=== PATIENT | male | born 1995 | race African-American/Black ===

== ENCOUNTER 2020-08-05 09:02 | Inpatient (IN) | payer MEDICAID, SELFPAY ==
[~2020-08-05] VITALS: Ht 180.3 cm; Wt 118.0 kg
[2020-08-05 09:32] LABS: BASO % 0.3 % (0.0-1.0); EOS # 0.1 10^3/uL (0.0-0.5); EOS % 0.9 % (0.0-3.0); HEMATOCRIT 38.5 % (42.0-52.0); LYMPH # 1.6 10^3/uL (1.5-5.0); LYMPH % 23.7 % (24.0-44.0); MEAN CORPUSCULAR HGB CONC 33.8 g/dl (32.0-36.5); MEAN CORPUSCULAR VOLUME 88.9 fl (80.0-96.0); MONO # 0.4 10^3/uL (0.0-0.8); MONO % 6.2 % (0.0-5.0); NEUTROPHILS # 4.6 10^3/uL (1.5-8.5); NEUTROPHILS % 68.6 % (36.0-66.0); PLATELET COUNT, AUTOMATED 296 10^3/uL (150-450); RED BLOOD COUNT 4.33 10^6/uL (4.30-6.10); WHITE BLOOD COUNT 6.7 10^3/uL (4.0-10.0)
[2020-08-05 09:56] LABS: AMPHETAMINES LEVEL URINE NEGATIVE (NEGATIVE); BARBITURATES URINE NEGATIVE (NEGATIVE); BENZODIAZEPINES URINE NEGATIVE (NEGATIVE); CANNABINOIDS URINE NEGATIVE (NEGATIVE); COCAINE METABOLITE URINE NEGATIVE (NEGATIVE); METHADONE URINE NEGATIVE (NEGATIVE); OPIATES URINE NEGATIVE (NEGATIVE); PHENCYCLIDINE URINE NEGATIVE (NEGATIVE)
[2020-08-05 10:03] LABS: ACETAMINOPHEN LEVEL < 2.0 UG/ML (10.0-30.0); ALBUMIN 3.8 GM/DL (3.2-5.2); ALT/SGPT 33 U/L (12-78); BILIRUBIN,DIRECT < 0.1 MG/DL (0.0-0.2); BILIRUBIN,TOTAL 0.2 MG/DL (0.2-1.0); BLOOD UREA NITROGEN 12 MG/DL (7-18); CALCIUM LEVEL 8.7 MG/DL (8.5-10.1); CARBON DIOXIDE LEVEL 29 MEQ/L (21-32); CHLORIDE LEVEL 106 MEQ/L (98-107); CREATININE FOR GFR 0.95 MG/DL (0.70-1.30); ETHYL ALCOHOL (ETHANOL) 0.003 % (0.000-0.010); GLOMERULAR FILTRATION RATE > 60.0 (>60); GLUCOSE, FASTING 96 MG/DL (70-100); POTASSIUM SERUM 3.9 MEQ/L (3.5-5.1); SALICYLATE LEVEL < 1.7 MG/DL (5.0-30.0); SODIUM LEVEL 143 MEQ/L (136-145); TOTAL PROTEIN 7.1 GM/DL (6.4-8.2)
[2020-08-05 14:13] LABS: RSV AMPLIFICATION NEGATIVE (NEGATIVE)
[2020-08-05] MEDS ORDERED: MOM 30ML SUSPENSION UDC PO PRN (14:45)
[2020-08-05] MEDS ORDERED: ACETAMINOPHEN TAB 650MG DOSE (2X325MG) PO PRN (14:45)
[2020-08-05] MEDS ORDERED: MAALOX 30 ML SUSP *UDC PO PRN (14:45)
[2020-08-05] MEDS ORDERED: OLANZapine ORAL DISINTEGRATING TAB 5MG PO PRN (15:00)
--- OUTSIDE RECORDS SUMMARY | 2020-08-05 15:08 | CCD | Continuity of Care Document ---
Author Author Kayode PEDROZA [facility] Organization Unknown Address [address] [place] [address] Phone [phone] Problems Description No Information Available Social History Type Date Description Comments Sex Unknown Allergies, Adverse Reactions, Alerts Description No Information Available Medications Description No Information Available Immunizations Description No Information Available Vital Signs Description No Information Available Results Description No Information Available Procedures Date Code Description Status 06/23/2020 82737 Psychiatric Diagnostic Evaluatio n Completed Medical Devices Description No Information Available Encounters Description No Information Available Assessments Date Code Description Provider 06/23/2020 F20.9 Schizophrenia, unspecified Jacqueline Regan [facility] Plan of Treatment No Information Available Functional Status Description No Information Available Mental Status Description No Information Available Referrals Description No Information Available
--- OUTSIDE RECORDS SUMMARY | 2020-08-05 15:08 | CCD | Continuity of Care Document ---
Author Author Kayode ARVIZU PAJovanniC Organization Unknown Address [facility] [address] [place] [address] Phone [phone] Problems Description No Information Available Social History Type Date Description Comments Sex Unknown Allergies, Adverse Reactions, Alerts Active Allergies Reaction Severity Comments Date NKDA 07/05/2020 Environmental 07/05/2020 NKFA 07/05/2020 Medications Active Medications SIG Qnty Indications Ordering Provide r Date Invega Sustenna 234mg/1.5ML Yesi Unknown 07/11/2019 Immunizations Description No Information Available Vital Signs Date Vital Result Comment 07/05/2020 2:10pm BP Systolic Sitting 120 mmHg BP Diastolic Sitting 79 mmHg Heart Rate 75 /min Body Temperature 98.7 F Oral Respiratory Rate 18 /min O2 % BldC Oximetry 98 % Weight 267.00 lb Weight 121.111 kg Height 74 inches 6'2" BMI (Body Mass Index) 34.3 kg/m2 BSA (Body Surface Area) 2.46 m2 Results Test Acquired Date Facility Test Result H/L Range Note [facility] Toxassure Select 13 07/05/2020 [facility] Summary Report (Summary) FINAL 1, 2 PDF . 1 {DIAGNOSIS: F20.9~{MEDICATI ONS/DECLARED: INVEGA~{PRESCRIPTION INFO:~{PRESCRIPTION INFO: 2 TOXASSURE SELECT 13 (MW) Test Result Flag Units NO DRUGS DETECTED. Test Result Flag Units Ref Range Creatinine 249 mg/dL >=20 Declared Medications: The flagging and interpretation on this report are based on the following declared medications. Unexpected results may arise from inaccuracies in the declared medications. Note: The testing scope of this panel does not include following reported medications: Paliperidone (Invega) For clinical consultation, please call . Procedures Date Code Description Status 06/24/2020 Psychiatric Diagnostic Evaluatio n Completed 06/23/2020 Psychiatric Diagnostic Evaluatio n Completed Medical Devices Description No Information Available Encounters Description No Information Available Assessments Date Code Description Provider 07/05/2020 F20.9 Schizophrenia, unspecified Lesa corbin, RN 06/24/2020 F20.9 Schizophrenia, unspecified Jacqueline Regan, LM 06/23/2020 F20.9 Schizophrenia, unspecified RONALDO Clancy Plan of Treatment Future Appointment(s):* 07/29/2020 9:00 am - Steve Arvizu PA-C at [facility] Functional Status Description No Information Available Mental Status Description No Information Available Referrals Description No Information Available
--- OUTSIDE RECORDS SUMMARY | 2020-08-05 15:08 | CCD ---
Author Author [facility] Organization [facility] Address Unknown Phone Unavailable Care Team Providers Care Needle Leader Name Role Phone SMITH, J KEO PA Unavailable Unavailable SMITH, J KEO PA Unavailable Unavailable SMITH, J KEO PA Unavailable Unavailable SMITH, J KEO PA Unavailable Unavailable SMITH, J KEO PA Unavailable Unavailable SMITH, J KEO PA Unavailable Unavailable SMITH, J KEO PA Unavailable Unavailable SMITH, J KEO PA Unavailable Unavailable SMITH, J KEO PA Unavailable Unavailable SMITH, J KEO PA Unavailable Unavailable SMITH, J KEO PA Unavailable Unavailable SMITH, J KEO PA Unavailable Unavailable SMITH, J KEO PA Unavailable Unavailable SMITH, J KEO PA Unavailable Unavailable SMITH, J KEO PA Unavailable Unavailable SMITH, J KEO PA Unavailable Unavailable SMITH, J KEO PA Unavailable Unavailable SMITH, J KEO PA Unavailable Unavailable SMITH, J KEO PA Unavailable Unavailable SMITH, J KEO PA Unavailable Unavailable SMITH, J KEO PA Unavailable Unavailable SMITH, J KEO PA Unavailable Unavailable SMITH, J EKO PA Unavailable Unavailable SMITH, J KEO PA Unavailable Unavailable SMITH, J KEO PA Unavailable Unavailable SMITH, J KEO PA Unavailable Unavailable SMITH, J KEO PA Unavailable Unavailable ERIN PEDROZA Unavailable Unavailable Re-disclosure Warning The records that you are about to access may contain information from federally-assisted alcohol or drug abuse programs. If such information is present, then the following federally mandated warning applies: This information has been disclosed to you from records protected by federal confidentiality rules (42 CFR part 2). The federal rules prohibit you from making any further disclosure of this information unless further disclosure is expressly permitted by the written consent of the person to whom it pertains or as otherwise permitted by 42 CFR part 2. A general authorization for the release of medical or other information is NOT sufficient for this purpose. The Federal rules restrict any use of the information to criminally investigate or prosecute any alcohol or drug abuse patient.The records that you are about to access may contain highly sensitive health information, the redisclosure of which is protected by Article 27-F of the [facility] Public Health law. If you continue you may have access to information: Regarding HIV / AIDS; Provided by facilities licensed or operated by the [facility] Office of Mental Health; or Provided by the [facility] Office for People With Developmental Disabilities. If such information is present, then the following [facility] mandated warning applies: This information has been disclosed to you from confidential records which are protected by state law. State law prohibits you from making any further disclosure of this information without the specific written consent of the person to whom it pertains, or as otherwise permitted by law. Any unauthorized further disclosure in violation of state law may result in a fine or senior care sentence or both. A general authorization for the release of medical or other information is NOT sufficient authorization for further disc losure. Encounters Encounter Providers Location Date Indications Data Source(s ) Outpatient Attender: KEO FLORES 07/20 08:36:00 AM [facility] - 07/20/2020 08:36:00 AM [facility] Outpatient Attender: KEO FLORES 07/05 02:01:00 PM [facility] 07/05/2020 02:01:00 PM [facility] Outpatient Attender: ERIN PEDROZA 06/24/20 08:09:00 AM [facility] - 06/24/2020 08:09:00 AM [facility] Medications Medication Brand Name Start Date Product Form Dose Route Admi nistrative Instructions Pharmacy Instructions Status Indications Reaction Description Data Source(s) 1.5 ML paliperidone palmitate 156 MG/ML Prefilled Syri nge [Invega] Invega Sustenna 07/11/2019 12:00:00 AM EST active [facility] ([facility]) Insurance Providers Payer name Policy type / Coverage type Policy ID Covered republican ID Covered republican's relationship to sommers Policy Sommers Plan Information SELF PAY ONLY [id number] Problems, Conditions, and Diagnoses Code Display Name Description Problem Type Effective Dates Data Source(s) F209 Schizophrenia, unspecified Schizophrenia, unspecified Diagnosis 07/20/2020 08:36:00 AM [facility] Surgeries/Procedures Procedure Description Date Indications Data Source(s) Psychiatric Diag Eval W/Medical Service 07/20/2020 12: 00:00 AM EST [facility] ([facility]) Psychiatric Diagnostic Evaluation 06/24/2020 12:00:00 AM EST [facility] ([facility]) Psychiatric Diagnostic Evaluation 06/23/2020 12:00:00 AM EST [facility] ([facility]) Results ID Date Data Source [id number] 07/05/2020 02:49:00 PM EST [facility] ([facility]) Name Value Range Interpretation Code Description Data Tahira rce(s) Supporting Document(s) PDF Laboratory test result [facility] ([facility]) {DIAGNOSIS: F20.9~{MEDICATIONS/DECLARED : INVEGA~{PRESCRIPTION INFO:~{PRESCRIPTION INFO: Laboratory test finding (navigational concept) Laboratory test result [facility] ([facility]) {DIAGNOSIS: F20.9~{MEDICATIONS/DECLARED : INVEGA~{PRESCRIPTION INFO:~{PRESCRIPTION INFO: ID Date Data Source [id number] 07/12/2020 08:01:00 AM [facility] Name Value Range Interpretation Code Description Data Tahira rce(s) Supporting Document(s) Drugs identified in Urine FINAL [facility] TOXASSURE SELECT 13 (MW) Test Result Flag Units NO DRUGS DETECTED. Jolanta t Result Flag Units Ref Range Creatinine 249 mg/dL > =20 Declared Medications: The flagging and interpretation on this report are based on the following declared medications. Unexpected results may arise from inaccuracies in the declared medications. Note: The testing scope of this panel does not include following reported medications: Paliperidone (Invega) For clinical consultation, please call . Report . [facility] Procedure Vital Signs ID Date Data Source UNK Name Value Range Interpretation Code Description Data Source(s) Body surface area Derived from formula 2.46 m2 2.46 m2 [facility] ([facility]) Body mass index (BMI) [Ratio] 34.3 kg/m2 34.3 k g/m2 [facility] ([facility]) Body height 74 [in_i] 74 [in_i] [facility] ([facility]) 6'2" Body weight 121.111 kg 121.111 kg [facility] ([facility]) Body weight 267.00 [lb_av] 267.00 [lb_av] [facility] T ([facility]) Oxygen saturation in Arterial blood by Pulse oximetry 98 % 98 % [facility] ([facility]) Respiratory rate 18 /min 18 /min [facility] ( [facility]) Body temperature 98.7 [degF] 98.7 [degF] [facility] ([facility]) Oral Heart rate 75 /min 75 /min [facility] ([facility]) Diastolic blood pressure--sitting 79 mm[Hg] 79 mm[Hg] [facility] ([facility]) Systolic blood pressure--sitting 120 mm[Hg] 120 mm[Hg] [facility] ([facility])
--- OUTSIDE RECORDS SUMMARY | 2020-08-05 15:08 | CCD | Continuity of Care Document ---
Author Author Kayode ARVIZU PAJovanniC Organization Unknown Address [facility] [address] [place] [address] Phone [phone] Problems Description No Information Available Social History Type Date Description Comments Sex Unknown Allergies, Adverse Reactions, Alerts Active Allergies Reaction Severity Comments Date NKDA 07/05/2020 Environmental 07/05/2020 NKFA 07/05/2020 Medications Active Medications SIG Qnty Indications Ordering Provide r Date Invega Sustenna 234mg/1.5ML Yesi 1 Inj Monthly 1.500ml Zay Molina MD 07/11/2019 Immunizations Description No Information Available Vital [...] call . Procedures Date Code Description Status 07/20/2020 21381 Psychiatric Diag Eval W/Medical Service Completed 06/24/202059167 Psychiatric Diagnostic Evaluatio n Completed 06/23/202070945 Psychiatric Diagnostic Evaluatio n Completed Medical Devices Description No Information Available Encounters Description No Information Available Assessments Date Code Description Provider 07/20/2020 F20.9 Schizophrenia, unspecified Steve Arvizu PA-C 07/05/2020 F20.9 Schizophrenia, unspecified Lesa corbin RN 06/24/2020 F20.9 Schizophrenia, unspecified Jacqueline Regan [facility] 06/23/2020 F20.9 Schizophrenia, unspecified Jacqueline Regan [facility] Plan of Treatment Future Appointment(s):* 07/21/2020 11:00 am - Lesa Gooden RN at [facility] * 08/17/2020 8:40 am - Steve Arvizu PA-C at [facility] Functional Status Description No Information Available Mental Status Description No Information Available Referrals Description No Information Available
--- OUTSIDE RECORDS SUMMARY | 2020-08-05 15:08 | CCD | Continuity of Care Document ---
Author Author Kayode SALOMON RN Organization Unknown Address [address] [place] [address] Phone [phone] Problems Description No Information Available Social History [...] BSA (Body Surface Area) 2.46 m2 Results Description No Information Available Procedures Date Code Description Status 06/24/2020 95880 Psychiatric Diagnostic Evaluatio n Completed 06/23/2020 76399 Psychiatric Diagnostic Evaluatio n Completed Medical Devices Description No Information Available Encounters Description No Information Available Assessments Date Code Description Provider 06/24/2020 F20.9 Schizophrenia, unspecified RONALDO Clancy 06/23/2020 F20.9 Schizophrenia, unspecified RONALDO Clancy Plan of Treatment Future Appointment(s):* 07/29/2020 9:00 am - Steve Arvizu PA-C at [facility] Functional Status Description No Information Available Mental Status Description No Information Available Referrals Description No Information Available
[2020-08-05 16:29] VITALS: BP 127/62
[2020-08-05] MEDS: PALIPERIDONE 3 MG ER TAB (INVEGA) PO SCH (21:41)
--- NOTE | 2020-08-06 13:58 | MHHPEPDOC ---
General Date Of Admission: Aug 05, 2020 Legal Status: 9.39 Chief Complaint "I don't know why I am here." History of Present Illness HISTORY OF THE PRESENT ILLNESS: Patient is a 25 -year-old , male, who presented to the ED by EMS after he was found wandering around [email or web address] driveway. He appeared cold and confused. Patient was unable to give the ED much information, he was confused and observed with poor concentration. PER ED Report: Pt was picked up and previously medically cleared. When asked how long he was outside wandering, pt unable to recall. Pt reports also not knowing why he was outside. Pt stated he has been in [place] for approximately 6 weeks. Previously located in [place], specifics are unknown. Pt was receiving Invega Sustenna injections in [place] but reportedly has not received any since getting to [place]. Pt reports no changes to appetite, but poor sleep. No history of smoking or drinking reported, nor any family hx. Pt reports no SI/HI and denies AH/VH, however responses to internal stimuli are suspected. Pt answered questions slowly and was vague with repsonses. At times, appears to respond internally and will contradict himself while answering questions. Pt is loose in associations and expresses belief that he is being controlled by an outside source, referencing "mind control" multiple times. Pt reported being diagnosed with schizophrenia, says "something's not right in (his) head", however expresses feeling that it's "something else" rather than schizophrenia. Additional collateral information obtained from Maykel Zacarias (cousin and stated guardian, although guardianship has not been confirmed), who reports the following: Pt and cousin have been in [place] since April, cousin is active duty . Pt is originally from [place]. Pt was diagnosed schizoaffective approximately 10 years ago and has [facility] [place] [facility] few times for violent crimes" however cousin "did not want to get into that." When asked how pt has been recently, it was reported that pt feels like a burden to cousin and "can sense that (cousin) is pretty stressed out." It is reported that pt has been increasingly anxious about his "lack of independence" and "being a burden." Cousin referenced a conversation they had about a week ago, in which cousin mentioned his stress about pt to pt directly, noting that pt's anxiety has been increasing since then. Cousin speculates that pt's preception that he is a "burden" is why pt left today and wandered off. In today's interview, patient is awakened for the interview. He states his name, age and date of but cannot elaborate on the reasons to his admission, why he was wandering and who he currently lives with. Patient states "I don't know to 99% of the psychiatric evaluation." He is able to verbalize depression symptoms, anxiety, suicidal or homicidal thinking, auditory or visual hallucinations. Patient is completely blocked, but is away of where his room is because when he left the interview he was able to return to his room without direction. Psychiatric Review of Systems Depression (2 or more weeks): other (Patient cannot verbalize any symptoms) Karen (4 or more days of): denies (States "I don't know"), other (Not observed with any manic or bipolar features) Psychosis: paranoia PTSD: other (possible PTSD, he reported to RN that he had significant childhood trauma) Anxiety: other (unable to determine, patient states "I don't know" but he appears anxious and nervous) Past Psychiatric History Per ED Report Pt reported being diagnosed with schizophrenia, says "something's not right in (his) head" Previously located in [place], specifics are unknown. Pt was receiving Invega Sustenna injections in [place] but reportedly has not received any since getting to [place] Pt and cousin have been in [place] since April, cousin is active duty . Pt is originally from [place]. Pt was diagnosed schizoaffective approximately 10 years ago and has [place] [facility] few times for [facility] crimes" however cousin "did not want to get into that." Unable to obtain Information below Previous Psychiatric Diagnosis: Schizophrenia Previous Psychiatric Admissions: In [place] Suicide Attempts: Unknown Psychiatric Follow-up: Patient moved here from [place] 6-7 weeks ago Psychiatric medications: Invega Sustenna Past Medical History Medical Problems Unable to obtain Head Injury: No Seizures: No Hospitalizations: Yes Family Medical/Psychiatric HX Medical Problems Unable to Obtain Psychiatric Disorders: No Addiction: No Suicide Attemps/Completions: No Addiction History other (patient reports Cannabis, ETOH in the past) Social History Unable to obtain the information at this time 08/06/20 at 1415 Childhood: Lived with his mother and Sister growing up, Abuse/Trauma: Denies Current Living Situation: Currently living with his Cousin who is reportedly his guardian, during patient's interview, pt stated that he went in front of varnish filterer who ruled that his cousin was assigned to be his guardian Education: Did not finish high school Employment: Not currently employed, but has a past work history Social Support: Cousin and Family/Mom Legal: yes, but can't remember charges Marital: Single Mental Status Examination General Appearance: unkempt, disheveled, appears stated age, hospital scubs/clothing Build: tall Demeanor: withdrawn, guarded Eye Contact: poor Activity: slowed Behavior: withdrawn Speech: low in volume, impoverished Mood: anxious Affect: flat Thought Process: blocked Thought Content (Delusions): other (unable to obtain patient states "I don't know") Thought Content (Other): guarded Thought Content (Aggressive): none reported Perception (Hallucinations): none reported Perception (Other): none reported Cognition (Impairment of): memory, attention/concentration Cognition(Intelligence Est.): other (unable to determine) Oriented: Awake, Alert Insight: other (impaired) Judgment: Other (impaired) Psychosis: Abstract Thinking Diagnoses Unspecified Psychotic Disorder Per patient's history Schizophrenia Per cousin's history Schizoaffective Intellectual Disability A-FIB/CHADSVASC A-FIB History Current/History of A-Fib/PAF?: No Current PO Anticoag Therapy: No Age/Risk Factor Scoring CHADSVASC: CHADSVASC Response (Comments) Value Age Risk Factor Age < 65 years old 0 Gender Risk Factor Male 0 Hx of CHF No 0 Hx of HTN No 0 Hx of Stroke/TIA/or VTE No 0 Hx of Diabetes No 0 Hx of Vascular Disease No 0 Total 0 Assessment Patient is a 25 year old male who was brought to [facility] after he was found confused and wandering in someone's driveway. Patient is blocked during the interview and it is difficult to obtain any significant history and most of the information within this psychiatric evaluation is from the ED report. According the ED the patient had reported that he had been taking Invega Sustenna and he has been in [facility] for 6 weeks. We will start patient on Risperdal and initiate Invega Sustenna injection on Sunday and Sunday, P yueient has not signed ROIs. Patient appears mildly paranoid, his most apparent psychiatric symptom at this time is that he is extremely blocked. Initial Treatment Plan 1. Patient was admitted on a [9.39] status. 2. Complete history was obtained. 3. With patients permission, family will be contacted and database will be expanded. 4. Patients medication regimen will be reviewed and changed accordingly. 5. Patient will be provided with protected environment. 6. Patient will be treated with individual, group, and milieu therapies. 7. Patient will receive supportive psych-education. 8. Discharge planning will commence immediately. 9. Outpatient follow-up treatment will be strongly recommended. 10. The initial treatment plan will focus initially on: * Depression. * altered thoughts ESTIMATED LENGTH OF STAY: 5-7 DAYS. TIME SPENT COUNSELING AND COORDINATING INITIAL CARE: 50 minutes. Vital Signs Vital Signs Date Time Temp Pulse Resp B/P (MAP) Pulse Ox O2 Delivery O2 Flow Rate FiO2 08/05/20 16:29 97.8 64 14 127/62 (83) 100 Room Air Medications Scheduled Paliperidone Palmitate (Invega Sustenna) 234 Mg/1.5 Ml Syringe, 234 MG IM QMONTH for Antipsychotic Due September 08, 2020 Allergies Coded Allergies: POLLEN (Verified Allergy, Unknown, 08/05/20) FAYE PATIÑO NP Aug 06, 2020 13:58
--- NOTE | 2020-08-06 17:05 | HPEPDOC ---
[facility] Medical History & Physical Date of Admission Aug 05, 2020 Date of Service: Aug 06, 2020 History and Physical Chief complaint: Presented to the emergency room with delusional thoughts History of present illness: Patient is a 25-year-old male with no significant past medical history who was presented to the emergency room with delusional thoughts. He was admitted to the inpatient mental health unit under the care of psychiatry. Hospitalist services consulted for medical screening evaluation. Currently patient denies any headache, nausea, vomiting, chest pain, shortness of breath, palpitations, abdominal pain, constipation, diarrhea, or urinary discomfort. Has not experience any recent fevers or chills. Reports no changes in his appetite, but has reported some weight gain. Past Medical History: No significant past medical history Past Surgical History: No significant past surgical history Allergies: See below Medications: See below Family History: - No history of malignancies Social History: - Denies the use of tobacco or illicit drugs; patient reports that he drinks beer occasionally - Denies recent travel or sick contacts - Lives with cousin - Occupation; on [employer] Review of Systems: 10 point review of systems complete, all negative otherwise stated in HPI Physical exam: - Vitals: BP [127/62], HR [64], RR [14], Sat [100%RA], Temp [97.8F] - General: Lying in bed, Speaking in full sentences, AAOx3 - HEENT: NC, AT, PERRLA - CVS: RRR, +S1S2 - Lungs: Fair air entry bilaterally, No appreciable wheezing / rales / rhonchi - Abdomen: Soft, Non-distended, Non-tender - Extremities: No lower extremity edema, No calf tenderness - Neuro: No focal motor or sensory deficit - Skin: No visible rashes Labs: See below Imaging: See below EKG: See below Assessment and Plan: Delusional thoughts - Patient was admitted to the inpatient mental health unit under the care of psychiatry - Currently being managed by psychiatry No significant past medical history DVT prophylaxis - Will c/w early ambulation Female jordan man was present throughout the duration of this history and physical examination Thank you for this consultation. Hospitalist service will now sign off. Please reconsult as needed Vital Signs Vital Signs Date Time Temp Pulse Resp B/P (MAP) Pulse Ox O2 Delivery O2 Flow Rate FiO2 08/05/20 16:29 97.8 64 14 127/62 (83) 100 Room Air Home Medications Unable to Obtain Active Prescriptions or Reported Meds Allergies Coded Allergies: POLLEN (Verified Allergy, Unknown, 08/05/20) YOGI NELSON MD Aug 06, 2020 17:05
[2020-08-06 19:11] VITALS: BP 128/66
[2020-08-06] MEDS: PALIPERIDONE 3 MG ER TAB (INVEGA) PO SCH (21:32)
[2020-08-06] MEDS: traZODone 50 MG TAB PO PRN (21:32)
[2020-08-07 06:35] VITALS: BP 151/88
[2020-08-07 18:31] VITALS: BP 129/66
[2020-08-07] MEDS: traZODone 50 MG TAB PO PRN (20:56)
[2020-08-07] MEDS: PALIPERIDONE 3 MG ER TAB (INVEGA) PO SCH (20:56)
[2020-08-08 06:32] VITALS: BP 136/81
[2020-08-08] MEDS ORDERED: PALIPERIDONE PALMITATE 234MG/1.5ML INJ (INVEGA)(FREE PSY INPT ONLY) IM ONE (11:00)
[2020-08-08 18:37] VITALS: BP 142/86
[2020-08-08] MEDS: PALIPERIDONE 3 MG ER TAB (INVEGA) PO SCH (21:24)
[2020-08-09 06:53] VITALS: BP 113/56
--- NOTE | 2020-08-09 15:36 | MHIPNPDOC ---
[facility] Progress Note Progress Note DATE OF SERVICE: 08/09/20 HISTORY: Patient is a 25 -year-old , male, who presented to the ED by EMS after he was found wandering around someone's driveway. He appeared cold and confused. Patient was unable to give the ED much information, he was confused and observed with poor concentration. PER ED Report: Pt was picked up and previously medically cleared. When asked how long he was outside wandering, pt unable to recall. Pt reports also not knowing why he was outside. Pt stated he has been in [place] for approximately 6 weeks. Previously located in [place], specifics are unknown. Pt was receiving Invega Sustenna injections in [place] but reportedly has not received any since getting to [place]. Pt reports no changes to appetite, but poor sleep. No history of smoking or drinking reported, nor any family hx. Pt reports no SI/HI and denies AH/VH, however responses to internal stimuli are suspected. Pt answered questions slo wly and was vague with repsonses. At times, appears to respond internally and will contradict himself while answering questions. Pt is loose in associations and expresses belief that he is being controlled by an outside source, referencing "mind control" multiple times. Pt reported being diagnosed with schizophrenia, says "something's not right in (his) head", however expresses fee ling that it's "something else" rather than schizophrenia. Additional collateral information obtained from Maykel Zacarias (cousin and stated guardian, although guardianship has not been confirmed), who reports the following: Pt and cousin have been in [place] since April, cousin is active duty . Pt is originally from [place]. Pt was diagnosed schizoaffective approximately 10 years ago and has been to [facility] "a few times for violent crimes" however cousin "did not want to get into that." When asked how pt has been recently, it was reported that pt feels like a burden to cousin and "can sense that (cousin) is pretty stressed out." It is reported that pt has been increasingly anxious about his "lack of independence" and "being a burden." Cousin referenced a conversation they had about a week ago, in which cousin mentioned his stress about pt to pt directly, noting that pt's anxiety has been increasing since then. Cousin speculates that pt's preception that he is a "burden" is why pt left today and wandered off. VITAL SIGNS: See below. CURRENT MEDICATIONS: See below. MENTAL STATUS EXAMINATION: Patient is a 25 -year-old , male, who presented to the ED by EMS after he was found wandering around someone's driveway. He appeared cold and confused. Speech: Is fluid, conversant, normal rate, tone and volume Language skills are intact Thought processes including: linear and goal oriented Thought content: denies depression and anxiety. Denies suicidal/homicidal ideation, planning or intent. Abstract reasoning, and computation: fair Description of associations: denies, none observed Description of abnormal or psychotic thoughts: denies, none observed. Judgment: fair Insight: fair Orientation: alert and oriented to person, place, time and situation Recent and remote memory: intact Attention span and concentration: good Language: expansive Fund of knowledge: average Mood: Euthymic Mood Affect: reactive DIAGNOSES: 1. Schizophrenia Disorder ASSESSMENT: Patient states that he is admitted to the hospital because he was frustrated with his Cousin and the amount of work that he felt he was responsible for. He stated that he "walked away" Patient denies SI/HI, AH/VH, depression or anxiety. He is seen in the milieu, social with peers and attending groups. He was given his Invega Sustenna booster of 156 mg IM yesterday. He is alert and oriented to person, place time and situation. 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 Per his Cousin, he feels that patient overheard some of his statement, walked out of the home feeling that he was a "burden" to his family. At this time, patient does not exhibit any abnormal psychiatric symptoms : no yamini, no psychosis, no delusions, no bizarre thinking, no obsessions, no paranoia, and no ruminations. Patient appears to be stable and we will plan for his discharge in a day or two. MANAGEMENT PLAN: Continue all medications, Risperdal oral was discontinued. Discharge on Sunday or Sunday when we have safe discharge plan and appropriate appointments for outpatient providers. TIME SPENT: 25 minutes. Vital Signs Vital Signs Date Time Temp Pulse Resp B/P (MAP) Pulse Ox O2 Delivery O2 Flow Rate FiO2 08/09/20 06:53 98.0 62 15 113/56 (75) 96 Room Air Current Medications Current Medications Medications (Trade) Dose Ordered Sig/James Route PRN Reason Start Time Stop Time Status Last Admin Dose Admin Acetaminophen (Tylenol Tab) 650 mg Q6HP PRN PO HEADACHE or DISCOMFORT 08/05/20 14:45 Al Hydrox/Mg Hydrox/Simethicone (Mylanta) 30 ml Q4HP PRN PO HEARTBURN/INDIGESTION 08/05/20 14:45 Home Med (Med Rec Complete!) ASDIRECTED XX 08/05/20 11:30 08/05/20 11:18 DC Magnesium Hydroxide (Milk Of Magnesia) 30 ml DAILYPRN PRN PO CONSTIPATION 08/05/20 14:45 Olanzapine (ZyPREXA ZYDIS) 5 mg Q6HP PRN PO ANXIETY/AGITATION 08/05/20 15:00 Paliperidone (Invega) 3 mg QHS PO 08/05/20 21:00 08/08/20 21:24 Trazodone HCl (Desyrel) 50 mg QHSP PRN PO INSOMNIA 08/05/20 14:45 08/07/20 20:56 Allergies Coded Allergies: POLLEN (Verified Allergy, Unknown, 08/05/20) FAYE PATIÑO NP Aug 09, 2020 15:36
[2020-08-09 16:50] VITALS: BP 132/75
[2020-08-10 06:38] VITALS: BP 110/65
--- NOTE | 2020-08-10 09:26 | MHIPN ---
[facility] PROGRESS NOTE DATE: 08/07/2020 This is a video assessment, he is seen in the presence of the staff, we are doing this because of the pandemic. VITAL SIGNS: Blood pressure 151/88, pulse 75, temperature 97.6. CHIEF COMPLAINT: Says he is doing okay. SUBJECTIVE: He is seen for followup, indicates is doing okay, but does not offer much other than that. Says has been doing okay, says he slept well. Says was doing okay when he was in [place], before he came to [place], and says he took his injection of the Invega a few weeks ago, over there, in [place]. MENTAL STATUS EXAMINATION: Neat, cooperative, but appears somewhat disinterested, no agitation, no psychomotor retardation, displays poverty of speech, answers questions briefly, logically, affect is restricted in range. Denies any suicidal thoughts or intents, no homicidal ideas or intents, unclear if there are any delusions at present, none overtly elicited, but he does not offer much in terms of speech or thought either. Judgment and insight remain compromised. ASSESSMENT: Schizophrenia versus schizoaffective disorder. PLAN: Continue current care, observations, he has been started on paliperidone (Invega), he will be put back on Invega intramuscular, and receives his first dose tomorrow. Meanwhile, will look at encouraging him to participate in activities in the unit. Further recommendations will be made depending on the clinical picture.
--- NOTE | 2020-08-10 11:35 | MHIPNPDOC ---
[facility] Progress Note Progress Note DATE OF SERVICE: 08/10/20 HISTORY: Patient is a 25 -year-old , male, who presented to the ED by EMS after he was found wandering around someone's driveway. He appeared cold and confused. Patient was unable to give the ED much information, he was confused and observed with poor concentration. PER ED Report: Pt was picked up and previously medically cleared. When asked how long he was outside wandering, pt unable to recall. Pt reports also not knowing why he was outside. Pt stated he has been in [place] for approximately 6 weeks. Previously located in [place], specifics are unknown. Pt was receiving Invega Sustenna injections in [place] but reportedly has not received any since getting to [place]. Pt reports no changes to appetite, but poor sleep. No history of smoking or drinking reported, nor any family hx. Pt reports no SI/HI and denies AH/VH, however responses to internal stimuli are suspected. Pt answered questions slo wly and was vague with repsonses. At times, appears to respond internally and will contradict himself while answering questions. Pt is loose in associations and expresses belief that he is being controlled by an outside source, referencing "mind control" multiple times. Pt reported being diagnosed with schizophrenia, says "something's not right in (his) head", however expresses fee ling that it's "something else" rather than schizophrenia. Additional collateral information obtained from Maykel Zacarias (cousin and stated guardian, although guardianship has not been confirmed), who reports the following: Pt and cousin have been in [place] since April, cousin is active duty . Pt is originally from [place]. Pt was diagnosed schizoaffective approximately 10 years ago and has been to assisted "a few times for violent crimes" however cousin "did not want to get into that." When asked how pt has been recently, it was reported that pt feels like a burden to cousin and "can sense that (cousin) is pretty stressed out." It is reported that pt has been increasingly anxious about his "lack of independence" and "being a burden." Cousin referenced a conversation they had about a week ago, in which cousin mentioned his stress about pt to pt directly, noting that pt's anxiety has been increasing since then. Cousin speculates that pt's preception that he is a "burden" is why pt left today and wandered off. VITAL SIGNS: See below. CURRENT MEDICATIONS: See below. MENTAL STATUS EXAMINATION: Patient is a 25 -year-old , male, who presented to the ED by EMS after he was found wandering around someone's driveway. He appeared cold and confused. Speech: Is fluid, conversant, normal rate, tone and volume Language skills are intact Thought processes including: linear and goal oriented Thought content: denies depression and anxiety. Denies suicidal/homicidal ideation, planning or intent. Abstract reasoning, and computation: fair Description of associations: denies, none observed Description of abnormal or psychotic thoughts: denies, none observed. Judgment: fair Insight: fair Orientation: alert and oriented to person, place, time and situation Recent and remote memory: intact Attention span and concentration: good Language: expansive Fund of knowledge: average Mood: Euthymic Mood Affect: reactive DIAGNOSES: 1. Schizophrenia Disorder ASSESSMENT: In today's interview, patient is alert and oriented, pts dress is appropriate. Hygiene and grooming is fair. Smiles on approach and is pleasant and engaged in the interview. He appears to be brighter in mood and affect. Denies depression and anxiety. Denies suicidal and homicidal ideation, planning or intent. Denies and is not observed with yamini, psychotic symptoms of delusions, bizarre thinking, obsessions, paranoia, ruminations illogical thoughts, flight of ideas or having poor insight and judgement. Patient has normal mentation, declines further hospitalization and would like to be discharged. We agree that he can be discharged tomorrow. MANAGEMENT PLAN: Continue all medications, Risperdal oral was discontinued. Discharge on Sunday08/11/20 TIME SPENT: 25 minutes. Vital Signs Vital Signs Date Time Temp Pulse Resp B/P (MAP) Pulse Ox O2 Delivery O2 Flow Rate FiO2 08/10/20 08:40 Room Air 08/10/20 06:38 98.1 57 14 110/65 (80) 97 Current Medications Current Medications Medications (Trade) Dose Ordered Sig/James Route PRN Reason Start Time Stop Time Status Last Admin Dose Admin Acetaminophen (Tylenol Tab) 650 mg Q6HP PRN PO HEADACHE or DISCOMFORT 08/05/20 14:45 Al Hydrox/Mg Hydrox/Simethicone (Mylanta) 30 ml Q4HP PRN PO HEARTBURN/INDIGESTION 08/05/20 14:45 Home Med (Med Rec Complete!) ASDIRECTED XX 08/05/20 11:30 08/05/20 11:18 DC Magnesium Hydroxide (Milk Of Magnesia) 30 ml DAILYPRN PRN PO CONSTIPATION 08/05/20 14:45 Olanzapine (ZyPREXA ZYDIS) 5 mg Q6HP PRN PO ANXIETY/AGITATION 08/05/20 15:00 Paliperidone (Invega) 3 mg QHS PO 08/05/20 21:00 08/09/20 15:37 DC 08/08/20 21:24 Trazodone HCl (Desyrel) 50 mg QHSP PRN PO INSOMNIA 08/05/20 14:45 08/07/20 20:56 Allergies Coded Allergies: POLLEN (Verified Allergy, Unknown, 08/05/20) FAYE PATIÑO NP Aug 10, 2020 11:35
[2020-08-10 16:11] VITALS: BP 134/75
--- NOTE | 2020-08-10 17:25 | MHIPN ---
[facility] PROGRESS NOTE DATE: 08/08/2020 VITAL SIGNS: Blood pressure 136/81, pulse 67, temperature 98.7. CHIEF COMPLAINT: Says is doing okay. SUBJECTIVE: He is seen for followup, he is seen in the presence of staff, on video. Says feels okay, and that yesterday went okay, reports moods are good, says he slept well. MENTAL STATUS EXAMINATION: Neat, cooperative, though somewhat disinterested, no agitation, no psychomotor retardation, gives brief answers, but logical, affect is restricted in range, denies any suicidal thoughts or intents, no homicidal ideas or intents, no evidence of any delusions at present, cognition grossly intact, judgment and insight remain compromised. ASSESSMENT: Unspecified psychotic disorder. Consider schizoaffective disorder versus schizophrenia. PLAN: Continue current care, observations, paliperidone 3 mg at night. He received intramuscular paliperidone today at 234 mg, receives the next one in 3 days, that is 156 mg intramuscular. Further recommendations to be made depending on the clinical picture.
[2020-08-11 06:40] VITALS: BP 114/58
[2020-08-11] MEDS ORDERED: PALIPERIDONE PALMITATE 156MG/1ML INJ(INVEGA)(FREE PSY INPT ONLY) IM ONE (09:00)
[2020-08-11] MEDS ORDERED: INVE234I IM (10:16)
--- NOTE | 2020-08-11 11:33 | MHDSPDOC ---
[facility] Discharge Summary Discharge Summary DATE OF ADMISSION: Aug 05, 2020 at 14:45 DATE OF DISCHARGE: Aug 11, 2020 at 1128 DISCHARGE DIAGNOSES: 1. Schizophrenia Disorder REASON FOR ADMISSION: HISTORY: Patient is a 25 -year-old , male, who presented to the ED by EMS after he was found wandering around someone's driveway. He appeared cold and confused. Patient was unable to give the ED much information, he was confused and observed with poor concentration. PER ED Report: Pt was picked up and previously medically cleared. When asked how long he was outside wandering, pt unable to recall. Pt reports also not knowing why he was outside. Pt stated he has been in [place] for approximately 6 weeks. Previously located in [place], specifics are unknown. Pt was receiving Invega Sustenna injections in [place] but reportedly has not received any since getting to [place]. Pt reports no changes to appetite, but poor sleep. No history of smoking or drinking reported, nor any family hx. Pt reports no SI/HI and denies AH/VH, however responses to internal stimuli are suspected. Pt answered questions slowly and was vague with repsonses. At times, appears to respond internally and will contradict himself while answering questions. Pt is loose in associations and expresses belief that he is being controlled by an outside source, referencing "mind control" multiple times. Pt reported being diagnosed with schizophrenia, says "something's not right in (his) head", however expresses feeling that it's "something else" rather than schizophrenia. Additional collateral information obtained from Maykel Zacarias (cousin and stated guardian, although guardianship has not been confirmed), who reports the following: Pt and cousin have been in [place] since April, cousin is active duty . Pt is originally from [place]. Pt was diagnosed schizoaffective approximately 10 years ago and has been to residential "a few times for violent crimes" however cousin "did not want to get into that." When asked how pt has been recently, it was reported that pt feels like a burden to cousin and "can sense that (cousin) is pretty stressed out." It is reported that pt has been increasingly anxious about his "lack of independence" and "being a burden." Cousin referenced a conversation they had about a week ago, in which cousin mentioned his stress about pt to pt directly, noting that pt's anxiety has been increasing since then. Cousin speculates that pt's preception that he is a "burden" is why pt left today and wandered off. CONSULTANTS INVOLVED: See Medical H + P by Hospitalist TREATMENT AND PROGRESS ON THE UNIT: [facility] 9.39 legal status he was afforded the following treatment modalities: 1) Individual Therapy 2) Group Therapy 3) Medication Management 4) Milieu Therapy 5) Safe Environment HOSPITAL COURSE: Patient was admitted to psychiatry on a 9.39 legal status. He was started on Risperdal 3 mg HS and it was reported that patient had been in [facility] for 6 weeks when he was found confused, wandering in someone's driveway and responding to internal stimuli. Patient on initial interview was very confused, answered throughout the interview with "I don't remember or I don't know." He appeared very frustrated with his memory DISCHARGE ASSESSMENT: Patient is a 25-year-old disabled, unemployed, -[place] male who was transported by EMS to [facility] after being found in the cold and confused. . Initially, patient was unable to provide any information as to why he was found wandering in the cold. Is collateral is his cousin who reports that he has guardianship of the patient states that they left [place] approximately 6 weeks ago and the patient had been started on Invega. He was started on oral Risperdal 3 mg at at bedtime. We did not have confirmation of when he last had his Invega Sustenna. He had an injection on 08/08/2020 in the booster of Invega Sustenna on 08/11/2020. It was later reported that the patient had had an injection while in [place] on 07/29/2020. At this time. His next injection is based on his last administration. His next Invega Sustenna will be due on 09/08/2020. Patient was initially isolative and was withdrawn to his room, he eventually became more social with his peers, attended groups and was calm and cooperative in the milieu. At this time. Patient's mood and affect has improved. He has a bright affect, pleasant and cooperative. He needs criteria for discharge MENTAL STATUS EXAMINATION ON DISCHARGE: Patient is a 25 -year-old , male, who presented to the ED by EMS after he was found wandering around someone's driveway. He appeared cold and confused. Speech: Is fluid, conversant, normal rate, tone and volume Language skills are intact Thought processes including: linear and goal oriented Thought content: denies depression and anxiety. Denies suicidal/homicidal ideation, planning or intent. Abstract reasoning, and computation: fair Description of associations: denies, none observed Description of abnormal or psychotic thoughts: denies, none observed. Judgment: fair Insight: fair Orientation: alert and oriented to person, place, time and situation Recent and remote memory: intact Attention span and concentration: good Language: expansive Fund of knowledge: average Mood: Euthymic Mood Affect: reactive MEDICATIONS ON DISCHARGE: Invega Sustenna 234 mg IM due September 08, 2020 PLAN/FOLLOWUP ARRANGEMENTS: Patient is following up with [facility] The amount of time spent in the coordination of care for this patient was approximately 25 minutes. Vital Signs/I&Os Vital Signs Date Time Temp Pulse Resp B/P (MAP) Pulse Ox O2 Delivery O2 Flow Rate FiO2 08/11/20 06:40 99.0 60 18 114/58 (76) 08/10/20 16:11 99 Room Air Medications Scheduled Paliperidone Palmitate (Invega Sustenna) 234 Mg/1.5 Ml Syringe, 234 MG IM QMONTH for Antipsychotic, #1 Due September 08, 2020 Allergies Coded Allergies: POLLEN (Verified Allergy, Unknown, 08/05/20) FAYE PATIÑO NP Aug 11, 2020 11:33
== END 2020-08-11 11:30 | disposition home or self-care (01) | DRG 750 ==
LOC: M ED 09:02 → M ED INP 14:45 → M PSY 16:10
PROVIDERS: ADMIT Psychiatry & Neurology Psychiatry; ATTEND Psychiatry & Neurology Psychiatry
DX: F20.9 Schizophrenia, unspecified (principal); F79 Unspecified intellectual disabilities; J30.1 Allergic rhinitis due to pollen

== ENCOUNTER 2020-11-24 22:14 | Inpatient (IN) | payer MEDICAID ==
[~2020-11-24] VITALS: Ht 188 cm; Wt 119.8 kg
[~2020-11-24 22:14] MED LIST: INVE234I IM
[2020-11-24 23:37] LABS: AMPHETAMINES LEVEL URINE NEGATIVE (NEGATIVE); BARBITURATES URINE NEGATIVE (NEGATIVE); BENZODIAZEPINES URINE NEGATIVE (NEGATIVE); CANNABINOIDS URINE NEGATIVE (NEGATIVE); COCAINE METABOLITE URINE NEGATIVE (NEGATIVE); METHADONE URINE NEGATIVE (NEGATIVE); OPIATES URINE NEGATIVE (NEGATIVE); PHENCYCLIDINE URINE NEGATIVE (NEGATIVE)
[2020-11-24 23:39] LABS: HEMATOCRIT 37.2 % (42.0-52.0); HEMOGLOBIN 12.8 g/dl (13.5-17.5); MEAN CORPUSCULAR HEMOGLOBIN 30.8 pg (27.0-33.0); MEAN CORPUSCULAR HGB CONC 34.4 g/dl (32.0-36.5); MEAN CORPUSCULAR VOLUME 89.4 fl (80.0-96.0); PLATELET COUNT, AUTOMATED 284 10^3/uL (150-450); RED BLOOD COUNT 4.16 10^6/uL (4.30-6.10); WHITE BLOOD COUNT 9.2 10^3/uL (4.0-10.0)
[2020-11-24 23:44] LABS: ALBUMIN 3.8 GM/DL (3.2-5.2); ALT/SGPT 33 U/L (12-78); BILIRUBIN,DIRECT < 0.1 MG/DL (0.0-0.2); BILIRUBIN,TOTAL 0.3 MG/DL (0.2-1.0); BLOOD UREA NITROGEN 12 MG/DL (7-18); CALCIUM LEVEL 8.6 MG/DL (8.5-10.1); CARBON DIOXIDE LEVEL 27 MEQ/L (21-32); CHLORIDE LEVEL 108 MEQ/L (98-107); GLOMERULAR FILTRATION RATE > 60.0 (>60); GLUCOSE, FASTING 84 MG/DL (70-100); SALICYLATE LEVEL < 1.7 MG/DL (5.0-30.0); SODIUM LEVEL 141 MEQ/L (136-145); TOTAL PROTEIN 7.3 GM/DL (6.4-8.2)
[2020-11-24 23:45] LABS: ACETAMINOPHEN LEVEL < 2.0 UG/ML (10.0-30.0); ETHYL ALCOHOL (ETHANOL) < 0.003 % (0.000-0.010)
[2020-11-25 12:43] LABS: RSV AMPLIFICATION NEGATIVE (NEGATIVE)
[2020-11-25] MEDS ORDERED: INVE234I IM (12:55)
[2020-11-25] MEDS ORDERED: PALI1TAB2 PO (12:55)
[2020-11-25] MEDS ORDERED: MOM 30ML SUSPENSION UDC PO PRN (18:45)
[2020-11-25] MEDS ORDERED: MAALOX 30 ML SUSP *UDC PO PRN (18:45)
[2020-11-25] MEDS ORDERED: IBUPROFEN 400MG TAB PO PRN (18:45)
--- NOTE | 2020-11-25 19:46 | ECGEPIP ---
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
[2020-11-25 20:33] VITALS: BP 123/75
[2020-11-25] MEDS: traZODone 50 MG TAB PO PRN (22:20)
[2020-11-26 06:38] VITALS: BP 138/90
[2020-11-26] MEDS: NICOTINE 21MG/24HR 1 EA TRANSDERMAL TD SCH (09:00)
--- NOTE | 2020-11-26 12:09 | MHHPEPDOC ---
General Date Of Admission: Nov 25, 2020 Legal Status: 9.39 Chief Complaint " My brain is messed up and I can't work regularly. History of Present Illness HISTORY OF THE PRESENT ILLNESS: Patient is a 25 -year-old , male, who [apparently has a long psychiatric history with treatment in the [facility]. Patient came to [place] with his cousin in April last year and had one previous admission in July of this year. He has not been receiving any outpatient treatment since his discharge, apparently wasn having conflict with his cousin that he was living with. He states that he cannot return to his cousin's place and the cousin called the police yesterday to have him come to the emergency room. Patient claims that he does not remember what happened and doesn't know why he was picked up by the police, but reports that he needs help because his brain is messed up and he cannot work. He is also homeless because he cannot go back to his cousin and doesn't want the hospital to contact his cousin. He is frequently saying that he cannot remember, and is not willing or capable of giving clear history. He is somewhat dramatic and deliberate and is in no acute physical distress and does not appear to be actively hallucinating but claims he needs a lot of help.]. Psychiatric Review of Systems Depression (2 or more weeks): suicidal thoughts Psychosis: disorganization PTSD: denies Anxiety: situational anxiety Past Psychiatric History Previous Psychiatric Diagnosis: [Was diagnosed over schizophrenia and schizoaffective disorder]. Previous Psychiatric Admissions: Been hospitalized in the [facility] and one admission at this hospital in July . Suicide Attempts: Denies any history of attempt. Psychiatric Follow-up: [, Not in any active treatment]. Psychiatric medications: Was on risperidone and injection. Past Medical History Medical Problems Denies any medical issues Head Injury: No Seizures: No Hospitalizations: No Surgeries: No Family Medical/Psychiatric HX Medical Problems Claims does not know his family history Addiction History denies Social History Childhood: [Born in [place], [place], never met his father as mother and sister but not present]. Abuse/Trauma:[Denies any history of being abused]. Current Living Situation: Was living with his cousin, currently homeless. Education: [11th grade, unemployed]. Employment: [, Unemployed]. Social Support: None . Legal: Denies any legal history. Marital: [, Never ]. Mental Status Examination General Appearance: appears stated age Build: average Demeanor: average Eye Contact: average Activity: average Behavior: cooperative Speech: low in volume, other (responding that he does not remember a lot of things) Mood: depressed, anxious Mood Feeling confused and nervous and depressed but denies any suicidal thoughts Affect: constricted, appropriate, congruent Thought Process: logical/linear Thought Content (Delusions): denies SI, HI, AVH Thought Content (Other): none reported, other (, can't think clear, but no gross hallucinations. No paranoia) Thought Content (Aggressive): none reported Perception (Hallucinations): none reported Perception (Other): none reported Cognition (Impairment of): none reported Cognition(Intelligence Est.): average Oriented: Awake, Alert, Oriented times three Insight: fair Judgment: Fair Diagnoses Chronic schizophrenia, undifferentiated. per history. He is not presenting with any clear cut symptoms and could be an element of malingering, rule out personality disorder, mixed A-FIB/CHADSVASC A-FIB History Current/History of A-Fib/PAF?: No Current PO Anticoag Therapy: No Age/Risk Factor Scoring CHADSVASC: CHADSVASC Response (Comments) Value Gender Risk Factor Male 0 Hx of CHF No 0 Hx of HTN No 0 Hx of Stroke/TIA/or VTE No 0 Hx of Diabetes No 0 Hx of Vascular Disease No 0 Total 0 Treatment Treatment ordered: NONE Assessment We will restart risperidone and observe and evaluate to the supportive therapy Initial Treatment Plan 1. Patient was admitted on a [9.39] status. 2. Complete history was obtained. 3. With patients permission, family will be contacted and database will be expanded. 4. Patients medication regimen will be reviewed and changed accordingly. 5. Patient will be provided with protected environment. 6. Patient will be treated with individual, group, and milieu therapies. 7. Patient will receive supportive psych-education. 8. Discharge planning will commence immediately. 9. Outpatient follow-up treatment will be strongly recommended. 10. The initial treatment plan will focus initially on: * Depression. * Risk for suicide. ESTIMATED LENGTH OF STAY: [5]-[7] DAYS. TIME SPENT COUNSELING AND COORDINATING INITIAL CARE: [40] minutes. Tobacco Cessation Screen If Patient is a Smoker Nonsmoker, per his report Pt Refused Vital Signs Vital Signs Date Time Temp Pulse Resp B/P (MAP) Pulse Ox O2 Delivery O2 Flow Rate FiO2 11/26/20 06:38 97.7 83 18 138/90 (106) 97 Room Air Medications Scheduled Paliperidone Palmitate (Invega Sustenna) 234 Mg/1.5 Ml Syringe, 234 MG IM ASDIRE CTED, (Reported) EVERY 3 WEEKS Scheduled PRN Paliperidone (Paliperidone ER) 3 Mg Tab.er.24, 3 MG PO DAILY PRN for MISSED APT, (Reported) TAKES PRN WHEN PT HAS MISSED INVEGA SUSTENNA INJECTION PER BATHHOUSE ATTENDANT CHRISTOPHER MURO AT [facility] [phone] Allergies Coded Allergies: POLLEN (Verified Allergy, Unknown, 08/05/20) ROBERT MATHEWS M.D. Nov 26, 2020 12:09
--- NOTE | 2020-11-26 19:08 | HPEPDOC ---
General Date of Admission Nov 25, 2020 at 18:45 Date of Service: Nov 26, 2020 Chief Complaint The patient is a 25-year-old male admitted with a reason for visit of Unspecified Depressive Disorder. Source: Patient Exam Limitations: No limitations History of Present Illness Patient is 25 years old male with past mental history of depression presented hospital with acute psychosis. Patient claims that he does not remember what happened and doesn't know why he was picked up by the police, but reports that he needs help because his brain is messed up and he cannot work. Patient was not compliant to his psych medications. During my interview patient denied any fever, chills, nausea, diarrhea or dysuria Home Medications Scheduled Paliperidone Palmitate (Invega Sustenna) 234 Mg/1.5 Ml Syringe, 234 MG IM ASDIRECTED, (Reported) EVERY 3 WEEKS Scheduled PRN Paliperidone (Paliperidone ER) 3 Mg Tab.er.24, 3 MG PO DAILY PRN for MISSED APT, (Reported) TAKES PRN WHEN PT HAS MISSED INVEGA SUSTENNA INJECTION PER REGISTERED DIETETIC TECHNICIAN CHRISTOPHER MURO AT [facility] [phone] Allergies Coded Allergies: POLLEN (Verified Allergy, Unknown, 08/05/20) Past Medical History Medical History History of depression Family History Stated that both parents are healthy Social History * Smoker: Denies Alcohol: Denies Drugs: denies A-FIB/CHADSVASC A-FIB History Current/History of A-Fib/PAF?: No Current PO Anticoag Therapy: No Age/Risk Factor Scoring CHADSVASC: CHADSVASC Response (Comments) Value Gender Risk Factor Male 0 Hx of CHF No 0 Hx of HTN No 0 Hx of Stroke/TIA/or VTE No 0 Hx of Diabetes No 0 Hx of Vascular Disease No 0 Total 0 Review of Systems Constitutional: Denies: Chills, Fever Eyes: Denies: Pain ENT: Denies: Head Aches Skin: Denies: Lesions Pulmonary: Denies: Dyspnea Cardiovascular: Denies: Chest Pain Gastrointestinal: Denies: Nausea Genitourinary: Denies: Dysuria Hematologic: Denies: Bruising Endocrine: Denies: Polydipsia Musculoskeletal: Denies: Neck Pain Neurological: Denies: Weakness Psych: Denies: Memory Issues Physical Examination General Exam: Positive: Alert, Cooperative Eye Exam: Positive: PERRLA ENT Exam: Positive: Atraumatic Neck Exam: Positive: Supple; Negative: JVD Chest Exam: Positive: Clear to auscultation Heart Exam: Positive: Rate Normal Telemetry: Positive: No significant arrhythmia Abdomen Exam: Positive: Normal bowel sounds Extremity Exam: Negative: Clubbing, Cyanosis Neuro Exam: Positive: Strength at 5/5 X4 ext, Cranial Nerves 3-12 NL Psych Exam: Positive: Oriented x 3 Vital Signs Vital Signs Date Time Temp Pulse Resp B/P (MAP) Pulse Ox O2 Delivery O2 Flow Rate FiO2 11/26/20 06:38 97.7 83 18 138/90 (106) 97 Room Air Assessment/Plan Patient is 25 years old male with past mental history of depression presented hospital with acute psychosis. Patient claims that he does not remember what happened and doesn't know why he was picked up by the police, but reports that he needs help because his brain is messed up and he cannot work. Patient was not compliant to his psych medications. During my interview patient denied any fever, chills, nausea, diarrhea or dysuria Problems (1) Psychosis Status: Acute Problem Text: Deferred treatment to psych team Plan / VTE VTE Prophylaxis Ordered?: No VTE Exclusion Mechanical Proph: Low Risk for VTE KASSI PEREZ DO Nov 26, 2020 19:08
[2020-11-26] MEDS: risperiDONE 3 MG TAB PO SCH (20:46)
[2020-11-26 21:00] VITALS: BP_SYST 132; BP_SYST 142; BP_DIAS 69; BP_DIAS 83
[2020-11-26] MEDS: traZODone 50 MG TAB PO PRN (22:01)
[2020-11-27 06:48] VITALS: BP 124/63
[2020-11-27] MEDS: NICOTINE 21MG/24HR 1 EA TRANSDERMAL TD SCH (09:00)
[2020-11-27 17:28] VITALS: BP 145/75
--- NOTE | 2020-11-27 20:29 | MHIPNPDOC ---
[facility] Progress Note Progress Note DATE OF SERVICE: 11/27/20 HISTORY: As per previous notes: "Patient is a 25 -year-old , male, who [apparently has a long psychiatric history with treatment in the [facility]. Patient came to [place] with his cousin in April last year and had one previous admission in July of this year. He has not been receiving any outpatient treatment since his discharge, apparently wasn having conflict with his cousin that he was living with. He states that he cannot return to his cousin's place and the cousin called the police yesterday to have him come to the emergency room. Patient claims that he does not remember what happened and doesn't know why he was picked up by the police, but reports that he needs help because his brain is messed up and he cannot work. He is also homeless because he cannot go back to his cousin and doesn't want the hospital to contact his cousin. He is frequently saying that he cannot remember, and is not willing or capable of giving clear history. He is somewhat dramatic and deliberate and is in no acute physical distress and does not appear to be actively hallucinating but claims he needs a lot of help." VITAL SIGNS: See below. NEW TEST RESULTS: See below CURRENT MEDICATIONS: See below. MENTAL STATUS EXAMINATION: General Appearance: appears stated age Build: average Demeanor: average Eye Contact: average Activity: average Behavior: cooperative Speech: Normal in r/t/v. spontaneous and fluent Mood: euthymic Mood congruent with mood Affect: constricted, appropriate, congruent Thought Process: logical/linear Thought Content (Delusions): denies SI, HI, AVH Thought Content (Other): none reported, other Thought Content (Aggressive): none reported Perception (Hallucinations): none reported Perception (Other): none reported Cognition (Impairment of): none reported Cognition(Intelligence Est.): average Oriented: Awake, Alert, Oriented times three Insight: fair Judgment: Fair Diagnoses Chronic schizophrenia, undifferentiated. per history. ASSESSMENT: He is stable but he says he is struggling, he says he still not as stable as he would like to. He feels confused and his mind is foggy, not completely clear but denies TAV hallucinations and denies thought delusions. He says he wouldn't like to go to his cousin's house because he doesn't feel safe with him. MANAGEMENT PLAN: will continue on the same treatment plan TIME SPENT: 20 minutes. Vital Signs Vital Signs Date Time Temp Pulse Resp B/P (MAP) Pulse Ox O2 Delivery O2 Flow Rate FiO2 11/27/20 17:28 97.1 56 16 145/75 (98) 11/27/20 06:48 98 Room Air Current Medications Current Medications Medications (Trade) Dose Ordered Sig/James Route PRN Reason Start Time Stop Time Status Last Admin Dose Admin Al Hydrox/Mg Hydrox/Simethicone (Mylanta) 30 ml Q4HP PRN PO HEARTBURN/INDIGESTION 11/25/20 18:45 Home Med (Med Rec Complete!) ASDIRECTED XX 11/25/20 13:00 11/25/20 12:58 DC Ibuprofen (Advil) 400 mg Q6HP PRN PO PAIN 11/25/20 18:45 Magnesium Hydroxide (Milk Of Magnesia) 30 ml DAILYPRN PRN PO CONSTIPATION 11/25/20 18:45 Nicotine (Nicoderm Cq 21mg) 1 patch DAILY TD 11/26/20 09:00 Risperidone (RisperDAL) 3 mg QHS PO 11/26/20 21:00 11/26/20 20:46 Trazodone HCl (Desyrel) 50 mg QHSP PRN PO INSOMNIA 11/25/20 18:45 11/26/20 22:01 Allergies Coded Allergies: POLLEN (Verified Allergy, Unknown, 08/05/20) SUPRIYA FIERRO MD Nov 27, 2020 20:07
[2020-11-27] MEDS: risperiDONE 3 MG TAB PO SCH (20:37)
[2020-11-27] MEDS: traZODone 50 MG TAB PO PRN (20:37)
[2020-11-28 06:00] VITALS: BP 101/58
[2020-11-28] MEDS: NICOTINE 21MG/24HR 1 EA TRANSDERMAL TD SCH (08:04)
--- NOTE | 2020-11-28 12:36 | MHIPNPDOC ---
[facility] Progress Note Progress Note DATE OF SERVICE: 11/28/20 HISTORY: As per previous notes: "Patient is a 25 -year-old , male, who [apparently has a long psychiatric history with treatment in the [facility]. Patient came to [place] with his cousin in April last year and had one previous admission in July of this year. He has not been receiving any outpatient treatment since his discharge, apparently wasn having conflict with his cousin that he was living with. He states that he cannot return to his cousin's place and the cousin called the police yesterday to have him come to the emergency room. Patient claims that he does not remember what happened and doesn't know why he was picked up by the police, but reports that he needs help because his brain is messed up and he cannot work. He is also homeless because he cannot go back to his cousin and doesn't want the hospital to contact his cousin. He is frequently saying that he cannot remember, and is not willing or capable of giving clear history. He is somewhat dramatic and deliberate and is in no acute physical distress and does not appear to be actively hallucinating but claims he needs a lot of help." VITAL SIGNS: See below. NEW TEST RESULTS: See below CURRENT MEDICATIONS: See below. MENTAL STATUS EXAMINATION: General Appearance: appears stated age Build: average Demeanor: average Eye Contact: average Activity: average Behavior: cooperative Speech: Normal in r/t/v. spontaneous and fluent Mood: euthymic Mood congruent with mood Affect: constricted, appropriate, congruent Thought Process: logical/linear Thought Content (Delusions): denies SI, HI, AVH Thought Content (Other): none reported, other Thought Content (Aggressive): none reported Perception (Hallucinations): none reported Perception (Other): none reported Cognition (Impairment of): none reported Cognition(Intelligence Est.): average Oriented: Awake, Alert, Oriented times three Insight: fair Judgment: Fair Diagnoses Chronic schizophrenia, undifferentiated. per history. ASSESSMENT: HHe states he is not feeling 100% better. I think he is trying to stay [facility] at the [facility] because he has housing problems. MANAGEMENT PLAN: will continue on the same treatment plan TIME SPENT: 20 minutes. Vital Signs Vital Signs Date Time Temp Pulse Resp B/P (MAP) Pulse Ox O2 Delivery O2 Flow Rate FiO2 11/28/20 06:00 97.6 57 16 101/58 (72) 98 Room Air Current Medications Current Medications Medications (Trade) Dose Ordered Sig/James Route PRN Reason Start Time Stop Time Status Last Admin Dose Admin Al Hydrox/Mg Hydrox/Simethicone (Mylanta) 30 ml Q4HP PRN PO HEARTBURN/INDIGESTION 11/25/20 18:45 Home Med (Med Rec Complete!) ASDIRECTED XX 11/25/20 13:00 11/25/20 12:58 DC Ibuprofen (Advil) 400 mg Q6HP PRN PO PAIN 11/25/20 18:45 Magnesium Hydroxide (Milk Of Magnesia) 30 ml DAILYPRN PRN PO CONSTIPATION 11/25/20 18:45 Nicotine (Nicoderm Cq 21mg) 1 patch DAILY TD 11/26/20 09:00 Risperidone (RisperDAL) 3 mg QHS PO 11/26/20 21:00 11/27/20 20:37 Trazodone HCl (Desyrel) 50 mg QHSP PRN PO INSOMNIA 11/25/20 18:45 11/27/20 20:37 Allergies Coded Allergies: POLLEN (Verified Allergy, Unknown, 08/05/20) SUPRIYA FIERRO MD Nov 28, 2020 12:36
[2020-11-28 17:56] VITALS: BP 140/82
[2020-11-28] MEDS: risperiDONE 3 MG TAB PO SCH (21:10)
[2020-11-28] MEDS: traZODone 50 MG TAB PO PRN (21:10)
[2020-11-29 06:16] VITALS: BP 122/59
[2020-11-29] MEDS: NICOTINE 21MG/24HR 1 EA TRANSDERMAL TD SCH (08:25)
--- NOTE | 2020-11-29 09:00 | MHIPNPDOC ---
[facility] Progress Note Progress Note DATE OF SERVICE: 11/29/20 Patient is cooperating with his medication of risperidone and tolerating without any complaint of side effect. He still feels quite confused and not able to org anize his income but is pleasant on approach and maintaining good control. He wants to find his own apartment, but currently doesn't have any financial resources and claims that though his family gets his SSI check, possibly his cousin. He is denying any command hallucination and denies any thoughts of suicide or harming anybody but still believes that he can not go back to his cou sin for some unclear reason and not able to elaborate. We will continue with his current medicine and try to develop safe discharge plan HISTORY: . VITAL SIGNS: See below. NEW TEST RESULTS: . CURRENT MEDICATIONS: See below. MENTAL STATUS EXAMINATION: Patient is a 25-year old male, who is , very pleasant and cooperative. Speech: Is relevant, but not productive and unreliable historian. Language skills are , fair. Thought processes including: Relevant, but not productive. Not spontaneous. Thought content: Claims he cannot think clearly . Abstract reasoning, and computation: , Poor. Description of associations: Relevant. Description of abnormal or psychotic thoughts: Feeling confused. Judgment: poor. Insight: poor. Orientation: . He knows the date and place and person but reports feeling confused. Recent and remote memory: , Fair. Attention span and concentration: , Fair. Language: . Fund of knowledge: Below average. Mood: Denies any serious depression and doesn't appear highly anxious. Affect: , Appropriate with good range of emotion. DIAGNOSES: 1. . Chronic schizophrenia, undifferentiated 2. . 3. . ASSESSMENT:[, No significant change, but no acting out behavior and denies any lethality] MANAGEMENT PLAN: [Continued to supportive therapy and discharge planning]. TIME SPENT: 20 minutes. Vital Signs Vital Signs Date Time Temp Pulse Resp B/P (MAP) Pulse Ox O2 Delivery O2 Flow Rate FiO2 11/29/20 06:16 98.7 61 18 122/59 (80) 98 Room Air Current Medications Current Medications Medications (Trade) Dose Ordered Sig/James Route PRN Reason Start Time Stop Time Status Last Admin Dose Admin Al Hydrox/Mg Hydrox/Simethicone (Mylanta) 30 ml Q4HP PRN PO HEARTBURN/INDIGESTION 11/25/20 18:45 Home Med (Med Rec Complete!) ASDIRECTED XX 11/25/20 13:00 11/25/20 12:58 DC Ibuprofen (Advil) 400 mg Q6HP PRN PO PAIN 11/25/20 18:45 Magnesium Hydroxide (Milk Of Magnesia) 30 ml DAILYPRN PRN PO CONSTIPATION 11/25/20 18:45 Nicotine (Nicoderm Cq 21mg) 1 patch DAILY TD 11/26/20 09:00 Risperidone (RisperDAL) 3 mg QHS PO 11/26/20 21:00 11/28/20 21:10 Trazodone HCl (Desyrel) 50 mg QHSP PRN PO INSOMNIA 11/25/20 18:45 11/28/20 21:10 Allergies Coded Allergies: POLLEN (Verified Allergy, Unknown, 08/05/20) ROBERT MATHEWS M.D. Nov 29, 2020 09:00
[2020-11-29 16:05] VITALS: BP 144/72
[2020-11-29] MEDS: risperiDONE 3 MG TAB PO SCH (20:32)
[2020-11-29] MEDS: traZODone 50 MG TAB PO PRN (21:13)
[2020-11-30] MEDS ORDERED: OLANZapine INTRAMUSCULAR 10MG VIAL IM ONE (01:20)
[2020-11-30 06:50] VITALS: BP 112/64
[2020-11-30] MEDS: NICOTINE 21MG/24HR 1 EA TRANSDERMAL TD SCH (08:28)
--- NOTE | 2020-11-30 11:22 | MHIPNPDOC ---
[facility] Progress Note Progress Note DATE OF SERVICE: 11/30/20 Patient is fully cooperating with the treatment and maintaining good control. Is still feeling somewhat hopeless, feeling confused and wants help, including ass istance for housing and he was referred to . BILL. Is in no acute distress and is fully cooperating. Denies any side effects from the medicine and denies any command hallucinations. HISTORY: . VITAL SIGNS: See below. NEW TEST RESULTS: . CURRENT MEDICATIONS: See below. MENTAL STATUS EXAMINATION: Patient is a 25-year old male, who is , cooperative. Speech: Is rational, not productive . Language skills are fair. Thought processes including: Relevant. Thought content: No gross delusion and no suicidal thoughts. Abstract reasoning, and computation: , Fair. Description of associations: Relevant. Description of abnormal or psychotic thoughts: Denies any. Judgment: , Poor. Insight: poor. Orientation: , Well oriented. Recent and remote memory: Fair. Attention span and concentration: , Poor. Language: . Fund of knowledge: Below average. Mood: Euthymic. Affect: Blunted but appropriate. DIAGNOSES: 1. . Chronic schizophrenia 2. . 3. . ASSESSMENT:Maintaining good control and in no acute distress MANAGEMENT PLAN: . Continue current treatment plan. TIME SPENT: 15] minutes. Vital Signs Vital Signs Date Time Temp Pulse Resp B/P (MAP) Pulse Ox O2 Delivery O2 Flow Rate FiO2 11/30/20 06:50 97.6 64 20 112/64 (80) 98 Room Air Current Medications Current Medications Medications (Trade) Dose Ordered Sig/James Route PRN Reason Start Time Stop Time Status Last Admin Dose Admin Al Hydrox/Mg Hydrox/Simethicone (Mylanta) 30 ml Q4HP PRN PO HEARTBURN/INDIGESTION 11/25/20 18:45 Home Med (Med Rec Complete!) ASDIRECTED XX 11/25/20 13:00 11/25/20 12:58 DC Ibuprofen (Advil) 400 mg Q6HP PRN PO PAIN 11/25/20 18:45 Magnesium Hydroxide (Milk Of Magnesia) 30 ml DAILYPRN PRN PO CONSTIPATION 11/25/20 18:45 Nicotine (Nicoderm Cq 21mg) 1 patch DAILY TD 11/26/20 09:00 Risperidone (RisperDAL) 3 mg QHS PO 11/26/20 21:00 6/7/21 20:32 Trazodone HCl (Desyrel) 50 mg QHSP PRN PO INSOMNIA 11/25/20 18:45 11/29/20 21:13 Allergies Coded Allergies: POLLEN (Verified Allergy, Unknown, 08/05/20) ROBERT MATHEWS M.D. Nov 30, 2020 11:22
[2020-11-30 16:01] VITALS: BP 139/68
[2020-11-30] MEDS: risperiDONE 3 MG TAB PO SCH (20:01)
[2020-11-30] MEDS: traZODone 50 MG TAB PO PRN (20:01)
[2020-12-01 06:47] VITALS: BP 144/76
[2020-12-01] MEDS: NICOTINE 21MG/24HR 1 EA TRANSDERMAL TD SCH (08:14)
--- NOTE | 2020-12-01 09:44 | MHIPNPDOC ---
[facility] Progress Note Progress Note DATE OF SERVICE: 12/01/20 The patient has been fully cooperating with the medication and today he reports that he is feeling much better. He does not feel so confused. He is not depress ed and not feeling so hopeless, helpless and feel like he can go out and go on living. He wants discharge but is not sure where he will be going. Obviously has no safe place to stay. He does not appear to be paranoid and denies any suicidal thoughts and doesn't appear to be hallucinating, so we will have the master planner to discuss with him for safe discharge. HISTORY: . VITAL SIGNS: See below. NEW TEST RESULTS: . CURRENT MEDICATIONS: See below. MENTAL STATUS EXAMINATION: Patient is a 25-year old male, who is smiling and pleasant]. Speech: Is more spontaneous. Language skills are , but. Thought processes including: Relevant and productive. Thought content: , Denies any paranoia or confusion. Abstract reasoning, and computation: fair . Description of associations: Much better organized. Description of abnormal or psychotic thoughts: Denies any hallucination or paranoia. Judgment: Fair . Insight: fair. . Orientation: , Very oriented. Recent and remote memory: Fair. Attention span and concentration: Fair. Language: . Fund of knowledge: Below average. Mood: feeling hopeful and smiling. Affect: Bridle animated and appropriate. DIAGNOSES: 1. . Chronic schizophrenia 2. . 3. . ASSESSMENT: Showing improvement MANAGEMENT PLAN: Continue the current medicine and discharge plan. TIME SPENT: 15 minutes. Vital Signs Vital Signs Date Time Temp Pulse Resp B/P (MAP) Pulse Ox O2 Delivery O2 Flow Rate FiO2 12/01/20 06:47 97.6 84 20 144/76 (98) 99 Room Air Current Medications Current Medications Medications (Trade) Dose Ordered Sig/James Route PRN Reason Start Time Stop Time Status Last Admin Dose Admin Al Hydrox/Mg Hydrox/Simethicone (Mylanta) 30 ml Q4HP PRN PO HEARTBURN/INDIGESTION 11/25/20 18:45 Home Med (Med Rec Complete!) ASDIRECTED XX 11/25/20 13:00 11/25/20 12:58 DC Ibuprofen (Advil) 400 mg Q6HP PRN PO PAIN 11/25/20 18:45 Magnesium Hydroxide (Milk Of Magnesia) 30 ml DAILYPRN PRN PO CONSTIPATION 11/25/20 18:45 Nicotine (Nicoderm Cq 21mg) 1 patch DAILY TD 11/26/20 09:00 Risperidone (RisperDAL) 3 mg QHS PO 11/26/20 21:00 11/30/20 20:01 Trazodone HCl (Desyrel) 50 mg QHSP PRN PO INSOMNIA 11/25/20 18:45 11/30/20 20:01 Allergies Coded Allergies: POLLEN (Verified Allergy, Unknown, 08/05/20) ROBERT MATHEWS M.D. Dec 01, 2020 09:44
[2020-12-01 16:00] VITALS: BP 138/72
[2020-12-01] MEDS: risperiDONE 3 MG TAB PO SCH (22:11)
[2020-12-01] MEDS: traZODone 50 MG TAB PO PRN (22:41)
[2020-12-02 06:36] VITALS: BP 133/83
[2020-12-02] MEDS: NICOTINE 21MG/24HR 1 EA TRANSDERMAL TD SCH (09:00)
--- NOTE | 2020-12-02 10:25 | MHIPNPDOC ---
[facility] Progress Note Progress Note DATE OF SERVICE: 12/02/20 The patient is a maintaining improved mental status and behavior. He is complying with the medications and maintaining good control and appears quite pleasant and animated. He is feeling better but he understands that he needs support and supervision and willing to accept referred to a supportive living. HISTORY: . VITAL SIGNS: See below. NEW TEST RESULTS: . CURRENT MEDICATIONS: See below. MENTAL STATUS EXAMINATION: Patient is a 25-year old male, who is [in good control. Speech: Is rational. Language skills are , good. Thought processes including: Relevant Thought content: Denies any hallucination, paranoia. Abstract reasoning, and computation: , Fair. Description of associations: Organized. Description of abnormal or psychotic thoughts: , Denies any paranoia. Judgment: , Fair. Insight: fair.. Orientation: , Oriented. Recent and remote memory: , Fair. Attention span and concentration: , Fair. Language: . Fund of knowledge: . Mood: Euthymic . Affect: , Appropriate. DIAGNOSES: 1. ]. Chronic schizophrenia 2. . 3. . ASSESSMENT:[Showing improvement] MANAGEMENT PLAN: [Needs supportive living]. TIME SPENT: 15 minutes. Vital Signs Vital Signs Date Time Temp Pulse Resp B/P (MAP) Pulse Ox O2 Delivery O2 Flow Rate FiO2 12/02/20 06:36 98.2 76 18 133/83 (100) 96 Room Air Current Medications Current Medications Medications (Trade) Dose Ordered Sig/James Route PRN Reason Start Time Stop Time Status Last Admin Dose Admin Al Hydrox/Mg Hydrox/Simethicone (Mylanta) 30 ml Q4HP PRN PO HEARTBURN/INDIGESTION 11/25/20 18:45 Home Med (Med Rec Complete!) ASDIRECTED XX 11/25/20 13:00 11/25/20 12:58 DC Ibuprofen (Advil) 400 mg Q6HP PRN PO PAIN 11/25/20 18:45 Magnesium Hydroxide (Milk Of Magnesia) 30 ml DAILYPRN PRN PO CONSTIPATION 11/25/20 18:45 Nicotine (Nicoderm Cq 21mg) 1 patch DAILY TD 11/26/20 09:00 Risperidone (RisperDAL) 3 mg QHS PO 11/26/20 21:00 12/01/20 22:11 Trazodone HCl (Desyrel) 50 mg QHSP PRN PO INSOMNIA 11/25/20 18:45 12/01/20 22:41 Allergies Coded Allergies: POLLEN (Verified Allergy, Unknown, 08/05/20) ROBERT MATHEWS M.D. Dec 02, 2020 10:25
[2020-12-02 16:04] VITALS: BP 143/84
[2020-12-02] MEDS: traZODone 50 MG TAB PO PRN (20:11)
[2020-12-02] MEDS: risperiDONE 3 MG TAB PO SCH (20:11)
[2020-12-03 06:00] VITALS: BP 129/63
[2020-12-03] MEDS: NICOTINE 21MG/24HR 1 EA TRANSDERMAL TD SCH (08:05)
--- NOTE | 2020-12-03 09:16 | MHIPNPDOC ---
[facility] Progress Note Progress Note DATE OF SERVICE: 12/03/20 The patient is maintaining somewhat improved mental status and offers no new complaints. He understands that he needs supportive living arrangement and is willing to cooperate with the process. He is smiling more and verbally productive. Denies feeling confused and denies any paranoid. He is tolerating medications without any complaint of side effect. HISTORY: . VITAL SIGNS: See below. NEW TEST RESULTS: . CURRENT MEDICATIONS: See below. MENTAL STATUS EXAMINATION: Patient is a 25-year old male, who is in no acute distress. Speech: Is relevant. Language skills are good. Thought processes including: , Coherent. Thought content: , Denies any paranoia. Abstract reasoning, and computation: , Fair. Description of associations: Relevant. Description of abnormal or psychotic thoughts: Denies any hallucinations. Judgment: Fair. Insight: fair. . Orientation: , Oriented. Recent and remote memory: Fair. Attention span and concentration: Fair. Language: . Fund of knowledge: poor. Mood: Euthymic . Affect: Appropriate]. DIAGNOSES: 1. . Chronic schizophrenia 2. . 3. . ASSESSMENT:Cooperating with the treatment and discharge plan MANAGEMENT PLAN: Referred to a supportive living. TIME SPENT: 15 minutes. Vital Signs Vital Signs Date Time Temp Pulse Resp B/P (MAP) Pulse Ox O2 Delivery O2 Flow Rate FiO2 12/02/20 16:04 98.5 58 16 143/84 (103) 98 Room Air Current Medications Current Medications Medications (Trade) Dose Ordered Sig/James Route PRN Reason Start Time Stop Time Status Last Admin Dose Admin Al Hydrox/Mg Hydrox/Simethicone (Mylanta) 30 ml Q4HP PRN PO HEARTBURN/INDIGESTION 11/25/20 18:45 Home Med (Med Rec Complete!) ASDIRECTED XX 11/25/20 13:00 11/25/20 12:58 DC Ibuprofen (Advil) 400 mg Q6HP PRN PO PAIN 11/25/20 18:45 Magnesium Hydroxide (Milk Of Magnesia) 30 ml DAILYPRN PRN PO CONSTIPATION 11/25/20 18:45 Nicotine (Nicoderm Cq 21mg) 1 patch DAILY TD 11/26/20 09:00 Risperidone (RisperDAL) 3 mg QHS PO 11/26/20 21:00 12/02/20 20:11 Trazodone HCl (Desyrel) 50 mg QHSP PRN PO INSOMNIA 11/25/20 18:45 12/02/20 20:11 Allergies Coded Allergies: POLLEN (Verified Allergy, Unknown, 08/05/20) ROBERT MATHEWS M.D. Dec 03, 2020 09:16
[2020-12-03 16:08] VITALS: BP 130/61
[2020-12-03] MEDS: risperiDONE 3 MG TAB PO SCH (20:51)
[2020-12-03] MEDS: traZODone 50 MG TAB PO PRN (21:19)
[2020-12-04 05:59] VITALS: BP 137/94
[2020-12-04] MEDS: NICOTINE 21MG/24HR 1 EA TRANSDERMAL TD SCH (08:21)
[2020-12-04 16:20] VITALS: BP 136/80
[2020-12-04] MEDS: risperiDONE 3 MG TAB PO SCH (21:33)
[2020-12-04] MEDS: traZODone 50 MG TAB PO PRN (21:33)
[2020-12-05 06:43] VITALS: BP 111/58
[2020-12-05] MEDS: NICOTINE 21MG/24HR 1 EA TRANSDERMAL TD SCH (09:00)
[2020-12-05 15:36] VITALS: BP 135/80
[2020-12-05] MEDS: risperiDONE 3 MG TAB PO SCH (21:05)
[2020-12-05] MEDS: traZODone 50 MG TAB PO PRN (21:05)
[2020-12-06 06:28] VITALS: BP 132/78
[2020-12-06] MEDS: NICOTINE 21MG/24HR 1 EA TRANSDERMAL TD SCH (09:00)
--- NOTE | 2020-12-06 10:02 | MHIPNPDOC ---
[facility] Progress Note Progress Note DATE OF SERVICE: 12/06/20 The patient is fully cooperating with the medication and discharge planning to a half-way for supportive living. He has an interview scheduled for this with a supportive living and he is willing to cooperate. He has no physical complaints. No complaint of side effect and eating, sleeping well and appears to be at his baseline. HISTORY: . VITAL SIGNS: See below. NEW TEST RESULTS: . CURRENT MEDICATIONS: See below. MENTAL STATUS EXAMINATION: Patient is a 25-year old male, who is smiling, pleasant. Speech: Is relevant, rational. Language skills are fair. Thought processes including: 's responses relevant, but not very spontaneous. Thought content: , Denies any paranoia and denies any suicidal thoughts. Abstract reasoning, and computation: , Fair. Description of associations: , Organized. Description of abnormal or psychotic thoughts: Denies any. Judgment: Fair. Insight: fair.. Orientation: , Oriented. Recent and remote memory: Fair. Attention span and concentration: poor]. Language: . Fund of knowledge: . Mood: Euthymic. Affect: Appropriate. DIAGNOSES: 1. . Chronic schizophrenia 2. . 3. . ASSESSMENT:Maintaining improved. The mental status MANAGEMENT PLAN: Referring to a supportive living and continue with his current medicine. TIME SPENT: 15 minutes. Vital Signs Vital Signs Date Time Temp Pulse Resp B/P (MAP) Pulse Ox O2 Delivery O2 Flow Rate FiO2 12/06/20 06:28 97.4 82 20 132/78 (96) 96 Room Air Current Medications Current Medications Medications (Trade) Dose Ordered Sig/James Route PRN Reason Start Time Stop Time Status Last Admin Dose Admin Al Hydrox/Mg Hydrox/Simethicone (Mylanta) 30 ml Q4HP PRN PO HEARTBURN/INDIGESTION 11/25/20 18:45 Home Med (Med Rec Complete!) ASDIRECTED XX 11/25/20 13:00 11/25/20 12:58 DC Ibuprofen (Advil) 400 mg Q6HP PRN PO PAIN 11/25/20 18:45 Magnesium Hydroxide (Milk Of Magnesia) 30 ml DAILYPRN PRN PO CONSTIPATION 11/25/20 18:45 Nicotine (Nicoderm Cq 21mg) 1 patch DAILY TD 11/26/20 09:00 Risperidone (RisperDAL) 3 mg QHS PO 11/26/20 21:00 12/05/20 21:05 Trazodone HCl (Desyrel) 50 mg QHSP PRN PO INSOMNIA 11/25/20 18:45 12/05/20 21:05 Allergies Coded Allergies: POLLEN (Verified Allergy, Unknown, 08/05/20) ROBERT MATHEWS M.D. Dec 06, 2020 10:02
[2020-12-06 18:05] VITALS: BP 129/68
[2020-12-06] MEDS: risperiDONE 3 MG TAB PO SCH (21:10)
[2020-12-06] MEDS: traZODone 50 MG TAB PO PRN (22:06)
[2020-12-07 06:47] VITALS: BP 118/56
[2020-12-07] MEDS: NICOTINE 21MG/24HR 1 EA TRANSDERMAL TD SCH (09:00)
--- NOTE | 2020-12-07 11:37 | MHIPNPDOC ---
[facility] Progress Note Progress Note DATE OF SERVICE: 12/07/20 The patient has no new complaints and fully cooperating with the treatment. He is smiling and pleasant and cooperated with the interview and is hoping for a pl acement in a supportive living HISTORY: . VITAL SIGNS: See below. NEW TEST RESULTS: . CURRENT MEDICATIONS: See below. MENTAL STATUS EXAMINATION: Patient is a 25-year old male, who is in no acute distress. Speech: Is relevant. Language skills are good. Thought processes including: , Organized. Thought content: Denies any hallucination or paranoia . Abstract reasoning, and computation: Fair. Description of associations: Relevant. Description of abnormal or psychotic thoughts: , Denies any paranoia and denies any suicidal thoughts. Judgment: fair. Insight: fair. . Orientation: , Oriented. Recent and remote memory: Fair. Attention span and concentration: Fair. Language: . Fund of knowledge: . Mood: Euthymic. Affect: , Appropriate. DIAGNOSES: 1. . Chronic schizophrenia 2. . 3. . ASSESSMENT:Maintaining improvement MANAGEMENT PLAN: Waiting for a supportive living. TIME SPENT: 15 minutes. Vital Signs Vital Signs Date Time Temp Pulse Resp B/P (MAP) Pulse Ox O2 Delivery O2 Flow Rate FiO2 12/07/20 06:47 98.4 64 20 118/56 (76) 96 Room Air Current Medications Current Medications Medications (Trade) Dose Ordered Sig/James Route PRN Reason Start Time Stop Time Status Last Admin Dose Admin Al Hydrox/Mg Hydrox/Simethicone (Mylanta) 30 ml Q4HP PRN PO HEARTBURN/INDIGESTION 11/25/20 18:45 Home Med (Med Rec Complete!) ASDIRECTED XX 11/25/20 13:00 11/25/20 12:58 DC Ibuprofen (Advil) 400 mg Q6HP PRN PO PAIN 11/25/20 18:45 Magnesium Hydroxide (Milk Of Magnesia) 30 ml DAILYPRN PRN PO CONSTIPATION 11/25/20 18:45 Nicotine (Nicoderm Cq 21mg) 1 patch DAILY TD 11/26/20 09:00 Risperidone (RisperDAL) 3 mg QHS PO 11/26/20 21:00 12/06/20 21:10 Trazodone HCl (Desyrel) 50 mg QHSP PRN PO INSOMNIA 11/25/20 18:45 12/06/20 22:06 Allergies Coded Allergies: POLLEN (Verified Allergy, Unknown, 08/05/20) ROBERT MATHEWS M.D. Dec 07, 2020 11:37
[2020-12-07 16:39] VITALS: BP 154/67
[2020-12-07] MEDS: risperiDONE 3 MG TAB PO SCH (20:59)
[2020-12-07] MEDS: traZODone 50 MG TAB PO PRN (20:59)
[2020-12-08 06:19] VITALS: BP 135/61
[2020-12-08] MEDS: NICOTINE 21MG/24HR 1 EA TRANSDERMAL TD SCH (09:00)
--- NOTE | 2020-12-08 09:57 | MHIPNPDOC ---
[facility] Progress Note Progress Note DATE OF SERVICE: 12/08/20 Patient reports doing well and is feeling more hopeful. He is taking his medicine without any side effects and reports that he is not hearing voices and is not feeling confused. He has an interview scheduled today for a supportive living and is willing to wait for the supportive living arrangement. HISTORY: . VITAL SIGNS: See below. NEW TEST RESULTS: . CURRENT MEDICATIONS: See below. MENTAL STATUS EXAMINATION: Patient is a 25-year old male, who is , pleasant and cooperative. Speech: Is rational, coherent. Language skills are fair. Thought processes including: Relevant. Thought content: Denies any suicidal thoughts. Abstract reasoning, and computation: fair. Description of associations: , Organized. Description of abnormal or psychotic thoughts: Denies any active psychotic symptoms. Judgment: fair. Insight: [ fair.]. Orientation: [, Oriented, ]. Recent and remote memory: [Good]. Attention span and concentration: [fair]. Language: . Fund of knowledge: . Mood: [Euthymic]. Affect: [, Appropriate]. DIAGNOSES: 1. . Chronic schizophrenia 2. . 3. . ASSESSMENT:[Maintaining improved mental status and behavior] MANAGEMENT PLAN: [Waiting for a supportive living arrangement]. TIME SPENT: [20] minutes. Vital Signs Vital Signs Date Time Temp Pulse Resp B/P (MAP) Pulse Ox O2 Delivery O2 Flow Rate FiO2 12/08/20 06:19 99.4 80 18 135/61 (85) 97 Room Air Current Medications Current Medications Medications (Trade) Dose Ordered Sig/James Route PRN Reason Start Time Stop Time Status Last Admin Dose Admin Al Hydrox/Mg Hydrox/Simethicone (Mylanta) 30 ml Q4HP PRN PO HEARTBURN/INDIGESTION 11/25/20 18:45 Home Med (Med Rec Complete!) ASDIRECTED XX 11/25/20 13:00 11/25/20 12:58 DC Ibuprofen (Advil) 400 mg Q6HP PRN PO PAIN 11/25/20 18:45 Magnesium Hydroxide (Milk Of Magnesia) 30 ml DAILYPRN PRN PO CONSTIPATION 11/25/20 18:45 Nicotine (Nicoderm Cq 21mg) 1 patch DAILY TD 11/26/20 09:00 Risperidone (RisperDAL) 3 mg QHS PO 11/26/20 21:00 12/07/20 20:59 Trazodone HCl (Desyrel) 50 mg QHSP PRN PO INSOMNIA 11/25/20 18:45 12/07/20 20:59 Allergies Coded Allergies: POLLEN (Verified Allergy, Unknown, 08/05/20) ROBERT MATHEWS M.D. Dec 08, 2020 09:57
[2020-12-08 15:22] VITALS: BP 140/72
[2020-12-08] MEDS: traZODone 50 MG TAB PO PRN (20:17)
[2020-12-08] MEDS: risperiDONE 3 MG TAB PO SCH (20:17)
[2020-12-09 05:53] VITALS: BP 133/51
[2020-12-09] MEDS: NICOTINE 21MG/24HR 1 EA TRANSDERMAL TD SCH (09:00)
--- NOTE | 2020-12-09 10:24 | MHIPNPDOC ---
[facility] Progress Note Progress Note DATE OF SERVICE: 12/09/20 Patient is cooperating with the medications and maintaining improved mental status. He has been fully cooperating with the discharge plan and had an interview done and waiting for another interview with [facility]. HISTORY: . VITAL SIGNS: See below. NEW TEST RESULTS: . CURRENT MEDICATIONS: See below. MENTAL STATUS EXAMINATION: Patient is a [age]-year old male, who is , pleasant, cooperative. Speech: Is rational, coherent . Language skills are good. Thought processes including: Relevant. Thought content: Denies any suicidal thoughts and no paranoia. Abstract reasoning, and computation: , Fair. Description of associations: Well-organized. Description of abnormal or psychotic thoughts: Denies any. Judgment: Good]. Insight: [ fair.]. Orientation: [, Oriented]. Recent and remote memory: [, Fair]. Attention span and concentration: . Language: . Fund of knowledge: . Mood: [Euthymic]. Affect: Appropriate . DIAGNOSES: 1. . Chronic schizophrenia 2. . 3. . ASSESSMENT:[Maintaining improved mental status] MANAGEMENT PLAN: [Discharge to Supportive living]. TIME SPENT: [15] minutes. Vital Signs Vital Signs Date Time Temp Pulse Resp B/P (MAP) Pulse Ox O2 Delivery O2 Flow Rate FiO2 12/09/20 05:53 98.8 51 18 133/51 (78) 95 Room Air Current Medications Current Medications Medications (Trade) Dose Ordered Sig/James Route PRN Reason Start Time Stop Time Status Last Admin Dose Admin Al Hydrox/Mg Hydrox/Simethicone (Mylanta) 30 ml Q4HP PRN PO HEARTBURN/INDIGESTION 11/25/20 18:45 Home Med (Med Rec Complete!) ASDIRECTED XX 11/25/20 13:00 11/25/20 12:58 DC Ibuprofen (Advil) 400 mg Q6HP PRN PO PAIN 11/25/20 18:45 Magnesium Hydroxide (Milk Of Magnesia) 30 ml DAILYPRN PRN PO CONSTIPATION 11/25/20 18:45 Nicotine (Nicoderm Cq 21mg) 1 patch DAILY TD 11/26/20 09:00 Risperidone (RisperDAL) 3 mg QHS PO 11/26/20 21:00 12/08/20 20:17 Trazodone HCl (Desyrel) 50 mg QHSP PRN PO INSOMNIA 11/25/20 18:45 12/08/20 20:17 Allergies Coded Allergies: POLLEN (Verified Allergy, Unknown, 08/05/20) ROBERT MATHEWS M.D. Dec 09, 2020 10:24
[2020-12-09 17:42] VITALS: BP 141/67
[2020-12-09] MEDS: traZODone 50 MG TAB PO PRN (20:52)
[2020-12-09] MEDS: risperiDONE 3 MG TAB PO SCH (20:52)
[2020-12-10 05:48] VITALS: BP 113/56
--- NOTE | 2020-12-10 08:39 | MHIPNPDOC ---
[facility] Progress Note Progress Note DATE OF SERVICE: 12/10/20 The patient reports feeling a little bit disappointed because he couldn't answer a lot of questions during the interview with the [facility]. He is still hoping for a supportive housing and is willing to wait and cooperate. He denies any hallucination or paranoia. Denies any suicidal thoughts and the maintaining improved mental status. HISTORY: . VITAL SIGNS: See below. NEW TEST RESULTS: . CURRENT MEDICATIONS: See below. MENTAL STATUS EXAMINATION: Patient is a 25-year old male, who is in no acute distress. Speech: Is , relevant, coherent. Language skills are fair. Thought processes including: , Relevant. Thought content: Denies suicidal thoughts. Abstract reasoning, and computation: poor. Description of associations: , Organized. Description of abnormal or psychotic thoughts: Denies any. Judgment: fair. Insight: fair.]. Orientation: , Oriented. Recent and remote memory: fair. Attention span and concentration: fair. Language: . Fund of knowledge: . Mood: Euthymic. Affect: , Appropriate. DIAGNOSES: 1. . Chronic schizophrenia 2. . 3. . ASSESSMENT: Appears to be at his baseline] MANAGEMENT PLAN: Pursuing supportive living. TIME SPENT: 20 minutes. Vital Signs Vital Signs Date Time Temp Pulse Resp B/P (MAP) Pulse Ox O2 Delivery O2 Flow Rate FiO2 12/10/20 05:48 98.4 73 18 113/56 (75) 98 Room Air Current Medications Current Medications Medications (Trade) Dose Ordered Sig/James Route PRN Reason Start Time Stop Time Status Last Admin Dose Admin Al Hydrox/Mg Hydrox/Simethicone (Mylanta) 30 ml Q4HP PRN PO HEARTBURN/INDIGESTION 11/25/20 18:45 Home Med (Med Rec Complete!) ASDIRECTED XX 11/25/20 13:00 11/25/20 12:58 DC Ibuprofen (Advil) 400 mg Q6HP PRN PO PAIN 11/25/20 18:45 Magnesium Hydroxide (Milk Of Magnesia) 30 ml DAILYPRN PRN PO CONSTIPATION 11/25/20 18:45 Nicotine (Nicoderm Cq 21mg) 1 patch DAILY TD 11/26/20 09:00 Risperidone (RisperDAL) 3 mg QHS PO 11/26/20 21:00 12/09/20 20:52 Trazodone HCl (Desyrel) 50 mg QHSP PRN PO INSOMNIA 11/25/20 18:45 12/09/20 20:52 Allergies Coded Allergies: POLLEN (Verified Allergy, Unknown, 08/05/20) ROBERT MATHEWS M.D. Dec 10, 2020 08:39
[2020-12-10] MEDS: NICOTINE 21MG/24HR 1 EA TRANSDERMAL TD SCH (08:50)
[2020-12-10 16:56] VITALS: BP 147/75
[2020-12-10] MEDS: risperiDONE 3 MG TAB PO SCH (21:16)
[2020-12-10] MEDS: traZODone 50 MG TAB PO PRN (21:16)
[2020-12-11 06:00] VITALS: BP 125/58
[2020-12-11] MEDS: NICOTINE 21MG/24HR 1 EA TRANSDERMAL TD SCH (09:00)
[2020-12-11 16:36] VITALS: BP 132/77
[2020-12-11] MEDS: traZODone 50 MG TAB PO PRN (21:33)
[2020-12-11] MEDS: risperiDONE 3 MG TAB PO SCH (21:33)
[2020-12-12 06:24] VITALS: BP 118/60
[2020-12-12] MEDS: NICOTINE 21MG/24HR 1 EA TRANSDERMAL TD SCH (09:00)
[2020-12-12 17:35] VITALS: BP 156/85
[2020-12-12] MEDS: risperiDONE 3 MG TAB PO SCH (20:31)
[2020-12-12] MEDS: traZODone 50 MG TAB PO PRN (20:31)
[2020-12-13 06:46] VITALS: BP 127/58
[2020-12-13] MEDS: NICOTINE 21MG/24HR 1 EA TRANSDERMAL TD SCH (09:00)
--- NOTE | 2020-12-13 10:01 | MHIPNPDOC ---
[facility] Progress Note Progress Note DATE OF SERVICE: 12/13/20 The patient is feeling more positive and stated that he is ready for the second interview for the housing. It is not as feeling depressed and denies any suicid al thoughts and fully complying with his medication. He denies any hallucinations and denies any suicidal thoughts and feels stable with his current medicine. HISTORY: . VITAL SIGNS: See below. NEW TEST RESULTS: . CURRENT MEDICATIONS: See below. MENTAL STATUS EXAMINATION: Patient is a 25-year old male, who is , cooperative. Speech: Is rational, coherent. Language skills are fair. Thought processes including: Relevant. Thought content: Denies any confusion or suicidal thoughts. Abstract reasoning, and computation: poor. Description of associations: Relevant and organized . Description of abnormal or psychotic thoughts: Denies any. Judgment: fair. Insight: fair]. Orientation: , Oriented. Recent and remote memory: Fair. Attention span and concentration: . Language: . Fund of knowledge: . Mood: Euthymic . Affect: , Appropriate. DIAGNOSES: 1. . Chronic schizophrenia 2. . 3. . ASSESSMENT: Maintaining improved mental status and cooperating with discharge plan MANAGEMENT PLAN: . Continued the current treatment TIME SPENT: 15 minutes. Vital Signs Vital Signs Date Time Temp Pulse Resp B/P (MAP) Pulse Ox O2 Delivery O2 Flow Rate FiO2 12/13/20 06:46 97.8 61 16 127/58 (81) 95 Room Air Current Medications Current Medications Medications (Trade) Dose Ordered Sig/James Route PRN Reason Start Time Stop Time Status Last Admin Dose Admin Al Hydrox/Mg Hydrox/Simethicone (Mylanta) 30 ml Q4HP PRN PO HEARTBURN/INDIGESTION 11/25/20 18:45 Home Med (Med Rec Complete!) ASDIRECTED XX 11/25/20 13:00 11/25/20 12:58 DC Ibuprofen (Advil) 400 mg Q6HP PRN PO PAIN 11/25/20 18:45 Magnesium Hydroxide (Milk Of Magnesia) 30 ml DAILYPRN PRN PO CONSTIPATION 11/25/20 18:45 Nicotine (Nicoderm Cq 21mg) 1 patch DAILY TD 11/26/20 09:00 Risperidone (RisperDAL) 3 mg QHS PO 11/26/20 21:00 12/12/20 20:31 Trazodone HCl (Desyrel) 50 mg QHSP PRN PO INSOMNIA 11/25/20 18:45 12/12/20 20:31 Allergies Coded Allergies: POLLEN (Verified Allergy, Unknown, 08/05/20) ROBERT MATHEWS M.D. Dec 13, 2020 10:01
[2020-12-13 16:17] VITALS: BP 139/87
[2020-12-13] MEDS: risperiDONE 3 MG TAB PO SCH (20:47)
[2020-12-13] MEDS: traZODone 50 MG TAB PO PRN (20:47)
[2020-12-14 06:11] VITALS: BP 124/65
[2020-12-14] MEDS: NICOTINE 21MG/24HR 1 EA TRANSDERMAL TD SCH (08:59)
--- NOTE | 2020-12-14 11:24 | MHIPNPDOC ---
[facility] Progress Note Progress Note DATE OF SERVICE: 12/14/20 The patient reports that he has a interview scheduled today for his housing and is feeling that he will be able to do better this time.. He is a smiling approp riately, reports feeling more positive and is willing to cooperate for the housing referral. He has no new complaints. Maintaining improved mental status, and cooperating with this discharge plan. HISTORY: . VITAL SIGNS: See below. NEW TEST RESULTS: . CURRENT MEDICATIONS: See below. MENTAL STATUS EXAMINATION: Patient is a 25 -year old male, who is , pleasant and in no acute distress. Speech: Is rational, coherent. Language skills are fair]. Thought processes including: Relevant. Thought content: Denies any suicidal thoughts. Abstract reasoning, and computation: Fair. Description of associations: , Organized. Description of abnormal or psychotic thoughts: Denies any hallucinations or paranoia . Judgment: Fair. Insight: fair.. Orientation: , Oriented. Recent and remote memory: Fair. Attention span and concentration: . Language: . Fund of knowledge: . Mood: Euthymic . Affect: Appropriate . DIAGNOSES: 1. . Chronic schizophrenia 2. . 3. . ASSESSMENT:Maintaining improved mental status MANAGEMENT PLAN: Continued to current treatment and discharge plan. TIME SPENT: 15 minutes. Vital Signs Vital Signs Date Time Temp Pulse Resp B/P (MAP) Pulse Ox O2 Delivery O2 Flow Rate FiO2 12/14/20 06:11 98.6 55 16 124/65 (84) 95 Room Air Current Medications Current Medications Medications (Trade) Dose Ordered Sig/James Route PRN Reason Start Time Stop Time Status Last Admin Dose Admin Al Hydrox/Mg Hydrox/Simethicone (Mylanta) 30 ml Q4HP PRN PO HEARTBURN/INDIGESTION 11/25/20 18:45 Home Med (Med Rec Complete!) ASDIRECTED XX 11/25/20 13:00 11/25/20 12:58 DC Ibuprofen (Advil) 400 mg Q6HP PRN PO PAIN 11/25/20 18:45 Magnesium Hydroxide (Milk Of Magnesia) 30 ml DAILYPRN PRN PO CONSTIPATION 11/25/20 18:45 Nicotine (Nicoderm Cq 21mg) 1 patch DAILY TD 11/26/20 09:00 Risperidone (RisperDAL) 3 mg QHS PO 11/26/20 21:00 12/13/20 20:47 Trazodone HCl (Desyrel) 50 mg QHSP PRN PO INSOMNIA 11/25/20 18:45 12/13/20 20:47 Allergies Coded Allergies: POLLEN (Verified Allergy, Unknown, 08/05/20) ROBERT MATHEWS M.D. Dec 14, 2020 11:24
[2020-12-14 16:17] VITALS: BP 130/63
[2020-12-14] MEDS: risperiDONE 3 MG TAB PO SCH (20:23)
[2020-12-14] MEDS: traZODone 50 MG TAB PO PRN (20:23)
[2020-12-15 06:01] VITALS: BP 133/67
[2020-12-15] MEDS: NICOTINE 21MG/24HR 1 EA TRANSDERMAL TD SCH (08:37)
--- NOTE | 2020-12-15 10:42 | MHIPNPDOC ---
[facility] Progress Note Progress Note DATE OF SERVICE: 12/15/20 The patient reports that he did okay with his interview yesterday for supportive housing. He is smiling and pleasant and has no new complaints and is feeling m ore hopeful. HISTORY: . VITAL SIGNS: See below. NEW TEST RESULTS: . CURRENT MEDICATIONS: See below. MENTAL STATUS EXAMINATION: Patient is a 25-year old male, who is in no acute distress. Speech: Is responsive and coherent. Language skills are fair . Thought processes including: Relevant. Thought content: Denies any paranoia . Abstract reasoning, and computation: [Fair. Description of associations: Relevant. Description of abnormal or psychotic thoughts: Denies any hallucination and denies any suicidal thoughts . Judgment: Fair. Insight: fair. Orientation: , Oriented. Recent and remote memory: Fair. Attention span and concentration: Fair. Language: . Fund of knowledge: . Mood: Euthymic. Affect: , Appropriate. DIAGNOSES: 1. . Chronic schizophrenia 2. . 3. . ASSESSMENT:Maintaining improved mental status MANAGEMENT PLAN: Supportive housing for discharge. TIME SPENT: 15 minutes. Vital Signs Vital Signs Date Time Temp Pulse Resp B/P (MAP) Pulse Ox O2 Delivery O2 Flow Rate FiO2 12/15/20 06:01 98.7 59 18 133/67 (89) 96 Room Air Current Medications Current Medications Medications (Trade) Dose Ordered Sig/James Route PRN Reason Start Time Stop Time Status Last Admin Dose Admin Al Hydrox/Mg Hydrox/Simethicone (Mylanta) 30 ml Q4HP PRN PO HEARTBURN/INDIGESTION 11/25/20 18:45 Home Med (Med Rec Complete!) ASDIRECTED XX 11/25/20 13:00 11/25/20 12:58 DC Ibuprofen (Advil) 400 mg Q6HP PRN PO PAIN 11/25/20 18:45 Magnesium Hydroxide (Milk Of Magnesia) 30 ml DAILYPRN PRN PO CONSTIPATION 11/25/20 18:45 Nicotine (Nicoderm Cq 21mg) 1 patch DAILY TD 11/26/20 09:00 Risperidone (RisperDAL) 3 mg QHS PO 11/26/20 21:00 12/14/20 20:23 Trazodone HCl (Desyrel) 50 mg QHSP PRN PO INSOMNIA 11/25/20 18:45 12/14/20 20:23 Allergies Coded Allergies: POLLEN (Verified Allergy, Unknown, 08/05/20) ROBERT MATHEWS M.D. Dec 15, 2020 10:42
[2020-12-15 16:08] VITALS: BP 127/85
[2020-12-15] MEDS: traZODone 50 MG TAB PO PRN (21:32)
[2020-12-15] MEDS: risperiDONE 3 MG TAB PO SCH (21:32)
[2020-12-16 06:39] VITALS: BP 135/70
[2020-12-16] MEDS: NICOTINE 21MG/24HR 1 EA TRANSDERMAL TD SCH (07:56)
--- NOTE | 2020-12-16 10:39 | MHIPNPDOC ---
[facility] Progress Note Progress Note DATE OF SERVICE: 12/16/20 The patient had a second interview done with a supportive living and reports that he did well and he is feeling hopeful. Is maintaining good control and fully cooperating with the treatment and discharge plan and offered no new complaints. HISTORY: . VITAL SIGNS: See below. NEW TEST RESULTS: . CURRENT MEDICATIONS: See below. MENTAL STATUS EXAMINATION: Patient is a 25-year old male, who is , cooperative. Speech: Is , coherent, relevant. Language skills are fair. Thought processes including: , Relevant. Thought content: , Denies any paranoia. No suicidal thoughts. Abstract reasoning, and computation: fair. Description of associations: , Disorganized. Description of abnormal or psychotic thoughts: Denies any active hallucination. Judgment: Fair. Insight: [fair.. Orientation: , Oriented. Recent and remote memory: . Attention span and concentration: . Language: . Fund of knowledge: . Mood: Euthymic. Affect: , Appropriate. DIAGNOSES: 1. . Chronic schizophrenia 2. . 3. . ASSESSMENT:Cooperating with the treatment and maintaining stable behavior and mental status MANAGEMENT PLAN: Continue the current treatment and discharge planning. TIME SPENT: 15 ] minutes. Vital Signs Vital Signs Date Time Temp Pulse Resp B/P (MAP) Pulse Ox O2 Delivery O2 Flow Rate FiO2 12/16/20 06:39 99.5 73 14 135/70 (91) 97 Room Air Current Medications Current Medications Medications (Trade) Dose Ordered Sig/James Route PRN Reason Start Time Stop Time Status Last Admin Dose Admin Al Hydrox/Mg Hydrox/Simethicone (Mylanta) 30 ml Q4HP PRN PO HEARTBURN/INDIGESTION 11/25/20 18:45 Home Med (Med Rec Complete!) ASDIRECTED XX 11/25/20 13:00 11/25/20 12:58 DC Ibuprofen (Advil) 400 mg Q6HP PRN PO PAIN 11/25/20 18:45 Magnesium Hydroxide (Milk Of Magnesia) 30 ml DAILYPRN PRN PO CONSTIPATION 11/25/20 18:45 Nicotine (Nicoderm Cq 21mg) 1 patch DAILY TD 11/26/20 09:00 Risperidone (RisperDAL) 3 mg QHS PO 11/26/20 21:00 12/15/20 21:32 Trazodone HCl (Desyrel) 50 mg QHSP PRN PO INSOMNIA 11/25/20 18:45 12/15/20 21:32 Allergies Coded Allergies: POLLEN (Verified Allergy, Unknown, 08/05/20) ROBERT MATHEWS M.D. Dec 16, 2020 10:39
[2020-12-16 19:02] VITALS: BP 149/91
[2020-12-16] MEDS: traZODone 50 MG TAB PO PRN (21:20)
[2020-12-16] MEDS: risperiDONE 3 MG TAB PO SCH (21:20)
[2020-12-17 06:00] VITALS: BP 130/61
[2020-12-17] MEDS: NICOTINE 21MG/24HR 1 EA TRANSDERMAL TD SCH (08:46)
--- NOTE | 2020-12-17 10:31 | MHIPNPDOC ---
[facility] Progress Note Progress Note DATE OF SERVICE: 12/17/20 The patient apparently was accepted by transitional living after the interview and a bed is going to be available next week. Patient reports feeling okay and h as no new complaints and is feeling more hopeful. He is fully cooperating with treatment and discharge plan and has no new complaints. HISTORY: . VITAL SIGNS: See below. NEW TEST RESULTS: . CURRENT MEDICATIONS: See below. MENTAL STATUS EXAMINATION: Patient is a 25-year old male, who is in no acute distress. Speech: Is , relevant, coherent. Language skills are , fair. Thought processes including: , Relevant. Thought content: Denies any hallucination or paranoia. Abstract reasoning, and computation: , Fair. Description of associations: , Organized. Description of abnormal or psychotic thoughts: Denies any command hallucination. Judgment: Fair. Insight: fair.]. Orientation: , Oriented. Recent and remote memory: [Good. Attention span and concentration: . Language: . Fund of knowledge: . Mood: Euthymic. Affect: , Appropriate. DIAGNOSES: 1. . Chronic schizophrenia 2. . 3. . ASSESSMENT:Maintaining stable behavior and mental status MANAGEMENT PLAN: To discharge to transitional living when a bed is available. TIME SPENT: 15 minutes. Vital Signs Vital Signs Date Time Temp Pulse Resp B/P (MAP) Pulse Ox O2 Delivery O2 Flow Rate FiO2 12/17/20 06:00 99.4 82 16 130/61 (84) 97 12/16/20 06:39 Room Air Current Medications Current Medications Medications (Trade) Dose Ordered Sig/James Route PRN Reason Start Time Stop Time Status Last Admin Dose Admin Al Hydrox/Mg Hydrox/Simethicone (Mylanta) 30 ml Q4HP PRN PO HEARTBURN/INDIGESTION 11/25/20 18:45 Home Med (Med Rec Complete!) ASDIRECTED XX 11/25/20 13:00 11/25/20 12:58 DC Ibuprofen (Advil) 400 mg Q6HP PRN PO PAIN 11/25/20 18:45 Magnesium Hydroxide (Milk Of Magnesia) 30 ml DAILYPRN PRN PO CONSTIPATION 11/25/20 18:45 Nicotine (Nicoderm Cq 21mg) 1 patch DAILY TD 11/26/20 09:00 Risperidone (RisperDAL) 3 mg QHS PO 11/26/20 21:00 12/16/20 21:20 Trazodone HCl (Desyrel) 50 mg QHSP PRN PO INSOMNIA 11/25/20 18:45 12/16/20 21:20 Allergies Coded Allergies: POLLEN (Verified Allergy, Unknown, 08/05/20) ROBERT MATHEWS M.D. Dec 17, 2020 10:31
[2020-12-17 16:08] VITALS: BP 140/69
[2020-12-17] MEDS ORDERED: OLANZapine ORAL DISINTEGRATING TAB 5MG PO PRN (18:45)
[2020-12-17] MEDS: risperiDONE 3 MG TAB PO SCH (21:32)
[2020-12-17] MEDS: traZODone 50 MG TAB PO PRN (21:32)
[2020-12-18 06:15] VITALS: BP 124/67
[2020-12-18] MEDS: NICOTINE 21MG/24HR 1 EA TRANSDERMAL TD SCH (08:49)
[2020-12-18 16:32] VITALS: BP 128/76
[2020-12-18] MEDS: risperiDONE 3 MG TAB PO SCH (21:15)
[2020-12-18] MEDS: traZODone 50 MG TAB PO PRN (21:15)
[2020-12-19 06:18] VITALS: BP 117/63
[2020-12-19] MEDS: NICOTINE 21MG/24HR 1 EA TRANSDERMAL TD SCH (09:00)
[2020-12-19 16:44] VITALS: BP 135/62
[2020-12-19] MEDS: traZODone 50 MG TAB PO PRN (21:36)
[2020-12-19] MEDS: risperiDONE 3 MG TAB PO SCH (21:36)
[2020-12-20 07:01] VITALS: BP 112/60
[2020-12-20] MEDS: NICOTINE 21MG/24HR 1 EA TRANSDERMAL TD SCH (08:03)
--- NOTE | 2020-12-20 10:50 | MHIPNPDOC ---
[facility] Progress Note Progress Note DATE OF SERVICE: 12/20/20 The patient's mental status and behavior remains fairly stable and he is willing to go to a supportive living. He is accepted by [facility], but apparently there is a issue regarding his guardianship by his cousin and payee status needs be reserved peaches delaying the process. HISTORY: . VITAL SIGNS: See below. NEW TEST RESULTS: . CURRENT MEDICATIONS: See below. MENTAL STATUS EXAMINATION: Patient is a 25-year old male, who is cooperative . Speech: Is relevant. Language skills are fair. Thought processes including: , Coherent. Thought content: , Denies any paranoia or suicidal thoughts. Abstract reasoning, and computation: fair. Description of associations: , Organized. Description of abnormal or psychotic thoughts: Denies any active hallucination . Judgment: fair. Insight: [ fair.. Orientation: , Oriented. Recent and remote memory: fair. Attention span and concentration: . Language: . Fund of knowledge: . Mood: Euthymic. Affect: Appropriate . DIAGNOSES: 1. . Chronic schizophrenia 2. . 3. . ASSESSMENT:Maintaining good control MANAGEMENT PLAN: Continue the current treatment and discharge plan. TIME SPENT: 50 minutes. Vital Signs Vital Signs Date Time Temp Pulse Resp B/P (MAP) Pulse Ox O2 Delivery O2 Flow Rate FiO2 12/20/20 07:01 97.9 72 20 112/60 (77) 96 Room Air Current Medications Current Medications Medications (Trade) Dose Ordered Sig/James Route PRN Reason Start Time Stop Time Status Last Admin Dose Admin Al Hydrox/Mg Hydrox/Simethicone (Mylanta) 30 ml Q4HP PRN PO HEARTBURN/INDIGESTION 11/25/20 18:45 Home Med (Med Rec Complete!) ASDIRECTED XX 11/25/20 13:00 11/25/20 12:58 DC Ibuprofen (Advil) 400 mg Q6HP PRN PO PAIN 11/25/20 18:45 Magnesium Hydroxide (Milk Of Magnesia) 30 ml DAILYPRN PRN PO CONSTIPATION 11/25/20 18:45 Nicotine (Nicoderm Cq 21mg) 1 patch DAILY TD 11/26/20 09:00 Olanzapine (ZyPREXA ZYDIS) 5 mg Q4HP PRN PO ANXIETY/AGITATION 12/17/20 18:45 Risperidone (RisperDAL) 3 mg QHS PO 11/26/20 21:00 12/19/20 21:36 Trazodone HCl (Desyrel) 50 mg QHSP PRN PO INSOMNIA 11/25/20 18:45 12/19/20 21:36 Allergies Coded Allergies: POLLEN (Verified Allergy, Unknown, 08/05/20) ROBERT MATHEWS M.D. Dec 20, 2020 10:50
[2020-12-20 17:30] VITALS: BP 120/79
[2020-12-20] MEDS: risperiDONE 3 MG TAB PO SCH (20:48)
[2020-12-20] MEDS: traZODone 50 MG TAB PO PRN (21:43)
[2020-12-21 07:27] VITALS: BP 130/64
[2020-12-21] MEDS: NICOTINE 21MG/24HR 1 EA TRANSDERMAL TD SCH (08:27)
--- NOTE | 2020-12-21 10:46 | MHIPNPDOC ---
[facility] Progress Note Progress Note DATE OF SERVICE: 12/21/20 Patient is fully cooperating with the medication and discharge plan. He is more animated, smiling and very pleasant on approach and denies any hallucination or paranoia, and feeling safe and stable. He is waiting for a bed at transitional living services. HISTORY: . VITAL SIGNS: See below. NEW TEST RESULTS: . CURRENT MEDICATIONS: See below. MENTAL STATUS EXAMINATION: Patient is a 25-year old male, who is in no acute distress. Speech: Is rational, coherent. Language skills are fair. Thought processes including: Relevant. Thought content: Denies any problem . Abstract reasoning, and computation: fair. Description of associations: , Coherent. Description of abnormal or psychotic thoughts: Denies any hallucination or paranoia. Judgment: fair. Insight: fair.. Orientation: , Well oriented. Recent and remote memory: fair. Attention span and concentration: . Language: . Fund of knowledge: . Mood: Euthymic. Affect: [, Appropriate]. DIAGNOSES: 1. . Chronic schizophrenia 2. . 3. . ASSESSMENT:[Maintaining improved. The mental status] MANAGEMENT PLAN: [. Continue with the current treatment and [facility] to [facility] TIME SPENT: [15] minutes. Vital Signs Vital Signs Date Time Temp Pulse Resp B/P (MAP) Pulse Ox O2 Delivery O2 Flow Rate FiO2 12/21/20 07:27 97.9 50 20 130/64 (86) 97 Room Air Current Medications Current Medications Medications (Trade) Dose Ordered Sig/James Route PRN Reason Start Time Stop Time Status Last Admin Dose Admin Al Hydrox/Mg Hydrox/Simethicone (Mylanta) 30 ml Q4HP PRN PO HEARTBURN/INDIGESTION 11/25/20 18:45 Home Med (Med Rec Complete!) ASDIRECTED XX 11/25/20 13:00 11/25/20 12:58 DC Ibuprofen (Advil) 400 mg Q6HP PRN PO PAIN 11/25/20 18:45 Magnesium Hydroxide (Milk Of Magnesia) 30 ml DAILYPRN PRN PO CONSTIPATION 11/25/20 18:45 Nicotine (Nicoderm Cq 21mg) 1 patch DAILY TD 11/26/20 09:00 Olanzapine (ZyPREXA ZYDIS) 5 mg Q4HP PRN PO ANXIETY/AGITATION 12/17/20 18:45 Risperidone (RisperDAL) 3 mg QHS PO 11/26/20 21:00 12/20/20 20:48 Trazodone HCl (Desyrel) 50 mg QHSP PRN PO INSOMNIA 11/25/20 18:45 12/20/20 21:43 Allergies Coded Allergies: POLLEN (Verified Allergy, Unknown, 08/05/20) ROBERT MATHEWS M.D. Dec 21, 2020 10:46
[2020-12-21 18:44] VITALS: BP 122/67
[2020-12-21] MEDS: risperiDONE 3 MG TAB PO SCH (21:39)
[2020-12-21] MEDS: traZODone 50 MG TAB PO PRN (22:39)
[2020-12-22 06:45] VITALS: BP 102/54
[2020-12-22] MEDS: NICOTINE 21MG/24HR 1 EA TRANSDERMAL TD SCH (09:00)
--- NOTE | 2020-12-22 10:48 | MHIPNPDOC ---
[facility] Progress Note Progress Note DATE OF SERVICE: 12/22/20 The patient is maintaining his improved mental status and offers no new complaints. He is fully cooperating with his medications and no complaint of side effect and is hopeful with his sister discharge plan. 2. Supportive living. HISTORY: . VITAL SIGNS: See below. NEW TEST RESULTS: . CURRENT MEDICATIONS: See below. MENTAL STATUS EXAMINATION: Patient is a 25-year old male, who is pleasant and cooperative, rational, coherent . Speech: Is [, rational, coherent. Language skills are fair. Thought processes including: Relevant. Thought content: . No gross delusional thinking. Abstract reasoning, and computation: fair. Description of associations: , Organized.. Judgment: fair. Insight: fair. Orientation: , Oriented. Recent and remote memory: fair. Attention span and concentration: . Language: . Fund of knowledge: . Mood: Euthymic. Affect: , Appropriate. DIAGNOSES: 1. . Chronic schizophrenia 2. . 3. . ASSESSMENT:Maintaining stable mental status and behavior MANAGEMENT PLAN: Waiting for supportive living bed . TIME SPENT: 15 minutes. Vital Signs Vital Signs Date Time Temp Pulse Resp B/P (MAP) Pulse Ox O2 Delivery O2 Flow Rate FiO2 12/22/20 06:45 98.0 78 16 102/54 (70) 95 Room Air Current Medications Current Medications Medications (Trade) Dose Ordered Sig/James Route PRN Reason Start Time Stop Time Status Last Admin Dose Admin Al Hydrox/Mg Hydrox/Simethicone (Mylanta) 30 ml Q4HP PRN PO HEARTBURN/INDIGESTION 11/25/20 18:45 Home Med (Med Rec Complete!) ASDIRECTED XX 11/25/20 13:00 11/25/20 12:58 DC Ibuprofen (Advil) 400 mg Q6HP PRN PO PAIN 11/25/20 18:45 Magnesium Hydroxide (Milk Of Magnesia) 30 ml DAILYPRN PRN PO CONSTIPATION 11/25/20 18:45 Nicotine (Nicoderm Cq 21mg) 1 patch DAILY TD 11/26/20 09:00 Olanzapine (ZyPREXA ZYDIS) 5 mg Q4HP PRN PO ANXIETY/AGITATION 12/17/20 18:45 Risperidone (RisperDAL) 3 mg QHS PO 11/26/20 21:00 12/21/20 21:39 Trazodone HCl (Desyrel) 50 mg QHSP PRN PO INSOMNIA 11/25/20 18:45 12/21/20 22:39 Allergies Coded Allergies: POLLEN (Verified Allergy, Unknown, 08/05/20) ROBERT MATHEWS M.D. Dec 22, 2020 10:48
[2020-12-22 18:41] VITALS: BP 115/67
[2020-12-22] MEDS: traZODone 50 MG TAB PO PRN (21:14)
[2020-12-22] MEDS: risperiDONE 3 MG TAB PO SCH (21:14)
[2020-12-23 06:26] VITALS: BP 119/59
[2020-12-23] MEDS: NICOTINE 21MG/24HR 1 EA TRANSDERMAL TD SCH (09:00)
--- NOTE | 2020-12-23 09:27 | MHIPNPDOC ---
[facility] Progress Note Progress Note DATE OF SERVICE: 12/23/20 Patient is a quite animated and socializing with other patients, attending groups and has no new complaints. He is fully cooperating with treatment and discharge planning and denies any hallucination, paranoia and reports feeling more hopeful. HISTORY: . VITAL SIGNS: See below. NEW TEST RESULTS: . CURRENT MEDICATIONS: See below. MENTAL STATUS EXAMINATION: Patient is a 25-year old male, who is , pleasant and cooperative. Speech: Is rational, coherent . Language skills are good. Thought processes including: , Coherent. Thought content: Denies any paranoia. Abstract reasoning, and computation: fair. Description of associations: Well-organized. No gross psychotic symptoms. Description of abnormal or psychotic thoughts: . No gross psychotic symptoms. Judgment: fair. Insight: fair. Orientation: , Oriented. Recent and remote memory: Unimpaired . Attention span and concentration: . Language: . Fund of knowledge: . Mood: Euthymic. Affect: , Appropriate. DIAGNOSES: 1. . Chronic schizophrenia 2. . 3. . ASSESSMENT:Maintaining stable behavior MANAGEMENT PLAN: Plan to discharge to a supportive living. TIME SPENT: 20 minutes. Vital Signs Vital Signs Date Time Temp Pulse Resp B/P (MAP) Pulse Ox O2 Delivery O2 Flow Rate FiO2 12/23/20 06:26 98.5 98 18 119/59 (79) 97 Room Air Current Medications Current Medications Medications (Trade) Dose Ordered Sig/James Route PRN Reason Start Time Stop Time Status Last Admin Dose Admin Al Hydrox/Mg Hydrox/Simethicone (Mylanta) 30 ml Q4HP PRN PO HEARTBURN/INDIGESTION 11/25/20 18:45 Home Med (Med Rec Complete!) ASDIRECTED XX 11/25/20 13:00 11/25/20 12:58 DC Ibuprofen (Advil) 400 mg Q6HP PRN PO PAIN 11/25/20 18:45 Magnesium Hydroxide (Milk Of Magnesia) 30 ml DAILYPRN PRN PO CONSTIPATION 11/25/20 18:45 Nicotine (Nicoderm Cq 21mg) 1 patch DAILY TD 11/26/20 09:00 Olanzapine (ZyPREXA ZYDIS) 5 mg Q4HP PRN PO ANXIETY/AGITATION 12/17/20 18:45 Risperidone (RisperDAL) 3 mg QHS PO 11/26/20 21:00 12/22/20 21:14 Trazodone HCl (Desyrel) 50 mg QHSP PRN PO INSOMNIA 11/25/20 18:45 12/22/20 21:14 Allergies Coded Allergies: POLLEN (Verified Allergy, Unknown, 08/05/20) ROBERT MATHEWS M.D. Dec 23, 2020 09:27
[2020-12-23 17:43] VITALS: BP 132/75
[2020-12-23] MEDS: risperiDONE 3 MG TAB PO SCH (21:45)
[2020-12-23] MEDS: traZODone 50 MG TAB PO PRN (22:20)
[2020-12-24 06:31] VITALS: BP 128/79
[2020-12-24] MEDS: NICOTINE 21MG/24HR 1 EA TRANSDERMAL TD SCH (09:00)
--- NOTE | 2020-12-24 11:45 | MHIPNPDOC ---
[facility] Progress Note Progress Note DATE OF SERVICE: 12/24/20 The patient reports no new complaints and cooperating with discharge plan. He denies any serious depression or paranoia and denies any suicidal thoughts HISTORY: . VITAL SIGNS: See below. NEW TEST RESULTS: . CURRENT MEDICATIONS: See below. MENTAL STATUS EXAMINATION: Patient is a 25-year old male, who is in no acute distress. Speech: Is , coherent and relevant. Language skills are fair]. Thought processes including: Coherent . Thought content: Denies any hallucination, paranoia . Abstract reasoning, and computation: fair. Description of associations: , Organized. Description of abnormal or psychotic thoughts: Denies any. Judgment: fair. Insight: fair. Orientation: , Oriented. Recent and remote memory: : Impaired. Attention span and concentration: . Language: . Fund of knowledge: . Mood: Euthymic. Affect: , Appropriate. DIAGNOSES: 1. . Chronic schizophrenia 2. . 3. . ASSESSMENT:Remained stable at his baseline MANAGEMENT PLAN: Waiting for supportive living. TIME SPENT: 15 minutes. Vital Signs Vital Signs Date Time Temp Pulse Resp B/P (MAP) Pulse Ox O2 Delivery O2 Flow Rate FiO2 12/24/20 06:31 97.7 74 12 128/79 (95) 96 Room Air Current Medications Current Medications Medications (Trade) Dose Ordered Sig/James Route PRN Reason Start Time Stop Time Status Last Admin Dose Admin Al Hydrox/Mg Hydrox/Simethicone (Mylanta) 30 ml Q4HP PRN PO HEARTBURN/INDIGESTION 11/25/20 18:45 Home Med (Med Rec Complete!) ASDIRECTED XX 11/25/20 13:00 11/25/20 12:58 DC Ibuprofen (Advil) 400 mg Q6HP PRN PO PAIN 11/25/20 18:45 Magnesium Hydroxide (Milk Of Magnesia) 30 ml DAILYPRN PRN PO CONSTIPATION 11/25/20 18:45 Miscellaneous (Unresolved Clarification Entry) SEE LABEL COMMENTS UNRESOLVED XX 12/25/20 00:01 Nicotine (Nicoderm Cq 21mg) 1 patch DAILY TD 11/26/20 09:00 12/24/20 11:20 DC Olanzapine (ZyPREXA ZYDIS) 5 mg Q4HP PRN PO ANXIETY/AGITATION 12/17/20 18:45 Risperidone (RisperDAL) 3 mg QHS PO 11/26/20 21:00 12/23/20 21:45 Trazodone HCl (Desyrel) 50 mg QHSP PRN PO INSOMNIA 11/25/20 18:45 12/23/20 22:20 Allergies Coded Allergies: POLLEN (Verified Allergy, Unknown, 08/05/20) ROBERT MATHEWS M.D. Dec 24, 2020 11:45
[2020-12-24 18:26] VITALS: BP 162/76
[2020-12-24] MEDS: traZODone 50 MG TAB PO PRN (21:33)
[2020-12-24] MEDS: risperiDONE 3 MG TAB PO SCH (21:33)
[2020-12-25] MEDS: UNRESOLVED CLARIFICATION ENTRY XX SCH (00:01)
[2020-12-25 06:54] VITALS: BP 104/51
[2020-12-25 16:50] VITALS: BP 145/74
[2020-12-25] MEDS: traZODone 50 MG TAB PO PRN (22:29)
[2020-12-25] MEDS: risperiDONE 3 MG TAB PO SCH (22:31)
[2020-12-26] MEDS: UNRESOLVED CLARIFICATION ENTRY XX SCH (00:01)
[2020-12-26 06:54] VITALS: BP 125/60
[2020-12-26] MEDS: traZODone 50 MG TAB PO PRN (21:33)
[2020-12-26] MEDS: risperiDONE 3 MG TAB PO SCH (21:33)
--- NOTE | 2020-12-27 09:09 | MHIPNPDOC ---
[facility] Progress Note Progress Note DATE OF SERVICE: 12/27/20 Patient has no new complaints and maintaining improved mental status and behavior. He is cooperating with the medicine and his discharge plan to a supportive living. He is pleasant on approach and smiling and animated and denies any hallucination or paranoid. HISTORY: . VITAL SIGNS: See below. NEW TEST RESULTS: . CURRENT MEDICATIONS: See below. MENTAL STATUS EXAMINATION: Patient is a 25-year old male, who is in no acute distress. Speech: Is simplistic but relevant. Language skills are fair. Thought processes including: Coherent, but not spontaneous . Thought content: Denies any suicidal thoughts . Abstract reasoning, and computation: poor. Description of associations: , Organized. Description of abnormal or psychotic thoughts: Denies any. Judgment: fair. Insight: fair.. Orientation: , Oriented. Recent and remote memory: No gross impairment. Attention span and concentration: . Language: . Fund of knowledge: . Mood: Euthymic. Affect: , Appropriate. DIAGNOSES: 1. . Chronic schizophrenia 2. . 3. . ASSESSMENT: Maintaining stable behavior MANAGEMENT PLAN: . Waiting for supportive living TIME SPENT: 15 minutes. Vital Signs Vital Signs Date Time Temp Pulse Resp B/P (MAP) Pulse Ox O2 Delivery O2 Flow Rate FiO2 12/26/20 06:54 98.4 74 20 125/60 (81) 96 Room Air Current Medications Current Medications Medications (Trade) Dose Ordered Sig/James Route PRN Reason Start Time Stop Time Status Last Admin Dose Admin Al Hydrox/Mg Hydrox/Simethicone (Mylanta) 30 ml Q4HP PRN PO HEARTBURN/INDIGESTION 11/25/20 18:45 Home Med (Med Rec Complete!) ASDIRECTED XX 11/25/20 13:00 11/25/20 12:58 DC Ibuprofen (Advil) 400 mg Q6HP PRN PO PAIN 11/25/20 18:45 Magnesium Hydroxide (Milk Of Magnesia) 30 ml DAILYPRN PRN PO CONSTIPATION 11/25/20 18:45 Miscellaneous (Unresolved Clarification Entry) SEE LABEL COMMENTS UNRESOLVED XX 12/25/20 00:01 12/26/20 00:01 Nicotine (Nicoderm Cq 21mg) 1 patch DAILY TD 11/26/20 09:00 12/24/20 11:20 DC Olanzapine (ZyPREXA ZYDIS) 5 mg Q4HP PRN PO ANXIETY/AGITATION 12/17/20 18:45 Risperidone (RisperDAL) 3 mg QHS PO 11/26/20 21:00 12/26/20 21:33 Trazodone HCl (Desyrel) 50 mg QHSP PRN PO INSOMNIA 11/25/20 18:45 12/26/20 21:33 Allergies Coded Allergies: POLLEN (Verified Allergy, Unknown, 08/05/20) ROBERT MATHEWS M.D. Dec 27, 2020 09:09
[2020-12-27] MEDS: risperiDONE 3 MG TAB PO SCH (21:09)
[2020-12-27] MEDS: traZODone 50 MG TAB PO PRN (21:09)
[2020-12-28 06:41] VITALS: BP 116/54
--- NOTE | 2020-12-28 08:25 | MHIPNPDOC ---
[facility] Progress Note Progress Note DATE OF SERVICE: 12/28/20 Patient has no new complaints and is looking forward to be discharged to go to a supportive living. His mental status remained stable and behavior is in good co ntrol HISTORY: . VITAL SIGNS: See below. NEW TEST RESULTS: . CURRENT MEDICATIONS: See below. MENTAL STATUS EXAMINATION: Patient is a 25-year old male, who is , cooperative. Speech: Is , relevant, coherent. Language skills are fair. Thought processes including: , Coherent. Thought content: Denies any problem and no suicidal thoughts . Abstract reasoning, and computation: fair. Description of associations: Relevant. Description of abnormal or psychotic thoughts: Denies any. Judgment: fair. Insight fair.]. Orientation: , Oriented. Recent and remote memory: No gross impairment . Attention span and concentration: . Language: . Fund of knowledge: . Mood: Euthymic. Affect: , Appropriate. DIAGNOSES: 1. . Chronic schizophrenia 2. . 3. . ASSESSMENT:Remains a stable MANAGEMENT PLAN: Discharged to a supportive living. TIME SPENT: 15 minutes. Vital Signs Vital Signs Date Time Temp Pulse Resp B/P (MAP) Pulse Ox O2 Delivery O2 Flow Rate FiO2 12/28/20 06:41 98.3 71 20 116/54 (74) 95 Room Air Current Medications Current Medications Medications (Trade) Dose Ordered Sig/Jaems Route PRN Reason Start Time Stop Time Status Last Admin Dose Admin Al Hydrox/Mg Hydrox/Simethicone (Mylanta) 30 ml Q4HP PRN PO HEARTBURN/INDIGESTION 11/25/20 18:45 Home Med (Med Rec Complete!) ASDIRECTED XX 11/25/20 13:00 11/25/20 12:58 DC Ibuprofen (Advil) 400 mg Q6HP PRN PO PAIN 11/25/20 18:45 Magnesium Hydroxide (Milk Of Magnesia) 30 ml DAILYPRN PRN PO CONSTIPATION 11/25/20 18:45 Miscellaneous (Unresolved Clarification Entry) SEE LABEL COMMENTS UNRESOLVED XX 12/25/20 00:01 12/27/20 10:18 DC 12/26/20 00:01 Nicotine (Nicoderm Cq 21mg) 1 patch DAILY TD 11/26/20 09:00 12/24/20 11:20 DC Olanzapine (ZyPREXA ZYDIS) 5 mg Q4HP PRN PO ANXIETY/AGITATION 12/17/20 18:45 Risperidone (RisperDAL) 3 mg QHS PO 11/26/20 21:00 12/27/20 21:09 Trazodone HCl (Desyrel) 50 mg QHSP PRN PO INSOMNIA 11/25/20 18:45 12/27/20 21:09 Allergies Coded Allergies: POLLEN (Verified Allergy, Unknown, 08/05/20) ROBERT MATHEWS M.D. Dec 28, 2020 08:25
[2020-12-28 18:26] VITALS: BP 128/74
[2020-12-28] MEDS: risperiDONE 3 MG TAB PO SCH (21:12)
[2020-12-28] MEDS: traZODone 50 MG TAB PO PRN (21:13)
[2020-12-29 06:24] VITALS: BP 117/69
[2020-12-29 19:01] VITALS: BP 139/79
[2020-12-29] MEDS: risperiDONE 3 MG TAB PO SCH (21:17)
[2020-12-29] MEDS: traZODone 50 MG TAB PO PRN (21:17)
[2020-12-30 06:39] VITALS: BP 138/64
--- NOTE | 2020-12-30 09:03 | MHIPNPDOC ---
[facility] Progress Note Progress Note DATE OF SERVICE: 12/30/20 The issues involving his guardianship that was pausing problem in his supportive living has been resolved. The social work reports that he might be having a bed available pretty soon at his supportive living place. Patient is maintaining good control and reports no new complaints and is in good spirit. HISTORY:. VITAL SIGNS: See below. NEW TEST RESULTS:. CURRENT MEDICATIONS: See below. MENTAL STATUS EXAMINATION: Patient is a 25-year old male, who is pleasant cooperative. Speech: Is rational and coherent. Language skills are fair. Thought processes including: Relevant. Thought content: No gross delusional thinking. Abstract reasoning, and computation: Fair. Description of associations: Organized. Description of abnormal or psychotic thoughts: Denies any suicidal thoughts. Judgment: Fair. Insight: fair. . Orientation: Well oriented. Recent and remote memory: No gross impairment. Attention span and concentration: Fair. Language:. Fund of knowledge:. Mood: Euthymic. Affect: Appropriate. DIAGNOSES: 1.. Chronic schizophrenia 2.. 3.. ASSESSMENT: Maintaining improved insight and mental status MANAGEMENT PLAN: Discharge when a bed is available at the supportive living. TIME SPENT: 15 minutes. Vital Signs Vital Signs Date Time Temp Pulse Resp B/P (MAP) Pulse Ox O2 Delivery O2 Flow Rate FiO2 12/30/20 06:39 99.1 61 18 138/64 (88) 97 Room Air Current Medications Current Medications Medications (Trade) Dose Ordered Sig/James Route PRN Reason Start Time Stop Time Status Last Admin Dose Admin Al Hydrox/Mg Hydrox/Simethicone (Mylanta) 30 ml Q4HP PRN PO HEARTBURN/INDIGESTION 11/25/20 18:45 Home Med (Med Rec Complete!) ASDIRECTED XX 11/25/20 13:00 11/25/20 12:58 DC Ibuprofen (Advil) 400 mg Q6HP PRN PO PAIN 11/25/20 18:45 Magnesium Hydroxide (Milk Of Magnesia) 30 ml DAILYPRN PRN PO CONSTIPATION 11/25/20 18:45 Miscellaneous (Unresolved Clarification Entry) SEE LABEL COMMENTS UNRESOLVED XX 12/25/20 00:01 12/27/20 10:18 DC 12/26/20 00:01 Nicotine (Nicoderm Cq 21mg) 1 patch DAILY TD 11/26/20 09:00 12/24/20 11:20 DC Olanzapine (ZyPREXA ZYDIS) 5 mg Q4HP PRN PO ANXIETY/AGITATION 12/17/20 18:45 Risperidone (RisperDAL) 3 mg QHS PO 11/26/20 21:00 12/29/20 21:17 Trazodone HCl (Desyrel) 50 mg QHSP PRN PO INSOMNIA 11/25/20 18:45 12/29/20 21:17 Allergies Coded Allergies: POLLEN (Verified Allergy, Unknown, 08/05/20) ROBERT MATHEWS M.D. Dec 30, 2020 09:03
[2020-12-30 16:52] VITALS: BP 138/83
[2020-12-30] MEDS: traZODone 50 MG TAB PO PRN (21:45)
[2020-12-30] MEDS: risperiDONE 3 MG TAB PO SCH (21:45)
[2020-12-31 06:00] VITALS: BP 103/57
--- NOTE | 2020-12-31 08:25 | MHIPNPDOC ---
[facility] Progress Note Progress Note DATE OF SERVICE: 12/31/20 The patient is fully understanding the process involved with the supportive living. Apparently the issue with his SSI is being resolved and he is very hopeful that he will be able to go to the supportive living soon. He has no new complaint remains in good control and appears to be stable at his baseline mental status. HISTORY:. VITAL SIGNS: See below. NEW TEST RESULTS:. CURRENT MEDICATIONS: See below. MENTAL STATUS EXAMINATION: Patient is a 25-year old male, who is in good control. Speech: Is rational and coherent. Language skills are fair. Thought processes including: Relevant. Thought content: Denies any paranoia. Abstract reasoning, and computation: Fair. Description of associations: Organized. Description of abnormal or psychotic thoughts: Denies any paranoia or hallucination and denies any suicidal thoughts. Judgment: Fair. Insight: Fair. Orientation: Oriented. Recent and remote memory: No gross impairment. Attention span and concentration:. Language:. Fund of knowledge:. Mood: Euthymic. Affect: Appropriate. DIAGNOSES: 1.. Chronic schizophrenia 2.. 3.. ASSESSMENT: No changes and in good control MANAGEMENT PLAN: Waiting for discharge to supportive living. TIME SPENT: 15 minutes. Vital Signs Vital Signs Date Time Temp Pulse Resp B/P (MAP) Pulse Ox O2 Delivery O2 Flow Rate FiO2 12/31/20 06:00 98.3 58 20 103/57 (72) 95 12/30/20 06:39 Room Air Current Medications Current Medications Medications (Trade) Dose Ordered Sig/James Route PRN Reason Start Time Stop Time Status Last Admin Dose Admin Al Hydrox/Mg Hydrox/Simethicone (Mylanta) 30 ml Q4HP PRN PO HEARTBURN/INDIGESTION 11/25/20 18:45 Home Med (Med Rec Complete!) ASDIRECTED XX 11/25/20 13:00 11/25/20 12:58 DC Ibuprofen (Advil) 400 mg Q6HP PRN PO PAIN 11/25/20 18:45 Magnesium Hydroxide (Milk Of Magnesia) 30 ml DAILYPRN PRN PO CONSTIPATION 11/25/20 18:45 Miscellaneous (Unresolved Clarification Entry) SEE LABEL COMMENTS UNRESOLVED XX 12/25/20 00:01 12/27/20 10:18 DC 12/26/20 00:01 Nicotine (Nicoderm Cq 21mg) 1 patch DAILY TD 11/26/20 09:00 12/24/20 11:20 DC Olanzapine (ZyPREXA ZYDIS) 5 mg Q4HP PRN PO ANXIETY/AGITATION 12/17/20 18:45 Risperidone (RisperDAL) 3 mg QHS PO 11/26/20 21:00 12/30/20 21:45 Trazodone HCl (Desyrel) 50 mg QHSP PRN PO INSOMNIA 11/25/20 18:45 12/30/20 21:45 Allergies Coded Allergies: POLLEN (Verified Allergy, Unknown, 08/05/20) ROBERT MATHEWS M.D. Dec 31, 2020 08:25
[2020-12-31 18:34] VITALS: BP 150/77
[2020-12-31] MEDS: risperiDONE 3 MG TAB PO SCH (21:03)
[2020-12-31] MEDS: traZODone 50 MG TAB PO PRN (21:41)
[2021-01-01 05:51] VITALS: BP 127/59
[2021-01-01 16:06] VITALS: BP 114/60
[2021-01-01] MEDS: traZODone 50 MG TAB PO PRN (21:58)
[2021-01-01] MEDS: risperiDONE 3 MG TAB PO SCH (21:58)
[2021-01-02 05:32] VITALS: BP 125/58
[2021-01-02 18:32] VITALS: BP 156/70
[2021-01-02] MEDS: risperiDONE 3 MG TAB PO SCH (20:55)
[2021-01-02] MEDS: traZODone 50 MG TAB PO PRN (20:55)
[2021-01-03 06:06] VITALS: BP 114/73
--- NOTE | 2021-01-03 08:33 | MHIPNPDOC ---
[facility] Progress Note Progress Note DATE OF SERVICE: 01/03/21 Patient is fully cooperated with the treatment and no acting out behavior since his admission. He had an uneventful weekend has no new complaint and is fully cooperating with the discharge plan to a supportive living HISTORY:. VITAL SIGNS: See below. NEW TEST RESULTS:. CURRENT MEDICATIONS: See below. MENTAL STATUS EXAMINATION: Patient is a 25-year old male, who is in no acute distress. Speech: Is rational. Language skills are fair. Thought processes including: Relevant. Thought content: No paranoid thoughts. Abstract reasoning, and computation: Fair. Description of associations: Organized. Description of abnormal or psychotic thoughts: Denies any. Judgment: Fair. Insight: Fair.. Orientation: Oriented. Recent and remote memory: Fair. Attention span and concentration:. Language:. Fund of knowledge:. Mood: Euthymic. Affect: Appropriate. DIAGNOSES: 1.. Chronic schizophrenia 2.. 3.. ASSESSMENT: Remains a stable MANAGEMENT PLAN: Discharge to supportive living. TIME SPENT: 15 minutes. Vital Signs Vital Signs Date Time Temp Pulse Resp B/P (MAP) Pulse Ox O2 Delivery O2 Flow Rate FiO2 01/03/21 06:06 98.1 56 16 114/73 (87) 96 Room Air Current Medications Current Medications Medications (Trade) Dose Ordered Sig/James Route PRN Reason Start Time Stop Time Status Last Admin Dose Admin Al Hydrox/Mg Hydrox/Simethicone (Mylanta) 30 ml Q4HP PRN PO HEARTBURN/INDIGESTION 11/25/20 18:45 Home Med (Med Rec Complete!) ASDIRECTED XX 11/25/20 13:00 11/25/20 12:58 DC Ibuprofen (Advil) 400 mg Q6HP PRN PO PAIN 11/25/20 18:45 Magnesium Hydroxide (Milk Of Magnesia) 30 ml DAILYPRN PRN PO CONSTIPATION 11/25/20 18:45 Miscellaneous (Unresolved Clarification Entry) SEE LABEL COMMENTS UNRESOLVED XX 12/25/20 00:01 12/27/20 10:18 DC 12/26/20 00:01 Nicotine (Nicoderm Cq 21mg) 1 patch DAILY TD 11/26/20 09:00 12/24/20 11:20 DC Olanzapine (ZyPREXA ZYDIS) 5 mg Q4HP PRN PO ANXIETY/AGITATION 12/17/20 18:45 Risperidone (RisperDAL) 3 mg QHS PO 11/26/20 21:00 01/02/21 20:55 Trazodone HCl (Desyrel) 50 mg QHSP PRN PO INSOMNIA 11/25/20 18:45 01/02/21 20:55 Allergies Coded Allergies: POLLEN (Verified Allergy, Unknown, 08/05/20) ROBERT MATHEWS M.D. Jan 03, 2021 08:33
[2021-01-03 17:03] VITALS: BP 120/65
[2021-01-03] MEDS: traZODone 50 MG TAB PO PRN (20:25)
[2021-01-03] MEDS: risperiDONE 3 MG TAB PO SCH (20:25)
[2021-01-04 06:34] VITALS: BP 146/78
--- NOTE | 2021-01-04 10:42 | MHIPNPDOC ---
[facility] Progress Note Progress Note DATE OF SERVICE: It appears that payee status of this patient is clarified and the payee is willing to support supportive living placement. With the last melissa cleared we are hoping that a bed is available very soon. Patient is fully aware of the process and has been cooperating with the discharge plan and denies any hallucination or paranoia and remains in good control. HISTORY:. VITAL SIGNS: See below. NEW TEST RESULTS:. CURRENT MEDICATIONS: See below. MENTAL STATUS EXAMINATION: Patient is a 25-year old male, who is pleasant and cooperative. Speech: Is rational and coherent. Language skills are fair. Thought processes including: Relevant. Thought content: Denies any suicidal thoughts. Abstract reasoning, and computation: Fair. Description of associations: Organized. Description of abnormal or psychotic thoughts: Denies any. Judgment: Fair. Insight: Fair.. Orientation: Well oriented. Recent and remote memory: No gross impairment. Attention span and concentration:. Language:. Fund of knowledge:. Mood: Euthymic. Affect: Appropriate. DIAGNOSES: 1.. Chronic schizophrenia 2.. 3.. ASSESSMENT: Remains stable at his baseline MANAGEMENT PLAN: Discharge to supportive living. TIME SPENT: 15 minutes. Vital Signs Vital Signs Date Time Temp Pulse Resp B/P (MAP) Pulse Ox O2 Delivery O2 Flow Rate FiO2 01/04/21 06:34 97.2 82 18 146/78 (100) 96 Room Air Current Medications Current Medications Medications (Trade) Dose Ordered Sig/James Route PRN Reason Start Time Stop Time Status Last Admin Dose Admin Al Hydrox/Mg Hydrox/Simethicone (Mylanta) 30 ml Q4HP PRN PO HEARTBURN/INDIGESTION 11/25/20 18:45 Home Med (Med Rec Complete!) ASDIRECTED XX 11/25/20 13:00 11/25/20 12:58 DC Ibuprofen (Advil) 400 mg Q6HP PRN PO PAIN 11/25/20 18:45 Magnesium Hydroxide (Milk Of Magnesia) 30 ml DAILYPRN PRN PO CONSTIPATION 11/25/20 18:45 Miscellaneous (Unresolved Clarification Entry) SEE LABEL COMMENTS UNRESOLVED XX 12/25/20 00:01 12/27/20 10:18 DC 12/26/20 00:01 Nicotine (Nicoderm Cq 21mg) 1 patch DAILY TD 11/26/20 09:00 12/24/20 11:20 DC Olanzapine (ZyPREXA ZYDIS) 5 mg Q4HP PRN PO ANXIETY/AGITATION 12/17/20 18:45 Risperidone (RisperDAL) 3 mg QHS PO 11/26/20 21:00 01/03/21 20:25 Trazodone HCl (Desyrel) 50 mg QHSP PRN PO INSOMNIA 11/25/20 18:45 01/03/21 20:25 Allergies Coded Allergies: POLLEN (Verified Allergy, Unknown, 08/05/20) ROBERT MATHEWS M.D. Jan 04, 2021 10:42
[2021-01-04 17:02] VITALS: BP 154/93
[2021-01-04] MEDS: risperiDONE 3 MG TAB PO SCH (20:40)
[2021-01-04] MEDS: traZODone 50 MG TAB PO PRN (20:40)
[2021-01-05 06:17] VITALS: BP 141/62
--- NOTE | 2021-01-05 09:50 | MHIPNPDOC ---
[facility] Progress Note Progress Note DATE OF SERVICE: 01/05/21 The patient is still waiting for a supportive living open bed. He has no new complaint and fully cooperating and remains at his baseline. HISTORY:. VITAL SIGNS: See below. NEW TEST RESULTS:. CURRENT MEDICATIONS: See below. MENTAL STATUS EXAMINATION: Patient is a 25-year old male, who is in no acute distress. Speech: Is rational and coherent. Language skills are fair. Thought processes including: Organized. Thought content: No suicidal thoughts. Abstract reasoning, and computation: Fair. Description of associations: Relevant. Description of abnormal or psychotic thoughts: No acute psychotic symptoms. Judgment: Fair. Insight:, fair.. Orientation: Oriented. Recent and remote memory: No gross impairment. Attention span and concentration:. Language:. Fund of knowledge:. Mood: Euthymic. Affect: Appropriate. DIAGNOSES: 1.. Chronic schizophrenia 2.. 3.. ASSESSMENT: Remains at his baseline MANAGEMENT PLAN: Waiting for discharge to a supportive living. TIME SPENT: 15 minutes. Vital Signs Vital Signs Date Time Temp Pulse Resp B/P (MAP) Pulse Ox O2 Delivery O2 Flow Rate FiO2 01/05/21 06:17 98.2 60 16 141/62 (88) 95 Room Air Current Medications Current Medications Medications (Trade) Dose Ordered Sig/James Route PRN Reason Start Time Stop Time Status Last Admin Dose Admin Al Hydrox/Mg Hydrox/Simethicone (Mylanta) 30 ml Q4HP PRN PO HEARTBURN/INDIGESTION 11/25/20 18:45 Home Med (Med Rec Complete!) ASDIRECTED XX 11/25/20 13:00 11/25/20 12:58 DC Ibuprofen (Advil) 400 mg Q6HP PRN PO PAIN 11/25/20 18:45 Magnesium Hydroxide (Milk Of Magnesia) 30 ml DAILYPRN PRN PO CONSTIPATION 11/25/20 18:45 Miscellaneous (Unresolved Clarification Entry) SEE LABEL COMMENTS UNRESOLVED XX 12/25/20 00:01 12/27/20 10:18 DC 12/26/20 00:01 Nicotine (Nicoderm Cq 21mg) 1 patch DAILY TD 11/26/20 09:00 12/24/20 11:20 DC Olanzapine (ZyPREXA ZYDIS) 5 mg Q4HP PRN PO ANXIETY/AGITATION 12/17/20 18:45 Risperidone (RisperDAL) 3 mg QHS PO 11/26/20 21:00 01/04/21 20:40 Trazodone HCl (Desyrel) 50 mg QHSP PRN PO INSOMNIA 11/25/20 18:45 01/04/21 20:40 Allergies Coded Allergies: POLLEN (Verified Allergy, Unknown, 08/05/20) ROBERT MATHEWS M.D. Jan 05, 2021 09:50
[2021-01-05 17:19] VITALS: BP 133/63
[2021-01-05] MEDS: traZODone 50 MG TAB PO PRN (21:39)
[2021-01-05] MEDS: risperiDONE 3 MG TAB PO SCH (21:39)
[2021-01-06 05:57] VITALS: BP 119/62
[2021-01-06 06:00] VITALS: BP 119/62
--- NOTE | 2021-01-06 09:21 | MHIPNPDOC ---
[facility] Progress Note Progress Note DATE OF SERVICE: 01/06/21 Did not hear any exact date when the bed might be available. Patient is waiting patiently and maintaining good control and has no new complaint. HISTORY:. VITAL SIGNS: See below. NEW TEST RESULTS:. CURRENT MEDICATIONS: See below. MENTAL STATUS EXAMINATION: Patient is a 25-year old male, who is cooperating. Speech: Is coherent rational. Language skills are fair. Thought processes including: Relevant coherent. Thought content: No new complaint. Abstract reasoning, and computation: Fair. Description of associations: Organized. Description of abnormal or psychotic thoughts: Denies any paranoia. Judgment: Fair. Insight: Fair]. Orientation: Well oriented. Recent and remote memory: Unimpaired. Attention span and concentration: Fair. Language:. Fund of knowledge: Below average. Mood: Euthymic. Affect: Appropriate. DIAGNOSES: 1.. Chronic schizophrenia 2.. 3.. ASSESSMENT: At his baseline MANAGEMENT PLAN: Waiting for DC to a supportive living. TIME SPENT: 15 minutes. Vital Signs Vital Signs Date Time Temp Pulse Resp B/P (MAP) Pulse Ox O2 Delivery O2 Flow Rate FiO2 01/06/21 05:57 98.5 63 16 119/62 (81) 96 Room Air Current Medications Current Medications Medications (Trade) Dose Ordered Sig/James Route PRN Reason Start Time Stop Time Status Last Admin Dose Admin Al Hydrox/Mg Hydrox/Simethicone (Mylanta) 30 ml Q4HP PRN PO HEARTBURN/INDIGESTION 11/25/20 18:45 Home Med (Med Rec Complete!) ASDIRECTED XX 11/25/20 13:00 11/25/20 12:58 DC Ibuprofen (Advil) 400 mg Q6HP PRN PO PAIN 11/25/20 18:45 Magnesium Hydroxide (Milk Of Magnesia) 30 ml DAILYPRN PRN PO CONSTIPATION 11/25/20 18:45 Miscellaneous (Unresolved Clarification Entry) SEE LABEL COMMENTS UNRESOLVED XX 12/25/20 00:01 12/27/20 10:18 DC 12/26/20 00:01 Nicotine (Nicoderm Cq 21mg) 1 patch DAILY TD 11/26/20 09:00 12/24/20 11:20 DC Olanzapine (ZyPREXA ZYDIS) 5 mg Q4HP PRN PO ANXIETY/AGITATION 12/17/20 18:45 01/05/21 10:12 Risperidone (RisperDAL) 3 mg QHS PO 11/26/20 21:00 01/05/21 21:39 Trazodone HCl (Desyrel) 50 mg QHSP PRN PO INSOMNIA 11/25/20 18:45 01/05/21 21:39 Allergies Coded Allergies: POLLEN (Verified Allergy, Unknown, 08/05/20) ROBERT MATHEWS M.D. Jan 06, 2021 09:21
[2021-01-06 18:37] VITALS: BP 141/74
[2021-01-06] MEDS: traZODone 50 MG TAB PO PRN (20:19)
[2021-01-06] MEDS: risperiDONE 3 MG TAB PO SCH (20:19)
[2021-01-07 05:55] VITALS: BP 122/63
--- NOTE | 2021-01-07 09:20 | MHIPNPDOC ---
[facility] Progress Note Progress Note DATE OF SERVICE: 01/07/21 The patient confirmed that he spoke with his aunt who is the payee and his aunt was fully agreeing with the plan to go to supportive living. No issues are exp ected and patient is hoping for discharge to supportive living soon HISTORY:. VITAL SIGNS: See below. NEW TEST RESULTS:. CURRENT MEDICATIONS: See below. MENTAL STATUS EXAMINATION: Patient is a 25-year old male, who is cooperative. Speech: Is coherent. Language skills are fair. Thought processes including: Relevant. Thought content: No new complaint. Abstract reasoning, and computation: Fair. Description of associations: Organized. Description of abnormal or psychotic thoughts: No paranoia. Judgment: Fair. Insight: Fair. Orientation: Oriented. Recent and remote memory: No impairment. Attention span and concentration: Fair. Language:. Fund of knowledge:. Mood: Euthymic. Affect: Appropriate. DIAGNOSES: 1.. Chronic schizophrenia 2.. 3.. ASSESSMENT: Remained stable MANAGEMENT PLAN: Waiting for discharge to supportive living. TIME SPENT: 15 minutes. Vital Signs Vital Signs Date Time Temp Pulse Resp B/P (MAP) Pulse Ox O2 Delivery O2 Flow Rate FiO2 01/07/21 05:55 99.2 73 18 122/63 (82) 96 Room Air Current Medications Current Medications Medications (Trade) Dose Ordered Sig/James Route PRN Reason Start Time Stop Time Status Last Admin Dose Admin Al Hydrox/Mg Hydrox/Simethicone (Mylanta) 30 ml Q4HP PRN PO HEARTBURN/INDIGESTION 11/25/20 18:45 Home Med (Med Rec Complete!) ASDIRECTED XX 11/25/20 13:00 11/25/20 12:58 DC Ibuprofen (Advil) 400 mg Q6HP PRN PO PAIN 11/25/20 18:45 Magnesium Hydroxide (Milk Of Magnesia) 30 ml DAILYPRN PRN PO CONSTIPATION 11/25/20 18:45 Miscellaneous (Unresolved Clarification Entry) SEE LABEL COMMENTS UNRESOLVED XX 12/25/20 00:01 12/27/20 10:18 DC 12/26/20 00:01 Nicotine (Nicoderm Cq 21mg) 1 patch DAILY TD 11/26/20 09:00 12/24/20 11:20 DC Olanzapine (ZyPREXA ZYDIS) 5 mg Q4HP PRN PO ANXIETY/AGITATION 12/17/20 18:45 01/05/21 10:12 Risperidone (RisperDAL) 3 mg QHS PO 11/26/20 21:00 01/06/21 20:19 Trazodone HCl (Desyrel) 50 mg QHSP PRN PO INSOMNIA 11/25/20 18:45 01/06/21 20:19 Allergies Coded Allergies: POLLEN (Verified Allergy, Unknown, 08/05/20) ROBERT MATHEWS M.D. Jan 07, 2021 09:20
[2021-01-07 17:17] VITALS: BP 122/60
[2021-01-07] MEDS: risperiDONE 3 MG TAB PO SCH (22:05)
[2021-01-07] MEDS: traZODone 50 MG TAB PO PRN (22:05)
[2021-01-08 06:55] VITALS: BP 111/62
[2021-01-08 16:05] VITALS: BP 145/64
[2021-01-08] MEDS: traZODone 50 MG TAB PO PRN (20:30)
[2021-01-08] MEDS: risperiDONE 3 MG TAB PO SCH (20:30)
[2021-01-09 05:40] VITALS: BP 122/56
[2021-01-09] MEDS: traZODone 50 MG TAB PO PRN (20:33)
[2021-01-09] MEDS: risperiDONE 3 MG TAB PO SCH (20:33)
[2021-01-10 05:59] VITALS: BP 137/62
--- NOTE | 2021-01-10 09:22 | MHIPNPDOC ---
[facility] Progress Note Progress Note DATE OF SERVICE: 01/10/21 The patient is maintaining good control and is offering no new complaint. He did get approval from his aunt who is his payee and is waiting for admission to the [facility]. He is fully cooperating with treatment and discharge plan. HISTORY:. VITAL SIGNS: See below. NEW TEST RESULTS:. CURRENT MEDICATIONS: See below. MENTAL STATUS EXAMINATION: Patient is a 25-year old male, who is in no acute distress. Speech: Is simplistic but coherent. Language skills are fair. Thought processes including: Relevant. Thought content: Denies any paranoia. Abstract reasoning, and computation: Fair. Description of associations: Organized. Description of abnormal or psychotic thoughts: Denies any hallucination. Judgment: Fair. Insight: Fair. Orientation: Well oriented. Recent and remote memory: Unimpaired. Attention span and concentration:. Language:. Fund of knowledge:. Mood: Euthymic. Affect: Appropriate. DIAGNOSES: 1.. Chronic schizophrenia 2.. 3.. ASSESSMENT: Maintaining stable condition MANAGEMENT PLAN: Plan to discharge to the [facility]. TIME SPENT: 15 minutes. Vital Signs Vital Signs Date Time Temp Pulse Resp B/P (MAP) Pulse Ox O2 Delivery O2 Flow Rate FiO2 01/10/21 05:59 98.3 64 18 137/62 (87) 95 Room Air Current Medications Current Medications Medications (Trade) Dose Ordered Sig/James Route PRN Reason Start Time Stop Time Status Last Admin Dose Admin Al Hydrox/Mg Hydrox/Simethicone (Mylanta) 30 ml Q4HP PRN PO HEARTBURN/INDIGESTION 11/25/20 18:45 Home Med (Med Rec Complete!) ASDIRECTED XX 11/25/20 13:00 11/25/20 12:58 DC Ibuprofen (Advil) 400 mg Q6HP PRN PO PAIN 11/25/20 18:45 Magnesium Hydroxide (Milk Of Magnesia) 30 ml DAILYPRN PRN PO CONSTIPATION 11/25/20 18:45 Miscellaneous (Unresolved Clarification Entry) SEE LABEL COMMENTS UNRESOLVED XX 12/25/20 00:01 12/27/20 10:18 DC 12/26/20 00:01 Nicotine (Nicoderm Cq 21mg) 1 patch DAILY TD 11/26/20 09:00 12/24/20 11:20 DC Olanzapine (ZyPREXA ZYDIS) 5 mg Q4HP PRN PO ANXIETY/AGITATION 12/17/20 18:45 01/05/21 10:12 Risperidone (RisperDAL) 3 mg QHS PO 11/26/20 21:00 01/09/21 20:33 Trazodone HCl (Desyrel) 50 mg QHSP PRN PO INSOMNIA 11/25/20 18:45 01/09/21 20:33 Allergies Coded Allergies: POLLEN (Verified Allergy, Unknown, 08/05/20) ROBERT MATHEWS M.D. Jan 10, 2021 09:22
[2021-01-10 18:55] VITALS: BP 148/65
[2021-01-10] MEDS: risperiDONE 3 MG TAB PO SCH (22:39)
[2021-01-10] MEDS: traZODone 50 MG TAB PO PRN (22:39)
[2021-01-11 06:18] VITALS: BP 127/78
--- NOTE | 2021-01-11 09:29 | MHIPNPDOC ---
[facility] Progress Note Progress Note DATE OF SERVICE: 01/11/21 No changes in the patient's mental status and behavior. Discharge plan remains the same which is waiting for an open bed. Patient is cooperating and offers no new complaints. HISTORY:. VITAL SIGNS: See below. NEW TEST RESULTS:. CURRENT MEDICATIONS: See below. MENTAL STATUS EXAMINATION: Patient is a 25-year old male, who is in no acute distress. Speech: Is rational. Language skills are fair. Thought processes including: Relevant. Thought content: No suicidal thoughts. Abstract reasoning, and computation: Fair. Description of associations: Organized. Description of abnormal or psychotic thoughts: Denies any. Judgment: Fair. Insight: Fair]. Orientation: Oriented. Recent and remote memory: Unimpaired. Attention span and concentration: Fair. Language:. Fund of knowledge:. Mood: [Euthymic. Affect: Appropriate. DIAGNOSES: 1.. Chronic schizophrenia 2.. 3.. ASSESSMENT: Remains a stable MANAGEMENT PLAN: Waiting for a bed at [facility]. TIME SPENT: 15 minutes. Vital Signs Vital Signs Date Time Temp Pulse Resp B/P (MAP) Pulse Ox O2 Delivery O2 Flow Rate FiO2 01/11/21 06:18 98.3 18 96 127/78 (94) Room Air 01/10/21 05:59 95 Current Medications Current Medications Medications (Trade) Dose Ordered Sig/James Route PRN Reason Start Time Stop Time Status Last Admin Dose Admin Al Hydrox/Mg Hydrox/Simethicone (Mylanta) 30 ml Q4HP PRN PO HEARTBURN/INDIGESTION 11/25/20 18:45 Home Med (Med Rec Complete!) ASDIRECTED XX 11/25/20 13:00 11/25/20 12:58 DC Ibuprofen (Advil) 400 mg Q6HP PRN PO PAIN 11/25/20 18:45 Magnesium Hydroxide (Milk Of Magnesia) 30 ml DAILYPRN PRN PO CONSTIPATION 11/25/20 18:45 Miscellaneous (Unresolved Clarification Entry) SEE LABEL COMMENTS UNRESOLVED XX 12/25/20 00:01 12/27/20 10:18 DC 12/26/20 00:01 Nicotine (Nicoderm Cq 21mg) 1 patch DAILY TD 11/26/20 09:00 12/24/20 11:20 DC Olanzapine (ZyPREXA ZYDIS) 5 mg Q4HP PRN PO ANXIETY/AGITATION 12/17/20 18:45 01/05/21 10:12 Risperidone (RisperDAL) 3 mg QHS PO 11/26/20 21:00 01/10/21 22:39 Trazodone HCl (Desyrel) 50 mg QHSP PRN PO INSOMNIA 11/25/20 18:45 01/10/21 22:39 Allergies Coded Allergies: POLLEN (Verified Allergy, Unknown, 08/05/20) ROBERT MATHEWS M.D. Jan 11, 2021 09:29
[2021-01-11 17:46] VITALS: BP 137/86
[2021-01-11] MEDS: traZODone 50 MG TAB PO PRN (20:54)
[2021-01-11] MEDS: risperiDONE 3 MG TAB PO SCH (20:54)
[2021-01-12 06:00] VITALS: BP 119/80
--- NOTE | 2021-01-12 11:51 | MHIPNPDOC ---
[facility] Progress Note Progress Note DATE OF SERVICE: 01/12/21 The patient reports that he spoke with his cousin who is his guardian and a cousin is willing to take him back to his home. Patient has been waiting for a bed at the [facility] but still has no definitive answers even though he is accepted. He is fully cooperating with the treatment and maintaining improved mental status and behavior. We will clarify with his cousin about his return to his home once clarified we will try to discharge him to his cousin's home if no bed is available immediately at the [facility]. HISTORY:. VITAL SIGNS: See below. NEW TEST RESULTS:. CURRENT MEDICATIONS: See below. MENTAL STATUS EXAMINATION: Patient is a 25-year old male, who is cooperative. Speech: Is rational. Language skills are fair. Thought processes including: Relevant. Thought content: Denies any new problems. Abstract reasoning, and computation: Fair. Description of associations: Organized. Description of abnormal or psychotic thoughts: No paranoid symptoms. Judgment: Fair. Insight: Fair. Orientation: Oriented no impairment. Recent and remote memory:. Attention span and concentration:. Language:. Fund of knowledge:. Mood: Euthymic. affect: Appropriate. DIAGNOSES: 1.. Chronic schizophrenia 2.. 3.. ASSESSMENT: Appears stable at his baseline MANAGEMENT PLAN: Clarify his discharge plan to his cousin. TIME SPENT: 20 minutes. Vital Signs Vital Signs Date Time Temp Pulse Resp B/P (MAP) Pulse Ox O2 Delivery O2 Flow Rate FiO2 01/12/21 06:00 98.4 52 16 119/80 (93) 96 Room Air Current Medications Current Medications Medications (Trade) Dose Ordered Sig/James Route PRN Reason Start Time Stop Time Status Last Admin Dose Admin Al Hydrox/Mg Hydrox/Simethicone (Mylanta) 30 ml Q4HP PRN PO HEARTBURN/INDIGESTION 11/25/20 18:45 Home Med (Med Rec Complete!) ASDIRECTED XX 11/25/20 13:00 11/25/20 12:58 DC Ibuprofen (Advil) 400 mg Q6HP PRN PO PAIN 11/25/20 18:45 Magnesium Hydroxide (Milk Of Magnesia) 30 ml DAILYPRN PRN PO CONSTIPATION 11/25/20 18:45 Miscellaneous (Unresolved Clarification Entry) SEE LABEL COMMENTS UNRESOLVED XX 12/25/20 00:01 12/27/20 10:18 DC 7//21 00:01 Nicotine (Nicoderm Cq 21mg) 1 patch DAILY TD 11/26/20 09:00 12/24/20 11:20 DC Olanzapine (ZyPREXA ZYDIS) 5 mg Q4HP PRN PO ANXIETY/AGITATION 12/17/20 18:45 01/05/21 10:12 Risperidone (RisperDAL) 3 mg QHS PO 11/26/20 21:00 01/11/21 20:54 Trazodone HCl (Desyrel) 50 mg QHSP PRN PO INSOMNIA 11/25/20 18:45 01/11/21 20:54 Allergies Coded Allergies: POLLEN (Verified Allergy, Unknown, 08/05/20) ROBERT MATHEWS M.D. Jan 12, 2021 11:51
[2021-01-12 17:05] VITALS: BP 116/69
[2021-01-12] MEDS: risperiDONE 3 MG TAB PO SCH (20:19)
[2021-01-13] MEDS: traZODone 50 MG TAB PO PRN ×2 (02:57→22:36)
[2021-01-13 06:44] VITALS: BP 116/53
--- NOTE | 2021-01-13 08:55 | MHIPNPDOC ---
[facility] Progress Note Progress Note DATE OF SERVICE: 01/13/21 The mission planner contacted patient's cousin who is the court appointed guardian to confirm that patients can return to his house. Apparently the cousin confirmed that he can stay with him and patient is willing to return to his house so we will arrange for outpatient follow-up service and possibly discharge him tomorrow. We will advised to leave the option of supportive living open so he can make a decision when the bed is available if he wishes to go to supportive living. HISTORY:. VITAL SIGNS: See below. NEW TEST RESULTS:. CURRENT MEDICATIONS: See below. MENTAL STATUS EXAMINATION: Patient is a 25-year old male, who is in no acute distress. Speech: Is rational and coherent. Language skills are fair. Thought processes including: Relevant. Thought content: Denies any paranoid fear. Abstract reasoning, and computation: Fair. Description of associations: Organized. Description of abnormal or psychotic thoughts: Denies any active hallucination or paranoia. Judgment: Fair. Insight: Fair]. Orientation: Oriented. Recent and remote memory: No gross impairment. Attention span and concentration: Fair. Language:. Fund of knowledge:. Mood: Euthymic. Affect: Blunted but appropriate. DIAGNOSES: 1.. Chronic schizophrenia 2.. 3.. ASSESSMENT: Maintaining stable behavior MANAGEMENT PLAN:. We will arrange outpatient follow-up and hopefully discharge him tomorrow to his cousin TIME SPENT: 15 minutes. Vital Signs Vital Signs Date Time Temp Pulse Resp B/P (MAP) Pulse Ox O2 Delivery O2 Flow Rate FiO2 01/13/21 06:44 98.5 70 20 116/53 (74) 94 Room Air Current Medications Current Medications Medications (Trade) Dose Ordered Sig/James Route PRN Reason Start Time Stop Time Status Last Admin Dose Admin Al Hydrox/Mg Hydrox/Simethicone (Mylanta) 30 ml Q4HP PRN PO HEARTBURN/INDIGESTION 11/25/20 18:45 Home Med (Med Rec Complete!) ASDIRECTED XX 11/25/20 13:00 11/25/20 12:58 DC Ibuprofen (Advil) 400 mg Q6HP PRN PO PAIN 11/25/20 18:45 Magnesium Hydroxide (Milk Of Magnesia) 30 ml DAILYPRN PRN PO CONSTIPATION 11/25/20 18:45 Miscellaneous (Unresolved Clarification Entry) SEE LABEL COMMENTS UNRESOLVED XX 12/25/20 00:01 12/27/20 10:18 DC 12/26/20 00:01 Nicotine (Nicoderm Cq 21mg) 1 patch DAILY TD 11/26/20 09:00 12/24/20 11:20 DC Olanzapine (ZyPREXA ZYDIS) 5 mg Q4HP PRN PO ANXIETY/AGITATION 12/17/20 18:45 01/05/21 10:12 Risperidone (RisperDAL) 3 mg QHS PO 11/26/20 21:00 01/12/21 20:19 Trazodone HCl (Desyrel) 50 mg QHSP PRN PO INSOMNIA 11/25/20 18:45 01/13/21 02:57 Allergies Coded Allergies: POLLEN (Verified Allergy, Unknown, 08/05/20) ROBERT MATHEWS M.D. Jan 13, 2021 08:55
[2021-01-13 18:00] VITALS: BP 128/83
[2021-01-13] MEDS: risperiDONE 3 MG TAB PO SCH (22:36)
[2021-01-14 06:12] VITALS: BP 115/59
--- NOTE | 2021-01-14 10:35 | MHIPNPDOC ---
[facility] Progress Note Progress Note DATE OF SERVICE: 01/14/21 The discharge plan was informed that a bed is available for the patient at the supportive living on January 17. Apparently it is still required that they get clear consent from his aunt who is his payee and the patient is trying to contact his aunt. We will wait until Sunday so we can clarify and be able to discharge him to a supportive living at [facility]. HISTORY:. VITAL SIGNS: See below. NEW TEST RESULTS:. CURRENT MEDICATIONS: See below. MENTAL STATUS EXAMINATION: Patient is a 25-year old male, who is in no acute distress. Speech: Is relevant. Language skills are fair. Thought processes including: Coherent and relevant. Thought content: No new complaint. Abstract reasoning, and computation: Fair description of associations: Relevant. Description of abnormal or psychotic thoughts: Denies any hallucination or paranoia. Judgment: Fair. Insight: Fair. Orientation: Oriented. Recent and remote memory: No gross impairment. Attention span and concentration:. Language:. Fund of knowledge:. Mood: Moderately anxious. Affect: Blunted but appropriate. DIAGNOSES: 1.. Chronic schizophrenia 2.. 3.. ASSESSMENT: Stable at his baseline MANAGEMENT PLAN: To be discharged to supportive living on Sunday. TIME SPENT: 20 minutes. Vital Signs Vital Signs Date Time Temp Pulse Resp B/P (MAP) Pulse Ox O2 Delivery O2 Flow Rate FiO2 01/14/21 06:12 97.9 62 14 115/59 (77) 97 Room Air Current Medications Current Medications Medications (Trade) Dose Ordered Sig/James Route PRN Reason Start Time Stop Time Status Last Admin Dose Admin Al Hydrox/Mg Hydrox/Simethicone (Mylanta) 30 ml Q4HP PRN PO HEARTBURN/INDIGESTION 11/25/20 18:45 Home Med (Med Rec Complete!) ASDIRECTED XX 11/25/20 13:00 11/25/20 12:58 DC Ibuprofen (Advil) 400 mg Q6HP PRN PO PAIN 11/25/20 18:45 Magnesium Hydroxide (Milk Of Magnesia) 30 ml DAILYPRN PRN PO CONSTIPATION 11/25/20 18:45 Miscellaneous (Unresolved Clarification Entry) SEE LABEL COMMENTS UNRESOLVED XX 12/25/20 00:01 12/27/20 10:18 DC 12/26/20 00:01 Nicotine (Nicoderm Cq 21mg) 1 patch DAILY TD 11/26/20 09:00 12/24/20 11:20 DC Olanzapine (ZyPREXA ZYDIS) 5 mg Q4HP PRN PO ANXIETY/AGITATION 12/17/20 18:45 01/05/21 10:12 Risperidone (RisperDAL) 3 mg QHS PO 11/26/20 21:00 01/13/21 22:36 Trazodone HCl (Desyrel) 50 mg QHSP PRN PO INSOMNIA 11/25/20 18:45 01/13/21 22:36 Allergies Coded Allergies: POLLEN (Verified Allergy, Unknown, 08/05/20) RBOERT MATHEWS M.D. Jan 14, 2021 10:35
[2021-01-14 18:00] VITALS: BP 136/63
[2021-01-14] MEDS: risperiDONE 3 MG TAB PO SCH (21:36)
[2021-01-14] MEDS: traZODone 50 MG TAB PO PRN (21:37)
[2021-01-15 05:28] VITALS: BP 130/58
[2021-01-15 16:24] VITALS: BP 143/74
[2021-01-15] MEDS: risperiDONE 3 MG TAB PO SCH (20:28)
[2021-01-15] MEDS: traZODone 50 MG TAB PO PRN (20:28)
[2021-01-16 06:19] VITALS: BP 130/72
[2021-01-16 15:33] VITALS: BP 125/64
[2021-01-16] MEDS: traZODone 50 MG TAB PO PRN (21:11)
[2021-01-16] MEDS: risperiDONE 3 MG TAB PO SCH (21:11)
[2021-01-17 06:24] VITALS: BP 138/84
[2021-01-17] MEDS ORDERED: RISP-10 PO ×2 (08:44→10:01)
--- NOTE | 2021-01-19 11:44 | MHDSPDOC ---
[facility] Discharge Summary Discharge Summary DATE OF ADMISSION: Nov 25, 2020 at 18:45 DATE OF DISCHARGE: Jan 17, 2021 at 14:20 DISCHARGE DIAGNOSES: 1.. Chronic schizophrenia undifferentiated 2.. REASON FOR ADMISSION: 25-year-old male with a long history of schizophrenia admitted after his cousin who is his guardian apparently kicked him out of the house and patient came to the emergency room seeking help. Patient reported feeling confused unable to think clear and unable to care for himself and appears quite regressed perplexed and depressed and admitted for stabilization. Patient has long history of schizophrenia and had multiple admissions in the [facility] but came to [place] with his cousin and had 1 previous admission in July. CONSULTANTS INVOLVED: TREATMENT AND PROGRESS ON THE UNIT : Patient was seen for supportive therapy and he was started on risperidone 3 mg at bedtime and he is fully cooperated and maintained good control without any acting out behavior. He is not showing somewhat regressed and childish behavior and clearly unable to maintain a independent living. He was asking for supportive housing and he was referred to transitional living service and was accepted for supportive living. Patient has waited on the unit until a bed is available. He is fully cooperated with the medications without any complaint of side effect. He was in good control denies any serious depression denies any ongoing hallucination or paranoia and appears to be stable at his baseline mental status.. HOSPITAL COURSE: He maintained his a stable mental status and behavior without any acting out behavior without any physical complaints. He has cooperated with discharge plan to a supportive living and is finally accepted and has a bed available and will be discharged to [facility]. DISCHARGE ASSESSMENT: Maintain the stable condition and no suicidal behavior and no dangerous behavior MENTAL STATUS EXAMINATION ON DISCHARGE: Patient is a 25-year old male, who is in no acute distress. Speech is relevant coherent but not productive. Language skills are fair. Thought processes including: Relevant. Thought content: Denies any paranoia or hallucinations. Abstract reasoning, and computation: Fair. Description of associations: Organized. Description of abnormal or psychotic thoughts: Denies any command hallucination and no suicidal thoughts and no gross delusions. Judgment: Fair. Insight: Fair. Orientation to oriented. Recent and remote memory: No gross impairment. Attention span and concentration: Fair. Language:. Fund of knowledge: Below average. Mood: Euthymic. Affect: Blunted but appropriate. MEDICATIONS ON DISCHARGE: -For. Risperidone 3 mg at bedtime for 7 days with 3 refills -For. -For. PLAN/FOLLOWUP ARRANGEMENTS: Arranged by management planner. The amount of time spent in the coordination of care for this patient was approximately 30 minutes. ETOH/Disorder Med Rx ETOH/DRUG DISORDER RX: N/A Vital Signs/I&Os Vital Signs Date Time Temp Pulse Resp B/P (MAP) Pulse Ox O2 Delivery O2 Flow Rate FiO2 01/17/21 06:24 98.6 59 18 138/84 (102) 96 Room Air Medications Scheduled Risperidone (Risperidone) 3 Mg Tablet, 3 MG PO QHS for psychosis for 7 Days, #7 Allergies Coded Allergies: POLLEN (Verified Allergy, Unknown, 08/05/20) ROBERT MATHEWS M.D. Jan 19, 2021 11:44
== END 2021-01-17 14:20 | disposition home or self-care (01) | DRG 750 ==
LOC: M ED 22:14 → M ED INP 11-25 18:45 → M PSY 11-25 20:08
PROVIDERS: ADMIT Psychiatry & Neurology Psychiatry; ATTEND Psychiatry & Neurology Psychiatry
DX: F20.5 Residual schizophrenia (principal)

== ENCOUNTER 2021-05-14 18:56 | Emergency (ER) | payer OTHER, SELFPAY ==
[~2021-05-14] VITALS: Ht 188 cm; Wt 113.6 kg
[~2021-05-14 18:56] MED LIST changes: +PALI1TAB2 PO; +RISP-10 PO
--- OUTSIDE RECORDS SUMMARY | 2021-05-14 19:01 | CCD ---
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 Active 02/24/2021 F43.9 Unspecified Trauma- and Stressor-Related Disorder Active 02/24/2021 Medications Rx Norm Medication Route Route Concept Start Date Stop Date Dosage Keyshawn quency Duration Formula Strength Dosage Form Dosage Form Code Dosage Description Medication Id Account Npid Author First Name Author Last Name Taxonomy Code Taxonomy Desc Phone Number [phone] paliperidone by mouth [id number] 02/02/2021 04/03/2021 once a day 30 3 mg tablet extended release 24hr as needed 09993 [id number] Tejinder Cornelius [id number] Nurse Practitioner [phone] Invega Sustenna intramuscularly 02/02/2021 04/06/2021 as directed 21 234 mg/1.5 mL syringe 57082 [id number] Dior Cornelius 363 [id number] Nurse Practitioner [phone] Social History Social History Element Description Concept Effective Date Smoking Status Unknown if ever smoked [id number] Immunizations No Data in Section Vital Signs No Data in Section Procedures Date Concept Id Description Targeted Site Concept Targeted Site Concept Type 02/24/2021 05999 Injectable Psychotro pic Medication Administration (Injection Only) CPT Patient has no history of implantable de vices Encounters Encounter Start Date End Date Encounter Type Description Diagnosis Di agnosis Desc Location Author First Name Author Last Name Npid Taxonomy Cod e Taxonomy Desc Phone Number Location Addr1 Location Addr2 Location [facility] Location [facility] Location [facility] [id number] 02/24/2021 02/24/2021 82991 Injectable Psyc hotropic Medication Administration (Injection Only) F29 Unspecified Schizophre doc Spectrum and Other Psychotic Disorder [facility] Grace Esposito [id number] Licensed Practical Nurse [phone] [address] [address] Plan of Treatment No Data in Section Lab Results No Data in Section Instructions No Data in Section Insurance Providers Insurance Id Policy Effective Date Policy Thru Date Company N dylon [id number] 2020 [employer] - MEDICA ID MANAGED
--- OUTSIDE RECORDS SUMMARY | 2021-05-14 19:01 | CCD ---
Author Author aKyode Cornelius Organization Unknown Address [address] [place] [address] Phone Care Team Providers Care Server Name Role Phone Dior Cornelius PCP Allergies, Adverse Reactions, Alerts No Data in Section Problem List Concept Problem Description Status Start Date Created Date Resolv ed Date Snomed Code F29 Unspecified Schizophrenia Spectrum and Other Psychotic Disorder Active 05/09/2021 F43.9 Unspecified Trauma- and Stressor-Related Disorder Active 05/09/2021 Medications Rx Norm Medication Route Route Concept Start Date Stop Date Dosage Keyshawn quency Duration Formula Strength Dosage Form Dosage Form Code Dosage Description Medication Id Account Npid Author First Name Author Last Name Taxonomy Code Taxonomy Desc Phone Number [phone] Invega Sustenna intramuscularly 02/02/2021 05/09/2021 as directed 21 234 mg/1.5 mL syringe 79362 [id number] [id number] Dior Cornelius [id number] Nurse Practitioner [phone] [id number] paliperidone by mouth [id number] 05/09/2021 07/08/2021 once a day 30 3 mg tablet extended release 24hr as needed 65975 [id number] Tejinder Cornelius [id number] Nurse Practitioner [phone] [id number] Invega Sustenna intramuscularly 05/09/2021 07/11/2021 as directed 21 234 mg/1.5 mL syringe 82242 [id number] [id number] Dior Cornelius 363 [id number] Nurse Practitioner [phone] Social History Social History Element Description Concept Effective Date Smoking Status Unknown if ever smoked [id number] Immunizations No Data in Section Vital Signs No Data in Section Procedures Date Concept Id Description Targeted Site Concept Targeted Site Concept Type 05/09/2021 73599 E/M Level 3 - Established Patient CPT Patient has no history of implantable de vices Encounters Encounter Start Date End Date Encounter Type Description Diagnosis Di agnosis Desc Location Author First Name Author Last Name Npid Taxonomy Cod e Taxonomy Desc Phone Number Location Addr1 Location Addr2 Location [facility] Location [facility] Location Zip [id number] 05/09/2021 05/09/2021 03723 E/M Level 3 - Established Pa sheeba F29 Unspecified Schizophrenia Spectrum and Other Psychotic Disorder [facility] Adryan Dior [phone] Nurse [facility] [phone] [address] [place] [phone] Plan of Treatment No Data in Section Lab Results No Data in Section Instructions No Data in Section Functional Cognitive Status No Data in Section Insurance Providers Insurance Id Policy Effective Date Policy Thru Date [employer] N dylon [id number] 2020 [employer] - MEDICA ID MANAGED
--- OUTSIDE RECORDS SUMMARY | 2021-05-14 19:01 | CCD ---
Author Author Kayode Hensley Organization Unknown Address [address] [place] [address] Phone Care Team Providers Care Agency Cashier Name Role Phone Ayden Savanna PCP Allergies, Adverse Reactions, Alerts No Data in Section Problem List Concept Problem Description Status Start Date Created Date Resolv ed Date Snomed Code F29 Unspecified Schizophrenia Spectrum and Other Psychotic Disorder Active 03/11/2021 F43.9 Unspecified Trauma- and Stressor-Related Disorder Active 03/11/2021 Medications Rx Norm Medication Route Route Concept Start Date Stop Date Dosage Keyshawn quency Duration Formula Strength Dosage Form Dosage Form Code Dosage Description Medication Id Account Npid Author First Name Author Last Name Taxonomy Code Taxonomy Desc Phone Number [phone] paliperidone by mouth [id number] 02/02/2021 05/06/2021 once a day 30 3 mg tablet extended release 24hr as needed 16529 [id number] [id number] Tejinder Cornelius [id number] Nurse Practitioner [id number] 396254 Invega Sustenna intramuscularly 02/02/2021 05/09/2021 as directed 21 234 mg/1.5 mL syringe 56629 [id number] [id number] Dior Cornelius 363 [id number] Nurse Practitioner [id number] Social History Social History Element Description Concept Effective Date Smoking Status Unknown if ever smoked [id number] Immunizations No Data in Section Vital Signs No Data in Section Procedures Date Concept Id Description Targeted Site Concept Targeted Site Concept Type 03/11/2021 71847 Extended Individual Psychotherapy - 45 min CPT Patient has no history of implantable de vices Encounters Encounter Start Date End Date Encounter Type Description Diagnosis Di agnosis Desc Location Author First Name Author Last Name Npid Taxonomy Cod e Taxonomy Desc Phone Number Location Addr1 Location Addr2 Location [facility] Location [facility] Location Zip [id number] 03/11/2021 03/11/2021 08376 Extended Individual Psych otherapy - 45 min F29 Unspecified Schizophrenia Spectrum and Other Psychotic Disorder [facility] Ayden Corrales [phone] [id number] Social Wo rker [phone] [address] [place] [phone] Plan of Treatment No Data in Section Lab Results No Data in Section Instructions No Data in Section Insurance Providers Insurance Id Policy Effective Date Policy Thru Date Company N dylon [id number] 2020 [employer] - MEDICA ID MANAGED
--- OUTSIDE RECORDS SUMMARY | 2021-05-14 19:01 | CCD ---
Author Author Kayode Hood Cookie Organization Unknown Address [address] [place] [address] Phone Care Team Providers Care Strip Mill Operator Name Role Phone Cookie Hood PCP Allergies, Adverse Reactions, Alerts No Data in Section Problem List Concept Problem Description Status Start Date Created Date Resolv ed Date Snomed Code F29 Unspecified Schizophrenia Spectrum and Other Psychotic Disorder Active 03/16/2021 F43.9 Unspecified Trauma- and Stressor-Related Disorder Active 03/16/2021 Medications Rx Norm Medication Route Route Concept Start Date Stop Date Dosage Keyshawn quency Duration Formula Strength Dosage Form Dosage Form Code Dosage Description Medication Id Account Npid Author First Name Author Last Name Taxonomy Code Taxonomy Desc Phone Number [phone] paliperidone by mouth [id number] 02/02/2021 05/06/2021 once a day 30 3 mg tablet extended release 24hr as needed 60572 [id number] [id number] Tejinder Cornelius [id number] Nurse Practitioner [id number] 494460 Invega Sustenna intramuscularly 02/02/2021 05/09/2021 as directed 21 234 mg/1.5 mL syringe 15763 [id number] [id number] Dior Cornelius 363 [id number] Nurse Practitioner [phone] Social History Social History Element Description Concept Effective Date Smoking Status Unknown if ever smoked [id number] Immunizations No Data in Section Vital Signs No Data in Section Procedures Date Concept Id Description Targeted Site Concept Targeted Site Concept Type 03/16/2021 91713 Injectable Psychotro pic Medication Administration (Injection Only) CPT Patient has no history of implantable de vices Encounters Encounter Start Date End Date Encounter Type Description Diagnosis Di agnosis Desc Location Author First Name Author Last Name Npid Taxonomy Cod e Taxonomy Desc Phone Number Location Addr1 Location Addr2 Location [facility] Location [facility] Location [email or web address] [id number] 03/16/2021 03/16/2021 93933 Injectable Psyc hotropic Medication Administration (Injection Only) F29 Unspecified Schizophre doc Spectrum and Other Psychotic Disorder [facility] Erwin Gary [phone] [id number] Licensed Practical Nurse [phone] [address] [address] Plan of Treatment No Data in Section Lab Results No Data in Section Instructions No Data in Section Insurance Providers Insurance Id Policy Effective Date Policy Thru Date Company N dylon [id number] 2020 [employer] - MEDICA ID MANAGED
--- OUTSIDE RECORDS SUMMARY | 2021-05-14 19:01 | CCD ---
Author Author Kayode Cornelius Organization Unknown Address [address] [place] [address] Phone Care Team Providers Care Reinforcing Steel Worker Wire Mesh Name Role Phone Dior Cornelius PCP Allergies, Adverse Reactions, Alerts No Data in Section Problem List Concept Problem Description Status Start Date Created Date Resolv ed Date Snomed Code F29 Unspecified Schizophrenia Spectrum and Other Psychotic Disorder Active 03/08/2021 F43.9 Unspecified Trauma- and Stressor-Related Disorder Active 03/08/2021 Medications Rx Norm Medication Route Route Concept Start Date Stop Date Dosage Keyshawn quency Duration Formula Strength Dosage Form Dosage Form Code Dosage Description Medication Id Account Npid Author First Name Author Last Name Taxonomy Code Taxonomy Desc Phone Number [phone] paliperidone by mouth [id number] 02/02/2021 05/06/2021 once a day 30 3 mg tablet extended release 24hr as needed 07314 567362 [id number] Tejinder Cornelius [id number] Nurse Practitioner [phone] [id number] Invega Sustenna intramuscularly 02/02/2021 05/09/2021 as directed 21 234 mg/1.5 mL syringe 15433 577593 [id number] Dior Cornelius 363 [id number] Nurse Practitioner [phone] Social History Social History Element Description Concept Effective Date Smoking Status Unknown if ever smoked [id number] Immunizations No Data in Section Vital Signs No Data in Section Procedures Date Concept Id Description Targeted Site Concept Targeted Site Concept Type 03/07/2021 38407 E/M Level 3 - Established Patient CPT Patient has no history of implantable de vices Encounters Encounter Start Date End Date Encounter Type Description Diagnosis Di agnosis Desc Location Author First Name Author Last Name Npid Taxonomy Cod e Taxonomy Desc Phone Number Location Addr1 Location Addr2 Location [facility] Location [place] te Location Zip [id number] 03/07/2021 03/07/2021 60730 E/M Level 3 - Established Pa tient F29 Unspecified Schizophrenia Spectrum and Other Psychotic Disorder [facility] Adryan Rader [id number] Nurse [facility] [phone] [address] [phone] Plan of Treatment No Data in Section Lab Results No Data in Section Instructions No Data in Section Functional Cognitive Status No Data in Section Insurance Providers Insurance Id Policy Effective Date Policy Thru Date Company N dylon [id number] 2020 [employer] - MEDICA ID MANAGED
--- OUTSIDE RECORDS SUMMARY | 2021-05-14 19:01 | CCD ---
Author Organization Unknown Address [address] [place] [address] Phone [phone] Care Team Providers Care Procurement Professional Logistics Name Role Phone Marlon Regan Unavailable Unavailable Allergies Code Code System Name Reaction Severity Status Onset Grass Pollen Active NKDA Medications Name Status Start Date Stop Date azithromycin 250 mg tablet Completed 05/11 Invega Sustenna Completed 08/17/2020 Invega Sustenna 234 mg/1.5 mL intramuscular syringe Active Not available paliperidone ER 3 mg tablet,extended release 24 hr Active Not available prednisone 20 mg tablet Completed 05/11/20 21 risperidone 3 mg tablet TAKE ONE TABLET BY MOUTH AT BEDTIME FOR PSYCHOSIS Completed 05/11/2021 Problems Name Status Onset Date Source Schizophrenia Active 08/17/2020 Procedures Notes: left wrist after a fx Results Lab Results None recorded. Past Encounters 05/11/2021 Adult Health Examination; Schizophrenia; Body Mass Index 30+ - Obesity Marlon Regan MD: [address] [place] [address], Ph. 01/24/2021 Body Mass Index 30+ - Obesity; Schizophrenia Marlon Regan MD: [address] [place] [address], Ph. 08/17/2020 Schizophrenia Marlon Regan MD: [address] [place] [phone], Ph. Social History Tobacco Smoking Status Never Smoker Vaccine List None recorded. Plan of Care Reminders Provider Appointments None recorded. Lab None recorded. Referral None recorded. Procedures None recorded. Surgeries None recorded. Imaging None recorded. Vitals 05/11/2021 11:20AM ESTABLISHED [id number] Height Weight BMI Blood Pressure 73 in 256 lbs 33.8 kg/m2 133/86 mm[Hg] 01/24/2021 02:00PM HOSPITAL DISCHARGE Height Weight BMI Blood Pressure 73 in 258 lbs 12.8 oz 34.1 kg/m2 121/81 mm[H g] 08/17/2020 01:00PM HOSPITAL DISCHARGE Height Weight BMI Blood Pressure 42 in 268 lbs 106.8 kg/m2 108/72 mm[Hg]
--- OUTSIDE RECORDS SUMMARY | 2021-05-14 19:01 | CCD ---
Author Author Kayode Hood Organization Unknown Address [address] [place] [address] Phone Care Team Providers Care Lard Refiner Name Role Phone Cookie Hood PCP Allergies, Adverse Reactions, Alerts No Data in Section Problem List Concept Problem Description Status Start Date Created Date Resolv ed Date Snomed Code F29 Unspecified Schizophrenia Spectrum and Other Psychotic Disorder Active 04/06/2021 F43.9 Unspecified Trauma- and Stressor-Related Disorder Active 04/06/2021 Medications Rx Norm Medication Route Route Concept Start Date Stop Date Dosage Keyshawn quency Duration Formula Strength Dosage Form Dosage Form Code Dosage Description Medication Id Account Npid Author First Name Author Last Name Taxonomy Code Taxonomy Desc Phone Number [id number] paliperidone by mouth [id number] 02/02/2021 05/06/2021 once a day 30 3 mg tablet extended release 24hr as needed [id number] Tejinder Cornelius [id number] Nurse Practitioner [phone] [id number] Invega Sustenna intramuscularly 02/02/2021 05/09/2021 as directed 21 234 mg/1.5 mL syringe [id number] Dior Cornelius [id number] Nurse Practitioner [phone] Social History Social History Element Description Concept Effective Date Smoking Status Unknown if ever smoked [id number] Immunizations No Data in Section Vital Signs No Data in Section Procedures Date Concept Id Description Targeted Site Concept Targeted Site Concept Type 04/06/2021 63159 Injectable Psychotro pic Medication Administration (Injection Only) CPT Patient has no history of implantable de vices Encounters Encounter Start Date End Date Encounter Type Description Diagnosis Di agnosis Desc Location Author First Name Author Last Name Npid Taxonomy Cod e Taxonomy Desc Phone Number Location Addr1 Location Addr2 Location [facility] Location [facility] Location [facility] [id number] 04/06/2021 04/06/2021 17334 Injectable Psyc hotropic Medication Administration (Injection Only) F29 Unspecified Schizophre doc Spectrum and Other Psychotic Disorder [facility] [place] [phone] Licensed Practical Nurse [phone] [address] [address] Plan of Treatment No Data in Section Lab Results No Data in Section Instructions No Data in Section Insurance Providers Insurance Id Policy Effective Date Policy Thru Date Company N dylon [id number] 2020 [employer] - MEDICA ID [id number]
--- OUTSIDE RECORDS SUMMARY | 2021-05-14 19:01 | CCD ---
Author Author [facility] Organization [facility] Address Unknown Phone Unavailable Care Team Providers Care Graphic Manager Name Role Phone Yelena Regan MD Unavailable Unavailable Yelena Regan MD Unavailable Unavailable Yelena Regan MD Unavailable Unavailable Yelena Regan MD Unavailable Unavailable Yelena Regan MD Unavailable Unavailable Yelena Regan MD Unavailable Unavailable Yelena Regan MD Unavailable Unavailable Yelena Regan MD Unavailable Unavailable Yelena Regan MD Unavailable Unavailable Yelena Regan MD Unavailable Unavailable Yelena Regan MD Unavailable Unavailable Yelena Regan MD Unavailable Unavailable Yelena Regan MD Unavailable Unavailable Yelena Regan MD Unavailable Unavailable Yelena Regan MD Unavailable Unavailable Yelena Regan MD Unavailable Unavailable Yelena Regan MD Unavailable Unavailable Yelena Regan MD Unavailable Unavailable Yelena Regan MD Unavailable Unavailable Yelena Regan MD Unavailable Unavailable Yelena Regan MD Unavailable Unavailable Yelena Regan MD Unavailable Unavailable Yelena Regan MD Unavailable Unavailable Yelena Regan MD Unavailable Unavailable Yelena Regan MD Unavailable Unavailable Yelena Regan MD Unavailable Unavailable Yelena Regan MD Unavailable Unavailable Yelena Regan MD Unavailable Unavailable Yelena Regan MD Unavailable Unavailable Yelena Regan MD Unavailable Unavailable Yelena Regan MD Unavailable Unavailable Yelena Regan MD Unavailable Unavailable Yelena Regan MD Unavailable Unavailable Yelena Regan MD Unavailable Unavailable Yelena Regan MD Unavailable Unavailable Yelena Regan MD Unavailable Unavailable Yelena Regan MD Unavailable Unavailable Yelena Regan MD Unavailable Unavailable Yelena Regan MD Unavailable Unavailable Yelena Regan MD Unavailable Unavailable Yelena Regan MD Unavailable Unavailable Yelena Regan MD Unavailable Unavailable Yelena Regan MD Unavailable Unavailable Yelena Regan MD Unavailable Unavailable Yelena Regan MD Unavailable Unavailable Yelena Regan MD Unavailable Unavailable Yelena Regan MD Unavailable Unavailable Yelena Regan MD Unavailable Unavailable Yelena Regan MD Unavailable Unavailable Yelena Regan MD Unavailable Unavailable Yelena Regan MD Unavailable Unavailable Yelena Regan MD Unavailable Unavailable Yelena Regan MD Unavailable Unavailable Yelena Regan MD Unavailable Unavailable Yelena Regan MD Unavailable Unavailable Yelena Regan MD Unavailable Unavailable Yelena Regan MD Unavailable Unavailable Yelena Regan MD Unavailable Unavailable Yelena Regan MD Unavailable Unavailable Yelena Regan MD Unavailable Unavailable Yelena Regan MD Unavailable Unavailable Yelena Regan MD Unavailable Unavailable Yelena Regan MD Unavailable Unavailable Yelena Regan MD Unavailable Unavailable Yelena Regan MD Unavailable Unavailable Yelena Regan MD Unavailable Unavailable Yelena Regan MD Unavailable Unavailable Yelena Regan MD Unavailable Unavailable Yelena Regan MD Unavailable Unavailable Yelena Regan MD Unavailable Unavailable Yelena Regan MD Unavailable Unavailable Yelena Regan MD Unavailable Unavailable Yelena Regan MD Unavailable Unavailable Yelena Regan MD Unavailable Unavailable Yelena Regan MD Unavailable Unavailable Yelena Regan MD Unavailable Unavailable Yelena Regan MD Unavailable Unavailable Yelena Regan MD Unavailable Unavailable Yelena Regan MD Unavailable Unavailable Yelena Regan MD Unavailable Unavailable Yelena Regan MD Unavailable Unavailable Yelena Regan MD Unavailable Unavailable Yelena Regan MD Unavailable Unavailable Yelena Regan MD Unavailable Unavailable Yelena Regan MD Unavailable Unavailable Yelena Regan MD Unavailable Unavailable Yelena Regan MD Unavailable Unavailable Yelena Regan MD Unavailable Unavailable Yelena Regan MD Unavailable Unavailable Yelena Regan MD Unavailable Unavailable Yelena Regan MD Unavailable Unavailable Yelena Regan MD Unavailable Unavailable Yelena Regan MD Unavailable Unavailable NO, PCP Unavailable Unavailable Alberts R Farhat SALES SYSTEMS ENGINEER Unavailable Unavailable Alberts, R Farhat SALES SYSTEMS ENGINEER Unavailable Unavailable Alberts R Farhat SALES SYSTEMS ENGINEER Unavailable Unavailable ERIN PEDROZA Unavailable Unavailable Jose Davis MD Unavailable Unavailable Jose Davis MD Unavailable Unavailable Jose Davis MD Unavailable Unavailable Jose Davis MD Unavailable Unavailable Jose Davis MD Unavailable Unavailable Jose Davis MD Unavailable Unavailable Flor Cespedes Unavailable ADRYAN, H DELIO SALES SYSTEMS ENGINEER Unavailable Unavailable ADRYAN, H DELIO SALES SYSTEMS ENGINEER Unavailable Unavailable ADRYAN, H DELIO SALES SYSTEMS ENGINEER Unavailable Unavailable ADRYAN, H DELIO SALES SYSTEMS ENGINEER Unavailable Unavailable ADRYAN, H DELIO SALES SYSTEMS ENGINEER Unavailable Unavailable ADRYAN, H DELIO SALES SYSTEMS ENGINEER Unavailable Unavailable ADRYAN, H DELIO SALES SYSTEMS ENGINEER Unavailable Unavailable ADRYAN, H DELIO SALES SYSTEMS ENGINEER Unavailable Unavailable ADRYAN, H DELIO SALES SYSTEMS ENGINEER Unavailable Unavailable Doreen SMITH PA Unavailable Unavailable Doreen SMITH PA Unavailable Unavailable SMITH, J KOE PA Unavailable Unavailable SMITH, J KEO PA [...] Unavailable SMITH, J KEO PA Unavailable Unavailable Savanna Hensley Unavailable Franki AGARWAL MD Unavailable Unavailable STEFANO, Franki SANTANA MD Unavailable Unavailable STEFANO, Franki SANTANA MD Unavailable Unavailable STEFANO, Franki SANTANA MD Unavailable Unavailable STEFANO, L MAX VIRAMONTES Unavailable Unavailable STEFANO, Franki SANTANA MD Unavailable Unavailable STEFANO, L MAX VIRAMONTES Unavailable Unavailable STEFANO, Franki SANTANA MD Unavailable Unavailable STEFANO, L MAX MD Unavailable Unavailable STEFANO, L MAX MD Unavailable Unavailable STEFANO, L MAX MD Unavailable Unavailable STEFANO, L MAX VIRAMONTES Unavailable Unavailable STEFANO, Franki SANTANA MD Unavailable Unavailable STEFANO, L MAX MD Unavailable Unavailable STEFANO, L MAX MD Unavailable Unavailable STEFANO, L MAX MD Unavailable Unavailable STEFANO, L MAX MD Unavailable Unavailable STEFANO, L MAX MD Unavailable Unavailable STEFANO, L MAX MD Unavailable Unavailable STEFANO, L MAX MD Unavailable Unavailable Rotella, Cookie Unavailable Unavailable Cate Edwards Unavailable Ingrid Franco Unavailable Re-disclosure Warning The records that you [...] is protected by Article 27-F of the [facility] Public Health law. If you continue you may have access to information: Regarding HIV / AIDS; Provided by facilities licensed or operated by the [facility] Office of Mental Health; or Provided by the [facility] Office for People With Developmental Disabilities. If such information is present, then the following [facility] mandated warning applies: This information has been [...] law may result in a fine or care home sentence or both. A general authorization for the release of medical or other information is NOT sufficient authorization for further disc losure. Encounters Encounter Providers Location Date Indications Data Source(s ) Marlon Regan MD: [address] [place] [phone], Ph. Attender: Marlon Regan MD [facility] Medical 05/11/2021 12:00:00 AM EST [facility] ([facility]) Outpatient Attender: DELIO PIMENTEL NP [facility] Telly l 05/09/2021 09:00:00 AM EST - 05/09/2021 09:00:00 AM EST [facility] ([facility]) Attender: DELIO PIMENTEL NP 05/09/2021 12:00:00 AM EST [facility] ([facility]) Injectable Psychotropic Medication Administration (Inj ection Only) Attender: Cookie Hood [facility] 04/06/2021 10:15:00 AM EDT - 04/06/2021 10:15:00 AM EDT [facility] ([facility]) Attender: Cookie Hood 04/06/2021 12:00:00 AM EDT [facility] ([facility]) Emergency Attender: Jose Davis MDConsultant: PCP NO 03/22/2021 04:02:00 PM EDT - 03/22/2021 08:00:00 PM EDT [facility] Patient discharged. Emergency Attender: MAX AGARWAL MDConsultant: PCP NO 03/17/2021 09:17:00 PM EDT - 03/18/2021 01[facility]08[facility] [facility] Injectable Psychotropic Medication Administration (Inj ection Only) Attender: Cookie Hood [facility] 03/16/2021 10:30:00 AM EDT - 03/16/2021 10:30:00 AM EDT [facility] ([facility]) Attender: Cookie Hood 03/16/2021 12:00:00 AM EDT [facility] ([facility]) Extended Individual Psychotherapy - 45 min Attender: Savanna Hensley [facility] 03/11/2021 10:00:00 AM EDT - 03/11/2021 10:00:00 AM EDT [facility] ([facility]) Attender: Savanna Hensley 03/11/2021 12:00:00 AM EDT [facility] ([facility]) Outpatient Attender: DELIO PIMENTEL NP [facility] Telly clifford 03/07/2021 10:30:00 AM EDT - 03/07/2021 10:30:00 AM EDT [facility] ([facility]) Attender: DELIO PIMENTEL NP 03/07/2021 12:00:00 AM EDT [facility] ([facility]) Injectable Psychotropic Medication Administration (Inj ection Only) Attender: Cate Edwards [facility] 02/24/2021 09:15:00 AM EDT - 02/24/2021 09:15:00 AM EDT [facility] Attender: Cate Edwards 02/24/2021 12:00:00 AM EDT [facility] ([facility]) non-billable [facility] 02/23/2021 12:00:00 AM EDT [facility] ([facility]) Injectable Medication Administration w/ Monitoring & E ducation Attender: Ingrid Franco [facility] 02/02/2021 10:45:00 AM EDT - 02/02/2021 10:45:00 AM EDT [facility] Outpatient Attender: DEL[facility]ENTEL [facility] 02/02/2021 10:00:00 AM EDT - 02/02/2021 10:00:00 AM EDT [facility] ([facility]) Attender: DELIO PIMENTEL NP 02/02/2021 12:00:00 AM EDT [facility] ([facility]) Attender: Ingrid Franco 02/02/2021 12:00:00 AM EDT [facility] ([facility]) Brief Individual Psychotherapy - 30 min Attender: Savanna stevens [facility] 02/01/2021 09:15:00 AM EDT - 02/01/2021 09:15:00 AM EDT [facility] ([facility]) Attender: Savanna Hensley 02/01/2021 12:00:00 AM EDT [facility] ([facility]) Marlon Regan MD: [address] [place] [address] [phone], Ph. Attender: Marlon Regan MD [facility] Medical 01/24/2021 12:00:00 AM EDT [facility] ([facility]) Marlon Regan MD: [address] [place] [address] [phone], Ph. Attender: Marlon Regan MD [facility] Medical 01/24/2021 12:00:00 AM EDT [facility] ([facility]) Extended Individual Psychotherapy - 45 min Attender: Beatriz Cespedes [facility] 01/21/2021 03:00:00 AM EDT - 01/21/2021 03:00:00 AM EDT [facility] ([facility]) Attender: Flor Cespedes 01/21/2021 12:00:00 AM EDT [facility] ([facility]) Attender: Savanna Hensley 11/25/2020 12:00:00 AM EDT [facility] ([facility]) Extended Individual Psychotherapy - 45 min Attender: Savanna Hensley [facility] 11/24/2020 05:00:00 AM EDT - 11/24/2020 05:00:00 AM EDT [facility] ([facility]) Outpatient Attender: Farhat Alberts NP [facility] 10/20/2020 10:30:00 AM EDT - 10/20/2020 10:30:00 AM EDT [facility] ([facility]) Injectable Psychotropic Medication Administration (Inj ection Only) Attender: Cookie Hood [facility] 10/20/2020 01:00:00 AM EDT - 10/20/2020 01:00:00 AM EDT [facility] ([facility]) Attender: Cookie Hood 10/20/2020 12:00:00 AM EDT [facility] ([facility]) Attender: Farhat Alberts NP 10/20/2020 12:00:00 AM EDT [facility] ([facility]) Attender: Savanna Hensley 10/14/2020 12:00:00 AM EDT [facility] ([facility]) Brief Individual Psychotherapy - 30 min Attender: Savanna stevens [facility] 10/13/2020 04:15:00 AM EDT - 10/13/2020 04:15:00 AM EDT [facility] ([facility]) Psychotherapy - Family & Client 1 hour Attender: Savanna little [facility] 09/29/2020 03:00:00 AM EDT - 09/29/2020 03:00:00 AM EDT [facility] ([facility]) Injectable Medication Administration w/ Monitoring & E ducation Attender: Ingridtanesha Harrisonthomas [facility] 09/29/2020 02:30:00 AM EDT - 09/29/2020 02:30:00 AM EDT [facility] ([facility]) Attender: Savanna Hensley 09/29/2020 12:00:00 AM EDT [facility] ([facility]) Attender: Ingrid Christythomas 09/29/2020 12:00:00 AM EDT [facility] ([facility]) Outpatient Attender: Farhat Alberts NP [facility] 09/22/2020 10:30:00 AM EDT - 09/22/2020 10:30:00 AM EDT [facility] ([facility]) Attender: Farhat Alberts NP 09/22/2020 12:00:00 AM EDT [facility] ([facility]) Attender: Savanna Hensley 09/16/2020 12:00:00 AM EDT [facility] ([facility]) Extended Individual Psychotherapy - 45 min Attender: Savanna Hensley [facility] 09/15/2020 05:00:00 AM EDT - 09/15/2020 05:00:00 AM EDT [facility] ([facility]) Attender: Savanna Hensley 09/09/2020 12:00:00 AM EDT [facility] ([facility]) Outpatient Attender: KEO FLORES 09/08 01:38:00 PM EDT - 09/08/2020 01:38:00 PM EDT [facility] Extended Individual Psychotherapy - 45 min Attender: Savanna Hensley [facility] 09/08/2020 11:15:00 AM EDT - 09/08/2020 11:15:00 AM EDT [facility] ([facility]) Telemed Diagnostic Eval Attender: Farhat Alberts [facility] 09/07/2020 01:00:00 AM EDT - 09/07/2020 01:00:00 AM EDT [facility] ([facility]) Attender: Farhat Alberts NP 09/07/2020 12:00:00 AM EDT [facility] ([facility]) Marlon Regan MD: [address] [place] [address] [phone], Ph. Attender: Marlon Regan MD [facility] Medical 08/17/2020 12:00:00 AM EST [facility] ([facility]) Marlon Regan MD: [address] [place] [address] [phone], Ph. Attender: Marlon Regan MD [facility] Medical 08/17/2020 12:00:00 AM EST [facility] ([facility]) Marlon Regan MD: [address] [place] [address] [phone], Ph. Attender: Marlon Regan MD [facility] Medical 08/17/2020 12:00:00 AM EST [facility] ([facility]) Brief Individual Psychotherapy - 30 min Attender: Flor gambino [facility] 08/16/2020 02:30:00 AM EST - 08/16/2020 02:30:00 AM EST [facility] ([facility]) Attender: Flor Cespedes 08/16/2020 12:00:00 AM EST [facility] ([facility]) Outpatient Attender: KEO FLORES 07/20 08:36:00 AM EST - 07/20/2020 08:36:00 AM EST [facility] Outpatient Attender: KEO FLORES 07/05 02:01:00 PM EST - 07/05/2020 02:01:00 PM [facility] Outpatient Attender: ERIN PEDROZA 06/24/20 08:09:00 AM EST - 06/24/2020 08:09:00 AM EST [facility] Functional Status Medications Medication Brand Name Start Date Product Form Dose Route Admi nistrative Instructions Pharmacy Instructions Status Indications Reaction Description Data Source(s) 1.5 ML paliperidone palmitate 156 MG/ML Prefilled Syri nge [Invega] Invega Sustenna 05/09/2021 12:00:00 AM EST 234 mg/1.5 compl eted <td ID="MedicationRxNorm_3">658277</td><td ID="MedicationMedication_3">Invega Sustenna</td><td ID="MedicationRoute_3">intramuscularly</td><td ID="MedicationRouteConcept_3"></td><td ID="MedicationStartDate_3">05/09/2021</td><td ID="MedicationStopDate_3">07/11/2021</td><td ID="MedicationDosageFrequency_3">as directed</td><td ID="MedicationDuration_3">21</td><td ID="MedicationFormulaStrength_3">234 mg/1.5 mL</td><td ID="MedicationDosageForm_3">syringe</td><td ID="MedicationDosageFormCode_3"></td><td ID="MedicationDosageDescription_3"> </td><td ID="MedicationMedicationId_3">[id number]</td><td ID="MedicationAccount_3">[id number]</td><td ID="MedicationNpid_3">[id number]</td><td ID="MedicationAuthorFirstName_3">Delio</td><td ID="MedicationAuthorLastName_3">Adryan</td><td ID="MedicationTaxonomyCode_3">[id number]</td><td ID="MedicationTaxonomyDesc_3">Nurse Practitioner</td><td ID="MedicationPhoneNumber_3">[phone]</td> [facility] ([facility]) 24 HR paliperidone 3 MG Extended Release Oral Tablet paliper idone 05/09/2021 12:00:00 AM EST 3 mg by mouth completed <td ID="MedicationRxNorm_2">[id number]</td><td ID="MedicationMedication_2">paliperidone</td><td ID="MedicationRoute_2">by mouth</td><td ID="MedicationRouteConcept_2">W35676</td><td ID="MedicationStartDate_2">05/09/2021</td><td ID="MedicationStopDate_2">07/08/2021</td><td ID="MedicationDosageFrequency_2">once a day</td><td ID="MedicationDuration_2">30</td><td ID="MedicationFormulaStrength_2">3 mg</td><td ID="MedicationDosageForm_2">tablet extended release 24hr</td><td ID="MedicationDosageFormCode_2"></td><td ID="MedicationDosageDescription_2">as needed</td><td ID="MedicationMedicationId_2">[id number]</td><td ID="MedicationAccount_2">[id number]</td><td ID="MedicationNpid_2">[id number]</td><td ID="MedicationAuthorFirstName_2">Delio</td><td ID="MedicationAuthorLastName_2">Adryan</td><td ID="MedicationTaxonomyCode_2">[id number]</td><td ID="MedicationTaxonomyDesc_2"> Nurse Practitioner</td><td ID="MedicationPhoneNumber_2">[phone]</td> [facility] ([facility]) 24 HR paliperidone 3 MG Extended Release Oral Tablet paliper idone 02/02/2021 12:00:00 AM EDT 3 mg by mouth completed <td ID="MedicationRxNorm_1">357925</td><td ID="MedicationMedication_1">paliperidone</td><td ID="MedicationRoute_1">by mouth</td><td ID="MedicationRouteConcept_1">I89078</td><td ID="MedicationStartDate_1">02/02/2021</td><td ID="MedicationStopDate_1">05/06/2021</td><td ID="MedicationDosageFrequency_1">once a day</td><td ID="MedicationDuration_1">30</td><td ID="MedicationFormulaStrength_1">3 mg</td><td ID="MedicationDosageForm_1">tablet extended release 24hr</td><td ID="MedicationDosageFormCode_1"></td><td ID="MedicationDosageDescription_1">as needed</td><td ID="MedicationMedicationId_1">[id number]</td><td ID="MedicationAccount_1">[id number]</td><td ID="MedicationNpid_1">[id number]</td><td ID="MedicationAuthorFirstName_1">Delio</td><td ID="MedicationAuthorLastName_1">Adryan</td><td ID="MedicationTaxonomyCode_1">[id number]</td><td ID="MedicationTaxonomyDesc_1"> Nurse Practitioner</td><td ID="MedicationPhoneNumber_1">[phone]</td> [facility] ([facility]) 1.5 ML paliperidone palmitate 156 MG/ML Prefilled Syri nge [Invega] Invega Sustenna 02/02/2021 12:00:00 AM EDT 234 mg/1.5 compl eted <td ID="MedicationRxNorm_2">[id number]</td><td ID="MedicationMedication_2">Invega Sustenna</td><td ID="MedicationRoute_2">intramuscularly</td><td ID="MedicationRouteConcept_2"></td><td ID="MedicationStartDate_2">02/02/2021</td><td ID="MedicationStopDate_2">05/09/2021</td><td ID="MedicationDosageFrequency_2">as directed</td><td ID="MedicationDuration_2">21</td><td ID="MedicationFormulaStrength_2">234 mg/1.5 mL</td><td ID="MedicationDosageForm_2">syringe</td><td ID="MedicationDosageFormCode_2"></td><td ID="MedicationDosageDescription_2"> </td><td ID="MedicationMedicationId_2">[id number]</td><td ID="MedicationAccount_2">[id number]</td><td ID="MedicationNpid_2">[id number]</td><td ID="MedicationAuthorFirstName_2">Delio</td><td ID="MedicationAuthorLastName_2">Adryan</td><td ID="MedicationTaxonomyCode_2">[id number]</td><td ID="MedicationTaxonomyDesc_2">Nurse Practitioner</td><td ID="MedicationPhoneNumber_2">[phone]</td> [facility] ([facility]) 1.5 ML paliperidone palmitate 156 MG/ML Prefilled Syri nge [Invega] Invega Sustenna 02/02/2021 12:00:00 AM EDT 234 mg/1.5 compl eted <td ID="MedicationRxNorm_1">[id number]</td><td ID="MedicationMedication_1">Invega Sustenna</td><td ID="MedicationRoute_1">intramuscularly</td><td ID="MedicationRouteConcept_1"></td><td ID="MedicationStartDate_1">02/02/2021</td><td ID="MedicationStopDate_1">05/09/2021</td><td ID="MedicationDosageFrequency_1">as directed</td><td ID="MedicationDuration_1">21</td><td ID="MedicationFormulaStrength_1">234 mg/1.5 mL</td><td ID="MedicationDosageForm_1">syringe</td><td ID="MedicationDosageFormCode_1"></td><td ID="MedicationDosageDescription_1"> </td><td ID="MedicationMedicationId_1">[id number]</td><td ID="MedicationAccount_1">[id number]</td><td ID="MedicationNpid_1">[id number]</td><td ID="MedicationAuthorFirstName_1">Delio</td><td ID="MedicationAuthorLastName_1">Adryan</td><td ID="MedicationTaxonomyCode_1">[id number]</td><td ID="MedicationTaxonomyDesc_1">Nurse Practitioner</td><td ID="MedicationPhoneNumber_1">[phone]</td> [facility] ([facility]) 3 mg 01/17/2021 12:00:00 AM EDT tablet 7 TAKE ONE TABLET BY MOUTH AT BEDTIME FOR PSYCHOSIS TAKE ONE TABLET BY MOUTH AT BEDTIME FOR PSYCHOSIS SOLD : 01/27/2021 Lissette Nobles quetiapine 100 MG Oral Tablet quetiapine 09/15/2020 12:00:00 AM EDT 100 mg by mouth completed <td ID="Medica tionRxNorm_1">089008</td><td ID="MedicationMedication_1">quetiapine</td><td ID="MedicationRoute_1">by mouth</td><td ID="MedicationRouteConcept_1">L03506</td><td ID="MedicationStartDate_1">09/15/2020</td><td ID="MedicationStopDate_1">09/29/2020</td><td ID="MedicationDosageFrequency_1">twice a day</td><td ID="MedicationDuration_1">14</td><td ID="MedicationFormulaStrength_1">100 mg</td><td ID="MedicationDosageForm_1">tablet</td><td ID="MedicationDosageFormCode_1"></td><td ID="MedicationDosageDescription_1">as needed</td><td ID="MedicationMedicationId_1">[id number]</td><td ID="MedicationAccount_1">[id number]</td><td ID="MedicationNpid_1">[id number]</td><td ID="MedicationAuthorFirstName_1">Farhat</td><td ID="MedicationAuthorLastName_1">Alberts</td><td ID="MedicationTaxonomyCode_1">[id number]</td><td ID="MedicationTaxonomyDesc_1">Nurse Practitioner</td><td ID="MedicationPhoneNumber_1">[phone]</td> [facility] ([facility]) Paliperidone Palmitate Inj 234MG 09/08/2020 12:00:00 AM EDT completed [facility] ([facility]) Medication administered onsite Invega Sustenna completed Inve fili [facility] ([facility]) Risperidone 3 MG Oral Tablet risperidone 3 mg tablet TAKE ONE TABLET BY MOUTH AT BEDTIME FOR PSYCHOSIS risperidone 3 mg tablet TAKE ONE TABLET BY MOUTH AT BEDTIME FOR PSYCHOSIS completed risperidone 3 MG Oral Tablet [facility] ([facility]) Prednisone 20 MG Oral Tablet prednisone 20 mg tablet prednisone 20 mg tablet completed prednisone 20 MG Oral Tablet UPPERGLADE ([facility]) Invega Sustenna completed Inve ga [facility] ([facility]) Azithromycin 250 MG Oral Tablet azithromycin 250 mg ta blet azithromycin 250 mg tablet completed azithromycin 25 0 MG Oral Tablet [facility] ([facility]) Invega Sustenna completed Inve ga [facility] ([facility]) Insurance Providers Payer name Policy type / Coverage type Policy ID Covered democrat ID Covered democrat's relationship to hidalgo Policy Hidalgo Plan Information [facility] [id number] [facility] HUMANA - O/P [id number] 19 [id number] [facility] CARE OF [place] -OP [id number] 18 [id number] MEDICAID -CLINIC [id number] [facility] MEDICAID [id number] SP [id number] M SELF PAY ONLY [id number] SP [id number] EMEDNY [id number] Problems, Conditions, and Diagnoses Code Display Name Description Problem Type Effective Dates Data Source(s) Z8701 Personal history of pneumonia (recurrent ) Personal history of pneumonia (recurrent) Diagnosis 03/22/2021 04:02:00 PM EDT [facility] U071 COVID-19 COVID-19 Diagnosis 03/22/2021 04:02:00 PM ED T [facility] R05 Cough Cough Diagnosis 03/22/2021 04:02:00 PM ED T [facility] [id number] CONTACT WITH AND SUSPECTED EXPOSURE TO C OVID-19 CONTACT WITH AND SUSPECTED EXPOSURE TO COVID-19 Diagnosis 03/17/2021 09:17:00 PM EDT [facility] J189 Pneumonia, unspecified organism Pneumonia, unspecified organism Diagnosis 03/17/2021 09:17:00 PM EDT [facility] R0600 Dyspnea, unspecified Dyspnea, unspecified Diagnosis 03/17/2021 09:17:00 PM EDT [facility] F209 Schizophrenia, unspecified Schizophrenia, unspecified Diagnosis 07/20/2020 08:36:00 AM EST [facility] F43.9 Reaction to severe stress, unspecified 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 05/09/2021 12:00:00 AM EST [facility] ([facility]) F29 Unspecified psychosis not du e to a substance or known physiological condition Unspecified Schizophrenia Spectrum and Other Psychotic Disorder Condition 05/09/2021 12:00:00 AM EST [facility] [id number] Schizophrenia, unspecified Schizophrenia, unspecified Condition 01/17/2021 12:00:00 AM EDT [facility] ([facility]) F20.9 Schizophrenia, unspecified Schizophrenia Condition 11/25/2020 12:00:00 AM EDT [facility] ([facility]) F79 Unspecified intellectual disabilities Un specified Intellectual Disability (Intellectual Developmental Disorder) Condition 11/25/2020 12:00:00 AM EDT [facility] ([facility]) [id number] Schizophrenia Schizophrenia Problem 08/17/2020 12:00:00 AM EST [facility] ([facility]) [id number] Schizophrenia Schizophrenia Problem 08/17/2020 12:00:00 AM EST [facility] ([facility]) [id number] Schizophrenia Schizophrenia Problem 08/17/2020 12:00:00 AM EST [facility] ([facility]) Surgeries/Procedures Procedure Description Date Indications Data Source(s) OFFICE OUTPATIENT VISIT 15 MINUTES 05/09 12:00:00 AM EST - 05/09/2021 12:00:00 AM EST [facility] ([facility]) OFFICE OUTPATIENT VISIT 15 MINUTES 05/09/2021 12:00:00 AM EST [facility] ([facility]) THERAPEUTIC PROPHYLACTIC/DX INJECTION SUBQ/IM 04/06/2021 12:00:00 AM EDT - 04/06/2021 12:00:00 AM EDT [facility] THERAPEUTIC PROPHYLACTIC/DX INJECTION SUBQ/IM 04/06/20 12:00:00 AM EDT [facility] ([facility]) THERAPEUTIC PROPHYLACTIC/DX INJECTION SUBQ/IM 03/16/2021 12:00:00 AM EDT - 03/16/2021 12:00:00 AM EDT [facility] THERAPEUTIC PROPHYLACTIC/DX INJECTION SUBQ/IM 03/16/20 12:00:00 AM EDT [facility] ([facility]) Extended Individual Psychotherapy - 45 min 03/11/2021 12:00:00 AM EDT - 03/11/2021 12:00:00 AM EDT [facility] Psychotherapy - 45 min 12:00:00 AM EDT [facility] ([facility]) OFFICE OUTPATIENT VISIT 15 MINUTES 03/07 12:00:00 AM EDT - 03/07/2021 12:00:00 AM EDT [facility] ([facility]) OFFICE OUTPATIENT VISIT 15 MINUTES 03/07/2021 12:00:00 AM EDT [facility] ([facility]) THERAPEUTIC PROPHYLACTIC/DX INJECTION SUBQ/IM 02/24/2021 12:00:00 AM EDT - 02/24/2021 12:00:00 AM EDT [facility] THERAPEUTIC PROPHYLACTIC/DX INJECTION SUBQ/IM 02/25/20 12:00:00 AM EDT [facility] ([facility]) OFFICE OUTPATIENT VISIT 15 MINUTES 02/02 12:00:00 AM EDT - 02/02/2021 12:00:00 AM EDT [facility] ([facility]) OFFICE OUTPATIENT VISIT 15 MINUTES 02/02/2021 12:00:00 AM EDT [facility] ([facility]) Comprehensive medication services, per 15 minutes 02/02/2021 12:00:00 AM EDT - 02/02/2021 12:00:00 AM EDT [facility] ([facility]) Comprehensive medication services, per 15 minutes 02/02/2021 12:00:00 AM EDT [facility] ([facility]) Brief Individual Psychotherapy - 30 min 02/01/2021 12:00:00 AM EDT - 02/01/2021 12:00:00 AM EDT [facility] Psychotherapy - 30 min 02/01/2021 12: 00:00 AM EDT [facility] ([facility]) Extended Individual Psychotherapy - 45 min 01/21/2021 12:00:00 AM EDT - 01/21/2021 12:00:00 AM EDT [facility] Extended Individual Psychotherapy - 45 min 12:00:00 AM EDT [facility] ([facility]) Extended Individual Psychotherapy - 45 min 11/25/2020 12:00:00 AM EDT - 11/25/2020 12:00:00 AM EDT [facility] Extended Individual Psychotherapy - 45 min 12:00:00 AM EDT [facility] ([facility]) THERAPEUTIC PROPHYLACTIC/DX INJECTION SUBQ/IM 10/21/19 12:00:00 AM EDT [facility] ([facility]) THERAPEUTIC PROPHYLACTIC/DX INJECTION SUBQ/IM 10/20/2020 12:00:00 AM EDT - 10/20/2020 12:00:00 AM EDT [facility] MHC Telemed E/M Lvl 3--Est pt 10/20/2020 12:00:00 AM E DT [facility] ([facility]) Telemed A/O 30" 10/20/2020 12:00:00 AM EDT [facility] ([facility]) MHC Telemed E/M Lvl 3--Est pt 10/20/2020 12:00:00 AM EDT - 10/20/2020 12:00:00 AM EDT [facility] ([facility]) Brief Individual Psychotherapy - 30 min 10/14/2020 12:00:00 AM EDT - 10/14/2020 12:00:00 AM EDT [facility] Brief Individual Psychotherapy - 30 min 10/13/2020 12: 00:00 AM EDT [facility] ([facility]) FAMILY PSYCHOTHERAPY W/PATIENT PRESENT 09/29/2020 12:0 0:00 AM EDT [facility] ([facility]) FAMILY PSYCHOTHERAPY W/PATIENT PRESENT 0 09/29/2020 12:00:00 AM EDT - 09/29/2020 12:00:00 AM EDT [facility] ([facility]) Comprehensive medication services, per 15 minutes 09/29/2020 12:00:00 AM EDT [facility] ([facility]) Comprehensive medication services, per 15 minutes 09/29/2020 12:00:00 AM EDT - 09/29/2020 12:00:00 AM EDT [facility] ([facility]) MHC Telemed E/M Lvl 3--Est pt 09/22/2020 12:00:00 AM E DT [facility] ([facility]) MHC Telemed E/M Lvl 3--Est pt 09/22/2020 12:00:00 AM EDT - 09/22/2020 12:00:00 AM EDT [facility] ([facility]) Extended Individual Psychotherapy - 45 min 09/16/2020 12:00:00 AM EDT - 09/16/2020 12:00:00 AM EDT [facility] Extended Individual Psychotherapy - 45 min 12:00:00 AM EDT [facility] ([facility]) Extended Individual Psychotherapy - 45 min 09/09/2020 12:00:00 AM EDT - 09/09/2020 12:00:00 AM EDT [facility] Therapeutic, Prophylactic Or Diagnostic Injection Subq/Im 09/08/2020 12:00:00 AM EDT [facility] ([facility]) Extended Individual Psychotherapy - 45 min 12:00:00 AM EDT [facility] ([facility]) Telemed Diagnostic Eval 09/07/2020 12:00:00 AM EDT [facility] ([facility]) Telemed Diagnostic Eval 09/07/2020 12:00 :00 AM EDT - 09/07/2020 12:00:00 AM EDT [facility] ([facility]) Brief Individual Psychotherapy - 30 min 08/16/2020 12: 00:00 AM EST [facility] ([facility]) Brief Individual Psychotherapy - 30 min 08/16/2020 12:00:00 AM EST - 08/16/2020 12:00:00 AM EST [facility] Psychiatric Diag Eval W/Medical Service 07/20/2020 12: 00:00 AM EST [facility] ([facility]) Psychiatric Diagnostic Evaluation 06/24/2020 12:00:00 AM EST [facility] ([facility]) Psychiatric Diagnostic Evaluation 06/23/2020 12:00:00 AM EST [facility] ([facility]) Results ID Date Data Source [id number] 03/23/2021 12:06:00 PM EDT [facility] [address] [place] [address] PHONE: [phone] FAX: [phone] Name .................. : ADI Hawthorne Acct Number.................. : [id number] ROOM. ................. : VT-03 MR Number ................... : [id number] Stay type ............. : E/R Discharge Date......... ... : 03/22/21 Admit Date ......... : 03/22/21 Admit Phys .................... : SUHAIL Rose Date of ....... : 1995 Family Phys ................... : NO PCP Phone .................. : [phone] Age ................................ : 26 Film# .................. .:[id number] Sex ................................. : M Unsigned transcriptions are preliminary reports and do not represent a medical or legal document CHEST PORTABLE [id number] COMPLETE:03/22/21 17:44 [facility] [id number] Reason(s): Hx PNA, worseing cough PORTABLE CHEST SINGLE VIEW 5:26 PM HISTORY: Worsening cough COMPARISON: 03/17/2021 FINDINGS: Mediastinal and hilar structures are normal. Cardiac silhouette is unremarkable. Mild patchy foci of increased opacification are seen in both lungs more so in the lower lobes. These show mild improvement compared the prior study. No new lung abnormalities. No pleural effusions or pneumothorax. IMPRESSION: Multifocal patchy airspace disease in both lungs shows mild improvement. No new abnormalities are evident. Electronically Reviewed and Signed By Tawanda Thomas MD , 03/23/21 12:06, LATESHA Transcribe Initials: MICHAEL, Transcribe Date: 03/23/21 08:49, Dictation Date: Copy for: [facility] via fax Copy for: EMERGENCY DEPT via [facility] Copy for: [address] REC [address] [place] [address] PHONE: [phone] FAX: [phone] Name .................. : ADI Hawthorne Acct Number.................. : [id number] ROOM. ................. : [place] MR Number ................... : [id number] Stay type ............. : E/R Discharge Date......... ... : 03/22/21 Admit Date ......... : 03/22/21 Admit Phys .................... : SUHAIL Rose Date of ....... : 1995 Family Phys ................... : NO PCP Phone .................. : [phone] Age .......... ...................... : 26 Film# .................. .:[id number] Sex ................................. : M Unsigned transcriptions are preliminary reports and do not represent a medical or legal document CHEST PORTABLE [id number] COMPLETE:03/22/21 17:44 [facility] 60188 Reason(s): Hx PNA, worseing cough DISCHARGED Page 2 of 2 Name Value Range Interpretation Code Description Data Tahira rce(s) Supporting Document(s) ID Date Data Source [id number] 03/22/2021 04:02:00 PM EDT [facility] 1 OrderSheet [facility] Emergency Department [address] [place] [address] Phone #: ext- [phone] 03/22/2021 16:02 Patient: QUINN JOSHI Sex: M : 1995 Age: 26yWEIGHT:113.3 kg HEIGHT:74 inches BMI:32.1ALLERGIES: No Known Drug AllergyCHIEF COMPLAINT: coughDIAGNOSIS: PneumoniaLAB ORDERSOrder Description Priority Entered Acknowledged InitialedCBC w Diff STAT 17:10 03/22/2021 17:18 Yonny Pierre; Leida GarciaCMP STAT 17:11 03/22/2021 17:18 Yonny Pierre R.N.Lactic Acid STAT 17:11 03/22/2021 17:18 Yonny Pierre; Leida GarciaCOVID-19 CAH (Not STAT 17:53 03/22/2021 18:04 Ignacio,Symptomatic as Yonny FLORES; Leida GarciaDefined by CDC)(03/22/2021) (NotFirst Test) (NotHospitalized) (Not) (NotResident inCongregate CareSetting) (NotEmployed inHealthcare Setting)DIAGNOSTIC STUDY ORDERSOrder Description Priority Entered Acknowledged InitialedChest Portable 1 STAT 17:10 03/22/2021 Ack'd: 17:18 18:04 Ignacio,Bernardo FLORES; Leida Pierre R.N.(Oxygen?(No)) R.N. Reason for Study: Hx PNA, worseing coughMEDICATION/IV/DRIP/FLUID ORDERSOrder Description Priority Entered Acknowledged InitialedRegeneron 18:40 03/22/2021 Cancelled: Physician Order 19:40Antibody Cocktail Yonny FLORES; Leida Pierre R.N. 2 OrderSheet [facility] Emergency Department [address] [place] [address] Phone #: ext- [phone] 03/22/2021 16:02 Patient: QUINN JOSHI Sex: M : 1995 Age: 28r0346 mg (ADD 1200mg casirivimabPLUS 1200 mgimdevimab to 250mL NS (total = 270mL), Infuse at 270mL/hr)Dexamethasone 18:40 03/22/2021 Cancelled: Other 19:29 Yonny BolivarIVP 6 mg (NOW x1) Yonny FLORES; PADuoNeb 3 mL X2 18:43 03/22/2021 19:23 Ignacio,Doses (Filtered): 6 Yonny Casarez R.N.mL (3 mL K5Ajsir)Dexamethasone 19:30 03/22/2021 19:40 Pierre,PO 6 mg (NOW x1) Yonny FLORES; Leida GarciaGENERAL ORDERSOrder Description Priority Entered Acknowledged Initialed[Electronically signed by Leida Pierre R.N. (20:02 03/22/2021)][Electronically signed by Yonny Bolivar (23:12 03/22/2021)][Electronically locked by Leida Pierre R.N. (20:03/22/2021)] Name Value Range Interpretation Code Description Data Tahira rce(s) Supporting Document(s) ID Date Data Source [id number] 03/22/2021 04:02:00 PM EDT [facility] 1 Medication Reconciliation Report [facility] Emergency Department [address] [place] [address] Phone #: ext- [phone] 03/22/2021 16:02 Patient: QUINN JOSHI Sex: M : 1995 Age: 26yWeight: 113.3 kgHeight/Length: 74 in.BMI: 32.1ALLERGIES: No Known Drug AllergyThe patient's Home Medications are listed below:CONTINUE TAKING THE FOLLOWING MEDICATIONS: Invega Sustenna Intramuscular Paliperidone ER OralThe source(s) of the original Home Medication information:Not obtained.The following Medications were given to the patient in the Emergency Department:Duoneb [Neb Tx] Neb TX 2 unit dose, administered: 19:18 03/22/2021examethasone [PO] PO 6 mg, administered: 19:25 03/22/2021The f ollowing Medications were prescribed to the patient:None. Name Value Range Interpretation Code Description Data Tahira rce(s) Supporting Document(s) ID Date Data Source [id number] 03/22/2021 04:02:00 PM EDT [facility] 1 Medication Administration Record [facility] Emergency Department [address] [place] [address] Phone #: [phone]- [phone] 03/22/2021 16:02 Patient: QUINN JOSHI Sex: M : 1995 Age: 26yWeight: 113.3 kgHeight/Length: 74 inBMI: 32.1ALLERGIES: No Known Drug Allergy Date/Time Medication Administered Medication OrderedGiven DUONEB [NEB TX] DuoNeb 3 mL X2 Doses (Filtered):19:18 03/22/2021 Dose: 2 unit dose Nebulizer Neb TX 6 mL (3 mL X2 Doses)Leida Pierre R.N.----Stop19:40 03/22/2021Leida Pierre R.N.Given DEXAMETHASONE [PO] Dexamethasone PO 6 mg (NOW19:25 03/22/2021 Dose: 6 mg Solution/Elixir PO x1)Leida Pierre R.N. Name Value Range Interpretation Code Description Data Tahira rce(s) Supporting Document(s) ID Date Data Source [id number] 03/22/2021 04:02:00 PM EDT [facility] 1 General Instructions [facility] Emergency Department [address] [place] [address] Phone #: ext- [phone] 03/22/2021 16:02 Patient: QUINN JOSHI Sex: M : 1995 Age: 26yViral pneumonia. Atypical presentation with a delayed diagnosis. (COVID 19). No hypoxemia, respiratoryfailure or sepsis.INSTRUCTIONSTake Tylenol (Acetaminophen) for fever control. Take according to label instructions. No strenuousactivity until better. Rest at home for two days. Do not work (isolate at home until better).Drink plenty of fluids for the next 48 hours as needed. Do not smoke. No alcohol.Warnings: Further evaluation is necessary. It is very important to follow up with a healthcare provider.GENERAL WARNINGS: Return or contact your physician immediately if your condition worsens orchanges unexpectedly, if not improving as expected, or if other problems arise. Specifically return if pain,vomiting, bleeding, breathing difficulty or fever.Your Current Medications: Your current home medications have been reviewed.CONTINUE TAKING THE FOLLOWING MEDICATIONS:Invega Sustenna Intramuscular.Paliperidone ER Oral.Follow-up:Follow up with your healthcare provider in three days even if well. Call for the next available appointment.Reason for referral: evaluation. Summary of care provided to patient via paper.Understanding of the discharge instructions verbalized by patient. Expected course of illness, dischargeinstructions, activity level, prescriptions x1, follow-up appointment and risks and benefits of treatmentreviewed with patient and understanding verbalized. ADDITIONAL INFORMATIONPneumonia (Adult)Pneumonia is an infection deep in the lungs. It is in the small air sacs (alveoli). It may be caused by avirus, fungus, or bacteria. Pneumonia caused by bacteria is often treated with an antibiotic. Severecases may need to be treated in the hospital. Milder cases can be treated at home. Pneumoniasymptoms are a lot like flu symptoms. They include fever, cough (dry or with phlegm), headache,muscle weakness, and pain. These sy mptoms often get worse in the first 2 days. But they often startto get better in the first week of treatment. 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 Don't let yourself get overly tired when you go back to your activities. Participate in activities as directed by your healthcare provider. Stop smoking. This is the most important step you can take to help treat pneumonia. If you need help stopping smoking, talk with your healthcare provider. Stay away from smoke and other irritants. Stay away from secondhand smoke. 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 Prevent lung infections. Ask your healthcare provider about the flu and pneumonia vaccines. Take steps to prevent colds and other lung infections. Practice correct handwashing. Wash your hands often with soap and water. Use hand breaker oiler when you can't wash your hands. Stay away from crowds during cold and flu season. Use pain medicine as directed. You may use acetaminophen or ibuprofen to control fever or pain, unless another medicine was prescribed. If you have chronic liver or kidney disease, talk with your healthcare provider before using these medicines. Also talk with your provider if you've had a stomach ulcer or GI (gastrointestinal) bleeding. Don't give aspirin to a child younger than age 19 unless directed by the provider. Taking aspirin can put a child at risk for Atif syndrome. This is a rare but very serious disorder. It most often affects the brain and the liver. Eat a light diet as needed. You may not feel like eating, so a light diet is fine. Follow the treatment plan as advised by your healthcare provider. Drink plenty of water and fluids. This can make mucus thinner and easier to cough up. Ask your healthcare provider how much water you should drink. For many people, 6 to 8 glasses (8 ounces each) a day is a good goal. Other fluids include sport drinks, sodas without caffeine, juices, tea, or soup. If you also have heart or kidney disease, check with your provider before you drink extra fluids. Finish all prescription medicine. Take antibiotic or antiviral medicine as prescribed by your healthcare provider, even if you are feeling better after a few days. Take the medicine until it is all gone. Try to stay away from air pollution. If you live in an area with air pollution, track the Air Quality Index (AQI) reports and plan your outdoor activities with the AQI recommendations in mindFollow-up careFollow up with your healthcare provider in the next 2 to 3 days, or as advised. This is to be sure themedicine is helping you get better.If you are 65 or older, you should get a pneumococcal vaccine and a yearly flu (influenza) shot. Youshould also get these vaccines if you have chronic lung disease such as asthma, emphysema, orCOPD. A second type of pneumonia vaccine is also available for people over age 65 and thoseyounger than 65 with certain health conditions. Talk with your healthcare provider about whichpneumococcal vaccine is best for you.Call [phone] General Instructions [facility] Emergency Department [address] [place] [address] Phone #: ext- [phone] 03/22/2021 16:02 Patient: QUINN JOSHI Sex: M : 1995 Age: 26yCall 911if any of these occur: Unable to speak or swallow Lips or skin looks blue, purple, or wilkins Feeling dizzy or faint Unable to wake up or loss of consciousness Feeling of doom Trouble breathing or wheezing Shortness of breath gets worse or doesn't get better with treatment Rapid breathing (more than 25 breaths per minute) Coughing up blood Chest pain gets worse with breathing or doesn't get better with treatmentWhen to get medical adviceCall your healthcare provider right away if any of these occur: You don't get better in the first 2 days of treatment Fever of 100.4F (38C) or higher, or as directed by your health care provider Shaking chills Cough with phlegm that doesn't get better, or get worse Shortness of breath with activities Weakness, dizziness, or fainting that gets worse Thirst or dry mouth that gets worse Sinus pain, headache, or a stiff neck Chest pain with breathing or coughing Symptoms that get worse or not improving [phone] The [employer]. [address] [place] [address]. All rights reserved. This information is not intendedas a substitute for professional medical care. Always follow your healthcare professional's instructions.Fever Control (Adult) 5 General Instructions [facility] Emergency Department [address] [place] [address] Phone #: [phone] 03/22/2021 16:02 Patient: QUINN JOSHI Sex: M : 1995 Age: 26yA fever is a normal reaction of your body to an illness. The temperature itself usually isn't harmful. Itactually helps your body fight infections. You don't need to treat a fever unless you feel veryuncomfortable.Home careFollow these tips to take care of yourself at home: If you feel warm, check your temperature. Dress in light clothing. This will help you lose extra body heat through your skin. The fever will go up if you wear extra layers or wrap in blankets. Fever causes your body to lose water through evaporation. Drink plenty of fluids. These include water, juice, clear sodas, freddie brando, or lemonade.Fever medicinesYou can take acetaminophen every 4 to 6 hours if: You feel very uncomfortable Your oral temperature is 100.4F (38C) or higherIf you can't take or keep down oral medicine, ask your pharmacist for acetaminophen suppositories.You don't need a prescription for these.If the fever doesn't get better within 1 hour after you take acetaminophen, take ibuprofen. If thisworks, keep taking the ibuprofen every 6 to 8 hours.If you have chronic liver or kidney disease, talk with your healthcare provider before taking thesemedicines. Also talk with your provider if you ever had a stomach ulcer or GI (gastrointestinal)bleeding.If either me dicine alone doesn't keep the fever down, you may switch off between the 2 medicinesevery 3 to 4 hours. But do this only if your healthcare provider has told you to. For example, takeibuprofen. Wait 3 hours. Then take acetaminophen. Wait 3 hours. Take ibuprofen, and so on. Followyour provider's instructions exactly.Don't give aspirin to anyone younger than age 19 who is ill with a fever. Aspirin can cause seriousside effects such as liver damage and Atif syndrome. Although rare, Atif syndrome is a veryserious illness usually found in children younger than age 15. The syndrome is closely linked to theuse of aspirin or aspirin-containing medicine during viral infection.Follow-up careFollow up with your healthcare provider if you don't get better after 48 hours. 6 General Instructions [facility] Emergency Department [address] [place] [address] Phone #: ext- [phone] 03/22/2021 16:02 Patient: QUINN JOSHI Sex: M : 1995 Age: 26yWhen to seek medical adviceCall your healthcare provider right away if any of these occur: Fever, as directed by your healthcare provider, or: o Fever of 100.4F (38C) or above lasting for 24 to 48 hours o Fever lasting more than 3 days, even without other symptoms o Fever that happens after visiting a foreign country o Fever that happens within a month after visiting a country with malaria. Malaria is a serious illness. A fever can still be malaria even if you took me dicine to prevent it. The medicine does not work in all cases o If you experience unexplained fever and your immune system is compromised such as by immune suppressing drugs, stem cell or organ transplant, HIV/AIDS, or cancer Confusion or trouble thinking Headache or stiff neck Flat, small, purplish red spots on your skin Low blood pressure Fast heart rate Fast (rapid) breathing You are You just had surgery, another medical procedure, or were just discharged from the hospital Use of medicines that suppress the immune system (immunosuppressants). These include steroids like prednisone, cancer medicines, and organ transplant rejection medicines. If you are not sure about whether your medicines suppress your immune system, ask your healthcare provider.Call 911Someone should call 911 if you: Are having trouble breathing or shortness of breath Are unresponsiveImportant reminder 7 General Instructions [facility] Emergency Department [address] [place] [address] Phone #: ext- [phone] 03/22/2021 16:02 Patient: QUINN JOSHI Sex: M : 1995 Age: 26yCall your healthcare provider if you get a fever after visiting a place where infectious diseases arecommon. Many people grape picker a cold or other virus while traveling. This usually goes away without aproblem. But, some places have more serious diseases. Fever with certain other symptoms maymean you have a serious illness. Symptoms to watch for include diarrhea, skin rashes, insect bites,and skin boils, or infections. Your provider may ask you: What you did on your trip How long you were there Where you travelled and where you stayed (hotel, [place] house, tent) What you ate and drank If you were bitten by insects or other bugs If you swam in freshwater If you had sex or got a tattoo or piercing while you were thereCheck the CDC to get more information about specific infectious diseases in the areas you havetraveled. 3007-2491 [employer]. [address] [place] [address], [place] [address]. All rights reserved. This information is not intended as asubstitute for professional medical care. Always follow your healthcare professional's instructions. You have been given the following additional information: Pneumonia (Adult) Fever Control (Adult) No strenuous ac tivity until better. Rest at home for two days. Do not work (isolate at home until better).(Electronically signed by SANDRA Russell 03/22/2021 23:12) Name Value Range Interpretation Code Description Data Tahira rce(s) Supporting Document(s) ID Date Data Source [id number] 03/22/2021 04:02:00 PM EDT [facility] 1 Clinical Report - Nurses [facility] Emergency Department [address] [place] [address] Phone #: ext- [phone] 03/22/2021 16:02 Patient: QUINN JOSHI Sex: M : 1995 Age: 26yTRIAGEArrived by private vehicle. Historian: patient and family.Acuity: LEVEL 4.Chief Complaint: (Cough, Pneumonia).16:12 03/22/21. Alert. No acute distress.( Patient reports he was diagnosed with pneumonia in this ED on (not covid); on zithromax andprednisone. States his cough is not improving, tried to get in with PCM and they could not see him untilapril 04. Pt has hx of schizophrenia and is with legal guardian.). He has had a cough. No fever.SEPSIS SCREEN: SIRS SCREEN NEGATIVE. SEPSIS SCREEN NEGATIVE. No suspected or confirmedsigns of infection present.CHRISTIAN COMA SCORE: 10- eyes open- spontaneous (4); best motor response- obeys commands (6).--16:12 03/22/21 Christine Gracia R.N.16:12 03/22/2021 BP: 101/65. HR: 65. RR: 16. O2 saturation: 98%. Temp: 97.0 F. Pain level now 0/10.--16:12 03/22/21 Christine Gracia R.N.Weight: 113.3 kg. Height/Length: 74 inches. BMI: 32.1. --16:03/22/21 Christine Gracia R.N.MedicationsInvega Sustenna Intramuscular. Paliperidone ER Oral. --16:03/22/21 Christine Gracia R.N.AllergiesNo Known Drug Allergy. --16:03/22/21 Christine Gracia R.N.PROBLEMS:Schizophrenia. --16:03/22/21 Christine Gracia R.N.ADDITIONAL SURGERIES:no known surgeries.Kkgqqpi85:12 03/22/21.PAST MEDICAL HX: Immunizations: status is unknown.SOCIAL HX: Never smoker. No alcohol use or drug use. 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 He has not traveled outside the [place] Infectious disease exposure: The patient was not exposed to C-diff, MRSA or Coronavirus. SELF HARM ASSESSMENT: Self harm assessment was performed. The patient answered "no" to the question(s) "Have you recently felt down, depressed, or hopeless?", "Do you have thoughts of harming or killing yourself?", "Do you have a plan for harming or killing yourself?" and "Have you recently had thoughts about harming or killing others?". ABUSE ASSESSMENT: No report of abuse. NUTRITIONAL RISK ASSESSMENT: The nutritional risk assessment revealed no deficiencies. FUNCTIONAL ASSESSMENT: Functional assessment: no impairments noted. LEARNING NEEDS ASSESSMENT: The learning needs assessment rev ealed no barriers. FALL RISK ASSESSMENT: Fall risk assessment completed. No risk factors identified. SKIN INTEGRITY ASSESSMENT: Skin integrity risk assessment completed. No skin integrity risk identified. --16:12 03/22/21 Christine Gracia R.N. Interventions 16:12 03/22/21. Identification band on patient. To treatment room. --16:12 03/22/21 Christine Gracia R.N.PHYSICAL ASSESSMENTAmbulatory to room.GENERAL / NEURO / PSYCH: Alert. Oriented X 4. Appears in no acute distress. ( pt "feels better thanI did").HEENT: Pupils equal, round and reactive to light. No facial asymmetry noted. Mucous membranes arepink.RESPIRATORY: Respirations not labored. Cough. Chest nontender. Breath sounds within normallimits.CVS: Normal sinus rhythm noted. Capillary refill less than 2 seconds. Pulses within normal limits.GI / : Abdomen soft and nontender and normal bowel sounds.SKIN: Skin intact. Skin is warm and dry. Normal skin turgor. --16:37 03/22/21 Leida Pierre R.N.NURSING PROGRESS NOTES16:13 03/22/21. NIBP monitor and pulse oximeter placed on patient. Patient gowned. Reassurancegiven. Two patient identifiers checked. Call light placed in reach. Side rails up x 1. Bed placed inlowest position. Brakes of bed on. Patient ready for evaluation- ED physician and PA notified. --16:139 Christine Gracia RHarrisonN. 17:00 03/22/21. BP: 107/75. MAP: 85. HR: 60. RR: 16. O2 saturation: 96%. --17:10 03/22/21 Jahaira DEWITT Tech, SHAISTA Acuña Tech1 3 Clinical Report - Nurses [facility] Emergency Department [address] [place] [address] Phone #: ext- [phone] 03/22/2021 16:02 [id number] Sex[facility] M : 1995 Age: 26y Patient gowned. Reassurance given. Rounding: Position: states comfortable. Proximity of possessions / care items: call light within easy reach. Set expectations: advised patient of rounding protocol timing and asked if they needed anything else at this time. The patient is calm and resting quietly. Patient waiting for lab and radiology results. --17:32 03/22/21 Leida Pierre R.N. 18:10 03/22/21. BP: 123/74. HR: 88. RR: 16. O2 saturation: 98%. --18:10 03/22/21 [employer] 19:18 03/22/2021 Duoneb Neb TX Nebulizer 2 unit dose given. Given by the nurse. Allergies verified and confirmed 5 rights. Information reviewed with patient including reason for taking this medication, signs of allergic reaction and precautions. Verbalizes understanding. --19:23 03/22/21 Leida Pierre R.N. 19:25 03/22/2021 Dexamethasone PO Solution/Elixir 6 mg given. Allergies verified and confirmed 5 rights. Information reviewed with patient including reason for taking this medication, signs of allergic reaction and precautions. Verbalizes und erstanding. --19:40 03/22/21 Leida Pierre R.N. 19:40 03/22/2021 Duoneb Neb TX discontinued due to improvement in patient condition. --19:40 03/22/21 Leida Pierre R.N.DISPOSITION / DISCHARGE 19:42 03/22/21. BP: 104/65. HR: 77. RR: 18. O2 saturation: 98%. Temp: 97.5 F. Pain level now 0/10. --19:43 03/22/21 [employer] Nichols Coma Scale: 15- eyes open- spontaneous (4); best verbal response- oriented (5); best motor response- obeys commands (6). Departure time: 20:00 03/22/2021. Condition at departure: improved and stable. No learning barriers present. Discharge instructions provided and reviewed with the patient. Reviewed warnings. Reviewed referral to a primary care physician for followup. Work note given. Patient verbalized understanding. Written instructions provided in Portuguese. ( Quarantine precautions). The patient was discharged by the physician oncology physician assistant. He was discharged home and accompanied by family. He left ambulatory and via private vehicle. Family member driving. --20:02 03/22/21 Leida Pierre R.N.Locked/Released at 03/22/2021 20:02 by Leida Pierre R.N. Name Value Range Interpretation Code Description Data Tahira rce(s) Supporting Document(s) ID Date Data Source [id number] 03/22/2021 04:02:00 PM EDT [facility] 1 Clinical Report - Physicians/Mid Levels [facility] Emergency Department [address] [place] [address] Phone #: ext- [phone] 03/22/2021 16:02 Patient: QUINN JOSHI Sex: M : 1995 Age: 26y Time Seen: 16:34 03/22/2021. Arrived- By private vehicle. Historian- patient. RETURN VISIT: recently seen in this ED by another ED physician within past 30 days. Disposition decision: 19:30 03/22/2021.HISTORY OF PRESENT ILLNESS Chief Complaint: COUGH. This started about 1 weeks ago; Pt states he was seen here MAR 15 and diagnosed with non COVID PNA, given azithromycin and discharged home, states he was advised to f/u with his PCM but states he can not get in to see him, so he came to ED for f/u. States he feels alot better, no fever, no chest pain or SOB. The illness is described as moderate. The patient has had a cough. No sputum production, difficulty breathing, chest discomfort or pain or fever. No muscle aches, chills, sore throat or hoarseness. No nasal congestion or discharge, sinus pressure, sinus drainage or ear pain. Additional history - No known contact with a sick individual. No recent travel. Similar symptoms previously. None. Recent medical care: The patient was seen recently at this facility in the emergency department.REVIEW OF SYSTEMSNo headache, eye discomfort, nausea, vomiting or diarrhea. No abdominal pain, hay fever, pedal edema,calf pain or difficulty with urination. No skin rash, enlarged lymph nodes, joint pain or tick bite.PAST HISTORYSee nurses notes. Problems: Pneumonia. Schizophrenia. Additional Surgeries: no known surgeries. Medications: Invega Sustenna Intramuscular. Paliperidone ER Oral. Allergies: No Known Drug Allergy.SOCIAL HISTORY 2 Clinical Report - Physicians/[facility] Emergency Department [address] [place] [address] Phone #: ext- [phone] 03/22/2021 16:02 Patient: QUINN JOSHI Sex: M : 1995 Age: 26y Never smoker. Not exposed to second-hand smoke at home. No alcohol use or drug use. No recent travel.ADDITIONAL NOTESThe nursing notes have been reviewed with agreement regarding the chief complaint, HPI, ROS, PMH andpatient medications and allergies.PHYSICAL EXAMVital Signs: 03/22/2021 16:12 BP: 101/65. MAP: 77. HR: 65. RR: 16. O2 saturation: 98%. Temp: 97.0 F.Have been reviewed as normal and appear to be correct. Blood pressure normal. Mean arterialpressure- normal. Heart rate normal. Respiratory rate normal. Temperature normal. Oxygensaturation normal.Appearance: Alert. No acute distress.Eyes: Pupils equal, round and reactive to light. Eyes normal inspection.ENT: Ears normal. Nose normal. Pharynx normal. Uvula midline.Neck: Normal inspection. Neck supple.CVS: Normal heart rate and rhythm. Heart sounds normal. Pulses normal.Respiratory: No respiratory distress. Painless inspiration. Breath sounds normal.Abdomen: Soft and nontender. No organomegaly.Back: Normal inspection.Skin: Skin warm and dry. Normal skin color. No rash. Normal skin turgor.Extremities: Extremities exhibit normal ROM. No lower extremity edema.Neuro: Oriented X 3. No motor deficit. No sensory deficit. Reflexes normal.LABS, X-RAYS, AND EKGLaboratory Tests: Laboratory tests have been ordered, with results reviewed and considered in themedical decision making process. COVID-19 CAH: (DUSTIN: 03/22/2021 18:05) ( MsgRcvd 03/22/2021 18:26) Final results Test Result Flag Units (Reference) COVID-19 DETECTED COVID-19 REENTER DETECTED PROCEDURAL CONTROL VALID KIT LOT # _[id number] 03/22/21.MRW. KIT EXP DATE 07.20.21 03/22/21.MRW. NORMAL RANGE IS NOT DETECTEDThe COVID-19 assay is a rapid molecular in vitro diagnostic testutilizing an isothermal nucleic acid amplification te chnology for thequalitative detection of nucleic acid from the SARS-CoV-2 viral RNA in directnasal or nasopharyngeal swabs. Testing should be performed within the first 7days of the onset of symptoms.NEGATIVE RESULTS SHOULD BE TREATED PRESUMPTIVE AND, IF INCONSISTENT WITHCLINICAL SIGNS AND SYMPTOMS OR NECESSARY FOR PATIENT MANAGEMENT, SHOULD BETESTED WITH DIFFERENT AUTHORIZED OR CLEARED MOLECULAR TESTS. NEGATIVE RESULTSDO NOT PRECLUDE SARS-CoV-2 INFECTION AND SHOULD NOT BE USED THE SOLE BASISFOR PATIENT MANAGEMENT DECISIONS. CMP: (DUSTIN: 03/22/2021 17:20) ( MsgRcvd 03/22/2021 18:02) Final results Test Result Flag Units (Reference) COMPREHENSIVE METABOLIC PANEL COMPREHENSIVE METABOLIC PANEL SODIUM 142 mEq/L (134 - 153) POTASSIUM 3.6 mEq/L (3.6 - 5.0) 3 Clinical Report - Physicians/Mid Levels [facility] Emergency Department [address] [place] [address] Phone #: [phone]- [phone] 03/22/2021 16:02 Patient: QUINN JOSHI Sex: M : 1995 Age: 26y CHLORIDE 106 mEq/L (98 - 107) CO2 25 MEQ/L (22 - 30) GLUCOSE 86 MG/DL (70 - 99) BUN 13 MG/DL (7 - 21) CREATININE 0.8 MG/DL (0.7 - 1.5) BUN/CREAT 16 (8 - 27) TOTAL PROTEIN 6.2 L G/DL (6.3 - 8.2) ALBUMIN 3.6 L G/DL (3.9 - 5.0) GLOBULIN 2.6 GM/DL (2.4 - 3.2) A/G RATIO 1.4 (0.8 - 2.0) CALCIUM 8.7 MG/DL (8.4 - 10.2) TOTAL BILI <0.7 MG/DL (0.2 - 1.3) ALKALINE PHOS 55 U/L (38 - 126) SGOT/AST 24 U/L (5 - 40) SGPT/ALT 45 U/L (7 - 56) ANION GAP 11.0 mmol/L (8.0 - 16.0) AGE 26 yrs NON-AA GFR >60 mL/min AFR AMER GFR >60 mL/min Male GFR Interprentation 20-49 yrs >60 mL/min Onpprz16-05 yrs >56 mL/min Normal 60-69 yrs >49 mL/min Normal 70-79yrs>42 mL/min Normal 80 and above >35 mL/min Normal Female GFRInterpretation 20-39 yrs >60 mL/min Normal 40-49 yrs >58 mL/minNormal 50-59 yrs >51 mL/min Normal 60-69 yrs >45 mL/min Kihlui55-27 yrs >39 mL/min Normal 80 and above >32 mL/min NormalLactic Acid: (DUSTIN: 03/22/2021 17:20) ( MsgRcvd 03/22/2021 17:45) Final results Test Result Flag Units (Reference) LACTIC ACID 0.9 MMOL/L (0.2 - 2.2)Chest Portable 1 View: (DUSTIN: 03/22/2021 17:10) ( [facility] [place] [facility] 03/22/2021 17:44) In ProgressCHEST PORTABLEReason(s): Hx PNA, worseing coughTRANSPORTATION: P IV? O2? Oxygen?(No) Room: [facility] w Diff: (DUSTIN: 03/22/2021 17:20) ( [facility] 03/22/2021 17:47) Final results Test Result Flag Units (Reference) CBC W/AUTOMATED DIFF COMPLETE BLOOD COUNT WBC 8.8 10/uL (4.2 - 11.0) RBC 4.04 L 10/uL (4.50 - 6.30) HEMOGLOBIN 12.2 L g/dL (14.0 - 16.0) HEMATOCRIT 35.2 L % (41.0 - 51.0) MCV 87.1 fL (80.0 - 94.0) MCH 30.2 pg (27.0 - 34.0) MCHC 34.7 g/dL (31.0 - 36.0) RDW 12.4 % (11.5 - 14.8) PLATELETS 391 10/uL (150 - 450) MPV 10.1 fL (7.4 - 10.4) NEUT 57.2 % (37.0 - 80.0) LYMPH 33.0 % (25.0 - 40.0) MONO 8.8 H % (3.0 - 8.0) EOS 0.2 % (0.0 - 7.0) BASO 0.2 % (0.0 - 2.0) %IG 0.6 H % (0.0 - 0.0) %NRBC 0.0 % (0.0 - 0.0) 4 Clinical Report - Physicians/Mid Levels [facility] Emergency Department [address] [place] [address] Phone #: ext- [phone] 03/22/2021 16:02 [id number] Sex: [facility] : 1995 Age: 26y #NEUT 5.03 10/uL (2.00 - 6.90) #LYMPH 2.90 10/uL (0.60 - 3.40) #MONO 0.77 10/uL (0.00 - 0.90) #EOS 0.02 10/uL (0.00 - 0.70) #BASO 0.02 10/uL (0.00 - 0.20) #IG 0.05 10/uL (0.00 - 0.10) #NRBC 0.00 10/uL (0.00 - 0.00) MANUAL DIFF NOT INDICATED RBC MORPH NOT INDICATED.PROGRESS AND PROCEDURESCourse of Care: 18:44 Feb 28 2020. Pt with f/u today in ED due to inability to get in to see PCP, vitals andO2 sats WNL today, pt NAD, CXR the same or slightly worse as compared to recent prior, and pt did testpos on rapid tonight for COVID 19, pt will be given regeneron and IV decadron, filtered duonebs, willdischarge to home and advised to self isolate until better, advised return precautions. Disposition: Discharged home in good and improved condition. Discharge decision based on the following: patient's condition is improved; patient is ambulatory; patient is active; patient's exam is improved; improving condition on repeat evaluation; social support is ad equate; transportation is available; follow-up is available; clinical impression is consistent with outpatient treatment.CLINICAL IMPRESSION Viral pneumonia. Atypical presentation with a delayed diagnosis. (COVID 19). No hypoxemia, respiratory failure or sepsis.INSTRUCTIONS Take Tylenol (Acetaminophen) for fever control. Take according to label instructions. No strenuous activity until better. Rest at home for two days. Do not work (isolate at home until better). Drink plenty of fluids for the next 48 hours as needed. Do not smoke. No alcohol. Warnings: Further evaluation is necessary. It is very important to follow up with a healthcare provider. GENERAL WARNINGS: Return or contact your physician immediately if your condition worsens or changes unexpectedly, if not improving as expected, or if other problems arise. Specifically return if pain, vomiting, bleeding, breathing difficulty or fever. Your Current Medications: Your current home medications have been reviewed. CONTINUE TAKING THE FOLLOWING MEDICATIONS: Invega Sustenna Intramuscular. Paliperidone ER Oral. Follow-up: 5 Clinical Report - Physicians/Mid Levels [facility] Emergency Department [address] [place] [address] Phone #: ext- [phone] 03/22/2021 16:02 - Patient: QUINN JOSHI Sex: M : 1995 Age: 26y Follow up with your healthcare provider in three days even if well. Call for the next available appointment. Reason for referral: evaluation. Summary of care provided to patient via paper. Understanding of the discharge instructions verbalized by patient. Expected course of illness, discharge instructions, activity level, prescriptions x1, follow-up appointment and risks and benefits of treatment reviewed with patient and understanding verbalized.(Electronically signed by SANDRA Russell 03/22/2021 23:12) Name Value Range Interpretation Code Description Data Tahira rce(s) Supporting Document(s) ID Date Data Source [id number] 03/22/2021 06:05:00 PM EDT [facility] Name Value Range Interpretation Code Description Data Tahira e(s) Supporting Document(s) COVID19 Case rprt DETECTED [facility] This lab was ordered by [facility] BRENDA CLARK and reported by [facility]. ID Date Data Source [id number] 03/22/2021 06:26:00 PM EDT [facility] DETECTEDDETECTED PROCEDURAL CO NTROL VALID KIT LOT # _[id number] 03/22/21.MRW. KIT EXP DATE _07.20.21 03/22/21.MRW. NORMAL RANGE IS NOT DETECTEDThe COVID-19 assay is a rapid molecular in vitro diagnostic testutilizing an isothermal nucleic acid amplification technology for thequalitative detection of nucleic acid from the SARS-CoV-2 viral RNA in directnasal or nasopharyngeal swabs. Testing should be performed within the first 7days of the onset of symptoms.NEGATIVE RESULTS SHOULD BE TREATED PRESUMPTIVE AND, IF INCONSISTENT WITHCLINICAL SIGNS AND SYMPTOMS OR NECESSARY FOR PATIENT MANAGEMENT, SHOULD BETESTED WITH DIFFERENT AUTHORIZED OR CLEARED MOLECULAR TESTS. NEGATIVE RESULTSDO NOT PRECLUDE SARS-CoV-2 INFECTION AND SHOULD NOT BE USED THE SOLE BASISFOR PATIENT MANAGEMENT DECISIONS. Name Value Range Interpretation Code Description Data [facility] rce(s) Supporting Document(s) ID Date Data Source [id number] 03/22/2021 06:02:00 PM EDT [facility] Name Value Range Interpretation Code Description Data [facility](s) Supporting Document(s) COMPREHENSIVE METABOLIC PANEL [facility] COMPREHENSIVE METABOLIC PANEL Sodium [Moles/volume] in Serum or Plasma 142 mEq/L 134 - 153 [facility] Potassium [Moles/volume] in Serum or Plasma 3.6 mEq/L 3.6 - 5.0 [facility] Chloride [Moles/volume] in Serum or Plasma 106 mEq/L 98 - 107 [facility] Carbon dioxide, total [Moles/volume] in Serum or Plasma 25 MEQ/L 22 - 30 [facility] Glucose [Mass/volume] in Serum or Plasma 86 MG/DL 70 - 99 [facility] BUN 13 MG/DL 7 - 21 [facility] Creatinine [Mass/volume] in Serum or Plasma 0.8 MG/DL 0.7 - 1.5 [facility] BUN/CREAT 16 8 - 27 [facility] Protein [Mass/volume] in Serum or Plasma 6.2 G/DL 6.3 - 8.2 L [facility] Albumin [Mass/volume] in Serum or Plasma 3.6 G/DL 3.9 - 5.0 L [facility] Globulin [Mass/volume] in Serum by calculation 2.6 GM/DL 2.4 - 3.2 [facility] A/G RATIO 1.4 0.8 - 2.0 [facility] Calcium [Mass/volume] in Serum or Plasma 8.7 MG/DL 8.4 - 10.2 [facility] Bilirubin.total [Mass/volume] in Serum or Plasma <0.7 MG/DL 0.2 - 1.3 [facility] Alkaline phosphatase [Enzymatic activity/volume] in Serum or Plasma 55 U/L 38 - 126 [facility] Aspartate aminotransferase [Enzymatic activity/volume] in Serum or Plasma 24 U/L 5 - 40 [facility] Alanine aminotransferase [Enzymatic activity/volume] in Seru m or Plasma 45 U/L 7 - 56 [facility] Anion gap 3 in Serum or Plasma 11.0 mmol/L 8.0 - 16.0 [facility] [address] [facility] >60 mL/min [facility] ital AFR AMER GFR >60 mL/min [facility] Ho spital Male GFR In terprentation 20-49 yrs >60 mL/min Normal 50-59 yrs >56 mL/min Normal 60-69 yrs >49 mL/min Normal 70-79yrs >42 mL/min Normal 80 and above >35 mL/min Normal Female GFR Interpretation 20-39 yrs >60 mL/min Normal 40-49 yrs >58 mL/min Normal 50-59 yrs >51 mL/min Normal 60-69 yrs >45 mL/min Normal 70-79 yrs >39 mL/min Normal 80 and above >32 mL/min Normal ID Date Data Source [id number] 03/22/2021 05:46:00 PM EDT [facility] Name Value Range Interpretation Code Description Data Tahira rce(s) Supporting Document(s) CBC W/AUTOMATED DIFF [facility] COMPLETE BLOOD COUNT Leukocytes [#/volume] in Blood by Automated count 8.8 10^3/uL 4.2 - 1 1.0 [facility] Erythrocytes [#/volume] in Blood by Automated count 4.04 10^6/uL 4. 50 - 6.30 L [facility] Hemoglobin [Mass/volume] in Blood 12.2 g/dL 14.0 - 16.0 L [facility] Hematocrit [Volume Fraction] of Blood by Automated count 35.2 % 4 1.0 - 51.0 L [facility] Erythrocyte mean corpuscular volume [Entitic volume] by Auto mated count 87.1 fL 80.0 - 94.0 [facility] Erythrocyte mean corpuscular hemoglobin [Entitic mass] by Automated count 30.2 pg 27.0 - 34.0 [facility] Erythrocyte mean corpuscular hemoglobin concentration [Mass/volume] by Automated count 34.7 g/dL 31.0 - 36.0 [facility] Erythrocyte distribution width [Ratio] by Automated count 12.4 % 11.5 - 14.8 [facility] Platelets [#/volume] in Blood by Automated count 391 10^3/uL 150 - 45 0 [facility] Platelet mean volume [Entitic volume] in Blood by Automated count 10.1 fL 7.4 - 10.4 [facility] Neutrophils/100 leukocytes in Blood by Automated count 57.2 % 37. 0 - 80.0 [facility] Lymphocytes/100 leukocytes in Blood by Manual count 33.0 % 25.0 - 40.0 [facility] Monocytes/100 leukocytes in Blood by Automated count 8.8 % 3.0 - 8.0 H [facility] Eosinophils/100 leukocytes in Blood by Automated count 0.2 % 0.0 - 7.0 [facility] Basophils/100 leukocytes in Blood by Automated count 0.2 % 0.0 - 2.0 [facility] %IG 0.6 % 0.0 - 0.0 H [facility] al %NRBC 0.0 % 0.0 - 0.0 [facility] al Neutrophils [#/volume] in Blood by Automated count 5.03 10^3/uL 2.00 - 6.90 [facility] Lymphocytes [#/volume] in Blood by Automated count 2.90 10^3/uL 0.60 - 3.40 [facility] Monocytes [#/volume] in Blood by Automated count 0.77 10^3/uL 0.00 - 0.90 [facility] Eosinophils [#/volume] in Blood by Automated count 0.02 10^3/uL 0.00 - 0.70 [facility] Basophils [#/volume] in Blood by Automated count 0.02 10^3/uL 0.00 - 0.20 [facility] #IG 0.05 10^3/uL 0.00 - 0.10 [facility] #NRBC 0.00 10^3/uL 0.00 - 0.00 [facility] MANUAL DIFF NOT INDICATED [facility] RBC MORPH NOT INDICATED [facility] spital ID Date Data Source [id number] 03/22/2021 05:45:00 PM EDT [facility] Name Value Range Interpretation Code Description Data Tahira rce(s) Supporting Document(s) Lactate [Moles/volume] in Serum or Plasma 0.9 MMOL/L 0.2 - 2.2 [facility] ID Date Data Source [id number] 03/17/2021 09:17:00 PM EDT [facility] 1 OrderSheet [facility] Emergency Department [address] [place] [address] Phone #: ext- [phone] 03/17/2021 20:49 Patient: QUINN JOSHI Sex: M : 1995 Age: 26yWEIGHT:113.3 kg (S) HEIGHT:75 inches (S) BMI:31.2ALLERGIES: No Known Drug AllergyCHIEF COMPLAINT: dyspneaDIAGNOSIS: PneumoniaLAB ORDERSOrder Description Priority Entered Acknowledged InitialedCBC w Diff STAT 21:57 03/17/2021 22:13 Max Correia MD; Donell BARTLETTCMP STAT 21:57 03/17/2021 22:13 Max Correia MD; Donell BARTLETTUrinalysis (Clean STAT 21:57 03/17/2021 Ack'd: 23:19 Max Valenzuela MD; Cancelled: Unable to Collect 01:08 03/18/2021 Marley RNMagnesium STAT 21:57 03/17/2021 22:13 Max Correia MD; Donell BARTLETTCOVID-19 CAH (Not STAT 21:57 03/17/2021 22:13 StevenSymptomatic as Max Agarwal MD; Donell RNDefined by [facility])(03/17/21) (First Test)(Hospitalized) (Not) (NotResident inCongregate CareSetting) (NotEmployed inHealthcare Setting)Influenza Nasal A B STAT 21:57 03/17/2021 22:13 Max Correia MD; Donell BARTLETTDIAGNOSTIC STUDY ORDERSOrder Description Priority Entered Acknowledged InitialedChest Portable 1 STAT 21:37 03/17/2021 Ack'd: 21:48 22:13 Max Padilla MD; Sunday Marley RN(Oxygen?(No)) Reason for Study: Congestion, Shortness of BreathChest 2 View STAT 23:09 03/17/2021 Initialed: 23:19 Azul Mraley R.N.(Oxygen?(No)) Max Agarwal MD; Cancelled: Physician Order 02:23 2 OrderSheet [facility] Emergency Department [address] [place] [address] Phone #: ext- [phone] 03/17/2021 20:49 Patient: QUINN JOSHI Sex: M : 1995 Age: 26y 03/18/2021 Marley RN NOTES: ?retrocardiac pneumonia on portable? Reason for Study: CongestionMEDICATION/IV/DRIP/FLUID ORDERSOrder Description Priority Entered Acknowledged InitialedIV NS 1000 mL 21:57 03/17/2021 22:17 StevenBolus : Bolus 1000 Max Agarwal MD; Donell RNmL (X1)predniSONE PO 60 00:27 03/18/2021 00:56 Stevenmg (NOW x1) Max Agarwal MD; Donell RNAzithromycin PO 00:27 03/18/2021 00:56 [id number] mg X1 Dose: Max Agarwal MD; Donell RN500 mg (NOW x1)GENERAL ORDERSOrder Description Priority Entered Acknowledged Initialed[Electronically signed by Sunday Marley RN (01:08 03/18/2021)][Electronically signed by Max Agarwal MD (23:53 03/19/2021)][Electronically locked by Sunday Marley RN (01:08 03/18/2021)] Name Value Range Interpretation Code Description Data Tahira rce(s) Supporting Document(s) ID Date Data Source [id number] 03/17/2021 09:17:00 PM EDT [facility] 1 Medication Reconciliation Report [facility] Emergency Department [address] [place] [address] Phone #: ext- [phone] 03/17/2021 20:49 Patient: QUINN JOSHI Sex: M : 1995 Age: 26yWeight: 113.3 kgHeight/Length: 75 in.BMI: 31.2ALLERGIES: No Known Drug AllergyThe patient's Home Medications are listed below:CONTINUE TAKING THE FOLLOWING MEDICATIONS: Invega Sustenna Intramuscular Paliperidone ER OralThe source(s) of the original Home Medication information:patient's guardian / caretakerThe following Medications were given to the patient in the Emergency Department:NS [IV] IV Fluids bolus 1000 mL, then 1000 mL/hr, administe red: 22:17 1Prednisone [PO] PO 60 mg, administered: 00:56 1Azithromycin [PO] PO 500 mg, administered: 00:56 03/18/2021The following Medications were prescribed to the patient:prednisone 20 mg tablet Take 3 tablet once a day for 5 days -- Dispense 15 tablet. Refills: 0.Substitution permitted.Pharmacy - [facility] [phone] [facility] [address] ; [place] [address]. .Zithromax Z- Warren 250 mg tablet -- Take 2 tablets on the first day then one tablet daily for 4 days, totalduration is 5 days. Dispense 6 tablet. Refills: 0. Substitution permitted.Pharmacy - [facility] [phone] [facility] [address] ; [place] [address]. . -- Max Agarwal MD Name Value Range Interpretation Code Description Data Tahira rce(s) Supporting Document(s) ID Date Data Source [id number] 03/17/2021 09:17:00 PM EDT [facility] 1 Medication Administration Record [facility] Emergency Department [address] [place] [address] Phone #: ext- [phone] 03/17/2021 20:49 Patient: QUINN JOSHI Sex: M : 1995 Age: 26yWeight: 113.3 kgHeight/Length: 75 inBMI: 31.2ALLERGIES: No Known Drug Allergy Date/Time Medication Administered Medication OrderedStart NS [IV] IV NS 1000 mL Bolus : Bolus [id number]:03/17/2021 Dose: IV Fluids mL (X1)Sunday Marley RN Rate: 1000 mL/hr---- Bolus: 1000 mLStop Dispensed: 1000 mL bag23:03/17/2021 Site: #1 left ACSCasie Iniguez PREDNISONE [PO] predniSONE PO 60 mg (NOW x1)00:56 03/18/2021 Dose: 60 mg Tablets POStCasie Mcelroy AZITHROMYCIN [PO] Azithromycin PO 500 mg X1 Dose:00:56 03/18/2021 Dose: 500 mg Tablets PO 500 mg (NOW x1)Sunday Marley RN Name Value Range Interpretation Code Description Data Tahira rce(s) Supporting Document(s) ID Date Data Source [id number] 03/17/2021 09:17:00 PM EDT [facility] 1 General Instructions [facility] Emergency Department [address] [place] [address] Phone #: ext- [phone] 03/17/2021 20:49 Patient: QUINN JOSHI Sex: M : 1995 Age: 26yPneumonia.INSTRUCTIONS(take the antibiotic and steroids as instructed. they were sent to pharmacy on file. return if worse or anynew symptoms.).Warnings: Further evaluation is necessary.GENERAL WARNINGS: Return or contact your physician immediately if your condition worsens orchanges unexpectedly, if not improving as expected, or if other problems arise.Your Current Medications: Your current home medications have been reviewed.CONTINUE TAKING THE FOLLOWING MEDICATIONS:Invega Sustenna Intramuscular.Paliperidone ER Oral.Prescription Medications:prednisone 20 mg tablet Take 3 tablet once a day for 5 days -- Dispense 15 tablet. Refills: 0.Substitution permitted.Pharmacy - [facility] [phone] [facility] [address] ; [place] [address]. Phone: .Zithromax Z-Warren 250 mg tablet -- Take 2 tablets on the first day then one tablet daily for 4 days, totalduration is 5 days. Dispense 6 tablet. Refills: 0. Substitution permitted.Pharmacy - [facility] [phone] [facility] ; [place] [address]. .Follow-up:Follow up with your doctor Sunday even if well. Call for an appointment. Reason for referral: evaluation.Summary of care provided to patient.Understanding of the discharge instructions verbalized by patient. ADDITIONAL INFORMATIONPneumonia (Adult) 2 General Instructions [facility] Emergency Department [address] [place] [address] Phone #: ext- [phone] 03/17/2021 20:49 Patient: QUINN JOSHI Sex: M : 1995 Age: 26yPneumonia is an infection deep in the lungs. It is in the small air sacs (alveoli). It may be caused by avirus, fungus, or bacteria. Pneumonia caused by bacteria is often treated with an antibiotic. Severecases may need to be treated in the hospital. Milder cases can be treated at home. Pneumoniasymptoms are a lot like flu symptoms. They include fever, cough (dry or with phlegm), headache,muscle weakness, and pain. These symptoms often get worse in the first 2 days. But they often startto get better in the first week of treatment.Home careFollow these guidelines when caring for yourself at home: 3 General Instructions [facility] Emergency Department [address] [place] [address] Phone #: ext- [phone] 03/17/2021 20:49 Patient: QUINN JOSHI Sex: M : 1995 Age: 26y Get plenty of rest. Don't let yourself get overly tired when you go back to your activities. Participate in activities as directed by your healthcare provider. Stop smoking. This is the most important step you can take to help treat pneumonia. If you need help stopping smoking, talk with your healthcare provider. Stay away from smoke and other irritants. Stay away from secondhand smoke. Don't let anyone smoke in your home. Prevent lung infections. Ask your healthcare provider about the flu and pneumonia vaccines. Take steps to prevent colds and other lung infections. Practice correct handwashing. Wash your hands often with soap and water. Use hand breaker oiler when you can't wash your hands. Stay away from crowds during cold and flu season. Use pain medicine as directed. You may use acetaminophen or ibuprofen to control fever or pain, unless another medicine was prescribed. If you have chronic liver or kidney disease, talk with your healthcare provider before using these medicines. Also talk with your provider if you've had a stomach ulcer or GI (gastrointestinal) bleeding. Don't give aspirin to a child younger than age 19 unless directed by the provider. Taking aspirin can put a child at risk for Atif syndrome. This is a rare but very serious disorder. It most often affects the brain and the liver. Eat a light diet as needed. You may not feel like eating, so a light diet is fine. Follow the treatment plan as advised by your healthcare provider. Drink plenty of water and fluids. This can make mucus thinner and easier to cough up. Ask your healthcare provider how much water you should drink. For many people, 6 to 8 glasses (8 ounces each) a day is a good goal. Other fluids include sport drinks, sodas without caffeine, juices, tea, or soup. If you also have heart or kidney disease, check with your provider before you drink extra fluids. Finish all prescription medicine. Take antibiotic or antiviral medicine as prescribed by your healthcare provider, even if you are feeling better after a few days. Take the medicine until it is all gone. Try to stay away from air pollution. If you live in an area with air pollution, track the Air Quality Index (AQI) reports and plan your outdoor activities with the AQI recommendations in mindFollow-up careFollow up with your healthcare provider in the next 2 to 3 days, or as advised. This is to be sure themedicine is helping you get better.If you are 65 or older, you should get a pneumococcal vaccine and a yearly flu (influenza) shot. 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 A second type of pneumonia vaccine is also available for people over age 65 and thoseyounger than 65 with certain health conditions. Talk with your healthcare provider about whichpneumococcal vaccine is best for you.Call 911Call 911if any of these occur: Unable to speak or swallow Lips or skin looks blue, purple, or wilkins Feeling dizzy or faint Unable to wake up or loss of consciousness Feeling of doom Trouble breathing or wheezing Shortness of breath gets worse or doesn't get better with treatment Rapid breathing (more than 25 breaths per minute) Coughing up blood Chest pain gets worse with breathing or doesn't get better with treatmentWhen to get medical adviceCall your healthcare provider right away if any of these occur: You don't get better in the first 2 days of treatment Fever of 100.4F (38C) or higher, or as directed by your healthcare provider Shaking chills Cough with phlegm that doesn't get better, or get worse Shortness of breath with activities Weakness, dizziness, or fainting that gets worse Thirst or dry mouth that gets worse Sinus pain, headache, or a stiff neck Chest pain with breathing or coughing 5 General Instructions [facility] Emergency Department [address] [place] [address] Phone #: ext- [phone] 03/17/2021 20:49 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 [address] [place] [address]. All rights reserved. This information is not intendedas a substitute for professional medical care. Always follow your healthcare professional's instructions. You have been given the following additional information: Pneumonia (Adult)(Electronically signed by Max Agarwal MD 03/19/2021 23:53) Name Value Range Interpretation Code Description Data Tahira rce(s) Supporting Document(s) ID Date Data Source [id number] 03/17/2021 09:17:00 PM EDT [facility] 1 Clinical Report - Nurses [facility] Emergency Department [address] [place] [address] Phone #: ext- [phone] 03/17/2021 20:49 Patient: QUINN JOSHI Sex: M : 1995 Age: 26yTRIAGEArrived by private vehicle. Historian: patient. Accompanied by guardian.Triage time: 20:50 03/17/2021. Acuity: LEVEL 3.Chief Complaint: FATIGUE, DIZZINESS, WEAKNESS, DYSPNEA and COUGH.Alert. No acute distress.Onset. (1 1/2 weeks ago). ( Pt is schizophrenic and recently has had a cough that has made his throathurt, feel dizzy, tired, weak, and SOB. Pt has been taking his regular medications as usual.). He has hada cough and difficulty breathing.CHRISTIAN COMA SCORE: 15- eyes open- spontaneous (4); best verbal response- oriented (5); bestmotor response- obeys commands (6). --20:57 03/17/21 Leida Pierre R.N.SEPSIS SCREEN: SIRS SCREEN NEGATIVE. SEPSIS SCREEN NEGATIVE. No suspected or confirmedsigns of infection present. --21:01 03/17/21 Leida Pierre R.N.20:58 03/17/21. HR: 98. RR: 18. O2 saturation: 93% on room air. Temp: 98.5 F (temporal). Pain levelnow: 0/10. --21:01 03/17/21 Leida Pierre R.N.21:20 03/17/21. BP: 133/75 (regular adult cuff) taken on the left arm, via an automated monitor, whilelying. MAP: 94. --21:21 03/17/21 Marley RNArrived by private vehicle. Historian: patient.Triage time: 23:22 03/17/2021.Chief Complaint: RIGHT LOWER EXTREMITY PAIN.Injury occurred. Occurred at a bar. This is a new problem. Symptoms still present (2 days ago). ( was dancing 2 days ago and twisted right knee and has been limping since injury).Treatment TELEPHONER:Took Tylenol. --23:24 03/17/21 Marley RN Correction --23:25 03/17/21 Marley RN.Weight: 113.3 kg stated. Height/Length: 75 inches Per Patient. BMI: 31.2. --20:50 03/17/21 Leida Pierre R.N.MedicationsInvega Sustenna Intramuscular. --20:57 03/17/21 Leida Pierre R.N. Paliperidone ER Oral. --20:58 03/17/21 Leida Pierre R.N. 2 Clinical Report - Nurses [facility] Emergency Department [address] [place] [address] Phone #: ext- [phone] 03/17/2021 20:49 Patient: QUINN JOSHI Sex: M : 1995 Age: 26y Allergies No Known Drug Allergy. --20:58 03/17/21 Leida Pierre R.N. PROBLEMS: Schizophrenia. --20:58 03/17/21 Leida Pierre R.N. Medication/allergy information source: the patient's guardian / sewer pipe sorter. --20:57 03/17/21 Leida Pierre R.N. ADDITIONAL SURGERIES: no known surgeries. History SOCIAL HX: Never smoker. No alcohol use or drug use. He was offered HIV testing but declined. Patient education was provided. He was offered hepatitis C testing but declined. Patient education was provided. He has not traveled outside the [place] Infectious disease exposure: No infectious disease exposure. (COVID screen uncertain, pt was not vaccinated for COVID). Patient is not a known carrier of tuberculosis, hepatitis, HIV, MRSA or VRE. Patient is not a known carrier of CRE. SELF HARM ASSESSMENT: Self harm assessment was performed. The patient answered "no" to the question(s) "Do you have thoughts of harming or killing yourself?", "Do you have a plan for harming or killing yourself?" and "Have you recently had thoughts about harming or killing others?". ABUSE ASSESSMENT: Abuse assessment. The patient had positive responses to the question(s) "Do you feel safe in your home?" (yes). Abuse denied. No suspicion of abuse. No report of abuse. NUTRITIONAL RISK ASSESSMENT: The nutritional risk assessment revealed no deficiencies. FUNCTIONAL ASSESSMENT: Functional assessment: no impairments noted. LEARNING NEEDS ASSESSMENT: The learning needs assessment revealed no barriers. FALL RISK ASSESSMENT: Fall risk assessment completed. No risk factors identified. SKIN INTEGRITY ASSESSMENT: Skin integrity risk assessment completed. No skin integrity risk identified. --20:57 03/17/21 Leida Pierre R.N. Interventions Identification band on patient. --20:57 03/17/21 Leida Pierre R.N.PHYSICAL ASSESSMENTTo room via wheelchair.GENERAL / NEURO / PSYCH: Alert. Oriented X 4. Appears in no acute distress. 3 Clinical Report - Nurses [facility] Emergency Department [address] [place] [address] Phone #: ext- [phone] 03/17/2021 20:49 Patient: QUINN JOSHI Sex: M : 1995 Age: 26y HEENT: Pupils equal, round and reactive to light. RESPIRATORY: Respirations not labored. Cough productive of scant amounts of yellow sputum. Chest nontender. Breath sounds within normal limits. CVS: Capillary refill less than 2 seconds. Pulses within normal limits. GI / : Abdomen soft and nontender and normal bowel sounds. SKIN: Skin intact. Skin is warm and dry. --21:03/17/21 Marley RN.NURSING PROGRESS NOTESPatient gowned. Reassurance given. Three patient identifiers checked. Call light placed in reach. Siderails up x 2. Bed placed in lowest position. Brakes of bed on. Patient ready for evaluation- ED physiciannotified. --21:03/17/21 Leida Pierre R.N. 21:03/17/21. BP: 133/75 (regular adult cuff) taken on the left arm, via an automated monitor, while lying. MAP: 94. HR: 92 (regular, normal rate and strong). RR: 18 (regular, unlabored and normal). O2 saturation: 93% on room air. Pain level now: 09/01. --21:16 03/17/21 Marley RN Patient gowned. Reassurance given to the patient. --21:16 03/17/21 Marley RN 22:02 03/17/2021 Site #1 started via IV in the left antecubital space with an 20g angiocath, with aseptic technique and good blood return; one attempt. Blood drawn: rainbow set. Saline lock flushed with 10 mL saline. --22:12 03/17/21 Marley RN Patient ID band checked for patient name and birthdate: patient confirmed. Flu swab obtained by RN via nasal swab. Labeled in the presence of the patient and sent to lab. Patient ID band checked for patient name and birthdate: family confirmed. COVID- 19 specimen obtained by RN. Labeled in the presence of the patient and sent to lab. --22:13 03/17/21 Marley RN 22:17 03/17/2021 Started bag #1 1000 mL IV Fluids NS; bolus of 1000 mL then at 1000 mL/hr via site #1 via IV pump. Allergies verified and confirmed 5 rights. IV patency established. IV site checked: no pain, redness, or swelling. IV flushed thoroughly pre- and post- medication administration. Information reviewed with patient, spouse, parent and family. --22:03/17/21 Marley RN 23:03/17/2021 IV Fluids NS via IV site #1 Discontinued: completed. Total amount infused: 1000 mL. IV patency established. IV site checked: no pain, redness, or swelling. IV flushed thoroughly. --23:03/17/21 Marley RN 00:56 03/18/2021 Prednisone PO Tablets 60 mg given. Allergies verified and confirmed 5 rights. Information reviewed with patient including reason for taking this medication, signs of allergic reaction and precautions. Verbalizes understanding. --:03/18/21 Marley RN 00:56 03/18/2021 Azithromycin PO Tablets 500 mg given. Allergies verified and confirmed 5 rights. Information reviewed with patient including reason for taking this medication, signs of allergic reaction and precautions. Verbalizes understanding. --00:03/18/21 Marley RN. 4 Clinical Report - Nurses [facility] Emergency Department [address] [place] [address] Phone #: ext- [phone] 03/17/2021 20:49 Patient: QUINN JOSHI Sex: M : 1995 Age: 26yDISPOSITION / DISCHARGE 00:57 03/18/2021 Site #1 removed upon discharge. Bandage applied. --01:03/18/21 Marley RN Nichols Coma Scale: 15- eyes open- spontaneous (4); best verbal response- oriented (5); best motor response- obeys commands (6). Departure time: 01:07 03/18/2021. Condition at departure: improved. No learning barriers present. Discharge instructions provided and reviewed with the patient and family. Reviewed medication(s) side effects, precautions, dosing and course information. Prescription(s) given to the conductor/engineer. Reviewed referral to family practice for followup. Reviewed need for increased fluid intake. Patient and family verbalized understanding. Written instructions provided in Portuguese. The patient was discharged home and accompanied by family. He left ambulatory and via private vehicle. Family member driving. --01:03/18/21 Marley RN 01:05 03/18/21. BP: 132/76 (regular adult cuff) taken on the right arm, via an automated monitor, while lying. MAP: 94. HR: 86 (regular, normal rate and strong). RR: 18 (regular, unlabored and normal). O2 saturation: 97% on room air. Temp: 98.9 F (oral). Pain level now: 10/02. --01:03/18/21 Marley RN.Locked/Released at 03/18/2021 01:08 by Sunday Marley RN Name Value Range Interpretation Code Description Data Tahira rce(s) Supporting Document(s) ID Date Data Source [id number] 03/17/2021 09:17:00 PM EDT [facility] 1 Clinical Report - Physicians/Mid Levels [facility] Emergency Department [address] [place] [address] Phone #: ext- [phone] 03/17/2021 20:49 Patient: QUINN JOSHI Sex: M : 1995 Age: 26y Arrived- By private vehicle. Historian- patient. Disposition decision: 00:40 03/18/2021.HISTORY OF PRESENT ILLNESS Chief Complaint: DYSPNEA. This started 1 1/2 weeks and is still present. The dyspnea is described as mild. The patient has had a cough. No sputum production, fever, sweating episodes, wheezing or chills. No dyspnea on exertion, chest pain or discomfort, calf pain or foot swelling. No orthopnea, paroxysmal nocturnal dyspnea, anxiety, dizziness or tingling. No numbness or palpitations. (1 1/2 weeks ago). ( Pt is schizophrenic and recently has had a cough that has made his throat hurt, feel dizzy, tired, weak, and SOB. Pt has been taking his regular medications as usual.). He has had a cough and difficulty breathing. pt's cousin who is his power of divorce attorney is with the patient.). Similar symptoms previously. None. Recent medical care: Not recently seen/assessed.REVIEW OF SYSTEMSThe patient has not had weight loss. He has had a sore throat, a sore throat and cough, difficultybreathing and dizziness. He has no pain on weight bearing. No muscle aches, eye irritation, nasaldischarge or congestion or sinus drainage. No nausea, vomiting, abdominal pain or pain or diarrhea. Noblack stools, bloody stools, headache, fainting episodes or blurred vision. No difficulty with urination orurination, excessive urination or skin rash or rash. No joint pain, chills, fever, double vision or ear pain.No chest pain, diarrhea, nausea, vomiting or urinary frequency. No hematuria, back pain, seizure,weakness or easy bruising.PAST HISTORYSee nurses notes. Problems: Schizophrenia. Additional Surgeries: no known surgeries. Medications: Paliperidone ER Oral. Invega Sustenna Intramuscular. Allergies: No Known Drug Allergy. 2 Clinical Report - Physicians/Mid Levels [facility] Emergency Department [address] [place] [address] Phone #: ext- [phone] 03/17/2021 20:49 Patient: QUINN JOSHI Sex: M : 1995 Age: 26ySOCIAL HISTORYNo drug use.ADDITIONAL NOTESThe nursing notes have been reviewed.PHYSICAL EXAMVital Signs: 03/17/2021 21:20 BP: lying 133/75. MAP: 94.03/17/2021 21:13 BP: lying 133/75. MAP: 94. HR: 92. RR: 18. O2 saturation: 93% on room air. Pain levelnow: 09/01.03/17/2021 20:58 HR: 98. RR: 18. O2 saturation: 93% on room air. Temp: 98.5 F. Pain level now: 0/10.Have been reviewed and appear to be correct. Blood pressure normal. Mean arterial pressure- normal.Heart rate normal. Respiratory rate normal. Temperature normal. Oxygen saturation normal.Appearance: Alert. No acute distress.Eyes: Pupils equal, round and reactive to light. Eyes normal inspection.ENT: Nose normal. Pharynx normal.Neck: Normal inspection. No jugular venous distention. Neck supple.CVS: Normal heart rate and rhythm. Heart sounds normal. Pulses normal.Respiratory: No respiratory distress. Painless inspiration. Breath sounds normal.Abdomen: Soft and nontender.Back: Normal inspection.Skin: Skin warm and dry. Normal skin color. No rash. Normal skin turgor.Extremities: Extremities exhibit normal ROM. No lower extremity edema.Neuro: Oriented X 3. No motor deficit. No sensory deficit.LABS, X-RAYS, AND EKGLaboratory Tests: Influenza Nasal A B: (DUSTIN: 03/17/2021 22:07) ( [facility] [place] 03/17/[facility] 22:49) Final results Test Result Flag Units (Reference) INFLUENZA A NEGATIVE (NORMAL: NEGAT INFLUENZA B NEGATIVE (NORMAL: NEGAT INFLUENZA A REENTER NEGATIVE (NORMAL: NEGAT INFLUENZA B REENTER NEGATIVE (NORMAL: NEGAT PROCEDURAL CONTROL VALID KIT LOT # _[id number] 03/17/21.8.LBS. KIT EXP DATE 03/17/212248.LBS.The Influenza A utilizing an isothermal nucleic acid amplification technology for thequalitative detection of influenza A and B viral RNA.Negative results do not preclude influenza virus infection and should not beused as the sole basis for diagnosis, treatment or other patient managementdecisions. CBC w Diff: (DUSTIN: 03/17/2021 22:05) ( [facility] [place] 03/17/2021 22:23) Final results Test Result Flag Units (Reference) CBC W/AUTOMATED DIFF COMPLETE BLOOD COUNT WBC 5.1 10/uL (4.2 - 11.0) RBC 4.13 L 10/uL (4.50 - 6.30) HEMOGLOBIN 12.6 L g/dL (14.0 - 16.0) HEMATOCRIT 35.7 L % (41.0 - 51.0) 3 Clinical Report - Physicians/Mid Levels [facility] Emergency Department [address] [place] [address] Phone #: ext- [phone] 03/17/2021 20:49 Patient: QUINN JOSHI Sex: M : 1995 Age: 26y MCV 86.4 fL (80.0 - 94.0) MCH 30.5 pg (27.0 - 34.0) MCHC 35.3 g/dL (31.0 - 36.0) RDW 12.5 % (11.5 - 14.8) PLATELETS 225 10/uL (150 - 450) MPV 10.1 fL (7.4 - 10.4) NEUT 78.2 % (37.0 - 80.0) LYMPH 14.6 L % (25.0 - 40.0) MONO 7.0 % (3.0 - 8.0) EOS 0.0 % (0.0 - 7.0) BASO 0.0 % (0.0 - 2.0) %IG 0.2 H % (0.0 - 0.0) %NRBC 0.0 % (0.0 - 0.0) #NEUT 4.02 10/uL (2.00 - 6.90) #LYMPH 0.75 10/uL (0.60 - 3.40) #MONO 0.36 10/uL (0.00 - 0.90) #EOS 0.00 10/uL (0.00 - 0.70) #BASO 0.00 10/uL (0.00 - 0.20) #IG 0.01 10/uL (0.00 - 0.10) #NRBC 0.00 10/uL (0.00 - 0.00) MANUAL DIFF NOT INDICATED RBC MORPH NOT INDICATEDCMP: (DUSTIN: 03/17/2021 22:05) ( MsgRcvd 03/17/2021 22:40) Final results Test Result Flag Units (Reference) C OMPREHENSIVE METABOLIC PANEL COMPREHENSIVE METABOLIC PANEL SODIUM 137 mEq/L (134 - 153) POTASSIUM 4.0 mEq/L (3.6 - 5.0) CHLORIDE 101 mEq/L (98 - 107) CO2 23 MEQ/L (22 - 30) GLUCOSE 128 H MG/DL (70 - 99) BUN 19 MG/DL (7 - 21) CREATININE 1.0 MG/DL (0.7 - 1.5) BUN/CREAT 19 (8 - 27) TOTAL PROTEIN 6.9 G/DL (6.3 - 8.2) ALBUMIN 4.2 G/DL (3.9 - 5.0) GLOBULIN 2.7 GM/DL (2.4 - 3.2) A/G RATIO 1.6 (0.8 - 2.0) CALCIUM 8.8 MG/DL (8.4 - 10.2) TOTAL BILI <0.7 MG/DL (0.2 - 1.3) ALKALINE PHOS 70 U/L (38 - 126) SGOT/AST 69 H U/L (5 - 40) SGPT/ALT 48 U/L (7 - 56) ANION GAP 13.0 mmol/L (8.0 - 16.0) AGE 26 yrs NON-AA GFR >60 mL/min AFR AMER GFR >60 mL/min Male GFR Interprentation 20-49 yrs >60 mL/min Tujhag01-47 yrs >56 mL/min Normal 60-69 yrs >49 mL/min Normal 70-79yrs>42 mL/min Normal 80 and above >35 mL/min Normal Female GFRInterpretation 20-39 yrs >60 mL/min Normal 40-49 yrs >58 mL/minNormal 50-59 yrs >51 mL/min Normal 60-69 yrs >45 mL/min Ghxmdj68-49 yrs >39 mL/min Normal 80 and above >32 mL/min NormalMagnesium: (DUSTIN: 03/17/2021 22:05) ( MsgRcvd 03/17/2021 22:40) Final results Test Result Flag Units (Reference) MAGNESIUM 2.3 H MG/DL (1.7 - 2.2) 4 Clinical Report - Physicians/Mid Levels [facility] Emergency Department [address] [place] [address] Phone #: ext- [phone] 03/17/2021 20:49 Patient: QUINN JOSHI Sex: M : 1995 Age: 26y COVID-19 CAH: (DUSTIN: 03/17/2021 22:07) ( MsgRcvd 03/17/2021 22:42) Final results Test Result Flag Units (Reference) COVID-19 NOT DETECTED COVID-19 REENTER NOT DETECTED PROCEDURAL CONTROL VALID KIT LOT # _[id number] 03/17/21.LBS. . . KIT EXP DATE _77-51-54 03/17/21.LBS. . . NORMAL RANGE IS NOT DETECTEDThe COVID-19 assay is a rapid molecular in vitro diagnostic testutilizing an isothermal nucleic acid amplification technology for thequalitative detection of nucleic acid from the SARS-CoV-2 viral RNA in directnasal or nasopharyngeal swabs. Testing should be performed within the first 7days of the onset of symptoms.NEGATIVE RESULTS SHOULD BE TREATED PRESUMPTIVE AND, IF INCONSISTENT WITHCLINICAL SIGNS AND SYMPTOMS OR NECESSARY FOR PATIENT MANAGEMENT, SHOULD BETESTED WITH DIFFERENT AUTHORIZED OR CLEARED MOLECULAR TESTS. NEGATIVE RESULTSDO NOT PRECLUDE SARS-CoV-2 INFECTION AND SHOULD NOT BE USED THE SOLE BASISFOR PATIENT MANAGEMENT DECISIONS..PROGRESS AND PROCEDURESCourse of Care: non-vaccinated patient presents to the ED for evaluation of his weakness, cough, and notfeeling well. he is non-toxic. he has dry mucous membranes. labs grossly nl. cxr shows a mildbilateral lower lob pneumonia. pt was ambulatory several times to the bathroom without any distress. hewas given ivf. he was also given po antibiotics in the ED. He was further given his first dose of abx in theED. Towards the end of his ED course, he was coughing more. his flu and covid swabs were negative.pt was discharged and encouraged to f/u with pcp. abx sent to pharmacy on file. Patient/family counseled. Disposition: Discharged. Condition: good and stable.CLINICAL IMPRESSION Pneumonia.INSTRUCTIONS (take the antibiotic and steroids as instructed. they were sent to pharmacy on file. return if worse or any new symptoms.). Warnings: Further evaluation is necessary. GENERAL WARNINGS: Return or contact your physician immediately if your condition worsens or changes unexpectedly, if not improving as expected, or if other problems arise. Your Current Medications: Your current home medications have been reviewed. CONTINUE TAKING THE FOLLOWING MEDICATIONS: Invega Sustenna Intramuscular. 5 Clinical Report - Physicians/Mid Levels [facility] Emergency Department [address] [place] [address] Phone #: ext- [phone] 03/17/2021 20:49 Patient: QUINN JOSHI Sex: M : 1995 Age: 26y Paliperidone ER Oral. Prescription Medications: prednisone 20 mg tablet Take 3 tablet once a day for 5 days -- Dispense 15 tablet. Refills: 0. Substitution permitted. Pharmacy - [id number] - [id number] ; [place] [address]. . Zithromax Z-Warren 250 mg tablet -- Take 2 tablets on the first day then one tablet daily for 4 days, total duration is 5 days. Dispense 6 tablet. Refills: 0. Substitution permitted. Pharmacy - [phone] - [id number] ; [place] [address]. . Follow-up: Follow up with your doctor Sunday even if well. Call for an appointment. Reason for referral: evaluation. Summary of care provided to patient. Understanding of the discharge instructions verbalized by patient.(Electronically signed by Max Agarwal MD 03/19/2021 23:53) Name Value Range Interpretation Code Description Data Tahira rce(s) Supporting Document(s) ID Date Data Source [id number] 03/18/2021 11:50:00 AM EDT [facility] [address] [place] [address] PHONE: [phone] FAX: [phone] Name .................. : ADI Hawthorne Acct Number.................. : [id number] ROOM. ................. : TR-07 MR Number ................... : [id number] Stay type ............. : E/R Discharge Date......... ... : 03/18/21 Admit Date ......... : 03/17/21 Admit Phys .................... : VIOLETA Date of ....... : 1995 Family Phys ................... : NO PCP Phone .................. : [phone] Age ................................ : 26 Film# .................. .:[id number] Sex ................................. : M Unsigned transcriptions are preliminary reports and do not represent a medical or legal document CHEST PORTABLE [id number] COMPLETE:03/18/21 01:53 AML [id number] Reason(s): Congestion PORTABLE CHEST SINGLE VIEW OBTAINED AT 10:10 PM HISTORY: Congestion COMPARISON: None. FINDINGS: Mediastinal and hilar structures are normal. Cardiac silhouette is unremarkable. Mild patchy increased density is seen in both lower lobes left worse than right. No pleural effusions or pneumothorax. IMPRESSION: Multifocal lung disease which could be atelectasis or pneumonia. Covid pneumonia is in the differential diagnosis. Electronically Reviewed and Signed By Tawanda Thomas MD , 03/18/21 11:50, JWMartha Transcribe Initials: MICHAEL, Transcribe Date: 03/18/21 11:27, Dictation Date: Copy for: EMERGENCY DEPT via [facility] Copy for: 710 MED REC DISCHARGED Page 1 of 1 Name Value Range Interpretation Code Description Data Tahira rce(s) Supporting Document(s) ID Date Data Source [id number] 03/17/2021 10:07:00 PM EDT [facility] Name Value Range Interpretation Code Description Data Tahira rce(s) Supporting Document(s) COVID19 Case rprt NOT DETECTED [facility] This lab was ordered by [facility] and reported by [facility]. ID Date Data Source [id number] 03/17/2021 10:48:00 PM EDT [facility] Name Value Range Interpretation Code Description Data Tahira rce(s) Supporting Document(s) Influenza virus A Ag [Presence] in Nasopharynx by Immunoassa y NEGATIVE NORMAL: NEGATIVE [facility] Influenza virus B Ag [Presence] in Nasopharynx by Immunoassa y NEGATIVE NORMAL: NEGATIVE [facility] NEGATIVENEGATIVE PROCEDURAL CO NTROL VALID KIT LOT # _[id number] 03/17/21.2248.LBS. KIT EXP DATE _66-13-91 03/17/21.LBS.The Influenza A & B assay is a rapid molecular in vitro diagnostic testutilizing an isothermal nucleic acid amplification technology for thequalitative detection of influenza A and B viral RNA.Negative results do not preclude influenza virus infection and should not beused as the sole basis for diagnosis, treatment or other patient managementdecisions. ID Date Data Source [id number] 03/17/2021 10:41:00 PM EDT [facility] NOT DETECTEDNOT DETECTED PROCE DURAL CONTROL VALID KIT LOT # _[id number] 03/17/21.LBS. . . KIT EXP DATE _01-82-83 03/17/21.LBS. . . NORMAL RANGE IS NOT DETECTEDThe COVID-19 assay is a rapid molecular in vitro diagnostic testutilizing an isothermal nucleic acid amplification technology for thequalitative detection of nucleic acid from the SARS-CoV-2 viral RNA in directnasal or nasopharyngeal swabs. Testing should be performed within the first 7days of the onset of symptoms.NEGATIVE RESULTS SHOULD BE TREATED PRESUMPTIVE AND, IF INCONSISTENT WITHCLINICAL SIGNS AND SYMPTOMS OR NECESSARY FOR PATIENT MANAGEMENT, SHOULD BETESTED WITH DIFFERENT AUTHORIZED OR CLEARED MOLECULAR TESTS. NEGATIVE RESULTSDO NOT PRECLUDE SARS-CoV-2 INFECTION AND SHOULD NOT BE USED THE SOLE BASISFOR PATIENT MANAGEMENT DECISIONS. Name Value Range Interpretation Code Description Data Tahira rce(s) Supporting Document(s) ID Date Data Source [id number] 03/17/2021 10:40:00 PM EDT [facility] Name Value Range Interpretation Code Description Data Tahira rce(s) Supporting Document(s) Magnesium [Mass/volume] in Serum or Plasma 2.3 MG/DL 1.7 - 2.2 H [facility] ID Date Data Source [id number] 03/17/2021 10:40:00 PM EDT [facility] Name Value Range Interpretation Code Description Data Tahira rce(s) Supporting Document(s) COMPREHENSIVE METABOLIC PANEL [facility] COMPREHENSIVE METABOLIC PANEL Sodium [Moles/volume] in Serum or Plasma 137 mEq/L 134 - 153 [facility] Potassium [Moles/volume] in Serum or Plasma 4.0 mEq/L 3.6 - 5.0 [facility] Chloride [Moles/volume] in Serum or Plasma 101 mEq/L 98 - 107 [facility] Carbon dioxide, total [Moles/volume] in Serum or Plasma 23 MEQ/L 22 - 30 [facility] Glucose [Mass/volume] in Serum or Plasma 128 MG/DL 70 - 99 H [facility] BUN 19 MG/DL 7 - 21 [facility] al Creatinine [Mass/volume] in Serum or Plasma 1.0 MG/DL 0.7 - 1.5 [facility] BUN/CREAT 19 8 - 27 [facility] Protein [Mass/volume] in Serum or Plasma 6.9 G/DL 6.3 - 8.2 [facility] Albumin [Mass/volume] in Serum or Plasma 4.2 G/DL 3.9 - 5.0 [facility] Globulin [Mass/volume] in Serum by calculation 2.7 GM/DL 2.4 - 3.2 [facility] A/G RATIO 1.6 0.8 - 2.0 [facility] Calcium [Mass/volume] in Serum or Plasma 8.8 MG/DL 8.4 - 10.2 [facility] Bilirubin.total [Mass/volume] in Serum or Plasma <0.7 MG/DL 0.2 - 1.3 [facility] Alkaline phosphatase [Enzymatic activity/volume] in Serum or Plasma 70 U/L 38 - 126 [facility] Aspartate aminotransferase [Enzymatic activity/volume] in Serum or Plasma 69 U/L 5 - 40 H [facility] Alanine aminotransferase [Enzymatic activity/volume] in Seru m or Plasma 48 U/L 7 - 56 [facility] Anion gap 3 in Serum or Plasma 13.0 mmol/L 8.0 - 16.0 [facility] AGE 26 yrs [facility] al NON-AA GFR >60 mL/min [facility] ital AFR AMER GFR >60 mL/min [facility] spital Male GFR In terprentation 20-49 yrs >60 mL/min Normal 50-59 yrs >56 mL/min Normal 60-69 yrs >49 mL/min Normal 70-79yrs >42 mL/min Normal 80 and above >35 mL/min Normal Female GFR Interpretation 20-39 yrs >60 mL/min Normal 40-49 yrs >58 mL/min Normal 50-59 yrs >51 mL/min Normal 60-69 yrs >45 mL/min Normal 70-79 yrs >39 mL/min Normal 80 and above >32 mL/min Normal ID Date Data Source [id number] 03/17/2021 10:22:00 PM EDT [facility] Name Value Range Interpretation Code Description Data Tahira rce(s) Supporting Document(s) CBC W/AUTOMATED DIFF [facility] COMPLETE BLOOD COUNT Leukocytes [#/volume] in Blood by Automated count 5.1 10^3/uL 4.2 - 1 1.0 [facility] Erythrocytes [#/volume] in Blood by Automated count 4.13 10^6/uL 4. 50 - 6.30 L [facility] Hemoglobin [Mass/volume] in Blood 12.6 g/dL 14.0 - 16.0 L [facility] Hematocrit [Volume Fraction] of Blood by Automated count 35.7 % 4 1.0 - 51.0 L [facility] Erythrocyte mean corpuscular volume [Entitic volume] by Auto mated count 86.4 fL 80.0 - 94.0 [facility] Erythrocyte mean corpuscular hemoglobin [Entitic mass] by Automated count 30.5 pg 27.0 - 34.0 [facility] Erythrocyte mean corpuscular hemoglobin concentration [Mass/volume] by Automated count 35.3 g/dL 31.0 - 36.0 [facility] Erythrocyte distribution width [Ratio] by Automated count 12.5 % 11.5 - 14.8 [facility] Platelets [#/volume] in Blood by Automated count 225 10^3/uL 150 - 45 0 [facility] Platelet mean volume [Entitic volume] in Blood by Automated count 10.1 fL 7.4 - 10.4 [facility] Neutrophils/100 leukocytes in Blood by Automated count 78.2 % 37. 0 - 80.0 [facility] Lymphocytes/100 leukocytes in Blood by Manual count 14.6 % 25.0 - 40.0 L [facility] Monocytes/100 leukocytes in Blood by Automated count 7.0 % 3.0 - 8.0 [facility] Eosinophils/100 leukocytes in Blood by Automated count 0.0 % 0.0 - 7.0 [facility] Basophils/100 leukocytes in Blood by Automated count 0.0 % 0.0 - 2.0 [facility] %IG 0.2 % 0.0 - 0.0 H [facility] %NRBC 0.0 % 0.0 - 0.0 [facility] Neutrophils [#/volume] in Blood by Automated count 4.02 10^3/uL 2.00 - 6.90 [facility] Lymphocytes [#/volume] in Blood by Automated count 0.75 10^3/uL 0.60 - 3.40 [facility] Monocytes [#/volume] in Blood by Automated count 0.36 10^3/uL 0.00 - 0.90 [facility] Eosinophils [#/volume] in Blood by Automated count 0.00 10^3/uL 0.00 - 0.70 [facility] Basophils [#/volume] in Blood by Automated count 0.00 10^3/uL 0.00 - 0.20 [facility] #IG 0.01 10^3/uL 0.00 - 0.10 [facility] ospital #NRBC 0.00 10^3/uL 0.00 - 0.00 [facility] MANUAL DIFF NOT INDICATED [facility] RBC MORPH NOT INDICATED [facility] ID Date Data Source [id number] 11/25/2020 11:39:00 AM EDT [facility] Name Value Range Interpretation Code Description Data Tahira rce(s) Supporting Document(s) SARS coronavirus 2 RNA [Presence] in Res piratory specimen by RUTH with probe detection NEGATIVE [facility] This lab was ordered by [facility] a nd reported by [facility]. ID Date Data Source [id number] 08/05/2020 01:08:00 PM EST [facility] Name Value Range Interpretation Code Description Data Tahira rce(s) Supporting Document(s) SARS coronavirus 2 RNA [Presence] in Res piratory specimen by RUTH with probe detection NEGATIVE [facility] This lab was ordered by [facility] a nd reported by [facility]. ID Date Data Source [id number] 07/12/2020 08:01:00 AM EST [facility] Name Value Range Interpretation Code Description Data Tahira rce(s) Supporting Document(s) Drugs identified in Urine FINAL [facility] TOXASSURE SELECT 13 (MW) Test Result Flag [...] clinical consultation, please call . Report . [facility] ID Date Data Source [id number] 07/05/2020 02:49:00 PM EST [facility] ([facility]) Name Value Range Interpretation Code Description Data Tahira rce(s) Supporting Document(s) Laboratory test finding (navigational concept) Laboratory test result [facility] ([facility]) {DIAGNOSIS: F20.9~{MEDICATIONS/DECLARED : INVEGA~{PRESCRIPTION INFO:~{PRESCRIPTION INFO: PDF Laboratory test result [facility] ([facility]) {DIAGNOSIS: F20.9~{MEDICATIONS/DECLARED : INVEGA~{PRESCRIPTION INFO:~{PRESCRIPTION INFO: Procedure Social History Code Duration Value Status Description Data Source(s ) Smoking 05/09/2021 12:00:00 AM EST Unknown if ever smoked comp leted Unknown if ever smoked [facility] Smoking 04/06/2021 12:00:00 AM EDT Unknown if ever smoked comp leted Unknown if ever smoked [facility]) Smoking 03/16/2021 12:00:00 AM EDT Unknown if ever smoked comp leted Unknown if ever smoked [facility] ([facility]) Smoking 03/11/2021 12:00:00 AM EDT Unknown if ever smoked comp leted Unknown if ever smoked [facility] ([facility]) Smoking 03/07/2021 12:00:00 AM EDT Unknown if ever smoked comp leted Unknown if ever smoked [facility] ([facility]) Smoking 02/24/2021 12:00:00 AM EDT Unknown if ever smoked comp leted Unknown if ever smoked [facility] ([facility]) Smoking 02/02/2021 12:00:00 AM EDT Unknown if ever smoked comp leted Unknown if ever smoked [facility] ([facility]) Smoking 02/01/2021 12:00:00 AM EDT Unknown if ever smoked comp leted Unknown if ever smoked [facility] ([facility]) Smoking 01/21/2021 12:00:00 AM EDT Unknown if ever smoked comp leted Unknown if ever smoked [facility] ([facility]) Smoking 11/25/2020 12:00:00 AM EDT Unknown if ever smoked comp leted Unknown if ever smoked [facility] ([facility]) Smoking 10/20/2020 12:00:00 AM EDT Unknown if ever smoked comp leted Unknown if ever smoked [facility] ([facility]) Smoking 10/14/2020 12:00:00 AM EDT Unknown if ever smoked comp leted Unknown if ever smoked [facility] ([facility]) Smoking 09/29/2020 12:00:00 AM EDT Unknown if ever smoked comp leted Unknown if ever smoked [facility] ([facility]) Smoking 09/22/2020 12:00:00 AM EDT Unknown if ever smoked comp leted Unknown if ever smoked [facility] ([facility]) Smoking 09/16/2020 12:00:00 AM EDT Unknown if ever smoked comp leted Unknown if ever smoked [facility] ([facility]) Smoking 09/09/2020 12:00:00 AM EDT Unknown if ever smoked comp leted Unknown if ever smoked [facility] ([facility]) Smoking 09/07/2020 12:00:00 AM EDT Unknown if ever smoked comp leted Unknown if ever smoked [facility] ([facility]) Smoking 08/16/2020 12:00:00 AM EST Unknown if ever smoked comp leted Unknown if ever smoked [facility] ([facility]) Vital Signs ID Date Data Source UNK Name Value Range Interpretation Code Description Data Source(s) Diastolic blood pressure 86 mm[Hg] 86 mm[Hg] [facility] ([facility]) Body height 73 [in_i] 73 [in_i] [facility] ([facility]) Body mass index (BMI) [Ratio] 33.8 kg/m2 33.8 k g/m2 [facility] ([facility]) Systolic blood pressure 133 mm[Hg] 133 mm[Hg] A ELSIE ([facility]) Body weight 4096 [oz_av] 4096 [oz_av] SIDNEY ([facility]) Diastolic blood pressure 81 mm[Hg] 81 mm[Hg] SIDNEY ([facility]) Body height 73 [in_i] 73 [in_i] SINDEY ([facility]) Body mass index (BMI) [Ratio] 34.1 kg/m2 34.1 k g/m2 SIDNEY ([facility]) Systolic blood pressure 121 mm[Hg] 121 mm[Hg] A ELSI[facility] [facility]) Body weight 4140.8 [oz_av] 4140.8 [oz_av] ATHEN A ([facility]) Diastolic blood pressure 81 mm[Hg] 81 mm[Hg] SIDNEY ([facility]) Body height 73 [in_i] 73 [in_i] SIDNEY ([facility]) Body mass index (BMI) [Ratio] 34.1 kg/m2 34.1 k g/m2 SIDNEY ([facility]) Systolic blood pressure 121 mm[Hg] 121 mm[Hg] A ELSIE ([facility]) Body weight 4140.8 [oz_av] 4140.8 [oz_av] ATHEN A ([facility]) Diastolic blood pressure 0 mm[Hg] Normal (applies to non-numeric results) 0 mm[Hg] Accumedic ([facility]) Systolic blood pressure 0 mm[Hg] Normal (applies t o non-numeric results) 0 mm[Hg] [facility] ([facility]) Body mass index (BMI) [Ratio] 0.00 kg/m2 No rmal (applies to non-numeric results) 0.00 kg/m2 [facility] ([facility]) Body weight Measured 0.00 lbs Normal (applies to n on-numeric results) 0.00 lbs [facility] ([facility]) Body height 0.00 in Normal (applies to non-numeric resu lts) 0.00 in [facility] ([facility]) Diastolic blood pressure 0 mm[Hg] Normal (applies to non-numeric results) 0 mm[Hg] [facility] ([facility]) Systolic blood pressure 0 mm[Hg] Normal (applies t o non-numeric results) 0 mm[Hg] [facility] ([facility]) Body mass index (BMI) [Ratio] 0.00 kg/m2 No rmal (applies to non-numeric results) 0.00 kg/m2 [facility] ([facility]) Body weight Measured 0.00 lbs Normal (applies to n on-numeric results) 0.00 lbs [facility] ([facility]) Body height 0.00 in Normal (applies to non-numeric resu lts) [facility]) Diastolic blood pressure 0 mm[Hg] Normal (applies to non-numeric results) 0 mm[Hg] [facility] ([facility]) Systolic blood pressure 0 mm[Hg] Normal (applies t o non-numeric results) 0 mm[Hg] [facility] ([facility]) Body mass index (BMI) [Ratio] 0.00 kg/m2 No rmal (applies to non-numeric results) 0.00 kg/m2 [facility] ([facility]) Body weight Measured 0.00 lbs Normal (applies to n on-numeric results) 0.00 lbs [facility] ([facility]) Body height 0.00 in Normal (applies to non-numeric resu lts) [facility].00 [facility]) Diastolic blood pressure 72 mm[Hg] 72 mm[Hg] SIDNEY ([facility]) Body height 42 [in_i] 42 [in_i] SIDNEY ([facility]) Body mass index (BMI) [Ratio] 106.8 kg/m2 106.8 kg/m2 SIDNEY ([facility]) Systolic blood pressure 108 mm[Hg] 108 mm[Hg] A THENA ([facility]) Body weight 4288 [oz_av] 4288 [oz_av] SIDNEY ([facility]) Diastolic blood pressure 72 mm[Hg] 72 mm[Hg] SIDNEY ([facility]) Body height 42 [in_i] 42 [in_i] SIDNEY ([facility]) Body mass index (BMI) [Ratio] 106.8 kg/m2 106.8 kg/m2 SIDNEY ([facility]) Systolic blood pressure 108 mm[Hg] 108 mm[Hg] A GIOVANYA ([facility]) Body weight 4288 [oz_av] 4288 [oz_av] SIDNEY ([facility]) Diastolic blood pressure 72 mm[Hg] 72 mm[Hg] SIDNEY ([facility]) Body height 42 [in_i] 42 [in_i] SIDNEY ([facility]) Body mass index (BMI) [Ratio] 106.8 kg/m2 106.8 kg/m2 SIDNEY ([facility]) Systolic blood pressure 108 mm[Hg] 108 mm[Hg] A ELSIE ([facility]) Body weight 4288 [oz_av] 4288 [oz_av] SIDNEY ([facility]) Body weight 121.111 kg 121.111 kg MEDENT ([facility]) Oxygen saturation in Arterial blood by Pulse oximetry 98 % 98 % [facility] ([facility]) Diastolic blood pressure--sitting 79 mm[Hg] 79 mm[Hg] [facility] ([facility]) Systolic blood pressure--sitting 120 mm[Hg] 120 mm[Hg] [facility] ([facility]) Body surface area Derived from formula 2.46 m2 2.46 m2 [facility] ([facility]) Body mass index (BMI) [Ratio] 34.3 kg/m2 34.3 k g/m2 [facility] ([facility]) Body height 74 [in_i] 74 [in_i] [facility] ([facility]) 6'2" Body weight 267.00 [lb_av] 267.00 [lb_av] MEDEN T ([facility]) Respiratory rate 18 /min 18 /min [facility] ( [facility]) Body temperature 98.7 [degF] 98.7 [degF] [facility] ([facility]) Oral Heart rate 75 /min 75 /min [facility] ([facility]) Patient Treatment Plan of Care Planned Activity Planned Date Details Description Data Source (s) Risperidone 3 MG Oral Tablet SIDNEY ([facility]) Prednisone 20 MG Oral Tablet SINDEY ([facility]) Invkranthi Sam SIDNEY ([facility]) Azithromycin 250 MG Oral Tablet SIDNEY ([facility]) Altagracia LITTLE ([facility]) Altagracia Sam SIDNEY ([facility])
--- OUTSIDE RECORDS SUMMARY | 2021-05-14 19:01 | CCD ---
Author Author Kayode Nagy Organization [facility] Address Unknown Phone Unavailable Care Team Providers Care Plant Protection Superintendent Name Role Phone Rufina Nagy PCP Unavailable Allergies, Adverse Reactions, Alerts Allergy Substance Code C odeSystem Reaction Severity Critic ality Status Start Date Moderate Medications Medication Medication Code Medication CodeSystem Start Date Stop Date Route Dose Status Fill Instructions RxNorm Problems Problem Name Code CodeSy stem Alternate Code Alternate CodeSystem Start Date End Date Status Narrative Schizophrenia, unspecified [id number] SNOMED- CT 2021-01-17 Active Relevant diagnostic tests/laboratory data Narrative No Information Procedures Procedure Name Code Code System Target Site Date of Procedure Status Service Delivery Location Device Cod e Device Name Device UID SNOMED-CT () 2021-02-23 completed [facility] [address], [place], [id number] SNOMED-CT () 2021-02-23 completed [facility] [address], [place], [id number] SNOMED-CT () 2021-01-23 completed [facility] [address], [place], [id number] SNOMED-CT () 2020-12-23 completed [facility] [address], [place], [id number] Encounters/Encounter Diagnoses Encounter Name Encounter Code Diagnosis Code Diagnosis Name Diagnosis CodeSystem Date of Diagnosis Service Delivery L ocation non-billable [id number] Schizophrenia, unspecified SNOMED-CT 2021-02-23 [facility] , , , Vital Signs No Information Social History Element Description Description Start Date End Date Code CodeSystem AdditionalInfo SexAssignedAtBirth Male 1995 M AdministrativeGender Hospital Discharge Instructions * Reason For Referral Medical Equipment * FDA Assessments *
[2021-05-14] MEDS ORDERED: LORazepam 2 MG/ML VIAL IV STA (20:01)
[2021-05-14 20:42] LABS: HEMATOCRIT 37.4 % (42.0-52.0); MEAN CORPUSCULAR HEMOGLOBIN 30.9 pg (27.0-33.0); MEAN CORPUSCULAR HGB CONC 34.8 g/dl (32.0-36.5); MEAN CORPUSCULAR VOLUME 88.8 fl (80.0-96.0); PLATELET COUNT, AUTOMATED 248 10^3/uL (150-450); RED BLOOD COUNT 4.21 10^6/uL (4.30-6.10); WHITE BLOOD COUNT 9.2 10^3/uL (4.0-10.0)
--- NOTE | 2021-05-14 20:45 | REPVR ---
PROCEDURE INFORMATION: Exam: CT Head Without Contrast Exam date and time: 05/14/2021 8:02 PM Age: 26 years old Clinical indication: Pain; Headache TECHNIQUE: Imaging protocol: Computed tomography of the head without contrast. Axial and coronal reformatted images were created and reviewed. Radiation optimization: All CT scans at this facility use at least one of these dose optimization techniques: automated exposure control; mA and/or kV adjustment per patient size (includes targeted exams where dose is matched to clinical indication); or iterative reconstruction. COMPARISON: No relevant prior studies available. FINDINGS: Brain: No CT evidence of acute intracranial hemorrhage or acute territorial infarction. No significant mass effect or midline shift. Basal cisterns patent. Cerebral ventricles: Normal in size and configuration. Paranasal sinuses: Unremarkable. No fluid levels. Mastoid air cells: Grossly unremarkable. Bones/joints: No acute osseous abnormality. Soft tissues: Grossly unremarkable. IMPRESSION: No CT evidence of acute intracranial pathology. Electronically signed by: Robbi Fonseca On 05/14/2021 20:45:08 PM
--- OUTSIDE RECORDS SUMMARY | 2021-05-14 20:47 | CCD ---
Author Author [facility] Organization [facility] Address Unknown Phone Unavailable Care Team Providers Care Rental Clerk Tool And Equipment Name Role Phone Yelena Regan MD Unavailable [...] Unavailable Yelena Regan MD Unavailable Unavailable Yelena Regna MD Unavailable Unavailable Yelena Regan MD Unavailable [...] NO, PCP Unavailable Unavailable Alberts R Farhat CERTIFIED HAND THERAPIST Unavailable Unavailable Alberts, R Farhat CERTIFIED HAND THERAPIST Unavailable Unavailable Aristeo R Farhat CERTIFIED HAND THERAPIST Unavailable Unavailable ERIN PEDROZA Unavailable Unavailable Jose Davis MD Unavailable Unavailable Jose Davis MD Unavailable Unavailable Jose Davis MD Unavailable Unavailable Jose Davis MD Unavailable Unavailable Jose Davis MD Unavailable Unavailable Jose Davis MD Unavailable Unavailable Flor Cespedes Unavailable ADRYAN, H DELIO CERTIFIED HAND THERAPIST Unavailable Unavailable ADRYAN, H DELIO CERTIFIED HAND THERAPIST Unavailable Unavailable ADRYAN, H DELIO CERTIFIED HAND THERAPIST Unavailable Unavailable ADRYAN, H DELIO CERTIFIED HAND THERAPIST Unavailable Unavailable ADRYAN, H DELIO CERTIFIED HAND THERAPIST Unavailable Unavailable ADRYAN, H DELIO CERTIFIED HAND THERAPIST Unavailable Unavailable ADRYAN, H DELIO CERTIFIED HAND THERAPIST Unavailable Unavailable ADRYAN, H DELIO CERTIFIED HAND THERAPIST Unavailable Unavailable ADRYAN, H DELIO CERTIFIED HAND THERAPIST Unavailable Unavailable Doreen SMITH PA Unavailable Unavailable Doreen SMITH PA Unavailable Unavailable Doreen SMITH PA Unavailable Unavailable SMITH, J KEO PA [...] STEFANO, Franki SANTANA MD Unavailable Unavailable STEFANO, Frnaki SANTANA MD Unavailable Unavailable STEFANO, Franki SANTANA MD Unavailable Unavailable STEFANO, Franki SANTANA MD Unavailable Unavailable STEFANO, Franki SANTANA MD Unavailable Unavailable STEFANO, Franki SANTANA MD Unavailable Unavailable STEFANO, Franki SANTANA MD Unavailable Unavailable STEFANO, L MAX MD Unavailable Unavailable STEFANO, L MAX VIRAMONTES Unavailable Unavailable STEFANO, L MAX MD Unavailable [...] is protected by Article 27-F of the [facility] Public Health law. If you continue you may have access to information: Regarding HIV / AIDS; Provided by facilities licensed or operated by the [facility] Office of Mental Health; or Provided by the [facility] Office for People With Developmental Disabilities. If such information is present, then the following [facility] mandated warning applies: This information has been [...] law may result in a fine or halfway sentence or both. A general authorization for the release of medical or other information is NOT sufficient authorization for further disc losure. Encounters Encounter Providers Location Date Indications Data Source(s ) Marlon Regan MD: [address] [place] [address] [phone], Ph. Attender: Marlon Regan MD [facility] Medical 05/11/2021 12:00:00 AM EST [facility] ([facility]) Outpatient Attender: DELIO PIMENTEL NP [facility] Telly l 05/09/2021 09:00:00 AM EST - 05/09/2021 09:00:00 AM EST [facility] ([facility]) Attender: DELIO PIMENTEL NP 05/09/2021 12:00:00 AM EST [facility] ([facility]) Injectable Psychotropic Medication Administration (Inj ection Only) Attender: Cookie Hood [facility] 04/06/2021 10:15:00 AM EDT - 04/06/2021 10:15:00 AM EDT [facility] ([facility]) Attender: Cookie Hood 04/06/2021 12:00:00 AM EDT [facility] ([facility]) Emergency Attender: Jose Davis MDConsultant: PCP NO 03/22/2021 04:02:00 PM EDT - 03/22/2021 08:00:00 PM EDT [facility] Patient discharged. Emergency Attender: MAX AGARWAL MDConsultant: PCP NO 03/17/2021 09:17:00 PM EDT - 03/18/2021 01:08:00 [facility] Injectable Psychotropic Medication Administration (Inj ection Only) Attender: Cookie Hood [facility] 03/16/2021 10:30:00 AM EDT - 03/16/2021 10:30:00 AM EDT [facility] ([facility]) Attender: Cookie Hood 03/16/2021 12:00:00 AM EDT [facility] ([facility]) Extended Individual Psychotherapy - 45 min Attender: Savanna Hensley [facility] 03/11/2021 10:00:00 AM EDT - 03/11/2021 10:00:00 AM EDT [facility] ([facility]) Attender: Savanna Hensley 03/11/2021 12:00:00 AM EDT [facility] ([facility]) Outpatient Attender: DELIO PIMENTEL NP [facility] Telly clifford 03/07/2021 10:30:00 AM EDT - 03/07/2021 10:30:00 AM EDT [facility] ([facility]) Attender: DELIO PIMENTEL NP 03/07/2021 12:00:00 AM EDT [facility] ([facility]) Injectable Psychotropic Medication Administration (Inj ection Only) Attender: Cate Edwards [facility] 02/24/2021 09:15:00 AM EDT - 02/24/2021 09:15:00 AM EDT [facility] ([facility]) Attender: Cate Edwards 02/24/2021 12:00:00 AM EDT [facility] ([facility]) non-billable [facility] 02/23/2021 12:00:00 AM EDT [facility] ([facility]) Injectable Medication Administration w/ Monitoring & E ducation [facility] 02/02/2021 10:45:00 AM EDT - 02/02/2021 10:45:00 AM EDT [facility] ([facility]) Outpatient Attender: DEL[facility]EL [facility] 02/02/2021 10:00:00 AM EDT - 02/02/2021 10:00:00 AM EDT [facility] ([facility]) Attender: DELIO PIMENTEL NP 02/02/2021 12:00:00 AM EDT [facility] ([facility]) Attender: Ingrid Franco 02/02/2021 12:00:00 AM EDT [facility] ([facility]) Brief Individual Psychotherapy - 30 min Attender: Savanna stevens [facility] 02/01/2021 09:15:00 AM EDT - 02/01/2021 09:15:00 AM EDT [facility] ([facility]) Attender: Savanna Hensley 02/01/2021 12:00:00 AM EDT [facility] ([facility]) Marlon Regan MD: [address] [place] [address] [phone], Ph. Attender: Marlon Regan MD [facility] Medical 01/24/2021 12:00:00 AM EDT [facility] ([facility]) Marlon Regan MD: [address] [place] [address] [phone], Ph. Attender: Marlon Regan MD [facility] Medical 01/24/2021 12:00:00 AM EDT [facility] ([facility]) Extended Individual Psychotherapy - 45 min Attender: Beatriz Cespedes [facility] 01/21/2021 03:00:00 AM EDT - 01/21/2021 03:00:00 AM EDT [facility] ([facility]) Attender: Flor Cespedes 01/21/2021 12:00:00 AM EDT [facility] ([facility]) Attender: Savanna Hensley 11/25/2020 12:00:00 AM EDT [facility] ([facility]) Extended Individual Psychotherapy - 45 min Attender: Savanna Hensley [facility] 11/24/2020 05:00:00 AM EDT - 11/24/2020 05:00:00 AM EDT [facility] ([facility]) Outpatient Attender: Farhat Alberts NP [facility] 10/20/2020 10:30:00 AM EDT - 10/20/2020 10:30:00 AM EDT [facility] ([facility]) Injectable Psychotropic Medication Administration (Inj ection Only) Attender: Cookie Hood [facility] 10/20/2020 01:00:00 AM EDT - 10/20/2020 01:00:00 AM EDT [facility] ([facility]) Attender: Cookie Hood 10/20/2020 12:00:00 AM EDT [facility] ([facility]) Attender: Farhat Alberts NP 10/20/2020 12:00:00 AM EDT [facility] ([facility]) Attender: Savanna Hensley 10/14/2020 12:00:00 AM EDT [facility] ([facility]) Brief Individual Psychotherapy - 30 min Attender: Savanna stevens [facility] 10/13/2020 04:15:00 AM EDT - 10/13/2020 04:15:00 AM EDT [facility] ([facility]) Psychotherapy - Family & Client 1 hour Attender: Savanna little [facility] 09/29/2020 03:00:00 AM EDT - 09/29/2020 03:00:00 AM EDT [facility] ([facility]) Injectable Medication Administration w/ Monitoring & E ducation Attender: Ingrid Franco [facility] 09/29/2020 02:30:00 AM EDT - 09/29/2020 02:30:00 AM EDT [facility] ([facility]) Attender: Savanna Hensley 09/29/2020 12:00:00 AM EDT [facility] ([facility]) Attender: Ingrid Christythomas 09/29/2020 12:00:00 AM EDT [facility] ([facility]) Outpatient Attender: Farhat Alberts NP [facility] 09/22/2020 10:30:00 AM EDT - 09/22/2020 10:30:00 AM EDT [facility] ([facility]) Attender: Farhat Alberts NP 09/22/2020 12:00:00 AM EDT [facility] ([facility]) Attender: Savanna Hensley 09/16/2020 12:00:00 AM EDT [facility] ([facility]) Extended Individual Psychotherapy - 45 min Attender: Savanna Hensley [facility] 09/15/2020 05:00:00 AM EDT - 09/15/2020 05:00:00 AM EDT [facility] ([facility]) Attender: Savanna Hensley 09/09/2020 12:00:00 AM EDT [facility] ([facility]) Outpatient Attender: KEO FLORES 09/08 01:38:00 PM EDT - 09/08/2020 01:38:00 PM EDT [facility] Extended Individual Psychotherapy - 45 min Attender: Savanna Hensley [facility] 09/08/2020 11:15:00 AM EDT - 09/08/2020 11:15:00 AM EDT [facility] ([facility]) Telemed Diagnostic Eval Attender: Farhat Alberts NP [facility] 09/07/2020 01:00:00 AM EDT - 09/07/2020 01:00:00 AM EDT [facility] ([facility]) Attender: Farhat Alberts NP 09/07/2020 12:00:00 AM EDT [facility] ([facility]) Marlon Regan MD: [address] [place] [address] [phone], Ph. Attender: Marlon Regan MD [facility] Medical 08/17/2020 12:00:00 AM EST [facility] ([facility]) Marlon Regan MD: [address] [place] [address] [phone], Ph. Attender: Marlon Regan MD [facility] Medical 08/17/2020 12:00:00 AM EST [facility] ([facility]) Marlon Regan MD: [address] [place] [address] [phone], Ph. Attender: Marlon Regan MD [facility] Medical 08/17/2020 12:00:00 AM EST [facility] ([facility]) Brief Individual Psychotherapy - 30 min Attender: Flor gambino [facility] 08/16/2020 02:30:00 AM EST - 08/16/2020 02:30:00 AM EST [facility] ([facility]) Attender: Flor Cespedes 08/16/2020 12:00:00 AM EST [facility] ([facility]) Outpatient Attender: KEO FLORES 07/20 08:36:00 AM EST - 07/20/2020 08:36:00 AM EST [facility] Outpatient Attender: KEO FLORES 07/05 02:01:00 PM EST - 07/05/2020 02:01:00 PM [facility] Outpatient Attender: ERIN PEDROZA 06/24/20 08:09:00 AM EST - 06/24/2020 08:09:00 AM EST [facility] Functional Status Medications Medication Brand Name Start Date Product Form Dose Route Admi nistrative Instructions Pharmacy Instructions Status Indications Reaction Description Data Source(s) 1.5 ML paliperidone palmitate 156 MG/ML Prefilled Syri nge [Invega] Invega Sustenna 05/09/2021 12:00:00 AM EST 234 mg/1.5 compl eted <td ID="MedicationRxNorm_3">907972</td><td ID="MedicationMedication_3">Invega Sustenna</td><td ID="MedicationRoute_3">intramuscularly</td><td ID="MedicationRouteConcept_3"></td><td ID="MedicationStartDate_3">05/09/2021</td><td ID="MedicationStopDate_3">07/11/2021</td><td ID="MedicationDosageFrequency_3">as directed</td><td ID="MedicationDuration_3">21</td><td ID="MedicationFormulaStrength_3">234 mg/1.5 mL</td><td ID="MedicationDosageForm_3">syringe</td><td ID="MedicationDosageFormCode_3"></td><td ID="MedicationDosageDescription_3"> </td><td ID="MedicationMedicationId_3">[id number]</td><td ID="MedicationAccount_3">[id number]</td><td ID="MedicationNpid_3">[id number]</td><td ID="MedicationAuthorFirstName_3">Delio</td><td ID="MedicationAuthorLastName_3">Adryan</td><td ID="MedicationTaxonomyCode_3">[id number]</td><td ID="MedicationTaxonomyDesc_3">Nurse Practitioner</td><td ID="MedicationPhoneNumber_3">[phone]</td> [facility] ([facility]) 24 HR paliperidone 3 MG Extended Release Oral Tablet paliper idone 05/09/2021 12:00:00 AM EST 3 mg by mouth completed <td ID="MedicationRxNorm_2">560098</td><td ID="MedicationMedication_2">paliperidone</td><td ID="MedicationRoute_2">by mouth</td><td ID="MedicationRouteConcept_2">T23950</td><td ID="MedicationStartDate_2">05/09/2021</td><td ID="MedicationStopDate_2">07/08/2021</td><td ID="MedicationDosageFrequency_2">once a day</td><td ID="MedicationDuration_2">30</td><td ID="MedicationFormulaStrength_2">3 mg</td><td ID="MedicationDosageForm_2">tablet extended release 24hr</td><td ID="MedicationDosageFormCode_2"></td><td ID="MedicationDosageDescription_2">as needed</td><td ID="MedicationMedicationId_2">[id number]</td><td ID="MedicationAccount_2">[id number]</td><td ID="MedicationNpid_2">[id number]</td><td ID="MedicationAuthorFirstName_2">Delio</td><td ID="MedicationAuthorLastName_2">Adryan</td><td ID="MedicationTaxonomyCode_2">[id number]</td><td ID="MedicationTaxonomyDesc_2"> Nurse Practitioner</td><td ID="MedicationPhoneNumber_2">[phone]</td> [facility] ([facility]) 24 HR paliperidone 3 MG Extended Release Oral Tablet paliper idone 02/02/2021 12:00:00 AM EDT 3 mg by mouth completed <td ID="MedicationRxNorm_1">399545</td><td ID="MedicationMedication_1">paliperidone</td><td ID="MedicationRoute_1">by mouth</td><td ID="MedicationRouteConcept_1">N29404</td><td ID="MedicationStartDate_1">02/02/2021</td><td ID="MedicationStopDate_1">05/06/2021</td><td ID="MedicationDosageFrequency_1">once a day</td><td ID="MedicationDuration_1">30</td><td ID="MedicationFormulaStrength_1">3 mg</td><td ID="MedicationDosageForm_1">tablet extended release 24hr</td><td ID="MedicationDosageFormCode_1"></td><td ID="MedicationDosageDescription_1">as needed</td><td ID="MedicationMedicationId_1">[id number]</td><td ID="MedicationAccount_1">[id number]</td><td ID="MedicationNpid_1">[id number]</td><td ID="MedicationAuthorFirstName_1">Delio</td><td ID="MedicationAuthorLastName_1">Adryan</td><td ID="MedicationTaxonomyCode_1">[id number]</td><td ID="MedicationTaxonomyDesc_1"> Nurse Practitioner</td><td ID="MedicationPhoneNumber_1">[phone]</td> [facility] ([facility]) 1.5 ML paliperidone palmitate 156 MG/ML Prefilled Syri nge [Invega] Invega Sustenna 02/02/2021 12:00:00 AM EDT 234 mg/1.5 compl eted <td ID="MedicationRxNorm_2">700650</td><td ID="MedicationMedication_2">Invega Sustenna</td><td ID="MedicationRoute_2">intramuscularly</td><td ID="MedicationRouteConcept_2"></td><td ID="MedicationStartDate_2">02/02/2021</td><td ID="MedicationStopDate_2">05/09/2021</td><td ID="MedicationDosageFrequency_2">as directed</td><td ID="MedicationDuration_2">21</td><td ID="MedicationFormulaStrength_2">234 mg/1.5 mL</td><td ID="MedicationDosageForm_2">syringe</td><td ID="MedicationDosageFormCode_2"></td><td ID="MedicationDosageDescription_2"> </td><td ID="MedicationMedicationId_2">[id number]</td><td ID="MedicationAccount_2">[id number]</td><td ID="MedicationNpid_2">[id number]</td><td ID="MedicationAuthorFirstName_2">Delio</td><td ID="MedicationAuthorLastName_2">Adryan</td><td ID="MedicationTaxonomyCode_2">[id number]</td><td ID="MedicationTaxonomyDesc_2">Nurse Practitioner</td><td ID="MedicationPhoneNumber_2">[phone]</td> [facility] ([facility]) 1.5 ML paliperidone palmitate 156 MG/ML Prefilled Syri nge [Invega] Invega Sustenna 02/02/2021 12:00:00 AM EDT 234 mg/1.5 compl eted <td ID="MedicationRxNorm_1">910040</td><td ID="MedicationMedication_1">Invega Sustenna</td><td ID="MedicationRoute_1">intramuscularly</td><td ID="MedicationRouteConcept_1"></td><td ID="MedicationStartDate_1">02/02/2021</td><td ID="MedicationStopDate_1">05/09/2021</td><td ID="MedicationDosageFrequency_1">as directed</td><td ID="MedicationDuration_1">21</td><td ID="MedicationFormulaStrength_1">234 mg/1.5 mL</td><td ID="MedicationDosageForm_1">syringe</td><td ID="MedicationDosageFormCode_1"></td><td ID="MedicationDosageDescription_1"> </td><td ID="MedicationMedicationId_1">[id number]</td><td ID="MedicationAccount_1">[id number]</td><td ID="MedicationNpid_1">[id number]</td><td ID="MedicationAuthorFirstName_1">Delio</td><td ID="MedicationAuthorLastName_1">Adryan</td><td ID="MedicationTaxonomyCode_1">[id number]</td><td ID="MedicationTaxonomyDesc_1">Nurse Practitioner</td><td ID="MedicationPhoneNumber_1">[phone]</td> [facility] ([facility]) 3 mg 01/17/2021 12:00:00 AM EDT tablet 7 TAKE ONE TABLET BY MOUTH AT BEDTIME FOR PSYCHOSIS TAKE ONE TABLET BY MOUTH AT BEDTIME FOR PSYCHOSIS SOLD : 01/27/2021 [facility] quetiapine 100 MG Oral Tablet quetiapine 09/15/2020 12:00:00 AM EDT 100 mg by mouth completed <td ID="Medica tionRxNorm_1">571852</td><td ID="MedicationMedication_1">quetiapine</td><td ID="MedicationRoute_1">by mouth</td><td ID="MedicationRouteConcept_1">D19564</td><td ID="MedicationStartDate_1">09/15/2020</td><td ID="MedicationStopDate_1">09/29/2020</td><td ID="MedicationDosageFrequency_1">twice a day</td><td ID="MedicationDuration_1">14</td><td ID="MedicationFormulaStrength_1">100 mg</td><td ID="MedicationDosageForm_1">tablet</td><td ID="MedicationDosageFormCode_1"></td><td ID="MedicationDosageDescription_1">as needed</td><td ID="MedicationMedicationId_1">[id number]</td><td ID="MedicationAccount_1">[id number]</td><td ID="MedicationNpid_1">[id number]</td><td ID="MedicationAuthorFirstName_1">Farhat</td><td ID="MedicationAuthorLastName_1">Alberts</td><td ID="MedicationTaxonomyCode_1">[id number]</td><td ID="MedicationTaxonomyDesc_1">Nurse Practitioner</td><td ID="MedicationPhoneNumber_1">[phone]</td> [facility] ([facility]) Paliperidone Palmitate Inj 234MG 09/08/2020 12:00:00 AM EDT completed [facility] ([facility]) Medication administered onsite Invega Sustenna completed Inve fili LITTLE ([facility]) Risperidone 3 MG Oral Tablet risperidone 3 mg tablet TAKE ONE TABLET BY MOUTH AT BEDTIME FOR PSYCHOSIS risperidone 3 mg tablet TAKE ONE TABLET BY MOUTH AT BEDTIME FOR PSYCHOSIS completed risperidone 3 MG Oral Tablet [facility] ([facility]) Prednisone 20 MG Oral Tablet prednisone 20 mg tablet prednisone 20 mg tablet completed prednisone 20 MG Oral Tablet [facility] ([facility]) Invega Sustenna completed Inve ga [facility] ([facility]) Azithromycin 250 MG Oral Tablet azithromycin 250 mg ta blet azithromycin 250 mg tablet completed azithromycin 25 0 MG Oral Tablet [facility] ([facility]) Invega Sustenna completed Inve ga [facility] ([facility]) Insurance Providers Payer name Policy type / Coverage type Policy ID Covered republican ID Covered republican's relationship to hidalgo Policy [place] Plan Information SELF PAY ONLY [id number] SP [id number] [facility] [id number] SP [id number] [facility] HUMANA - O/P [id number] [facility] CARE [facility] [place] -OP [id number] MEDICAID -CLINIC [id number] [facility] MEDICAID [id number] SP [id number] M SELF PAY ONLY [id number] SP [id number] EMEDNY [id number] SP [id number] Problems, Conditions, and Diagnoses Code Display Name Description Problem Type Effective Dates Data Source(s) Z8701 Personal history of pneumonia (recurrent ) Personal history of pneumonia (recurrent) Diagnosis 03/22/2021 04:02:00 PM EDT [facility] U071 COVID-19 COVID-19 Diagnosis 03/22/2021 04:02:00 PM ED T [facility] R05 Cough Cough Diagnosis 03/22/2021 04:02:00 PM ED T [facility] [id number] CONTACT WITH AND SUSPECTED EXPOSURE TO C OVID-19 CONTACT WITH AND SUSPECTED EXPOSURE TO COVID-19 Diagnosis 03/17/2021 09:17:00 PM EDT 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) F29 Unspecified psychosis not du e to a substance or known physiological condition Unspecified Schizophrenia Spectrum and Other Psychotic Disorder Condition 05/09/2021 12:00:00 AM EST [facility] ([facility]) [id number] Schizophrenia, unspecified Schizophrenia, unspecified Condition 01/17/2021 12:00:00 AM EDT [facility] ([facility]) F20.9 Schizophrenia, unspecified Schizophrenia Condition 11/25/2020 12:00:00 AM EDT [facility] ([facility]) F79 Unspecified intellectual disabilities Un specified Intellectual Disability (Intellectual Developmental Disorder) Condition 11/25/2020 12:00:00 AM EDT [facility] ([facility]) [id number] Schizophrenia Schizophrenia Problem 08/17/2020 12:00:00 AM EST [facility] ([facility]) [id number] Schizophrenia Schizophrenia Problem 08/17/2020 12:00:00 AM EST [facility] ([facility]) [id number] Schizophrenia Schizophrenia Problem 08/17/2020 12:00:00 AM EST [facility] ([facility]) Surgeries/Procedures Procedure Description Date Indications Data Source(s) OFFICE OUTPATIENT VISIT 15 MINUTES 05/09 12:00:00 AM EST - 05/09/2021 12:00:00 AM EST [facility] ([facility]) OFFICE OUTPATIENT VISIT 15 MINUTES 05/09/2021 12:00:00 AM EST [facility] ([facility]) THERAPEUTIC PROPHYLACTIC/DX INJECTION SUBQ/IM 04/06/2021 12:00:00 AM EDT - 04/06/2021 12:00:00 AM EDT [facility] ([facility]) THERAPEUTIC PROPHYLACTIC/DX INJECTION SUBQ/IM 04/06/20 12:00:00 AM EDT [facility] ([facility]) THERAPEUTIC PROPHYLACTIC/DX INJECTION SUBQ/IM 03/16/2021 12:00:00 AM EDT - 03/16/2021 12:00:00 AM EDT [facility] ([facility]) THERAPEUTIC PROPHYLACTIC/DX INJECTION SUBQ/IM 03/16/20 12:00:00 AM EDT [facility] ([facility]) Extended Individual Psychotherapy - 45 min 03/11/2021 12:00:00 AM EDT - 03/11/2021 12:00:00 AM EDT [facility] ([facility]) Extended Individual Psychotherapy - 45 min 12:00:00 AM EDT [facility] ([facility]) OFFICE OUTPATIENT VISIT 15 MINUTES 03/07 12:00:00 AM EDT - 03/07/2021 12:00:00 AM EDT [facility] ([facility]) OFFICE OUTPATIENT VISIT 15 MINUTES 03/07/2021 12:00:00 AM EDT [facility] ([facility]) THERAPEUTIC PROPHYLACTIC/DX INJECTION SUBQ/IM 02/24/2021 12:00:00 AM EDT - 02/24/2021 12:00:00 AM EDT [facility] ([facility]) THERAPEUTIC PROPHYLACTIC/DX INJECTION SUBQ/IM 02/25/20 12:00:00 AM EDT [facility] ([facility]) OFFICE OUTPATIENT VISIT 15 MINUTES 02/02 12:00:00 AM EDT - 02/02/2021 12:00:00 AM EDT [facility] ([facility]) OFFICE OUTPATIENT VISIT 15 MINUTES 02/02/2021 12:00:00 AM EDT [facility] ([facility]) Comprehensive medication services, per 15 minutes 02/02/2021 12:00:00 AM EDT - 02/02/2021 12:00:00 AM EDT [facility] ([facility]) Comprehensive medication services, per 15 minutes 02/02/2021 12:00:00 AM EDT [facility] ([facility]) Brief Individual Psychotherapy - 30 min 02/01/2021 12:00:00 AM EDT - 02/01/2021 12:00:00 AM EDT [facility] ([facility]) Brief Individual Psychotherapy - 30 min 02/01/2021 12: 00:00 AM EDT [facility] ([facility]) Extended Individual Psychotherapy - 45 min 01/21/2021 12:00:00 AM EDT - 01/21/2021 12:00:00 AM EDT [facility] ([facility]) Extended Individual Psychotherapy - 45 min 12:00:00 AM EDT [facility] ([facility]) Extended Individual Psychotherapy - 45 min 11/25/2020 12:00:00 AM EDT - 11/25/2020 12:00:00 AM EDT [facility] ([facility]) Extended Individual Psychotherapy - 45 min 12:00:00 AM EDT [facility] ([facility]) THERAPEUTIC PROPHYLACTIC/DX INJECTION SUBQ/IM 10/21/19 12:00:00 AM EDT [facility] ([facility]) THERAPEUTIC PROPHYLACTIC/DX INJECTION SUBQ/IM 10/20/2020 12:00:00 AM EDT - 10/20/2020 12:00:00 AM EDT [facility] ([facility]) MHC Telemed E/M Lvl 3--Est pt 10/20/2020 12:00:00 AM E DT [facility] ([facility]) Telemed A/O 30" 10/20/2020 12:00:00 AM EDT [facility] ([facility]) MHC Telemed E/M Lvl 3--Est pt 10/20/2020 12:00:00 AM EDT - 10/20/2020 12:00:00 AM EDT [facility] ([facility]) Brief Individual Psychotherapy - 30 min 10/14/2020 12:00:00 AM EDT - 10/14/2020 12:00:00 AM EDT [facility] ([facility]) Brief Individual Psychotherapy - 30 min 10/13/2020 12: 00:00 AM EDT [facility] ([facility]) FAMILY PSYCHOTHERAPY W/PATIENT PRESENT 09/29/2020 12:0 0:00 AM EDT [facility] ([facility]) FAMILY PSYCHOTHERAPY W/PATIENT PRESENT 0 09/29/2020 12:00:00 AM EDT - 09/29/2020 12:00:00 AM EDT [facility] ([facility]) Comprehensive medication services, per 15 minutes 09/29/2020 12:00:00 AM EDT [facility] ([facility]) Comprehensive medication services, per 15 minutes 09/29/2020 12:00:00 AM EDT - 09/29/2020 12:00:00 AM EDT [facility] ([facility]) MHC Telemed E/M Lvl 3--Est pt 09/22/2020 12:00:00 AM E DT [facility] ([facility]) [facility] Telemed E/M Lvl 3--Est pt 09/22/2020 12:00:00 AM EDT - 09/22/2020 12:00:00 AM EDT [facility] ([facility]) Extended Individual Psychotherapy - 45 min 09/16/2020 12:00:00 AM EDT - 09/16/2020 12:00:00 AM EDT [facility] ([facility]) Extended Individual Psychotherapy - 45 min 12:00:00 AM EDT [facility] ([facility]) Extended Individual Psychotherapy - 45 min 09/09/2020 12:00:00 AM EDT - 09/09/2020 12:00:00 AM EDT [facility] ([facility]) Therapeutic, Prophylactic Or Diagnostic Injection Subq/Im 09/08/2020 12:00:00 AM EDT [facility] ([facility]) Extended Individual Psychotherapy - 45 min 12:00:00 AM EDT [facility] ([facility]) Telemed Diagnostic Eval 09/07/2020 12:00:00 AM EDT [facility] ([facility]) Telemed Diagnostic Eval 09/07/2020 12:00 :00 AM EDT - 09/07/2020 12:00:00 AM EDT [facility] ([facility]) Brief Individual Psychotherapy - 30 min 08/16/2020 12: 00:00 AM EST [facility] ([facility]) Brief Individual Psychotherapy - 30 min 08/16/2020 12:00:00 AM EST - 08/16/2020 12:00:00 AM EST [facility] ([facility]) Psychiatric Diag Eval W/Medical Service 07/20/2020 12: 00:00 AM EST [facility] ([facility]) Psychiatric Diagnostic Evaluation 06/24/2020 12:00:00 AM EST [facility] ([facility]) Psychiatric Diagnostic Evaluation 06/23/2020 12:00:00 AM EST [facility] ([facility]) Results ID Date Data Source [id number] 03/23/2021 12:06:00 PM EDT [facility] [address] [place] [address] PHONE: [phone] FAX: [phone] Name .................. : ADI Hawthorne Acct Number.................. : [id number] ROOM. ................. : VT-03 MR Number ................... : [id number] Stay type ............. : E/R Discharge Date......... ... : 03/22/21 Admit Date ......... : 03/22/21 Admit Phys .................... : SUHAIL Rose Date of ....... : 1995 Family Phys ................... : NO PCP Phone .................. : [phone] Age ................................ : 26 Film# .................. .:[id number] Sex ................................. : M Unsigned transcriptions are preliminary reports and do not represent a medical or legal document CHEST PORTABLE [id number] COMPLETE:03/22/21 17:44 [facility] [id number] Reason(s): Hx PNA, worseing cough PORTABLE CHEST [...] MD , 03/23/21 12:06, LATESHA Transcribe Initials: [facility], Transcribe Date: 03/23/21 08:49, Dictation Date: Copy for: TONE Logan via fax Copy for: EMERGENCY DEPT [place] [facility] Copy for: 710 MED REC Page 1 of 2 [facility] [address] [place] [address] PHONE: [phone] FAX: [phone] Name .................. : ADI Hawthorne Acct Number.................. : [id number] ROOM. ................. : VT- MR Number ................... : [id number] Stay type ............. : E/R Discharge Date......... ... : 03/22/21 Admit Date ......... : 03/22/21 Admit Phys .................... : SUHAIL Rose Date of ....... : 1995 Family Phys ................... : NO PCP Phone .................. : [phone] Age .......... ...................... : 26 Film# .................. .:[id number] Sex ................................. : M Unsigned transcriptions are preliminary reports and do not represent a medical or legal document CHEST PORTABLE [id number] COMPLETE:03/22/21 17:44 [facility] [id number] Reason(s): Hx PNA, worseing cough DISCHARGED Page 2 of 2 Name Value Range Interpretation Code Description Data Tahira rce(s) Supporting Document(s) ID Date Data Source [id number] 03/22/2021 04:02:00 PM EDT [facility] 1 OrderSheet [facility] Emergency Department [address] [place] [address] Phone #: ext- [phone] 03/22/2021 16:02 Patient: QUINN JOSHI Sex: M : 1995 Age: 26yWEIGHT:113.3 kg HEIGHT:74 inches BMI:32.1ALLERGIES: No Known Drug AllergyCHIEF COMPLAINT: coughDIAGNOSIS: PneumoniaLAB ORDERSOrder Description Priority Entered Acknowledged InitialedCBC w Diff STAT 17:10 03/22/2021 17:18 Yonny Pierre; Leida GarciaCMP STAT 17:11 03/22/2021 17:18 Yonny Pierre; Leida GarciaLactic Acid STAT 17:11 03/22/2021 17:18 Yonny Pierre; Leida GarciaCOVID-19 CAH (Not STAT 17:53 03/22/2021 18:04 Ignacio,Symptomatic as Yonny FLORES; Leida R.NHarrisonDefined by CDC)(03/22/2021) (NotFirst Test) (NotHospitalized) (Not) (NotResident inCongregate CareSetting) (NotEmployed inHealthcare Setting)DIAGNOSTIC STUDY ORDERSOrder Description Priority Entered Acknowledged InitialedChest Portable 1 STAT 17:10 03/22/2021 Ack'd: 17:18 18:04 Ignacio,View Yonny FLORES; Leida Pierre R.N.(Oxygen?(No)) R.N. Reason for Study: Hx PNA, worseing coughMEDICATION/IV/DRIP/FLUID ORDERSOrder Description Priority Entered Acknowledged InitialedRegeneron 18:40 03/22/2021 Cancelled: Physician Order 19:40Antibody Cocktail Yonny FLORES; Leida Pierre R.N. 2 OrderSheet [facility] Emergency Department [address] [place] [address] Phone #: ext- [phone] 03/22/2021 16:02 Patient: QUINN JOSHI Sex: M : 1995 Age: 89l6965 mg (ADD 1200mg casirivimabPLUS 1200 mgimdevimab to 250mL NS (total = 270mL), Infuse at 270mL/hr)Dexamethasone 18:40 03/22/2021 Cancelled: Other 19:29 Yonny BolivarIVP 6 mg (NOW x1) Yonny FLORES; PADuoNeb 3 mL X2 18:43 03/22/2021 19:23 Ignacio,Doses (Filtered): 6 Yonny Casarez R.N.mL (3 mL [id number])Dexamethasone 19:30 03/22/2021 19:40 Ignacio,PO 6 mg (NOW x1) Yonny FLORES; Leida GarciaGENERAL ORDERSOrder Description Priority Entered Acknowledged Initialed[Electronically signed by Leida Pierre R.N. (20:02 03/22/2021)][Electronically signed by Yonny Bolivar (23:12 03/22/2021)][Electronically locked by Leida Pierre R.N. (20:02 03/22/2021)] Name Value Range Interpretation Code Description Data Tahira rce(s) Supporting Document(s) ID Date Data Source [id number] 03/22/2021 04:02:00 PM EDT [facility] 1 Medication Reconciliation Report [facility] Emergency Department [address] [place] [address] Phone #: ext- [phone] 03/22/2021 16:02 Patient: [...] rce(s) Supporting Document(s) ID Date Data Source [id number] 03/22/2021 04:02:00 PM EDT [facility] 1 Medication Administration Record [facility] Emergency Department [address] [place] [address] Phone #: ext [phone] 03/22/2021 16:02 Patient: QUINN JOSHI Sex: M [...] Code Description Data Tahira e(s) Supporting Document(s) ID Date Data Source [id number] 03/22/2021 04:02:00 PM EDT [facility] 1 General Instructions [facility] Emergency Department [address] [place] [address] Phone #: ext [phone] 03/22/2021 16:02 Patient: QUINN JOSHI Sex: M [...] first week of treatment. 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 Prevent lung infections. Ask your healthcare provider about the flu and pneumonia vaccines. Take steps to prevent colds and other lung infections. Practice correct handwashing. Wash your hands often with soap and water. Use hand director of critical care when you can't wash your hands. Stay [...] best for you.Call 911 4 General Instructions [facility] Emergency Department [address] [place] [address] Phone #: ext- [phone] 03/22/2021 16:02 Patient: QUINN JOSHI Sex: M [...] Symptoms that get worse or not improving [phone] [employer] [place] [address]. All rights reserved. This information is not intendedas a substitute for professional medical care. Always follow your healthcare professional's instructions.Fever Control (Adult) 5 General Instructions [facility] Emergency Department [address] [place] [address] Phone #: [phone] ext- [phone] 03/22/2021 16:02 Patient: QUINN JOSHI Sex: M [...] better after 48 hours. 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 Many people last picker a cold or other virus while [...] you travelled and where you stayed (hotel, [place] house, tent) What you ate and drank If you were bitten by insects or other bugs If you swam in freshwater If you had sex or got a tattoo or piercing while you were thereCheck the CDC to get more information about specific infectious diseases in the areas you havetraveled. [phone] [employer]. [address] [place] [address], [place] [address]. All rights reserved. This information is not [...] rce(s) Supporting Document(s) ID Date Data Source [id number] 03/22/2021 04:02:00 PM EDT [facility] 1 Clinical Report - Nurses [facility] Emergency Department [address] [place] [address] Phone #: ext- [phone] 03/22/2021 16:02 Patient: [...] PCM and they could not see him untilmarober . Pt has hx of schizophrenia and is [...] R.N.PROBLEMS:Schizophrenia. --16:03/22/21 Christine Gracia R.N.ADDITIONAL SURGERIES:no known surgeries.Opbweva40:12 03/22/21.PAST MEDICAL HX: Immunizations: status is unknown.SOCIAL HX: Never smoker. No alcohol use or drug use. He was offered HIV testing but declined and 2 Clinical Report - Nurses [facility] Emergency Department [address] [place] [address] Phone #: ext- [phone] 03/22/2021 16:02 Patient: [...] physician and PA notified. --16:139 Christine Gracia R.N. 17:00 03/22/21. BP: 107/75. MAP: 85. HR: 60. RR: 16. O2 saturation: 96%. --17:10 03/22/21 Jahaira DEWITT TechArianne ER Tech1 3 Clinical Report - Nurses [facility] Emergency Department [address] [place] [address] Phone #: ext- [phone] 03/22/2021 16:02 Patient: QUINN JOSHI Sex: M : 1995 Age: 26y Patient [...] RR: 16. O2 saturation: 98%. --18:10 03/22/21 Jahaira [employer] Arianne, [employer] 19:18 03/22/2021 Duoneb Neb [place] Nebulizer 2 [...] F. Pain level now 0/10. --19:43 03/22/21 [place] [employer] ArianneQuanTemplate Tech Christian Coma Scale: 15- eyes open- spontaneous (4); best verbal response- oriented (5); best motor response- obeys commands (6). Departure time: 20:00 03/22/2021. Condition at departure: improved and stable. No learning barriers present. Discharge instructions provided and reviewed with the patient. Reviewed warnings. Reviewed referral to a primary care physician for followup. Work note given. Patient verbalized understanding. Written instructions provided in Romanian. ( Quarantine precautions). The patient was discharged by the physician field assistant. He was discharged home and accompanied by family. He left ambulatory and via private vehicle. Family member driving. --20:02 03/22/21 Leida Pierre R.N.Locked/Released at 03/22/2021 20:02 by Leida Pierre R.N. Name Value Range Interpretation Code Description Data Tahira rce(s) Supporting Document(s) ID Date Data Source [id number] 03/22/2021 04:02:00 PM EDT [facility] 1 Clinical Report - Physicians/Mid Levels [facility] Emergency Department [address] [place] [address] Phone #: ext- [phone] 03/22/2021 16:02 Patient: QUINN JOSHI Sex: M [...] Allergy.SOCIAL HISTORY 2 Clinical Report - Physicians/Mid [facility] Emergency Department [address] [place] [address] Phone #: ext- [phone] 03/22/2021 16:02 Patient: [...] process. COVID-19 CAH: (DUSTIN: 03/22/2021 18:05) ( AkgRcvd 03/22/2021 18:26) Final results Test Result Flag Units (Reference) COVID-19 DETECTED COVID-19 REENTER DETECTED PROCEDURAL CONTROL VALID KIT LOT # _[id number] 03/22/21.MRW. KIT EXP DATE 07.20.21 03/22/21.MRW. NORMAL RANGE IS NOT DETECTEDThe COVID-19 assay is a rapid molecular in vitro diagnostic testutilizing an isothermal nucleic acid amplification te nology for thequalitative detection of nucleic acid from [...] MANAGEMENT DECISIONS. CMP: (DUSTIN: 03/22/2021 17:20) ( [facility] 03/22/2021 18:02) Final results Test Result Flag Units (Reference) COMPREHENSIVE METABOLIC PANEL COMPREHENSIVE METABOLIC PANEL SODIUM 142 mEq/L (134 - 153) POTASSIUM 3.6 mEq/L (3.6 - 5.0) 3 Clinical Report - Physicians/Mid Levels [facility] Emergency Department [address] [place] [address] Phone #: [phone]- [phone] 03/22/2021 16:02 Patient: QUINN JOSHI Sex: M [...] Male GFR Interprentation 20-49 yrs >60 mL/min Gapkwe28-84 yrs >56 mL/min Normal 60-69 yrs >49 mL/min Normal 70-79yrs>42 mL/min Normal 80 and above >35 mL/min Normal Female GFRInterpretation 20-39 yrs >60 mL/min Normal 40-49 yrs >58 mL/minNormal 50-59 yrs >51 mL/min Normal 60-69 yrs >45 mL/min Ibizsj16-55 yrs >39 mL/min Normal 80 and above >32 mL/min NormalLactic Acid: (DUSTIN: 03/22/2021 17:20) ( MsgRcvd 03/22/2021 17:45) Final results Test Result Flag Units (Reference) LACTIC ACID 0.9 MMOL/L (0.2 - 2.2)Chest Portable 1 View: (DUSTIN: 03/22/2021 17:10) ( [facility] 03/22/2021 17:44) In ProgressCHEST PORTABLEReason(s): Hx PNA, worseing coughTRANSPORTATION: P IV? O2? Oxygen?(No) Room: [facility] w Diff: (DUSTIN: 03/22/2021 17:20) ( [facility] 03/22/2021 17:47) Final results Test Result Flag [...] 0.0) 4 Clinical Report - Physicians/Mid Levels [facility] Emergency Department [address] [place] [address] Phone #: ext- [phone] 03/22/2021 16:02 Patient: QUINN JOSHI Sex: M : 1995 Age: 26y #NEUT 5.03 10/uL (2.00 - 6.90) #LYMPH 2.90 10/uL (0.60 - 3.40) #MONO 0.77 10/uL (0.00 - 0.90) #EOS 0.02 10/uL (0.00 - 0.70) #BASO 0.02 10/uL (0.00 - 0.20) #IG 0.05 10/uL (0.00 - 0.10) #NRBC 0.00 10/uL (0.00 - 0.00) MANUAL DIFF NOT INDICATED RBC MORPH NOT INDICATED.PROGRESS AND PROCEDURESCourse of Care: 18:44 Mar 22 2021. Pt with f/u today in ED due [...] Follow-up: 5 Clinical Report - Physicians/Mid Levels [facility] Emergency Department [address] [place] [address] Phone #: ext- [phone] 03/22/2021 16:02 - [...] rce(s) Supporting Document(s) ID Date Data Source [id number] 03/22/2021 06:05:00 PM EDT [facility] Name Value Range Interpretation Code Description Data Tahira e(s) Supporting Document(s) COVID19 Case rprt DETECTED [facility] This lab was ordered by [facility] and reported by [facility]. ID Date Data Source [id number] 03/22/2021 06:26:00 PM EDT [facility] DETECTEDDETECTED PROCEDURAL CO NTROL VALID KIT LOT # _[id number] 03/22/21.1826.MRW. KIT EXP DATE _07.20.21 09/28/21.1826.MRW. NORMAL RANGE IS NOT DETECTEDThe COVID-19 assay [...] rce(s) Supporting Document(s) ID Date Data Source [id number] 03/22/2021 06:02:00 PM EDT [facility] Name Value Range Interpretation Code Description Data [facility] Supporting Document(s) COMPREHENSIVE METABOLIC PANEL [facility] COMPREHENSIVE METABOLIC PANEL Sodium [Moles/volume] in Serum or Plasma 142 mEq/L 134 - 153 [facility] Potassium [Moles/volume] in Serum or Plasma 3.6 mEq/L 3.6 - 5.0 [facility] Chloride [Moles/volume] in Serum or Plasma 106 mEq/L 98 - 107 [facility] Carbon dioxide, total [Moles/volume] in Serum or Plasma 25 MEQ/L 22 - 30 [facility] Glucose [Mass/volume] in Serum or Plasma 86 MG/DL 70 - 99 [facility] BUN 13 MG/DL 7 - 21 [facility] Creatinine [Mass/volume] in Serum or Plasma 0.8 MG/DL 0.7 - 1.5 [facility] BUN/CREAT 16 8 - 27 [facility] al Protein [Mass/volume] in Serum or Plasma 6.2 G/DL 6.3 - 8.2 L [facility] Albumin [Mass/volume] in Serum or Plasma 3.6 G/DL 3.9 - 5.0 L [facility] Globulin [Mass/volume] in Serum by calculation 2.6 GM/DL 2.4 - 3.2 [facility] A/G RATIO 1.4 0.8 - 2.0 [facility] Calcium [Mass/volume] in Serum or Plasma 8.7 MG/DL 8.4 - 10.2 [facility] Bilirubin.total [Mass/volume] in Serum or Plasma <0.7 MG/DL 0.2 - 1.3 [facility] Alkaline phosphatase [Enzymatic activity/volume] in Serum or Plasma 55 U/L 38 - 126 [facility] Aspartate aminotransferase [Enzymatic activity/volume] in Serum or Plasma 24 U/L 5 - 40 [facility] Alanine aminotransferase [Enzymatic activity/volume] in Seru m or Plasma 45 U/L 7 - 56 [facility] Anion gap 3 in Serum or Plasma 11.0 mmol/L 8.0 - 16.0 [facility] AGE 26 yrs [facility] al NON-AA GFR >60 mL/min [facility] ital AFR AMER GFR >60 mL/min [facility] Ho spital Male GFR In terprentation 20-49 [...] >32 mL/min Normal ID Date Data Source [id number] 03/22/2021 05:46:00 PM EDT [facility] Name Value Range Interpretation Code Description Data Tahira rce(s) Supporting Document(s) CBC W/AUTOMATED DIFF [facility] COMPLETE BLOOD COUNT Leukocytes [#/volume] in Blood by Automated count 8.8 10^3/uL 4.2 - 1 1.0 [facility] Erythrocytes [#/volume] in Blood by Automated count 4.04 10^6/uL 4. 50 - 6.30 L [facility] Hemoglobin [Mass/volume] in Blood 12.2 g/dL 14.0 - 16.0 L [facility] Hematocrit [Volume Fraction] of Blood by Automated count 35.2 % 4 1.0 - 51.0 L [facility] Erythrocyte mean corpuscular volume [Entitic volume] by Auto mated count 87.1 fL 80.0 - 94.0 [facility] Erythrocyte mean corpuscular hemoglobin [Entitic mass] by Automated count 30.2 pg 27.0 - 34.0 [facility] Erythrocyte mean corpuscular hemoglobin concentration [Mass/volume] by Automated count 34.7 g/dL 31.0 - 36.0 [facility] Erythrocyte distribution width [Ratio] by Automated count 12.4 % 11.5 - 14.8 [facility] Platelets [#/volume] in Blood by Automated count 391 10^3/uL 150 - 45 0 [facility] Platelet mean volume [Entitic volume] in Blood by Automated count 10.1 fL 7.4 - 10.4 [facility] Neutrophils/100 leukocytes in Blood by Automated count 57.2 % 37. 0 - 80.0 [facility] Lymphocytes/100 leukocytes in Blood by Manual count 33.0 % 25.0 - 40.0 [facility] Monocytes/100 leukocytes in Blood by Automated count 8.8 % 3.0 - 8.0 H [facility] Eosinophils/100 leukocytes in Blood by Automated count 0.2 % 0.0 - 7.0 [facility] Basophils/100 leukocytes in Blood by Automated count 0.2 % 0.0 - 2.0 [facility] %IG 0.6 % 0.0 - 0.0 H [facility] al %NRBC 0.0 % 0.0 - 0.0 [facility] al Neutrophils [#/volume] in Blood by Automated count 5.03 10^3/uL 2.00 - 6.90 [facility] Lymphocytes [#/volume] in Blood by Automated count 2.90 10^3/uL 0.60 - 3.40 [facility] Monocytes [#/volume] in Blood by Automated count 0.77 10^3/uL 0.00 - 0.90 [facility] Eosinophils [#/volume] in Blood by Automated count 0.02 10^3/uL 0.00 - 0.70 [facility] Basophils [#/volume] in Blood by Automated count 0.02 10^3/uL 0.00 - 0.20 [facility] #IG 0.05 10^3/uL 0.00 - 0.10 [facility] H ospital #NRBC 0.00 10^3/uL 0.00 - 0.00 [facility] ospital MANUAL DIFF NOT INDICATED [facility] RBC MORPH NOT INDICATED [facility] spital ID Date Data Source [id number] 03/22/2021 05:45:00 PM EDT [facility] Name Value Range Interpretation Code Description Data Tahira rce(s) Supporting Document(s) Lactate [Moles/volume] in Serum or Plasma 0.9 MMOL/L 0.2 - 2.2 [facility] ID Date Data Source [id number] 03/17/2021 09:17:00 PM EDT [facility] 1 OrderSheet [facility] Emergency Department [address] [place] [address] Phone #: ext- [phone] 03/17/2021 20:49 Patient: QUINN JOSHI Sex: M : 1995 Age: 26yWEIGHT:113.3 kg (S) HEIGHT:75 inches (S) BMI:31.2ALLERGIES: No Known Drug AllergyCHIEF COMPLAINT: dyspneaDIAGNOSIS: PneumoniaLAB ORDERSOrder Description Priority Entered Acknowledged InitialedCBC w Diff STAT 21:57 03/17/2021 22:13 Max Correia MD; Donell RNCMP STAT 21:57 03/17/2021 22:13 Max Correia MD; Donell BARTLETTUrinalysis (Clean STAT 21:57 03/17/2021 Ack'd: 23:19 Max Valenzuela MD; Cancelled: Unable to Collect 01:08 03/18/2021 Marley RNMagnesium STAT 21:57 03/17/2021 22:13 Max Correia MD; Donell BARTLETTCOVID-19 CAH (Not STAT 21:57 03/17/2021 22:13 StevenSymptomatic as Max Agarwal MD; Donell RNDefined by [facility])(03/17/21) (First Test)(Hospitalized) (Not) (NotResident inCongregate CareSetting) (NotEmployed inHealthcare Setting)Influenza Nasal A B STAT 21:57 03/17/2021 22:13 Max Correia MD; Donell BARTLETTDIAGNOSTIC STUDY ORDERSOrder Description Priority Entered Acknowledged InitialedChest Portable 1 STAT 21:37 03/17/2021 Ack'd: 21:48 22:13 Max Padilla MD; Sunday Marley RN(Oxygen?(No)) Reason for Study: Congestion, Shortness of BreathChest 2 View STAT 23:09 03/17/2021 Initialed: 23:19 Azul Marley R.N.(Oxygen?(No)) Max Agarwal MD; Cancelled: Physician Order 02:23 2 OrderSheet [facility] Emergency Department [address] [place] [address] Phone #: ext- [phone] 03/17/2021 20:49 Patient: QUINN JOSHI Sex: M : 1995 Age: 26y 03/18/2021 Marley RN NOTES: ?retrocardiac pneumonia on portable? Reason for Study: CongestionMEDICATION/IV/DRIP/FLUID ORDERSOrder Description Priority Entered Acknowledged InitialedIV NS 1000 mL 21:57 03/17/2021 22:17 StevimtiazBolus : Bolus 1000 Max Agarwal MD; Donell RNmL (X1)predniSONE PO 60 00:27 03/18/2021 00:56 Stevenmg (NOW x1) Max Agarwal MD; Donell RNAzithromycin PO 00:27 03/18/2021 00:56 Vfxqtl000 mg X1 Dose: Max Agarwal MD; Donell RN500 mg (NOW x1)GENERAL ORDERSOrder Description Priority Entered Acknowledged Initialed[Electronically signed by Sunday Marley RN (01:08 03/18/2021)][Electronically signed by Max Agarwal MD (23:53 03/19/2021)][Electronically locked by Sunday Marley RN (01:08 03/18/2021)] Name Value Range Interpretation Code Description Data Tahira rce(s) Supporting Document(s) ID Date Data Source [id number] 03/17/2021 09:17:00 PM EDT [facility] 1 Medication Reconciliation Report [facility] Emergency Department [address] [place] [address] Phone #: ext- [phone] 03/17/2021 20:49 Patient: [...] Dispense 15 tablet. Refills: 0.Substitution permitted.Pharmacy - [facility] [phone] ; [place] [address]. .Zithromax Z- Warren 250 mg tablet -- Take 2 tablets on the first day then one tablet daily for 4 days, totalduration is 5 days. Dispense 6 tablet. Refills: 0. Substitution permitted.Pharmacy - [facility] [phone] [address] ; [place] [address]. . -- Max Agarwal MD Name Value Range Interpretation Code Description Data Tahira rce(s) Supporting Document(s) ID Date Data Source [id number] 03/17/2021 09:17:00 PM EDT [facility] 1 Medication Administration Record [facility] Emergency Department [address] [place] [address] Phone #: ext- [phone] 03/17/2021 20:49 Patient: QUINN JOSHI Sex: M : 1995 Age: 26yWeight: 113.3 kgHeight/Length: 75 inBMI: 31.2ALLERGIES: No Known Drug Allergy Date/Time Medication Administered Medication OrderedStart NS [IV] IV NS 1000 mL Bolus : Bolus 190704:03/17/2021 Dose: IV Fluids mL (X1)Sunday Marley RN Rate: 1000 mL/hr---- Bolus: 1000 mLStop Dispensed: 1000 mL bag23:03/17/2021 Site: #1 left Casie Bravo PREDNISONE [PO] predniSONE PO 60 mg (NOW x1)00:56 03/18/2021 Dose: 60 mg Tablets POStCasie Mcelroy AZITHROMYCIN [PO] Azithromycin PO 500 mg X1 Dose:00:56 03/18/2021 Dose: 500 mg Tablets PO 500 mg (NOW x1)Sunday Marley RN Name Value Range Interpretation Code Description Data Tahira rce(s) Supporting Document(s) ID Date Data Source [id number] 03/17/2021 09:17:00 PM EDT [facility] 1 General Instructions [facility] Emergency Department [address] [place] [address] Phone #: ext- [phone] 03/17/2021 20:49 Patient: QUINN JOSHI Sex: M [...] Dispense 15 tablet. Refills: 0.Substitution permitted.Pharmacy - [facility] [phone] [address] ; [place] [address]. Phone: .Zithromax Z-Warren 250 mg tablet -- Take 2 tablets on the first day then one tablet daily for 4 days, totalduration is 5 days. Dispense 6 tablet. Refills: 0. Substitution permitted.Pharmacy - [facility] [phone] [address] [address] ; [place] [address]. .Follow-up:Follow up with your doctor Sunday even if well. Call for an appointment. Reason for referral: evaluation.Summary of care provided to patient.Understanding of the discharge instructions verbalized by patient. ADDITIONAL INFORMATIONPneumonia (Adult) 2 General Instructions [facility] Emergency Department [address] [place] [address] Phone #: ext- [phone] 03/17/2021 20:49 Patient: [...] for yourself at home: 3 General Instructions [facility] Emergency Department [address] [place] [address] Phone #: ext- [phone] 03/17/2021 20:49 Patient: [...] often with soap and water. Use hand director of critical care when you can't wash your hands. Stay [...] flu (influenza) shot. 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 A second type of pneumonia vaccine is also available for people over age 65 and thoseyounger than 65 with certain health conditions. 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 [address] [place] [address]. All rights reserved. This information is not intendedas a substitute for professional medical care. Always follow your healthcare professional's instructions. You have been given the following additional information: Pneumonia (Adult)(Electronically signed by Max Agarwal MD 03/19/2021 23:53) Name Value Range Interpretation Code Description Data Tahira rce(s) Supporting Document(s) ID Date Data Source [id number] 03/17/2021 09:17:00 PM EDT [facility] 1 Clinical Report - Nurses [facility] Emergency Department [address] [place] [address] Phone #: ext- [phone] 03/17/2021 20:49 Patient: [...] automated monitor, whilelying. MAP: 94. --21:21 03/17/21 Marley, RNArrived by private vehicle. Historian: patient.Triage time: 23:22 03/17/2021.Chief Complaint: RIGHT LOWER EXTREMITY PAIN.Injury occurred. Occurred at a bar. This is a new problem. Symptoms still present (2 days ago). 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 --23:24 03/17/21 Marley RN Correction --23:25 03/17/21 Marley RN.Weight: 113.3 kg stated. Height/Length: 75 inches Per Patient. BMI: 31.2. --20:50 03/17/21 Leida Pierre R.N.MedicationsInvega Sustenna Intramuscular. --20:57 03/17/21 Leida Pierre R.N. Paliperidone ER Oral. --20:58 03/17/21 Leida Pierre R.N. 2 Clinical Report - Nurses [facility] Emergency Department [address] [place] [address] Phone #: ext- [phone] 03/17/2021 20:49 Patient: QUINN JOSHI Sex: M : 1995 Age: 26y Allergies No Known Drug Allergy. --20:58 03/17/21 Leida Pierre R.N. PROBLEMS: Schizophrenia. --20:58 03/17/21 Leida Pierre R.N. Medication/allergy information source: the patient's guardian / bell cleaner. --20:57 03/17/21 Leida Pierre R.N. ADDITIONAL SURGERIES: [...] acute distress. 3 Clinical Report - Nurses [facility] Emergency Department [address] [place] [address] Phone #: ext- [phone] 03/17/2021 20:49 Patient: [...] Skin intact. Skin is warm and dry. --21:13 03/17/21 Marley RN.NURSING PROGRESS NOTESPatient gowned. Reassurance given. Three patient identifiers checked. Call light placed in reach. Siderails up x 2. Bed placed in lowest position. Brakes of bed on. Patient ready for evaluation- ED physiciannotified. --21:05 03/17/21 Leida Pierre R.N. 21:13 03/17/21. BP: 133/75 (regular adult cuff) taken [...] reviewed with patient, spouse, parent and family. --22:17 03/17/21 Marley RN 23:17 03/17/2021 IV Fluids NS via IV site #1 Discontinued: completed. Total amount infused: 1000 mL. IV patency established. IV site checked: no pain, redness, or swelling. IV flushed thoroughly. --23:17 03/17/21 Marley RN 00:56 03/18/2021 Prednisone PO Tablets 60 mg given. Allergies verified and confirmed 5 rights. Information reviewed with patient including reason for taking this medication, signs of allergic reaction and precautions. Verbalizes understanding. --00:56 03/18/21 Marley RN 00:56 03/18/2021 Azithromycin PO Tablets 500 mg given. Allergies verified and confirmed 5 rights. Information reviewed with patient including reason for taking this medication, signs of allergic reaction and precautions. Verbalizes understanding. --00:56 03/18/21 Marley RN. 4 Clinical Report - Nurses [facility] Emergency Department [address] [place] [address] Phone #: ext- [phone] 03/17/2021 20:49 Patient: QUINN JOSHI Sex: M : 1995 Age: 26yDISPOSITION / DISCHARGE 00:57 03/18/2021 Site #1 removed upon discharge. Bandage applied. --01:03/18/21 Marley RN [place] Coma Scale: 15- eyes open- spontaneous (4); best verbal response- oriented (5); best motor response- obeys commands (6). Departure time: 01:07 03/18/2021. Condition at departure: improved. No learning barriers present. Discharge instructions provided and reviewed with the patient and family. Reviewed medication(s) side effects, precautions, dosing and course information. Prescription(s) given to the student development coordinator. Reviewed referral to family practice for followup. Reviewed need for increased fluid intake. Patient and family verbalized understanding. Written instructions provided in Romanian. The patient was discharged home and accompanied [...] 98.9 F (oral). Pain level now: 10/02. --:03/18/21 Marley RN.Locked/Released at 03/18/2021 01:08 by Sunday Marley RN Name Value Range Interpretation Code Description Data Tahira rce(s) Supporting Document(s) ID Date Data Source [id number] 03/17/2021 09:17:00 PM EDT [facility] 1 Clinical Report - Physicians/Mid Levels [facility] Emergency Department [address] [place] [address] Phone #: ext- [phone] 03/17/2021 20:49 Patient: QUINN JOSHI Sex: M [...] pt's cousin who is his power of mergers and acquisitions attorney is with the patient.). Similar symptoms [...] Allergy. 2 Clinical Report - Physicians/Mid Levels [facility] Emergency Department [address] [place] [address] Phone #: ext- [phone] 03/17/2021 20:49 Patient: QUINN JOSHI Sex: M : 1995 Age: 26ySOCIAL HISTORYNo drug use.ADDITIONAL NOTESThe nursing notes have been reviewed.PHYSICAL EXAMVital Signs: 03/17/2021 21:20 BP: lying 133/75. MAP: 94.03/17/2021 21:13 BP: lying 133/75. MAP: 94. HR: 92. RR: 18. O2 saturation: 93% on room air. Pain levelnow: 3/10.03/17/2021 20:58 HR: 98. RR: 18. O2 saturation: [...] Nasal A B: (DUSTIN: 03/17/2021 22:07) ( AkgRcvd 03/17/2021 22:49) Final results Test Result Flag Units (Reference) INFLUENZA A NEGATIVE (NORMAL: NEGAT INFLUENZA B NEGATIVE (NORMAL: NEGAT INFLUENZA A REENTER NEGATIVE (NORMAL: NEGAT INFLUENZA B REENTER NEGATIVE (NORMAL: NEGAT PROCEDURAL CONTROL VALID KIT LOT # _[id number] 03/17/21.2248.LBS. KIT EXP DATE 03/17/212248.LBS.The Influenza A utilizing an isothermal nucleic acid amplification technology for thequalitative detection of influenza A and B viral RNA.Negative results do not preclude influenza virus infection and should not beused as the sole basis for diagnosis, treatment or other patient managementdecisions. CBC w Diff: (DUSTIN: 03/17/2021 22:05) ( MsgRcvd 03/17/2021 22:23) Final results Test Result Flag Units (Reference) CBC W/AUTOMATED DIFF COMPLETE BLOOD COUNT WBC 5.1 10/uL (4.2 - 11.0) RBC 4.13 L 10/uL (4.50 - 6.30) HEMOGLOBIN 12.6 L g/dL (14.0 - 16.0) HEMATOCRIT 35.7 L % (41.0 - 51.0) 3 Clinical Report - Physicians/Mid Levels [facility] Emergency Department [address] [place] [address] Phone #: ext- [phone] 03/17/2021 20:49 Patient: QUINN JOSHI Sex: M [...] Male GFR Interprentation 20-49 yrs >60 mL/min Ltnepm62-54 yrs >56 mL/min Normal 60-69 yrs >49 mL/min Normal 70-79yrs>42 mL/min Normal 80 and above >35 mL/min Normal Female GFRInterpretation 20-39 yrs >60 mL/min Normal 40-49 yrs >58 mL/minNormal 50-59 yrs >51 mL/min Normal 60-69 yrs >45 mL/min Ujdzzq31-94 yrs >39 mL/min Normal 80 and above >32 mL/min NormalMagnesium: (DUSTIN: 03/17/2021 22:05) ( MsgRcvd 03/17/2021 22:40) Final results Test Result Flag Units (Reference) MAGNESIUM 2.3 H MG/DL (1.7 - 2.2) 4 Clinical Report - Physicians/Mid Levels [facility] Emergency Department [address] [place] [address] Phone #: ext- [phone] 03/17/2021 20:49 Patient: QUINN JOSHI Sex: M : 1995 Age: 26y COVID-19 CAH: (DUSTIN: 03/17/2021 22:07) ( MsgRcvd 03/17/2021 22:42) Final results Test Result Flag Units (Reference) COVID-19 NOT DETECTED COVID-19 REENTER NOT DETECTED PROCEDURAL CONTROL VALID KIT LOT # _[id number] 03/17/21.LBS. . . KIT EXP DATE _60-43-73 03/17/21.LBS. . . NORMAL RANGE IS NOT [...] Intramuscular. 5 Clinical Report - Physicians/Mid Levels [facility] Emergency Department [address] [place] [address] Phone #: ext- [phone] 03/17/2021 20:49 Patient: QUINN JOSHI Sex: M : 1995 Age: 26y Paliperidone ER Oral. Prescription Medications: prednisone 20 mg tablet Take 3 tablet once a day for 5 days -- Dispense 15 tablet. Refills: 0. Substitution permitted. Pharmacy - [facility] [phone] ; [place] [address]. . Zithromax Z-Warren 250 mg tablet -- Take 2 tablets on the first day then one tablet daily for 4 days, total duration is 5 days. Dispense 6 tablet. Refills: 0. Substitution permitted. Pharmacy - [facility] [phone] ; [place] [address]. . Follow-up: Follow up with your doctor Sunday even if well. Call for an appointment. Reason for referral: evaluation. Summary of care provided to patient. Understanding of the discharge instructions verbalized by patient.(Electronically signed by Max Agarwal MD 03/19/2021 23:53) Name Value Range Interpretation Code Description Data Tahira rce(s) Supporting Document(s) ID Date Data Source [id number] 03/18/2021 11:50:00 AM EDT [facility] [address] [place] [address] PHONE: [phone] FAX: [phone] Name .................. : ADI Hawthorne Acct Number.................. : [id number] ROOM. ................. : TR-07 Number ................... : [id number] Stay type ............. : E/R Discharge Date......... ... : 03/18/21 Admit Date ......... : 03/17/21 Admit Phys .................... : VIOLETA Date of ....... : 1995 Family Phys ................... : NO PCP Phone .................. : [phone] Age ................................ : 26 Film# .................. .:[id number] Sex ................................. : M Unsigned transcriptions are preliminary reports and do not represent a medical or legal document CHEST PORTABLE [id number] COMPLETE:03/18/21 01:53 AML [id number] Reason(s): Congestion PORTABLE CHEST SINGLE VIEW OBTAINED [...] Dictation Date: Copy for: EMERGENCY DEPT via modem Copy for: 710 MED REC DISCHARGED Page 1 of 1 Name Value Range Interpretation Code Description Data Tahira rce(s) Supporting Document(s) ID Date Data Source [id number] 03/17/2021 10:07:00 PM EDT [facility] Name Value Range Interpretation Code Description Data Tahira rce(s) Supporting Document(s) COVID19 Case rprt NOT DETECTED [facility] This lab was ordered by [facility] and reported by [facility]. ID Date Data Source [id number] 03/17/2021 10:48:00 PM EDT [facility] Name Value Range Interpretation Code Description Data Tahira rce(s) Supporting Document(s) Influenza virus A Ag [Presence] in Nasopharynx by Immunoassa y NEGATIVE NORMAL: NEGATIVE [facility] Influenza virus B Ag [Presence] in Nasopharynx by Immunoassa y NEGATIVE NORMAL: NEGATIVE [facility] NEGATIVENEGATIVE PROCEDURAL CO NTROL VALID KIT LOT # _[id number] 03/17/21.2248.LBS. KIT EXP DATE _40-02-20 03/17/21.LBS.The Influenza A & B assay is a rapid molecular in vitro diagnostic testutilizing an isothermal nucleic acid amplification technology for thequalitative detection of influenza A and B viral RNA.Negative results do not preclude influenza virus infection and should not beused as the sole basis for diagnosis, treatment or other patient managementdecisions. ID Date Data Source [id number] 03/17/2021 10:41:00 PM EDT [facility] NOT DETECTEDNOT DETECTED PROCE DURAL CONTROL VALID KIT LOT # _[id number] 03/17/21.LBS. . . KIT EXP DATE _20-02-29 03/17/21.LBS. . . NORMAL RANGE IS NOT [...] rce(s) Supporting Document(s) ID Date Data Source [id number] 03/17/2021 10:40:00 PM EDT [facility] Name Value Range Interpretation Code Description Data Tahira rce(s) Supporting Document(s) Magnesium [Mass/volume] in Serum or Plasma 2.3 MG/DL 1.7 - 2.2 H [facility] ID Date Data Source [id number] 03/17/2021 10:40:00 PM EDT [facility] Name Value Range Interpretation Code Description Data Tahira rce(s) Supporting Document(s) COMPREHENSIVE METABOLIC PANEL [facility] COMPREHENSIVE METABOLIC PANEL Sodium [Moles/volume] in Serum or Plasma 137 mEq/L 134 - 153 [facility] Potassium [Moles/volume] in Serum or Plasma 4.0 mEq/L 3.6 - 5.0 [facility] Chloride [Moles/volume] in Serum or Plasma 101 mEq/L 98 - 107 [facility] Carbon dioxide, total [Moles/volume] in Serum or Plasma 23 MEQ/L 22 - 30 [facility] Glucose [Mass/volume] in Serum or Plasma 128 MG/DL 70 - 99 H [facility] BUN 19 MG/DL 7 - 21 [facility] al Creatinine [Mass/volume] in Serum or Plasma 1.0 MG/DL 0.7 - 1.5 [facility] BUN/CREAT 19 8 - 27 [facility] al Protein [Mass/volume] in Serum or Plasma 6.9 G/DL 6.3 - 8.2 [facility] Albumin [Mass/volume] in Serum or Plasma 4.2 G/DL 3.9 - 5.0 [facility] Globulin [Mass/volume] in Serum by calculation 2.7 GM/DL 2.4 - 3.2 [facility] A/G RATIO 1.6 0.8 - 2.0 [facility] Calcium [Mass/volume] in Serum or Plasma 8.8 MG/DL 8.4 - 10.2 [facility] Bilirubin.total [Mass/volume] in Serum or Plasma <0.7 MG/DL 0.2 - 1.3 [facility] Alkaline phosphatase [Enzymatic activity/volume] in Serum or Plasma 70 U/L 38 - 126 [facility] Aspartate aminotransferase [Enzymatic activity/volume] in Serum or Plasma 69 U/L 5 - 40 H [facility] Alanine aminotransferase [Enzymatic activity/volume] in Seru m or Plasma 48 U/L 7 - 56 [facility] Anion gap 3 in Serum or Plasma 13.0 mmol/L 8.0 - 16.0 [facility] AGE 26 yrs [facility] al NON-AA GFR >60 mL/min [facility] ital AFR AMER GFR >60 mL/min [facility] Ho spital Male GFR In terprentation 20-49 [...] >32 mL/min Normal ID Date Data Source [id number] 03/17/2021 10:22:00 PM EDT [facility] Name Value Range Interpretation Code Description Data Tahira rce(s) Supporting Document(s) CBC W/AUTOMATED DIFF [facility] COMPLETE BLOOD COUNT Leukocytes [#/volume] in Blood by Automated count 5.1 10^3/uL 4.2 - 1 1.0 [facility] Erythrocytes [#/volume] in Blood by Automated count 4.13 10^6/uL 4. 50 - 6.30 L [facility] Hemoglobin [Mass/volume] in Blood 12.6 g/dL 14.0 - 16.0 L [facility] Hematocrit [Volume Fraction] of Blood by Automated count 35.7 % 4 1.0 - 51.0 L [facility] Erythrocyte mean corpuscular volume [Entitic volume] by Auto mated count 86.4 fL 80.0 - 94.0 [facility] Erythrocyte mean corpuscular hemoglobin [Entitic mass] by Automated count 30.5 pg 27.0 - 34.0 [facility] Erythrocyte mean corpuscular hemoglobin concentration [Mass/volume] by Automated count 35.3 g/dL 31.0 - 36.0 [facility] Erythrocyte distribution width [Ratio] by Automated count 12.5 % 11.5 - 14.8 [facility] Platelets [#/volume] in Blood by Automated count 225 10^3/uL 150 - 45 0 [facility] Platelet mean volume [Entitic volume] in Blood by Automated count 10.1 fL 7.4 - 10.4 [facility] Neutrophils/100 leukocytes in Blood by Automated count 78.2 % 37. 0 - 80.0 [facility] Lymphocytes/100 leukocytes in Blood by Manual count 14.6 % 25.0 - 40.0 L [facility] Monocytes/100 leukocytes in Blood by Automated count 7.0 % 3.0 - 8.0 [facility] Eosinophils/100 leukocytes in Blood by Automated count 0.0 % 0.0 - 7.0 [facility] Basophils/100 leukocytes in Blood by Automated count 0.0 % 0.0 - 2.0 [facility] %IG 0.2 % 0.0 - 0.0 H [facility] al %NRBC 0.0 % 0.0 - 0.0 [facility] al Neutrophils [#/volume] in Blood by Automated count 4.02 10^3/uL 2.00 - 6.90 [facility] Lymphocytes [#/volume] in Blood by Automated count 0.75 10^3/uL 0.60 - 3.40 [facility] Monocytes [#/volume] in Blood by Automated count 0.36 10^3/uL 0.00 - 0.90 [facility] Eosinophils [#/volume] in Blood by Automated count 0.00 10^3/uL 0.00 - 0.70 [facility] Basophils [#/volume] in Blood by Automated count 0.00 10^3/uL 0.00 - 0.20 [facility] #IG 0.01 10^3/uL 0.00 - 0.10 [facility] ospital #NRBC 0.00 10^3/uL 0.00 - 0.00 [facility] ospital MANUAL DIFF NOT INDICATED [facility] RBC MORPH NOT INDICATED [facility] spital ID Date Data Source [id number] 11/25/2020 11:39:00 AM EDT [facility] Name Value Range Interpretation Code Description Data Tahira rce(s) Supporting Document(s) SARS coronavirus 2 RNA [Presence] in Res piratory specimen by RUTH with probe detection NEGATIVE [facility] This lab was ordered by [facility] a nd reported by [facility]. ID Date Data Source [id number] 08/05/2020 01:08:00 PM EST [facility] Name Value Range Interpretation Code Description Data Tahira rce(s) Supporting Document(s) SARS coronavirus 2 RNA [Presence] in Res piratory specimen by RUTH with probe detection NEGATIVE [facility] This lab was ordered by [facility] a nd reported by [facility]. ID Date Data Source [id number] 07/12/2020 08:01:00 AM EST [facility] Name Value Range Interpretation Code Description Data Tahira rce(s) Supporting Document(s) Drugs identified in Urine FINAL [facility] TOXASSURE SELECT 13 (MW) Test Result Flag [...] clinical consultation, please call . Report . [facility] al ID Date Data Source [id number] 07/05/2020 02:49:00 PM EST MED[facility] ([facility]) Name Value Range Interpretation Code Description Data Tahira rce(s) Supporting Document(s) Laboratory test finding (navigational concept) Laboratory test result [facility] ([facility]) {DIAGNOSIS: F20.9~{MEDICATIONS/DECLARED : INVEGA~{PRESCRIPTION INFO:~{PRESCRIPTION INFO: PDF Laboratory test result [facility] ([facility]) {DIAGNOSIS: F20.9~{MEDICATIONS/DECLARED : INVEGA~{PRESCRIPTION INFO:~{PRESCRIPTION INFO: Procedure Social History Code Duration Value Status Description Data Source(s ) Smoking 05/09/2021 12:00:00 AM EST Unknown if ever smoked comp leted Unknown if ever smoked [facility] ([facility]) Smoking 04/06/2021 12:00:00 AM EDT Unknown if ever smoked comp leted Unknown if ever smoked [facility] ([facility]) Smoking 03/16/2021 12:00:00 AM EDT Unknown if ever smoked comp leted Unknown if ever smoked [facility] ([facility]) Smoking 03/11/2021 12:00:00 AM EDT Unknown if ever smoked comp leted Unknown if ever smoked [facility] ([facility]) Smoking 03/07/2021 12:00:00 AM EDT Unknown if ever smoked comp leted Unknown if ever smoked [facility] ([facility]) Smoking 02/24/2021 12:00:00 AM EDT Unknown if ever smoked comp leted Unknown if ever smoked [facility] ([facility]) Smoking 02/02/2021 12:00:00 AM EDT Unknown if ever smoked comp leted Unknown if ever smoked [facility] ([facility]) Smoking 02/01/2021 12:00:00 AM EDT Unknown if ever smoked comp leted Unknown if ever smoked [facility] ([facility]) Smoking 01/21/2021 12:00:00 AM EDT Unknown if ever smoked comp leted Unknown if ever smoked [facility] ([facility]) Smoking 11/25/2020 12:00:00 AM EDT Unknown if ever smoked comp leted Unknown if ever smoked [facility] ([facility]) Smoking 10/20/2020 12:00:00 AM EDT Unknown if ever smoked comp leted Unknown if ever smoked [facility] ([facility]) Smoking 10/14/2020 12:00:00 AM EDT Unknown if ever smoked comp leted Unknown if ever smoked [facility] ([facility]) Smoking 09/29/2020 12:00:00 AM EDT Unknown if ever smoked comp leted Unknown if ever smoked [facility] ([facility]) Smoking 09/22/2020 12:00:00 AM EDT Unknown if ever smoked comp leted Unknown if ever smoked [facility] ([facility]) Smoking 09/16/2020 12:00:00 AM EDT Unknown if ever smoked comp leted Unknown if ever smoked [facility] ([facility]) Smoking 09/09/2020 12:00:00 AM EDT Unknown if ever smoked comp leted Unknown if ever smoked [facility] ([facility]) Smoking 09/07/2020 12:00:00 AM EDT Unknown if ever smoked comp leted Unknown if ever smoked [facility] ([facility]) Smoking 08/16/2020 12:00:00 AM EST Unknown if ever smoked comp leted Unknown if ever smoked [facility] ([facility]) Vital Signs ID Date Data Source UNK Name Value Range Interpretation Code Description Data Source(s) Diastolic blood pressure 86 mm[Hg] 86 mm[Hg] [facility] ([facility]) Body height 73 [in_i] 73 [in_i] [facility] ([facility]) Body mass index (BMI) [Ratio] 33.8 kg/m2 33.8 k g/m2 [facility] ([facility]) Systolic blood pressure 133 mm[Hg] 133 mm[Hg] A GIOVANYA ([facility]) Body weight 4096 [oz_av] 4096 [oz_av] [facility] ([facility]) Diastolic blood pressure 81 mm[Hg] 81 mm[Hg] [facility] ([facility]) Body height 73 [in_i] 73 [in_i] [facility] ([facility]) Body mass index (BMI) [Ratio] 34.1 kg/m2 34.1 k g/m2 [facility] ([facility]) Systolic blood pressure 121 mm[Hg] 121 mm[Hg] A ELSIE ([facility]) Body weight 4140.8 [oz_av] 4140.8 [oz_av] ATHEN A ([facility]) Diastolic blood pressure 81 mm[Hg] 81 mm[Hg] [facility] ([facility]) Body height 73 [in_i] 73 [in_i] [facility] ([facility]) Body mass index (BMI) [Ratio] 34.1 kg/m2 34.1 k g/m2 [facility] ([facility]) Systolic blood pressure 121 mm[Hg] 121 mm[Hg] A ELSIE ([facility]) Body weight 4140.8 [oz_av] 4140.8 [oz_av] ATHEN A ([facility]) Diastolic blood pressure 0 mm[Hg] Normal (applies to non-numeric results) 0 mm[Hg] [facility] ([facility]) Systolic blood pressure 0 mm[Hg] Normal (applies t o non-numeric results) 0 mm[Hg] [facility] ([facility]) Body mass index (BMI) [Ratio] 0.00 kg/m2 No rmal (applies to non-numeric results) 0.00 kg/m2 [facility] ([facility]) Body weight Measured 0.00 lbs Normal (applies to n on-numeric results) 0.00 lbs [facility] ([facility]) Body height 0.00 in Normal (applies to non-numeric resu lts) 0.00 in [facility] ([facility]) Diastolic blood pressure 0 mm[Hg] Normal (applies to non-numeric results) 0 mm[Hg] [facility] ([facility]) Systolic blood pressure 0 mm[Hg] Normal (applies t o non-numeric results) 0 mm[Hg] [facility] ([facility]) Body mass index (BMI) [Ratio] 0.00 kg/m2 No rmal (applies to non-numeric results) 0.00 kg/m2 [facility] ([facility]) Body weight Measured 0.00 lbs Normal (applies to n on-numeric results) 0.00 lbs [facility] ([facility]) Body height 0.00 in Normal (applies to non-numeric resu lts) 0.00 in [facility] ([facility]) Diastolic blood pressure 0 mm[Hg] Normal (applies to non-numeric results) 0 mm[Hg] [facility] ([facility]) Systolic blood pressure 0 mm[Hg] Normal (applies t o non-numeric results) 0 mm[Hg] [facility] ([facility]) Body mass index (BMI) [Ratio] 0.00 kg/m2 No rmal (applies to non-numeric results) 0.00 kg/m2 [facility] ([facility]) Body weight Measured 0.00 lbs Normal (applies to n on-numeric results) 0.00 lbs [facility] ([facility]) Body height 0.00 in Normal (applies to non-numeric resu lts) 0.00 in [facility] ([facility]) Diastolic blood pressure 72 mm[Hg] 72 mm[Hg] [facility] ([facility]) Body height 42 [in_i] 42 [in_i] [facility] ([facility]) Body mass index (BMI) [Ratio] 106.8 kg/m2 106.8 kg/m2 [facility] ([facility]) Systolic blood pressure 108 mm[Hg] 108 mm[Hg] A THENA ([facility]) Body weight 4288 [oz_av] 4288 [oz_av] [facility] ([facility]) Diastolic blood pressure 72 mm[Hg] 72 mm[Hg] [facility] ([facility]) Body height 42 [in_i] 42 [in_i] [facility] ([facility]) Body mass index (BMI) [Ratio] 106.8 kg/m2 106.8 kg/m2 [facility] ([facility]) Systolic blood pressure 108 mm[Hg] 108 mm[Hg] A THEN ([facility]) Body weight 4288 [oz_av] 4288 [oz_av] [facility] ([facility]) Diastolic blood pressure 72 mm[Hg] 72 mm[Hg] [facility] ([facility]) Body height 42 [in_i] 42 [in_i] [facility] ([facility]) Body mass index (BMI) [Ratio] 106.8 kg/m2 106.8 kg/m2 [facility] ([facility]) Systolic blood pressure 108 mm[Hg] 108 mm[Hg] A GIOVANYA ([facility]) Body weight 4288 [oz_av] 4288 [oz_av] [facility] ([facility]) Body weight 121.111 kg 121.111 kg [facility] ([facility]) Oxygen saturation in Arterial blood by Pulse oximetry 98 % 98 % [facility] ([facility]) Diastolic blood pressure--sitting 79 mm[Hg] 79 mm[Hg] [facility] ([facility]) Systolic blood pressure--sitting 120 mm[Hg] 120 mm[Hg] [facility] ([facility]) Body surface area Derived from formula 2.46 m2 2.46 m2 [facility] ([facility]) Body mass index (BMI) [Ratio] 34.3 kg/m2 34.3 k g/m2 [facility] ([facility]) Body height 74 [in_i] 74 [in_i] [facility] ([facility]) 6'2" Body weight 267.00 [lb_av] 267.00 [lb_av] MEDEN T ([facility]) Respiratory rate 18 /min 18 /min [facility] ( [facility]) Body temperature 98.7 [degF] 98.7 [degF] [facility] ([facility]) Oral Heart rate 75 /min 75 /min [facility] ([facility]) Patient Treatment Plan of Care Planned Activity Planned Date Details Description Data Source (s) Risperidone 3 MG Oral Tablet [facility] ([facility]) Prednisone 20 MG Oral Tablet [facility] ([facility]) Invega Cecy [facility] ([facility]) Azithromycin 250 MG Oral Tablet [facility] ([facility]) Altagracia Sam [facility] ([facility]) Altagracia Sam [facility] ([facility])
[2021-05-14 21:09] LABS: ACETAMINOPHEN LEVEL < 2.0 UG/ML (10.0-30.0); ALBUMIN 3.8 GM/DL (3.2-5.2); ALT/SGPT 43 U/L (12-78); BILIRUBIN,DIRECT < 0.1 MG/DL (0.0-0.2); BILIRUBIN,TOTAL 0.3 MG/DL (0.2-1.0); BLOOD UREA NITROGEN 14 MG/DL (7-18); CALCIUM LEVEL 9.2 MG/DL (8.5-10.1); CARBON DIOXIDE LEVEL 29 MEQ/L (21-32); CHLORIDE LEVEL 107 MEQ/L (98-107); CREATININE FOR GFR 1.04 MG/DL (0.70-1.30); ETHYL ALCOHOL (ETHANOL) < 0.003 % (0.000-0.010); GLOMERULAR FILTRATION RATE > 60.0 (>60); GLUCOSE, FASTING 90 MG/DL (70-100); POTASSIUM SERUM 3.8 MEQ/L (3.5-5.1); SALICYLATE LEVEL < 1.7 MG/DL (5.0-30.0); SODIUM LEVEL 140 MEQ/L (136-145); TOTAL PROTEIN 7.1 GM/DL (6.4-8.2)
[2021-05-14 21:13] LABS: AMPHETAMINES LEVEL URINE NEGATIVE (NEGATIVE); BARBITURATES URINE NEGATIVE (NEGATIVE); BENZODIAZEPINES URINE NEGATIVE (NEGATIVE); CANNABINOIDS URINE NEGATIVE (NEGATIVE); COCAINE METABOLITE URINE NEGATIVE (NEGATIVE); METHADONE URINE NEGATIVE (NEGATIVE); OPIATES URINE NEGATIVE (NEGATIVE); PHENCYCLIDINE URINE NEGATIVE (NEGATIVE)
[2021-05-14] MEDS ORDERED: diphenhydrAMINE 50MG CAP PO ONE (23:30)
[2021-05-15] MEDS ORDERED: PALI1TAB2 PO (00:13)
[2021-05-15] MEDS ORDERED: INVE234I IM (00:13)
[2021-05-15] MEDS ORDERED: HOME MED LIST COMPLETE! XX SCH (00:15)
--- NOTE | 2021-05-15 08:17 | ECGEPIP ---
[facility] - ED Test Date: 2021-05-15 Pat Name: QUINN JOSHI Department: Room: - Gender: Male Site Interpreter: [facility] : 1995 Requested By: REMY Weber Order Number: [id number] Reading MD: Iris Chicas Measurements Intervals [place] Rate: 66 P: 37 PA: 200 QRS: 21 QRSD: 98 T: 36 QT: 398 QTc: 417 Interpretive Statements Normal sinus rhythm with sinus arrhythmia Early repolarization increased rate 11/25/20 Electronically Signed on 05-15-2021 8:16:42 EST by Iris Chicas
[2021-05-15] MEDS: PALIPERIDONE 3 MG ER TAB (INVEGA) PO SCH (09:57)
[2021-05-15] MEDS ORDERED: diphenhydrAMINE 50MG CAP PO ONE (21:05)
[2021-05-16 02:38] LABS: RSV AMPLIFICATION NEGATIVE (NEGATIVE)
[2021-05-16] MEDS: PALIPERIDONE 3 MG ER TAB (INVEGA) PO SCH (09:00)
[2021-05-16 09:17] VITALS: BP 125/80
== END 2021-05-16 09:21 ==
LOC: M ED 18:56
DX: F20.9 Schizophrenia, unspecified (principal); F29 Unspecified psychosis not due to a substance or known physiological condition; F33.9 Major depressive disorder, recurrent, unspecified; J30.1 Allergic rhinitis due to pollen; Z79.899 Other long term (current) drug therapy

== ENCOUNTER 2021-11-03 12:33 | Inpatient (IN) | payer OTHER ==
[~2021-11-03] VITALS: Ht 188 cm; Wt 119.3 kg
[~2021-11-03 12:33] MED LIST changes: +FISH1CAP26 PO; +QUET50TA4 PO
[2021-11-03 13:53] LABS: HEMATOCRIT 35.4 % (42.0-52.0); HEMOGLOBIN 12.6 g/dl (13.5-17.5); MEAN CORPUSCULAR HEMOGLOBIN 31.3 pg (27.0-33.0); MEAN CORPUSCULAR HGB CONC 35.6 g/dl (32.0-36.5); MEAN CORPUSCULAR VOLUME 87.8 fl (80.0-96.0); PLATELET COUNT, AUTOMATED 279 10^3/uL (150-450); RED BLOOD COUNT 4.03 10^6/uL (4.30-6.10); WHITE BLOOD COUNT 6.9 10^3/uL (4.0-10.0)
[2021-11-03 14:12] LABS: AMPHETAMINES LEVEL URINE NEGATIVE (NEGATIVE); BARBITURATES URINE NEGATIVE (NEGATIVE); BENZODIAZEPINES URINE NEGATIVE (NEGATIVE); CANNABINOIDS URINE NEGATIVE (NEGATIVE); COCAINE METABOLITE URINE NEGATIVE (NEGATIVE); METHADONE URINE NEGATIVE (NEGATIVE); OPIATES URINE NEGATIVE (NEGATIVE); PHENCYCLIDINE URINE NEGATIVE (NEGATIVE)
[2021-11-03 14:24] LABS: ACETAMINOPHEN LEVEL < 2.0 UG/ML (10.0-30.0); ALBUMIN 3.8 GM/DL (3.2-5.2); ALT/SGPT 30 U/L (12-78); BILIRUBIN,DIRECT 0.1 MG/DL (0.0-0.2); BILIRUBIN,TOTAL 0.5 MG/DL (0.2-1.0); BLOOD UREA NITROGEN 16 MG/DL (7-18); CALCIUM LEVEL 9.1 MG/DL (8.5-10.1); CARBON DIOXIDE LEVEL 28 MEQ/L (21-32); CHLORIDE LEVEL 106 MEQ/L (98-107); CREATININE FOR GFR 1.03 MG/DL (0.70-1.30); ETHYL ALCOHOL (ETHANOL) < 0.003 % (0.000-0.010); GLOMERULAR FILTRATION RATE > 60.0 (>60); GLUCOSE, FASTING 122 MG/DL (70-100); POTASSIUM SERUM 4.1 MEQ/L (3.5-5.1); SALICYLATE LEVEL < 1.7 MG/DL (5.0-30.0); SODIUM LEVEL 137 MEQ/L (136-145); TOTAL PROTEIN 7.1 GM/DL (6.4-8.2)
[2021-11-03] MEDS ORDERED: LORazepam 2 MG TAB PO ONE (16:25)
[2021-11-03] MEDS ORDERED: OLANZapine ORAL DISINTEGRATING TAB 5MG PO ONE (16:25)
[2021-11-03 17:07] LABS: RSV AMPLIFICATION NEGATIVE (NEGATIVE)
[2021-11-03] MEDS ORDERED: HOME MED LIST COMPLETE! XX SCH (22:45)
[2021-11-03] MEDS ORDERED: INVE234I IM (22:45)
[2021-11-04] MEDS ORDERED: ACETAMINOPHEN TAB 650MG DOSE (2X325MG) PO PRN (20:05)
[2021-11-04] MEDS ORDERED: MAALOX 30 ML SUSP *UDC PO PRN (20:05)
[2021-11-04] MEDS ORDERED: MOM 30ML SUSPENSION UDC PO PRN (20:05)
[2021-11-04] MEDS: PALIPERIDONE 3 MG ER TAB (INVEGA) PO SCH (22:49)
[2021-11-04] MEDS: traZODone 50 MG TAB PO PRN (22:49)
[2021-11-04 22:53] VITALS: BP 130/77
[2021-11-05 06:50] VITALS: BP 126/79
[2021-11-05] MEDS: PALIPERIDONE 3 MG ER TAB (INVEGA) PO SCH ×2 (10:56→20:39)
[2021-11-05 16:01] VITALS: BP 128/88
[2021-11-05] MEDS: OLANZapine ORAL DISINTEGRATING TAB 5MG PO PRN (18:38)
[2021-11-05] MEDS: traZODone 50 MG TAB PO PRN (20:39)
[2021-11-06 06:06] VITALS: BP 147/71
[2021-11-06] MEDS ORDERED: PALIPERIDONE PALMITATE 234MG/1.5ML INJ (INVEGA)(FREE PSY INPT ONLY) IM ONE (09:00)
[2021-11-06] MEDS: PALIPERIDONE 3 MG ER TAB (INVEGA) PO SCH ×2 (11:10→20:29)
[2021-11-06 15:37] VITALS: BP 125/84
[2021-11-06 16:03] LABS: CHOLESTEROL RISK RATIO 4.285 (<5)
[2021-11-06] MEDS: OLANZapine ORAL DISINTEGRATING TAB 5MG PO PRN (18:58)
[2021-11-06] MEDS: traZODone 50 MG TAB PO PRN (20:29)
[2021-11-07] MEDS: PALIPERIDONE 3 MG ER TAB (INVEGA) PO SCH ×2 (09:33→21:47)
[2021-11-07] MEDS: OMEGA-3 1000MG CAPSULE PO SCH ×2 (11:16→21:47)
[2021-11-07] MEDS: OLANZapine ORAL DISINTEGRATING TAB 5MG PO PRN (13:06)
[2021-11-07 19:24] VITALS: BP 141/79
[2021-11-07] MEDS: traZODone 50 MG TAB PO PRN (21:47)
[2021-11-08] MEDS: OMEGA-3 1000MG CAPSULE PO SCH ×2 (09:12→20:35)
[2021-11-08] MEDS: PALIPERIDONE 3 MG ER TAB (INVEGA) PO SCH ×2 (09:12→20:35)
[2021-11-08 19:22] VITALS: BP 155/80
[2021-11-08] MEDS: traZODone 50 MG TAB PO PRN (20:35)
[2021-11-09 06:43] VITALS: BP 123/69
[2021-11-09] MEDS: PALIPERIDONE 3 MG ER TAB (INVEGA) PO SCH ×2 (10:07→20:13)
[2021-11-09] MEDS: OMEGA-3 1000MG CAPSULE PO SCH ×2 (10:07→20:13)
[2021-11-09 18:01] VITALS: BP 131/81
[2021-11-09] MEDS: traZODone 50 MG TAB PO PRN (20:13)
[2021-11-10 06:03] VITALS: BP 132/60
[2021-11-10] MEDS: OMEGA-3 1000MG CAPSULE PO SCH ×2 (09:09→20:24)
[2021-11-10] MEDS: PALIPERIDONE 3 MG ER TAB (INVEGA) PO SCH ×2 (09:09→20:24)
[2021-11-10 18:16] VITALS: BP 136/76
[2021-11-10] MEDS: traZODone 50 MG TAB PO PRN (20:24)
[2021-11-11 06:47] VITALS: BP 119/64
[2021-11-11] MEDS: OMEGA-3 1000MG CAPSULE PO SCH ×2 (08:30→20:52)
[2021-11-11] MEDS: PALIPERIDONE 3 MG ER TAB (INVEGA) PO SCH ×2 (08:30→20:53)
[2021-11-11 18:00] VITALS: BP 138/86
[2021-11-11] MEDS: traZODone 50 MG TAB PO PRN ×2 (20:09→20:53)
[2021-11-12 06:00] VITALS: BP 122/59
[2021-11-12] MEDS: PALIPERIDONE 3 MG ER TAB (INVEGA) PO SCH ×2 (08:40→20:54)
[2021-11-12] MEDS: OMEGA-3 1000MG CAPSULE PO SCH ×2 (08:40→20:54)
[2021-11-12 18:00] VITALS: BP 140/78
[2021-11-12] MEDS: traZODone 50 MG TAB PO PRN (20:54)
[2021-11-13 06:47] VITALS: BP 120/58
[2021-11-13] MEDS: PALIPERIDONE 3 MG ER TAB (INVEGA) PO SCH ×2 (08:01→20:23)
[2021-11-13] MEDS: OMEGA-3 1000MG CAPSULE PO SCH ×2 (08:01→20:23)
[2021-11-13 18:00] VITALS: BP 124/63
[2021-11-13] MEDS: traZODone 50 MG TAB PO PRN (20:22)
[2021-11-14 06:00] VITALS: BP 117/70
[2021-11-14] MEDS: PALIPERIDONE 3 MG ER TAB (INVEGA) PO SCH ×2 (08:01→20:22)
[2021-11-14] MEDS: OMEGA-3 1000MG CAPSULE PO SCH ×2 (08:01→20:22)
[2021-11-14 18:00] VITALS: BP 134/89
[2021-11-14] MEDS: traZODone 50 MG TAB PO PRN (20:22)
[2021-11-15 06:40] VITALS: BP 142/80
[2021-11-15] MEDS: OMEGA-3 1000MG CAPSULE PO SCH ×2 (09:29→20:23)
[2021-11-15] MEDS: PALIPERIDONE 3 MG ER TAB (INVEGA) PO SCH ×2 (09:29→20:23)
[2021-11-15 18:00] VITALS: BP 148/85
[2021-11-15] MEDS: OLANZapine ORAL DISINTEGRATING TAB 5MG PO PRN (18:01)
[2021-11-15] MEDS: traZODone 50 MG TAB PO PRN (20:23)
[2021-11-16 06:30] VITALS: BP 137/82
[2021-11-16] MEDS: PALIPERIDONE 3 MG ER TAB (INVEGA) PO SCH ×2 (08:30→20:01)
[2021-11-16] MEDS: OMEGA-3 1000MG CAPSULE PO SCH ×2 (08:30→20:01)
[2021-11-16 17:32] VITALS: BP 121/74
[2021-11-16] MEDS: traZODone 50 MG TAB PO PRN (20:01)
[2021-11-17 07:09] VITALS: BP 101/56
[2021-11-17] MEDS: OMEGA-3 1000MG CAPSULE PO SCH (08:41)
[2021-11-17] MEDS: PALIPERIDONE 3 MG ER TAB (INVEGA) PO SCH (08:41)
[2021-11-17] MEDS ORDERED: FISH1CAP26 PO ×2 (13:49→13:51)
[2021-11-17] MEDS ORDERED: TRAZ-252 PO ×2 (13:49→13:51)
[2021-11-17] MEDS ORDERED: PALI1TAB2 PO ×2 (13:49→13:51)
[2021-11-17] MEDS ORDERED: INVE234I IM (13:49)
[2021-11-17] MEDS ORDERED: OLAN1TAB16 PO (13:53)
[2021-11-17 17:28] VITALS: BP 118/76
== END 2021-11-17 20:10 | disposition home or self-care (01) | DRG 750 ==
LOC: M ED 12:33 → M ED INP 11-04 20:04 → M PSY 11-04 22:25
PROVIDERS: ADMIT Student in an Organized Health Care Education/Training Program; ATTEND Student in an Organized Health Care Education/Training Program
DX: F20.9 Schizophrenia, unspecified (principal); R41.83 Borderline intellectual functioning; F84.9 Pervasive developmental disorder, unspecified; J30.1 Allergic rhinitis due to pollen; Z79.899 Other long term (current) drug therapy